=== PATIENT | female | born 1980 | race Caucasian/White ===

== ENCOUNTER 2020-07-05 17:07 | Emergency (ER) | payer MEDICARE, MEDICAID, SELFPAY ==
--- NOTE | ~2020-07-05 | CT_ITS ---
EXAMINATIONS: CT HEAD WITHOUT CONTRAST AND CT CERVICAL SPINE WITHOUT CONTRAST CLINICAL INFORMATION: Trauma. Fall. COMPARISON: None. TECHNIQUE: Contiguous helical images of the brain were obtained without IV contrast. Contiguous helical images of the cervical spine were obtained without IV contrast. Multiplanar reconstructions were performed. DLP: 513 mGy-cm. FINDINGS: There are no pathologic extra-axial fluid collections. The lateral, third, fourth ventricles are nondilated and concordant with the appearance of the sulci. There is no evidence for acute intraparenchymal hemorrhage or infarct. There is neither mass nor mass effect. There is no shift of midline structures. The paranasal sinuses and mastoid air cells are clear. There are no osseous lesions. The cervical vertebra are in normal alignment. Disc heights and vertebral heights are well-preserved. There are no fractures. There is no prevertebral soft tissue swelling. There is no cervical lymphadenopathy. The visualized lung apices are clear. CT/CT cervical spine wo con IMPRESSION: No evidence for acute intracranial injury. No evidence for acute injury to the cervical spine. Automated exposure control (Care Dose) Adjustment of the mA and/or kv according to patient size (this includes techniques or standardized protocols for targeted exams where dose is matched to indication / reason for exam; i.e. extremities or head).
--- NOTE | ~2020-07-05 | CT_ITS ---
EXAMINATIONS: CT HEAD WITHOUT CONTRAST AND CT CERVICAL SPINE WITHOUT CONTRAST CLINICAL INFORMATION: Trauma. Fall. COMPARISON: None. TECHNIQUE: Contiguous helical images of the brain were obtained without IV contrast. Contiguous helical images of the cervical spine were obtained without IV contrast. Multiplanar reconstructions were performed. DLP: 513 mGy-cm. FINDINGS: There are no pathologic extra-axial fluid collections. The lateral, third, fourth ventricles are nondilated and concordant with the appearance of the sulci. There is no evidence for acute intraparenchymal hemorrhage or infarct. There is neither mass nor mass effect. There is no shift of midline structures. The paranasal sinuses and mastoid air cells are clear. There are no osseous lesions. The cervical vertebra are in normal alignment. Disc heights and vertebral heights are well-preserved. There are no fractures. There is no prevertebral soft tissue swelling. There is no cervical lymphadenopathy. The visualized lung apices are clear. CT/CT head/brain wo con IMPRESSION: No evidence for acute intracranial injury. No evidence for acute injury to the cervical spine. Automated exposure control (Care Dose) Adjustment of the mA and/or kv according to patient size (this includes techniques or standardized protocols for targeted exams where dose is matched to indication / reason for exam; i.e. extremities or head).
[2020-07-05 17:17] VITALS: BP 123/76; BP 124/86; PULSE 70; PULSE 87; RESP 16; TEMP 36.5; O2SAT 99; BMI 22.1
--- NOTE | 2020-07-05 18:12 | ED_ITS ---
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 Per EMS patient was being pushed in wheelchair and fell forward, hit head on door frame, notable laceration to left eyebrow. Denies LOC. Patient not on anticoagulation. Patient denies injury/pain to other area. Unknown tetanus status Related Data Allergies Allergy/AdvReac Type Severity Reaction Status Date / Time No Known Allergies Allergy Unverified 07/05/20 17:46 Review of Systems Review of Systems: Constitutional: No Fever, No Chills Eyes: No Eye Pain Cardiovascular: No Chest Pain Gastrointestinal: No Nausea, No Vomiting, No Abdominal pain Musculoskeletal: No joint pain Skin: + laceration Neuro: + head injury, no LOC History limited due to patient's baseline mental status/dysarthria Yes all other systems are reviewed and are negative [facility] Past Medical History Attestation statement: The following information was validated with the patient. Social History Social History Advance Directives: No Advance Directives Information Provided: Yes Physical Exam Vital Signs: Vital Signs: Last Vital Signs Temp 98.1 F 07/05/20 18:29 Pulse 85 07/05/20 18:29 Resp 15 07/05/20 18:29 BP 111/67 07/05/20 18:29 Pulse Ox 98 07/05/20 18:29 Body Mass Index 22.1 Const: General: cooperative, healthy appearing, comfortable, well developed, alert and awake Limitations: no limitations HENMT: Other: + 2 cm linear laceration noted to left eyebrow with mild tenderness to palpation Head: No Morataya's sign Ears: hearing grossly normal bilaterally General nose exam: Normal external nose present Face and sinus: Yes normal facial exam Eyes: General: appearance normal, both eyes and all related structures Pupils: Equal, round and reactive pupils present EOM: EOMs intact bilaterally Neck: Other: C-collar in place. No midline cervical spinous tenderness Neck: Yes normal visual inspection Chest: Chest palpation & inspection: normal inspection of the chest, no crepitus and no tenderness Resp: Effort & Inspection: normal respiratory effort Cardio: Rate: regular rate GI: Inspection: Yes normal to inspection Palpation (GI): Soft to palpation, nontender, no guarding and not rigid Neuro: Other: Patient at baseline mental status General: tone normal Cranial nerves: Yes Equal, round and reactive pupils present Gait exam (Neuro): Normal gait present Extrem: Other: No tenderness to extremities. Passive ROM intact General: Yes normal to inspection Course Course Course Narrative: CT head/brain wo con IMPRESSION: No evidence for acute intracranial injury. No evidence for acute injury to the cervical spine. >> results discussed with patient. 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 On exam VSS, NAD/well-appearing, C-collar in place, notable laceration to left eyebrow. Exam nonfocal. Will obtain head/C-spine CT and repair laceration Patient texted she would rather Dermabond than sutures Plan: Imaging, Dermabond, update tetanus Medical Records Attestation: I reviewed the patient's medical records. Discharge Plan Discharge Clinical Impression: Facial laceration, Fall Patient Disposition: Home, Self-Care Instructions: Facial Laceration (ED), Skin Adhesive Care (ED) Additional Instructions: Your CT scans were unremarkable today in the ED Your laceration was repaired with skin glue, keep this area dry and clean, only pat dry, do not scrub, this skin glue will fall off on its own, after the skin glue falls off you may apply bacitracin or Neosporin, then thereafter you may apply anti scar cream like Mederma If area begins to look infected, is red, there is drainage, streaking, or you have fever return to the ED Follow-up with Referrals: Feliciano Sales DO [Primary Care Provider] - 3 days
[2020-07-05] MEDS: Diphth,Pertus(ACell),Tet Adult 0.5 ML SYRINGE IM (18:25)
[2020-07-05 18:29] VITALS: BP 111/67; PULSE 85; RESP 15; TEMP 36.7; O2SAT 98
[2020-07-05 19:33] VITALS: BP 110/68; PULSE 91; RESP 16; TEMP 36.6; O2SAT 99
== END 2020-07-05 20:14 | disposition home or self-care (01) ==
PROVIDERS: Emergency Provider Emergency Medicine; PCP Hospitalist
DX: S01.112A Laceration without foreign body of left eyelid and periocular area, initial encounter (principal); W22.09XA Striking against other stationary object, initial encounter; R47.1 Dysarthria and anarthria; R00.0 Tachycardia, unspecified; G21.0 Malignant neuroleptic syndrome; Z87.820 Personal history of traumatic brain injury; Z99.3 Dependence on wheelchair; Y93.89 Activity, other specified; Y92.129 Unspecified place in nursing home as the place of occurrence of the external cause; Y99.9 Unspecified external cause status
CPT/HCPCS: 12011; 70450; 72125; 90471; 90715; 99283; 99284

== ENCOUNTER 2020-07-11 13:23 | Emergency (ER) | payer MEDICARE, MEDICAID, SELFPAY ==
--- NOTE | ~2020-07-11 | CT_ITS ---
EXAMINATION: CT HEAD WITHOUT CONTRAST CLINICAL INFORMATION: Fall COMPARISON: July 05, 2020 TECHNIQUE: Contiguous axial imaging was performed from the skull base to vertex without intravenous administration of contrast. This CT examination was performed using dose optimization techniques as appropriate, variously including the following: *Automated exposure control *Adjustment of mA and/or kV according to patient size (this includes techniques or standardized protocols for targeted exams where dose is matched to indication/reason for exam; i.e. extremities or head) *Use of iterative reconstruction technique DLP: 565 mGy-cm FINDINGS: There is no evidence of acute intracranial hemorrhage or territorial infarction. No abnormal mass effect or midline shift is seen. [place] to white matter differentiation is well preserved. No extra-axial fluid collections are identified. The ventricles are normal in size. There is no abnormal attenuation within the brain parenchyma. The osseous structures are normal. There is a right frontal scalp hematoma. There are multiple partly calcified scalp lesions present. The mastoid air cells and visualized portions of the paranasal sinuses are well aerated. CT/CT head/brain wo con IMPRESSION: No acute intracranial pathology.
--- NOTE | ~2020-07-11 | CT_ITS ---
EXAMINATION: CT FACIAL BONES WITHOUT CONTRAST CLINICAL INFORMATION: Fall COMPARISON: None TECHNIQUE: CT of the facial bones with coronal and sagittal reconstructions without IV contrast. This CT examination was performed using dose optimization techniques as appropriate, variously including the following: *Automated exposure control *Adjustment of mA and/or kV according to patient size (this includes techniques or standardized protocols for targeted exams where dose is matched to indication/reason for exam; i.e. extremities or head) *Use of iterative reconstruction technique DLP: 332.62 mGy-cm FINDINGS: There is no acute maxillofacial fracture. The pterygoid plates are intact. The zygomatic arches are intact. The lamina papyracea are intact. The orbital rims are intact. The paranasal sinuses are well-aerated. No air-fluid levels are seen. There is right deviation of the nasal septum. The ostiomeatal complexes are clear. The lamina papyracea are intact. The ethmoid roofs are symmetric. The carotid canals are normally covered by bone. The mastoid air cells and visualized middle ear cavities are well-aerated. The orbits are normal. The TMJs are unremarkable. The imaged portions of the brain demonstrate no acute abnormality. There is left maxillary caries present within the first and second bicuspids and first and second molars with some gas present and underlying bony destruction. CT/CT facial bones wo con IMPRESSION: No acute facial bone fracture. Left maxillary caries with some bony destruction as described involving both left bicuspids and molars.
--- NOTE | ~2020-07-11 | CT_ITS ---
EXAMINATION: CT CERVICAL SPINE WITHOUT CONTRAST CLINICAL INFORMATION: Fall, trauma, pain COMPARISON: CT cervical spine noncontrast 11/04/2020. TECHNIQUE: Multidetector volumetric CT imaging of the cervical spine is performed without contrast in the axial plane. Additional 2D reformatted coronal and sagittal images are generated on the CT workstation and uploaded to PACS. This CT examination was performed using dose optimization techniques as appropriate, variously including the following: *Automated exposure control *Adjustment of mA and/or kV according to patient size (this includes techniques or standardized protocols for targeted exams where dose is matched to indication/reason for exam; i.e. extremities or head) *Use of iterative reconstruction technique DLP: 270 mGy-cm FINDINGS: There is no vertebral compression fracture, fracture line, spondylolisthesis, or prevertebral soft tissue swelling. The craniocervical junction appears normal. The odontoid appears intact. There is mild levocurvature lower cervical spine again noted. There are mild degenerative changes between anterior arch C1 and the dens. No significant degenerative changes. No perched facet. There is no apical pneumothorax. CT/CT cervical spine wo con IMPRESSION: No acute bony abnormality or prevertebral soft tissue swelling.
[2020-07-11 13:38] VITALS: BP 114/75; PULSE 92; RESP 18; TEMP 36.6; O2SAT 100; BMI 25.0
--- NOTE | 2020-07-11 13:49 | ED_ITS ---
HPI - Fall General Chief Complaint: Fall Stated Complaint: FALL,+HEAD STRIKE,+CCOLLAR Time Seen by Provider: 07/11/20 13:40 Source: EMS and old records reviewed Mode of arrival: EMS Limitations: altered mental status (nonverbal ) History of Present Illness HPI Narrative: 39 yo female with a hx of TBI bipolar disorder frequent falls here with c/o fall while getting dressed, witnessed mechanical in nature no LOC no thinners but did strike head on floor complaint: fall Onset (ago): minute(s) Fall from: standing Fall witnessed: yes, by living facility staff Place fall occurred: shelter/SNF Loss of consciousness: none Prolonged down time: no Symptoms prior to fall: none Context: tripped/slipped Location of injury: face Severity: mild Quality: dull Associated symptoms (after fall): denies Related Data Allergies Allergy/AdvReac Type Severity Reaction Status Date / Time No Known Allergies Allergy Unverified 07/05/20 17:46 Review of Systems Review of Systems: ROS unable to be obtained due to altered mental status PMFSH Past Medical History Attestation statement: The following information was validated with the patient. Medical History Anemia Ataxia Bipolar 1 disorder Falls TBI (traumatic brain injury) Social History Social History (Updated 07/11/20 @ 13:53 by Aby Gooden DO) Smoking Status: Unknown if ever smoked Use of substances other than those prescribed or required for medical reasons: No Advance Directives: No Advance Directives Information Provided: No Physical Exam Vital Signs: Vital Signs: Last Vital Signs Temp 97.8 F 07/11/20 13:38 Pulse 92 07/11/20 13:38 Resp 18 07/11/20 13:38 BP 114/75 07/11/20 13:38 Pulse Ox 100 07/11/20 13:38 Body Mass Index 25.0 Appearance: Alert. Flat affect, nonverbal, no acute distress Eyes: Pupils equal, round and reactive to light. ENT: Pharynx normal. Nose no septal hematoma - bride of nose superficial linear laceration 1cm Neck: Normal inspection. Neck supple. CVS: Normal heart rate and rhythm. Pulses normal. Respiratory: No respiratory distress. Breath sounds normal. Abdomen: Soft and non-tender. Skin: Skin warm and dry. Normal skin color. Normal skin turgor. Extremities: No lower extremity edema. No calf ttp Neuro: nonverbal tracks with eyes, seems to follow commands at time. No motor deficit. No sensory deficit. Procedures Laceration Laceration 1: Site: face (bridge of nose) Description: linear Depth: simple, single layer Local Anesthetic: other anesthetic (LMX) Pre-repair: wound explored and irrigated extensively Skin layer closed with: other (prolene) Size (cm): 6-0 Number of sutures: 1 Technique: simple, interrupted MDM - Fall MDM Narrative Medical decision making narrative: 39 yo female with TBI bipolar disorder c/o mechanical fall with injury to nasal bridge no AC therapy no LOC - will need CT head/neck/facial bones - wound care Discharge Plan Discharge Clinical Impression: Facial laceration, Fall Patient Disposition: Xfer SNF Instructions: Facial Laceration (ED) Additional Instructions: return to ED for any worsening symptoms or concerns SUTURES TO BE REMOVED IN [address] scans of head, cervical spine, facial bones negative for trauma
[2020-07-11] MEDS: Lidocaine 4 % Cream KIT 1 APPL TOPICAL (14:12)
== END 2020-07-11 19:13 | disposition skilled nursing facility (03) ==
PROVIDERS: Emergency Provider Emergency Medicine
DX: S01.21XA Laceration without foreign body of nose, initial encounter (principal); W18.30XA Fall on same level, unspecified, initial encounter; Z91.81 History of falling; F31.9 Bipolar disorder, unspecified; Z87.820 Personal history of traumatic brain injury; Y93.E8 Activity, other personal hygiene; Y92.092 Bedroom in other non-institutional residence as the place of occurrence of the external cause; Y99.9 Unspecified external cause status
CPT/HCPCS: 12014; 70450; 70486; 72125; 99283; 99284

== ENCOUNTER 2021-05-26 08:47 | Inpatient (IN) | payer MEDICARE, MEDICAID, SELFPAY ==
[2021-05-26] VITALS (17 sets, daily range): BP systolic 110–136; BP diastolic 46–77; PULSE 72–134; RESP 12–36; TEMP 38.3–39.4; O2SAT 94–100; BMI 25.3; BMI 24.3
--- NOTE | ~2021-05-26 | US_ITS ---
EXAMINATION: US VENOUS WITH DOPPLER UPPER EXTREMITY, LEFT CLINICAL INFORMATION: Rule out phlebitis COMPARISON: None TECHNIQUE: Ultrasound of the upper extremity is performed using compression sonography and color and pulse Doppler flow with assessment of augmentation of flow. There is also imaging and Doppler assessment of the jugular and subclavian veins. Spectral analysis with color-flow imaging is performed. FINDINGS: Respiratory variation, normal compression, and augmented flow are noted throughout the upper extremity including the axillary, brachial, cubital, and radial and ulnar veins. There is normal flow in the internal jugular and subclavian veins. There is no visible deep or superficial thrombophlebitis. If the patient's symptoms progress, a followup ultrasound in 5 -7 days might be of value to exclude proximal propagation from a nonvisualized distal arm vein. US/US venous duplex UE LT IMPRESSION: No DVT demonstrated in the left upper extremity
--- NOTE | ~2021-05-26 | CT_ITS ---
EXAMINATION: CT HEAD WITHOUT CONTRAST CLINICAL INFORMATION: AMS. COMPARISON: None TECHNIQUE: Contiguous axial imaging was performed from the skull base to vertex without intravenous administration of contrast. This CT examination was performed using dose optimization techniques as appropriate, variously including the following: *Automated exposure control *Adjustment of mA and/or kV according to patient size (this includes techniques or standardized protocols for targeted exams where dose is matched to indication/reason for exam; i.e. extremities or head) *Use of iterative reconstruction technique DLP: 944 mGy-cm FINDINGS: There is no evidence of acute intracranial hemorrhage or territorial infarction. No abnormal mass effect or midline shift is seen. [place] to white matter differentiation is well preserved. No extra-axial fluid collections are identified. The ventricles are normal in size. There is no abnormal attenuation within the brain parenchyma. Bone windows reveal no calvarial abnormality. There are several small to moderate-sized calcified scalp round lesions. The largest lesion left frontal scalp measures 1.2 cm likely sebaceous cyst or neurofibroma. The mastoid air cells and visualized portions of the paranasal sinuses are well aerated. CT/CT head/brain wo con IMPRESSION: No acute intracranial process seen. Multiple calcified scalp lesions likely sebaceous cysts or neurofibromas.
--- NOTE | ~2021-05-26 | US_ITS ---
EXAMINATION: CHEST X-RAY. ULTRASOUND BILATERAL LOWER EXTREMITY VENOUS DUPLEX STUDY. CLINICAL INFORMATION: Altered mental status. Cellulitis. COMPARISON: None. TECHNIQUE: Chest one view. Routine grayscale, color and Doppler imaging of left lower venous system was performed. FINDINGS: Chest: The patient is rotated to the right. The lungs are expanded with elevated left hemidiaphragm. Heart size is mildly enlarged extending the right hemithorax. The pulmonary vascularity is prominent but no consolidation seen. No gross bony abnormality. There is gaseous distention of colon in the mid and left upper quadrant. Ultrasound left lower leg. There is normal patency, color flow and Doppler imaging of bilateral common femoral, greater saphenous, superficial femoral, popliteal and calf veins. On Doppler exam there is increased bilateral venous flow seen. There is no Whalen's cyst. There is no Whalen's cyst visualized. Incidentally noted are multiple bilateral groin lymph nodes. Largest right groin lymph node measures 3.1 x 0.9 x 3.1 cm and left groin lymph node measures 3.9 x 1.1 x 2.2 cm. Most of these lymph nodes have benign characteristics by ultrasound. US/US venous duplex LE BI IMPRESSION: Elevated left hemidiaphragm without any acute pneumonic process in either lungs. Mild cardiomegaly with prominent bilateral pulmonary vascularity. Bilateral lower leg venous study is negative for DVT. Increased vascular flow seen both legs could be secondary to inflammation or infection. Multiple bilateral enlarged groin lymph nodes as described above.
--- NOTE | 2021-05-26 09:00 | ECG_ITS ---
Test Reason : AMS Blood Pressure : / mmHG Vent. Rate : 091 BPM Atrial Rate : 091 BPM P-R Int : 144 ms QRS Dur : 080 ms QT Int : 376 ms P-R-T Axes : 040 046 037 degrees QTc Int : 462 ms Normal sinus rhythm Minimal voltage criteria for LVH, may be normal variant ( Sokolow-Dos Santos ) Nonspecific ST abnormality Abnormal ECG No previous ECGs available Referred By: Kaylie Fox Electronically Signed By:ADAM MIR
[2021-05-26] MEDS: 0.9 % Sodium Chloride 2,334 ML 2334 ML IV (09:28)
[2021-05-26 09:50] LABS: MANUAL DIFF FLAG NO
[2021-05-26] MEDS: Acetaminophen Supp 650 MG SUPP.RECT 975 MG PR ×2 (09:51→15:27)
[2021-05-26] MEDS: cefTRIAXone sodium 2 GM in 0.9 % Sodium Chloride 50 ML IV (09:51)
[2021-05-26 09:54] LABS: Basophils Percent Auto 0.3 % (0-2); Hematocrit 31.8 % (37.0-47.0); Hemoglobin 10.3 g/dl (12.0-16.0); Imm Gran Abs Auto 0.02 X10*3/uL (0.00-0.03); Imm Gran Pct Auto 0.3 % (0.0-0.4); Lymphocytes Absolute Auto 0.7 X10*3/uL (1.2-4.9); Lymphocytes Percent Auto 9.7 % (20-40); Mean Corpuscular HGB Conc 32.4 g/dl (31.0-35.0); Mean Corpuscular Hemoglobin 29.3 pg (27.0-33.0); Mean Corpuscular Volume 90.3 fL (80.0-98.0); Mean Platelet Volume 11.4 fL (9.4-12.3); Monocytes Absolute Auto 0.8 X10*3/uL (0.1-1.2); Monocytes Percent Auto 11.2 % (2-11); Neutrophils Absolute Auto 5.3 x10*3/uL (2.0-8.3); Neutrophils Percent Auto 78.5 % (45-73); Platelet Count 178 X10*3/uL (160-400); Red Blood Count 3.52 X10*6/uL (4.20-5.50); Red Cell Distribution Width 13.6 % (11.0-16.0); White Blood Count 6.7 X10*3/uL (4.8-10.8)
--- NOTE | 2021-05-26 10:05 | ED_ITS ---
HPI - Altered Mental Status General Chief Complaint: Altered Mental Status Stated Complaint: AMS Time Seen by Provider: 05/26/21 08:50 Source: EMS and other ([facility] reports ) Mode of arrival: EMS Limitations: other (Patient is nonverbal at baseline typically able to point to paper that says yes or no ) History of Present Illness HPI narrative: 40-year-old female with a past medical history of a TBI who is now nonverbal at baseline although answers by pointing yo a paper that says ?yes? and ?no? questions and [facility] presenting to the ED via EMS after the long term facility that she is currently residing at center here for further evaluation treatment due to increased altered mental status and decreased responsiveness since yesterday night. They report that she has not been able to point to answ er yes or no questions and they have noticed that she has been unable to close her mouth since last night. They report that she is not eating since last night as well. On exam patient is noted to be contracted with her upper extremities and she has a brief on that is clean although her lower extremities appear cellulitic and she has a wound to the left lower extremity that I uncovered and has some serosanguineous drainage. There is no streaking noted on my exam. complaint: altered mental status and decreased responsiveness Onset (ago): day(s) (Since last night around dinner time) Timing confirmed by: caregiver ([facility] staff) Severity: severe Consistency of symptoms: getting Worse Context: other (See above) Related Data Allergies Allergy/AdvReac Type Severity Reaction Status Date / Time No Known Allergies Allergy Unverified 07/05/20 17:46 Review of Systems Review of Systems: Yes Unobtainable due to mental condition PMFSH Past Medical History Source: old records reviewed and nursing notes reviewed Medical History Anemia Ataxia Bipolar 1 disorder Falls TBI (traumatic brain injury) Social History Social History Alcohol intake: unknown Patient Tobacco Use Status: Tobacco use Unknown Use of substances other than those prescribed or required for medical reasons: Unable to respond Advance Directives: Yes Advance Directives on File: Yes Advance Directives Date on File: 07/12/20 Patient : No Physical Exam ED Vital Signs: Vital Signs - 24 hr 05/26/21 08:56 05/26/21 09:13 05/26/21 10:00 Temperature 101 F H Pulse Rate 87 Respiratory Rate 12 Blood Pressure 111/59 L 113/76 Pulse Oximetry 94 05/26/21 10:19 05/26/21 11:41 Temperature 100.9 F H Pulse Rate 88 Respiratory Rate 16 Blood Pressure 123/76 110/63 Pulse Oximetry 98 BMI result Body Mass Index 25.3 vital signs have been reviewed as normal and appeared to be correct. Blood pressure 111/59. Heart rate 101. Respiration rate 12. Temperature 101.0 Oxygen saturation 94. Appearance: Alert. Flat affect, nonverbal with mouth wide open no acute distress. Head: Normal external exam. Normocephalic. Atraumatic. No [place] signs noted. No raccoon eyes noted Eyes: PERRLA. EOMI. Conjunctiva and sclera normal. Eyelids normal. ENT: EAC normal. TM's Normal. Pharynx normal. Uvula midline. Patient noted to have dry mucous membranes. No lesions/ulcerations or masses noted on the tongue. No trismus noted. No drooling noted. No muffled voice noted. Neck: Normal inspection. Neck supple. FROM. No adenopathy. Thyroid Normal. No tracheal deviation noted. No crepitus is noted. No meningeal signs. No neck mass noted. No signs of trauma noted. CVS: Normal heart rate and rhythm. Heart sound normal. Pulses normal throughout. No murmurs/rales/gallops. Respiratory: No respiratory distress. Painless inspiration. Breath sounds normal. No wheezes/rales/rhonchi noted. Chest nontender. No crepitus is noted. No signs of trauma noted. No accessory muscle usage noted or decreased air movement noted. No signs of trauma. Abdomen: Soft and nontender. Bowel sounds normal in all 4 quadrants. No distention noted. No organomegaly noted. No visible injury noted. Back: Nontender. No signs of trauma. No rashes/lesion/induration/fluctuance or signs of infection noted. Skin: Skin warm and dry. Normal skin color. Patient has poor skin turgor. She has a cellulitic infection to bilateral lower extremities and a wound to the left lower extremity. Otherwise no additional rashes/lesions/lacerations noted Extremities: See pictures below. To bilateral lower extremities patient has erythema/warmth to touch and appears tender to palpation consistent with cellulitic infection. To the left lower extremity she is noted to have a wound that has serosanguineous drainage. She is also noted to have bilateral lower extremity edema. Her upper extremities are contracted. Neuro: Nonverbal tracks with eyes, seems to follow commands at times. No motor deficit. No sensory deficit. Vascular: + radial pulses/+ 2 distal pedal pulses/+2 dorsalis pedis b/l. Normal cap refill. No cyanosis noted to upper extremity nails and lower extremity toes nails. Course Course Course Narrative: 9:45am - 40-year-old female with a past medical history of a TBI who is now nonverbal at baseline although answers by pointing yo a paper that says ?yes? and ?no? questions and Bi[facility]olar presenting to the ED via EMS after the long term facility that she is currently residing at center here for further evaluation treatment due to increased altered mental status and decreased responsiveness since yesterday night. They report that she has not been able to point to answer yes or no questions and they have noticed that she has been unable to close her mouth since last night. They report that she is not eating since last night as well. On exam alert and tracks you with her eyes no focal deficits noted at this time. Patient is noted to be contracted with her upper extremities. Lungs are clear to auscultation. Abdomen is soft and nontender. she has a brief on that is clean. Although her lower extremities appear cellulitic and she has a wound to the left lower extremity that I uncovered and has some serosanguineous drainage. I put place pictures in the chart. There is no streaking noted on my exam. Plan; labs, EKG, CT scan of brain, chest x-ray, bilateral duplex ultrasound of lower extremity, blood cultures, lactic acid. Provide fluids, 975 mg of Tylenol due to the patient is febrile and start the patient on Rocephin for cellulitic infection of lower extremities and re-evaluate. Reevaluation(s) Reevaluation #1: - labs reviewed patient with anemia no prior labs to compare to at this time. BUN 8. AST 35. Troponin 11.4. Otherwise all other labs are within normal limits. UA revealed 40 ketones and +1 protein otherwise no evidence of UTI. Patient negative with stool occult. Patient is negative for COVID - chest x-ray revealed elevated left hemo diaphragm and mild cardiomegaly with bilateral pulmonary vasculature otherwise no other acute processes. - venous duplex ultrasound of bilateral lower extremity negative for DVT and noted to have multiple bilateral enlarged groin lymph nodes which would be related to her cellulitis to her lower extremities appear - CT scan of brain revealed chronic changes no acute processes are noted peer - therefore at this time patient will need to be admitted for cellulitis/fever/sepsis. Time: 12:36 MDM - Altered Mental Status Medical Records Attestation: I reviewed the patient's medical records. Lab Data Attestation: I reviewed the patient's lab results. Result diagrams: 05/26/21 09:45 05/26/21 09:45 Labs: Lab Results 05/26/21 05/26/21 05/26/21 Range/Units 09:45 09:45 09:45 WBC 6.7 (4.8-10.8) X10*3/uL RBC 3.52 L (4.20-5.50) X10*6/uL Hgb 10.3 L (12.0-16.0) g/dl Hct 31.8 L (37.0-47.0) % MCV 90.3 (80.0-98.0) fL MCH 29.3 (27.0-33.0) pg MCHC 32.4 (31.0-35.0) g/dl RDW 13.6 (11.0-16.0) % Plt Count 178 (160-400) X10*3/uL MPV 11.4 (9.4-12.3) fL Immature Gran % (Auto) 0.3 (0.0-0.4) % Neut % (Auto) 78.5 H (45-73) % Lymph % (Auto) 9.7 L (20-40) % [place] % (Auto) 11.2 H (2-11) % Eos % (Auto) 0.0 (0-4) % Baso % (Auto) 0.3 (0-2) % Lymph # (Auto) 0.7 L (1.2-4.9) X10*3/uL [place] # (Auto) 0.8 (0.1-1.2) X10*3/uL Eos # (Auto) 0.0 (0.0-0.4) X10*3/uL Baso # (Auto) 0.0 (0.0-0.2) X10*3/uL Abs Immat Gran (auto) 0.02 (0.00-0.03) X10*3/uL Absolute Neuts (auto) 5.3 (2.0-8.3) x10*3/uL Absolute Nucleated RBC 0.000 (0.0-0.012) X10*3/uL Nucleated RBC % (auto) 0.0 (0.0-0.2) /100WBC PT (9.9-13.0) SEC INR (0.9-1.1) Sodium 141 (135-145) mmol/L Potassium 3.8 (3.3-5.1) mmol/L Chloride 106 (96-108) mmol/L Carbon Dioxide 24 (22-29) mmol/L Anion Gap 15 (12-20) BUN 8 L (9-16) mg/dL Creatinine 0.59 (0.5-1.4) mg/dL Estim Creat Clear Calc 135.1 Estimated GFR > 60 Random Glucose 84 (60-115) mg/dL Lactic Acid 1.0 (0.5-2.0) mmol/L Calcium 9.0 (8.4-10.2) mg/dL Magnesium 1.8 (1.6-2.6) mg/dL Total Bilirubin 0.6 (0.0-1.0) mg/dL AST 35 H (5-31) U/L ALT 12 (0-31) U/L Alkaline Phosphatase 88 (39-117) U/L Troponin I High Sens (<3.5-17.0) ng/L Total Protein 6.8 (6.5-8.0) g/dL Albumin 3.7 (3.5-5.0) g/dL Beta HCG, Quant < 2 mIU/mL Urine Color Urine Appearance Urine pH (5.0-8.0) Ur Specific [place] (1.005-1.025) Urine Protein (NEG-TRACE) MG/DL Urine Glucose (UA) (NEG) MG/DL Urine Ketones (NEG) MG/DL Urine Blood (NEG) Urine Nitrite (NEG) Ur Leukocyte Esterase (NEG) Urine RBC (0) /HPF Urine WBC (0-4) /HPF Ur Squamous Epith Cells /LPF Amorphous Sediment /LPF Urine Bacteria /LPF Stool Occult Blood (NEGATIVE) Urine Opiates Screen (Not Detect) Urine Fentanyl Screen (Not Detect) Ur Barbiturates Screen (Not Detect) Ur Phencyclidine Scrn (Not Detect) Ur Amphetamines Screen (Not Detect) U Benzodiazepines Scrn (Not Detect) Urine Cocaine Screen (Not Detect) U Marijuana (THC) Screen (Not Detect) COVID-19 ([place]O) (Negative) COVID-19 Clin Com 05/26/21 05/26/21 05/26/21 Range/Units 09:45 09:45 10:09 WBC (4.8-10.8) X10*3/uL RBC (4.20-5.50) X10*6/uL Hgb (12.0-16.0) g/dl Hct (37.0-47.0) % MCV (80.0-98.0) fL MCH (27.0-33.0) pg MCHC (31.0-35.0) g/dl RDW (11.0-16.0) % Plt Count (160-400) X10*3/uL MPV (9.4-12.3) fL Immature Gran % (Auto) (0.0-0.4) % Neut % (Auto) (45-73) % Lymph % (Auto) (20-40) % [place] % (Auto) (2-11) % Eos % (Auto) (0-4) % Baso % (Auto) (0-2) % Lymph # (Auto) (1.2-4.9) X10*3/uL [place] # (Auto) (0.1-1.2) X10*3/uL Eos # (Auto) (0.0-0.4) X10*3/uL Baso # (Auto) (0.0-0.2) X10*3/uL Abs Immat Gran (auto) (0.00-0.03) X10*3/uL Absolute Neuts (auto) (2.0-8.3) x10*3/uL Absolute Nucleated RBC (0.0-0.012) X10*3/uL Nucleated RBC % (auto) (0.0-0.2) /100WBC PT (9.9-13.0) SEC INR (0.9-1.1) Sodium (135-145) mmol/L Potassium (3.3-5.1) mmol/L Chloride (96-108) mmol/L Carbon Dioxide (22-29) mmol/L Anion Gap (12-20) BUN (9-16) mg/dL Creatinine (0.5-1.4) mg/dL Estim Creat Clear Calc Estimated GFR Random Glucose (60-115) mg/dL Lactic Acid (0.5-2.0) mmol/L Calcium (8.4-10.2) mg/dL Magnesium (1.6-2.6) mg/dL Total Bilirubin (0.0-1.0) mg/dL AST (5-31) U/L ALT (0-31) U/L Alkaline Phosphatase (39-117) U/L Troponin I High Sens 11.4 (<3.5-17.0) ng/L Total Protein (6.5-8.0) g/dL Albumin (3.5-5.0) g/dL Beta HCG, Quant mIU/mL Urine Color YELLOW Urine Appearance HAZY Urine pH 8.5 H (5.0-8.0) Ur Specific [place] 1.015 (1.005-1.025) Urine Protein 1+ H (NEG-TRACE) MG/DL Urine Glucose (UA) NEG (NEG) MG/DL Urine Ketones 40 (NEG) MG/DL Urine Blood NEG (NEG) Urine Nitrite NEG (NEG) Ur Leukocyte Esterase NEG (NEG) Urine RBC 0-2 (0) /HPF Urine WBC 0-2 (0-4) /HPF Ur Squamous Epith Cells TRACE /LPF Amorphous Sediment 2+ /LPF Urine Bacteria NONE /LPF Stool Occult Blood (NEGATIVE) Urine Opiates Screen (Not Detect) Urine Fentanyl Screen (Not Detect) Ur Barbiturates Screen (Not Detect) Ur Phencyclidine Scrn (Not Detect) Ur Amphetamines Screen (Not Detect) U Benzodiazepines Scrn (Not Detect) Urine Cocaine Screen (Not Detect) U Marijuana (THC) Screen (Not Detect) COVID-19 ([place]) Negative (Negative) COVID-19 Clin Com See Note 05/26/21 05/26/21 05/26/21 Range/Units 10:09 10:44 11:11 WBC (4.8-10.8) X10*3/uL RBC (4.20-5.50) X10*6/uL Hgb (12.0-16.0) g/dl Hct (37.0-47.0) % MCV (80.0-98.0) fL MCH (27.0-33.0) pg MCHC (31.0-35.0) g/dl RDW (11.0-16.0) % Plt Count (160-400) X10*3/uL MPV (9.4-12.3) fL Immature Gran % (Auto) (0.0-0.4) % Neut % (Auto) (45-73) % Lymph % (Auto) (20-40) % [place] % (Auto) (2-11) % Eos % (Auto) (0-4) % Baso % (Auto) (0-2) % Lymph # (Auto) (1.2-4.9) X10*3/uL [place] # (Auto) (0.1-1.2) X10*3/uL Eos # (Auto) (0.0-0.4) X10*3/uL Baso # (Auto) (0.0-0.2) X10*3/uL Abs Immat Gran (auto) (0.00-0.03) X10*3/uL Absolute Neuts (auto) (2.0-8.3) x10*3/uL Absolute Nucleated RBC (0.0-0.012) X10*3/uL Nucleated RBC % (auto) (0.0-0.2) /100WBC PT 14.4 H (9.9-13.0) SEC INR 1.3 H (0.9-1.1) Sodium (135-145) mmol/L Potassium (3.3-5.1) mmol/L Chloride (96-108) mmol/L Carbon Dioxide (22-29) mmol/L Anion Gap (12-20) BUN (9-16) mg/dL Creatinine (0.5-1.4) mg/dL Estim Creat Clear Calc Estimated GFR Random Glucose (60-115) mg/dL Lactic Acid (0.5-2.0) mmol/L Calcium (8.4-10.2) mg/dL Magnesium (1.6-2.6) mg/dL Total Bilirubin (0.0-1.0) mg/dL AST (5-31) U/L ALT (0-31) U/L Alkaline Phosphatase (39-117) U/L Troponin I High Sens (<3.5-17.0) ng/L Total Protein (6.5-8.0) g/dL Albumin (3.5-5.0) g/dL Beta HCG, Quant mIU/mL Urine Color Urine Appearance Urine pH (5.0-8.0) Ur Specific [place] (1.005-1.025) Urine Protein (NEG-TRACE) MG/DL Urine Glucose (UA) (NEG) MG/DL Urine Ketones (NEG) MG/DL Urine Blood (NEG) Urine Nitrite (NEG) Ur Leukocyte Esterase (NEG) Urine RBC (0) /HPF Urine WBC (0-4) /HPF Ur Squamous Epith Cells /LPF Amorphous Sediment /LPF Urine Bacteria /LPF Stool Occult Blood NEGATIVE (NEGATIVE) Urine Opiates Screen Not Detected (Not Detect) Urine Fentanyl Screen Not Detected (Not Detect) Ur Barbiturates Screen Not Detected (Not Detect) Ur Phencyclidine Scrn Not Detected (Not Detect) Ur Amphetamines Screen Not Detected (Not Detect) U Benzodiazepines Scrn Not Detected (Not Detect) Urine Cocaine Screen Not Detected (Not Detect) U Marijuana (THC) Screen Not Detected (Not Detect) COVID-19 ([place]) (Negative) COVID-19 Clin Com 05/26/21 Range/Units 12:46 WBC (4.8-10.8) X10*3/uL RBC (4.20-5.50) X10*6/uL Hgb (12.0-16.0) g/dl Hct (37.0-47.0) % MCV (80.0-98.0) fL MCH (27.0-33.0) pg MCHC (31.0-35.0) g/dl RDW (11.0-16.0) % Plt Count (160-400) X10*3/uL MPV (9.4-12.3) fL Immature Gran % (Auto) (0.0-0.4) % Neut % (Auto) (45-73) % Lymph % (Auto) (20-40) % [place] % (Auto) (2-11) % Eos % (Auto) (0-4) % Baso % (Auto) (0-2) % Lymph # (Auto) (1.2-4.9) X10*3/uL [place] # (Auto) (0.1-1.2) X10*3/uL Eos # (Auto) (0.0-0.4) X10*3/uL Baso # (Auto) (0.0-0.2) X10*3/uL Abs Immat Gran (auto) (0.00-0.03) X10*3/uL Absolute Neuts (auto) (2.0-8.3) x10*3/uL Absolute Nucleated RBC (0.0-0.012) X10*3/uL Nucleated RBC % (auto) (0.0-0.2) /100WBC PT (9.9-13.0) SEC INR (0.9-1.1) Sodium (135-145) mmol/L Potassium (3.3-5.1) mmol/L Chloride (96-108) mmol/L Carbon Dioxide (22-29) mmol/L Anion Gap (12-20) BUN (9-16) mg/dL Creatinine (0.5-1.4) mg/dL Estim Creat Clear Calc Estimated GFR Random Glucose (60-115) mg/dL Lactic Acid (0.5-2.0) mmol/L Calcium (8.4-10.2) mg/dL Magnesium (1.6-2.6) mg/dL Total Bilirubin (0.0-1.0) mg/dL AST (5-31) U/L ALT (0-31) U/L Alkaline Phosphatase (39-117) U/L Troponin I High Sens 9.7 (<3.5-17.0) ng/L Total Protein (6.5-8.0) g/dL Albumin (3.5-5.0) g/dL Beta HCG, Quant mIU/mL Urine Color Urine Appearance Urine pH (5.0-8.0) Ur Specific [place] (1.005-1.025) Urine Protein (NEG-TRACE) MG/DL Urine Glucose (UA) (NEG) MG/DL Urine Ketones (NEG) MG/DL Urine Blood (NEG) Urine Nitrite (NEG) Ur Leukocyte Esterase (NEG) Urine RBC (0) /HPF Urine WBC (0-4) /HPF Ur Squamous Epith Cells /LPF Amorphous Sediment /LPF Urine Bacteria /LPF Stool Occult Blood (NEGATIVE) Urine Opiates Screen (Not Detect) Urine Fentanyl Screen (Not Detect) Ur Barbiturates Screen (Not Detect) Ur Phencyclidine Scrn (Not Detect) Ur Amphetamines Screen (Not Detect) U Benzodiazepines Scrn (Not Detect) Urine Cocaine Screen (Not Detect) U Marijuana (THC) Screen (Not Detect) COVID-19 ([place]) (Negative) COVID-19 Clin Com Imaging Data Chest x-ray and venous duplex ultrasound of bilateral lower extremities: Attestation: I personally reviewed and interpreted this imaging study as follows: Radiologist's impression: FINDINGS: Chest: The patient is rotated to the right. The lungs are expanded with elevated left hemidiaphragm. Heart size is mildly enlarged extending the right hemithorax. The pulmonary vascularity is prominent but no consolidation seen. No gross bony abnormality. There is gaseous distention of colon in the mid and left upper quadrant. Ultrasound left lower leg. There is normal patency, color flow and Doppler imaging of bilateral common femoral, greater saphenous, superficial femoral, popliteal and calf veins.? On Doppler exam there is increased bilateral venous flow seen. There is no Whalen's cyst. There is no Whalen's cyst visualized. Incidentally noted are multiple bilateral groin lymph nodes. Largest right groin lymph node measures 3.1 x 0.9 x 3.1 cm and left groin lymph node measures 3.9 x 1.1 x 2.2 cm. Most of these lymph nodes have benign characteristics by ultrasound. XR/XR chest 1V IMPRESSION: Elevated left hemidiaphragm without any acute pneumonic process in either lungs. ? Mild cardiomegaly with prominent bilateral pulmonary vascularity. ? Bilateral lower leg venous study is negative for DVT. Increased vascular flow seen both legs could be secondary to inflammation or infection. ? Multiple bilateral enlarged groin lymph nodes as described above. CT scan of brain without contrast: Attestation: I personally reviewed and interpreted this imaging study as follows: Radiologist's impression: FINDINGS: There is no evidence of acute intracranial hemorrhage or territorial infarction. No abnormal mass effect or midline shift is seen. [place] to white matter differentiation is well preserved. No extra-axial fluid collections are identified. The ventricles are normal in size. There is no abnormal attenuation within the brain parenchyma. Bone windows reveal no calvarial abnormality. There are several small to moderate-sized calcified scalp round lesions. The largest lesion left frontal scalp measures 1.2 cm likely sebaceous cyst or neurofibroma. The mastoid air cells and visualized portions of the paranasal sinuses are well aerated. ? CT/CT head/brain wo con IMPRESSION: No acute intracranial process seen. ? Multiple calcified scalp lesions likely sebaceous cysts or neurofibromas. ECG Data ECG #1: Attestation: I personally reviewed and interpreted this ECG as follows: ECG interpretation date: 05/26/21 ECG interpretation time: 10:29 Interpretation: Normal sinus rhythm and a triplet of 91 with LVH and nonspecific ST abnormalities no acute ischemic changes are noted. No prior EKGs in our system to compare to at this time. Critical Care Time Critical Care Time Critical Care Time: Yes Total Critical Care Time: 60 Attestation: I personally attest to this time spent taking care of the patient Discharge Plan Discharge Clinical Impression: Cellulitis, AMS (altered mental status), Fever, Sepsis Patient Disposition: Admitted As Inpatient
[2021-05-26 10:13] LABS: Alanine Aminotransferase 12 U/L (0-31); Albumin Level 3.7 g/dL (3.5-5.0); Alkaline Phosphatase 88 U/L (39-117); Anion Gap 15 (12-20); Aspartate Amino Transferase 35 U/L (5-31); Bilirubin Total 0.6 mg/dL (0.0-1.0); Blood Urea Nitrogen 8 mg/dL (9-16); Carbon Dioxide 24 mmol/L (22-29); Chloride 106 mmol/L (96-108); Creatinine Clr Calc Pharmacy 135.1; Estimated Glomerular Filt Rate > 60; Glucose Random 84 mg/dL (60-115); Magnesium 1.8 mg/dL (1.6-2.6); Potassium 3.8 mmol/L (3.3-5.1); Sodium 141 mmol/L (135-145); Total Protein 6.8 g/dL (6.5-8.0)
[2021-05-26 10:15] LABS: Troponin-I High Sensitivity 11.4 ng/L (<3.5-17.0)
[2021-05-26 10:22] LABS: COVID-19 Test Negative (Negative)
[2021-05-26 10:24] LABS: Appearance Urine HAZY; Color Urine YELLOW; Glucose Urine UA NEG (NEG); Leukocyte Esterase Urine NEG (NEG); Nitrite Urine NEG (NEG); PH 8.5 (5.0-8.0); Specific Gravity - Urine 1.015 (1.005-1.025); UACC Culture Trigger NO; Urine Blood NEG (NEG); Urine Ketones 40 MG/DL (NEG)
[2021-05-26 10:27] LABS: HCG Quantitative < 2 mIU/mL
[2021-05-26 10:38] LABS: Urine Protein 1+ MG/DL (NEG-TRACE)
[2021-05-26 10:39] LABS: Amorphous Sediment Urine 2+ /LPF; Amphetamine Screen Urine Not Detected (Not Detect); Barbiturates, Urine Not Detected (Not Detect); Benzodiazepines Screen Urine Not Detected (Not Detect); Cannabinoid Screen Urine Not Detected (Not Detect); Cocaine Screen Urine Not Detected (Not Detect); Fentanyl, urine Not Detected (Not Detect); Opiate Screen Urine Not Detected (Not Detect); Phencyclidine Screen Urine Not Detected (Not Detect); RBC Urine 0-2 /HPF (0); Squamous Epithelial Cell Urine TRACE /LPF; WBC Urine 0-2 /HPF (0-4)
[2021-05-26 11:03] LABS: INTERNATIONAL NORM RATIO 1.3 (0.9-1.1); Prothrombin Time 14.4 SEC (9.9-13.0)
[2021-05-26 11:25] LABS: OBS1 NEGATIVE (NEGATIVE)
[2021-05-26 11:26] LABS: OBS Int Ctl Valid YES
[2021-05-26 13:19] LABS: Troponin-I High Sensitivity 9.7 ng/L (<3.5-17.0)
--- NOTE | 2021-05-26 14:12 | PHA.MEDREC ---
Pharmacy Consult ? Medication Reconciliation Pharmacy has completed the medication reconciliation. Med rec based on skilled nursing mar, confirmed with nurse at facility that she takes two different doses of mirtazapine at bedtime Sanjuanita Romeo PharmD
[2021-05-26] MEDS: vancomycin HCL 1,250 MG in 0.9 % Sodium Chloride 250 ML 166.67 MG IV (14:42)
--- NOTE | 2021-05-26 15:42 | PHA.PROG ---
Admission Date/Time: May 26, 2021 15:11 Indication: Skin Infection Weight in k.8 kg Adjusted body weight in K.84 kg Tell body weight in K.2 kg Obesity Dosing Indication % IBW: 117% Serum Creatinine - Last 168 Hours 05/26/21 09:45 Creatinine 0.59 Estimated CrCl and GFR - Last 168 Hours 05/26/21 09:45 Estim Creat Clear Calc 135.1 Estimated GFR > 60 Vancomycin Loading Dose: N/A Current Vancomycin Dosing Regimen: 1250 mg Q12H Date and Time for next Vancomycin Level to be drawn: 05/27 @ 2200 Pharmacist Comments on Vancomycin Plan: First dose vancomycin 1250 mg (16 mg/kg) given in the ED 05/26 @ 1442. Since first dose was not a full loading dose, we will give second dose in 9 hours. Maintenance dose vancomycin 1250 mg Q12H to begin 05/27 @ 0000 Trough to be drawn prior to 4th dose Pharmacy will monitor renal function daily Ninfa Muñoz PharmD Vancomycin dosing will take advantage of [employer] as a clinical decision support tool that uses Bayesian modeling to calculate individual patient's pharmacokinetic parameters and forecast the patient's drug concentration time course with the target goal AUC 24 range of 400 - 600 mg/L/hr.
[2021-05-26] MEDS: Nicotine 7 MG PATCH.TD24 TRANSDERMA (17:32)
[2021-05-26] MEDS: Piperacillin Sodium/Tazobactam 3.375 GM in 0.9 % Sodium Chloride 50 ML IV ×2 (17:32→22:17)
[2021-05-26] MEDS: 0.9 % Sodium Chloride 1,000 ML 125 ML IVCONT (17:32)
--- NOTE | 2021-05-26 17:40 | PM.IMHP ---
History of Present Illness Date of Service: 05/26/21 Chief Complaint: cellulitis 32-year-old female presents from [address] with complaints of fever and altered mental status as observed by the staff. Transfer sheet says over the last 24 hours she has had persistent fever and mental status changes from baseline. She has a known history TBI and severe de pendant edema. She has been treated many times with antibiotics for recurrent cellulitis. In the emergency room, workup including head CT chest x-ray and venous duplex were unremarkable; exam consistent with diffuse bilateral lower extremity cellulitis Review of Systems Review of Systems: Unable to obtain [facility] Medical History Anemia Ataxia Bipolar 1 disorder Falls TBI (traumatic brain injury) Social History Alcohol intake: unknown Patient Tobacco Use Status: Tobacco use Unknown Use of substances other than those prescribed or required for medical reasons: Unable to respond Advance Directives: Yes Advance Directives on File: Yes Advance Directives Date on File: 07/12/20 Patient : No Meds Allergies Allergy/AdvReac Type Severity Reaction Status Date / Time No Known Allergies Allergy Unverified 07/05/20 17:46 Active Medications: Current Medications Acetaminophen (Acetaminophen 325 Mg Tablet) 650 mg PO Q6H PRN PRN Reason: Fever Or Pain Baclofen (Baclofen 10 Mg Tablet) 10 mg PO TID SUSAN Bisacodyl (Bisacodyl 10 Mg Supp.Rect) 10 mg NC DAILY PRN PRN Reason: Constipation Sodium Chloride (Ns) 1,000 mls @ 125 mls/hr IVCONT .Q8H [facility] Last Admin: 05/26/21 17:32 Dose: 125 mls/hr Documented by: Piperacillin Sod/Tazobactam (Sod 3.375 gm/ Sodium Chloride) 50 mls @ 100 mls/hr IV Q6H [facility] Last Admin: 05/26/21 17:32 Dose: 100 mls/hr Documented by: Vancomycin HCl 1,250 mg/ (Sodium Chloride) 250 mls @ 166.667 mls/hr IV Q12H SUSAN Ibuprofen (Ibuprofen 400 Mg Tablet) 400 mg PO Q6H PRN PRN Reason: Pain (Scale Score 1-3) Mirtazapine (Mirtazapine 7.5 Mg Tablet) 7.5 mg PO BEDTIME [facility] Mirtazapine (Mirtazapine 15 Mg Tablet) 15 mg PO BEDTIME [facility] Multivitamins/Vitamin C (Multivitamin Tablet) 1 tab PO DAILY [facility] Nicotine (Nicotine 7 Mg Patch.Td24) 7 mg TRANSDERMA Q24H [facility] Last Admin: 05/26/21 17:32 Dose: 7 mg Documented by: Pharmacy Consult (Consult Rx Perform Med Rec) 1 each MISCELLANE ONCE PRN PRN Reason: Consult order Pharmacy Consult (Consult Rx Vancomycin Dosing) 1 each MISCELLANE DAILY PRN PRN Reason: Consult order Senna (Sennosides 8.6 Mg Tablet) 8.6 mg PO DAILY PRN PRN Reason: Constipation Sodium Chloride (0.9 % Sodium Chloride Flush 3 Ml Syringe) 3 ml IVFLUSH QSHIFT [facility] Last Admin: 05/26/21 17:18 Dose: Not Given Documented by: Trazodone HCl (Trazodone Hcl 100 Mg Tablet) 100 mg PO BEDTIME [facility] Valproic Acid (Valproic Acid (As Sodium Salt) 250 Mg/5 Ml Solution) 500 mg PO DAILY [facility] Vitamin D (Cholecalciferol (Vitamin D3) 25 Mcg Tablet) 50 mcg PO DAILY [facility] Home Medications Medication Instructions Recorded Confirmed Last Taken Type acetaminophen 325 mg tablet 650 mg PO Q6H PRN 05/26/21 05/26/21 Unknown History amantadine HCl 50 mg/5 mL oral 50 mg PO DAILY 05/26/21 05/26/21 Unknown History solution baclofen 10 mg tablet 10 mg PO TID 05/26/21 05/26/21 Unknown History bisacodyl 10 mg rectal suppository 10 mg NC DAILY PRN 05/26/21 05/26/21 Unknown History cholecalciferol (vitamin D3) 50 50 mcg PO DAILY 05/26/21 05/26/21 Unknown History mcg (2,000 unit) tablet (Vitamin D3) ibuprofen 400 mg tablet 400 mg PO Q6H PRN 05/26/21 05/26/21 Unknown History mirtazapine 15 mg tablet 15 mg PO BEDTIME 05/26/21 05/26/21 Unknown History mirtazapine 7.5 mg tablet 7.5 mg PO BEDTIME 05/26/21 05/26/21 Unknown History multivitamin 1 tab PO DAILY 05/26/21 05/26/21 Unknown History nicotine 7 mg/24 hr daily 1 patch TRANSDERMAL Q24H 05/26/21 05/26/21 Unknown History transdermal patch sennosides 8.6 mg tablet (senna) 8.6 mg PO DAILY PRN 05/26/21 05/26/21 Unknown History trazodone 100 mg tablet 100 mg PO BEDTIME 05/26/21 05/26/21 Unknown History valproic acid (as sodium salt) 250 500 mg PO DAILY 05/26/21 05/26/21 Unknown History mg/5 mL oral solution Physical Exam Vital Signs and Narrative: Vital Signs: Last Vital Signs Temp 102.6 F H 05/26/21 17:30 Pulse 105 H 05/26/21 17:30 Resp 20 05/26/21 17:30 BP 120/66 05/26/21 17:30 Pulse Ox 95 05/26/21 17:30 BMI result Body Mass Index 25.3 Const: Other: Confused/nonverbal answering only yes and no questions (baseline well known to me) Resp: Other: Clear to auscultation bilaterally no rales rhonchi wheezes Cardio: Other: No S4; positive S1-S2; no S3 murmurs rubs gallops GI: Other: Soft nontender nondistended with normoactive bowel sounds all 4 quadrants Neuro: Other: Moves all extremities with equal power; cognition at baseline as per care 1 Extrem: Other: Scaly we PE erythematous lower extremities dorsum of foot to tibial plateau bilaterally Results Labs CBC and Chem 7: 05/26/21 09:45 05/26/21 09:45 Labs: Laboratory Results - last 24 hr 05/26/21 05/26/21 05/26/21 09:45 09:45 09:45 MCV 90.3 MCH 29.3 MCHC 32.4 RDW 13.6 Plt Count 178 MPV 11.4 Immature Gran % (Auto) 0.3 Neut % (Auto) 78.5 H Lymph % (Auto) 9.7 L [place] % (Auto) 11.2 H Eos % (Auto) 0.0 Baso % (Auto) 0.3 Lymph # (Auto) 0.7 L [place] # (Auto) 0.8 Eos # (Auto) 0.0 Baso # (Auto) 0.0 Abs Immat Gran (auto) 0.02 Absolute Neuts (auto) 5.3 Absolute Nucleated RBC 0.000 Nucleated RBC % (auto) 0.0 PT INR Anion Gap 15 Estim Creat Clear Calc 135.1 Estimated GFR > 60 Random Glucose 84 Lactic Acid 1.0 Calcium 9.0 Magnesium 1.8 Total Bilirubin 0.6 AST 35 H ALT 12 Alkaline Phosphatase 88 Total Protein 6.8 Albumin 3.7 Beta HCG, Quant < 2 Urine Color Urine Appearance Urine pH Ur Specific [place] Urine Protein Urine Glucose (UA) Urine Ketones Urine Blood Urine Nitrite Ur Leukocyte Esterase Urine RBC Urine WBC Ur Squamous Epith Cells Amorphous Sediment Urine Bacteria Stool Occult Blood Urine Opiates Screen Urine Fentanyl Screen Ur Barbiturates Screen Ur Phencyclidine Scrn Ur Amphetamines Screen U Benzodiazepines Scrn Urine Cocaine Screen U Marijuana (THC) Screen COVID-19 ([place]ETANO) COVID-[place] 05/26/21 05/26/21 05/26/21 09:45 10:09 10:09 MCV MCH MCHC RDW Plt Count MPV Immature Gran % (Auto) Neut % (Auto) Lymph % (Auto) [place] % (Auto) Eos % (Auto) Baso % (Auto) Lymph # (Auto) [place] # (Auto) Eos # (Auto) Baso # (Auto) Abs Immat Gran (auto) Absolute Neuts (auto) Absolute Nucleated RBC Nucleated RBC % (auto) PT INR Anion Gap Estim Creat Clear Calc Estimated GFR Random Glucose Lactic Acid Calcium Magnesium Total Bilirubin AST ALT Alkaline Phosphatase Total Protein Albumin Beta HCG, Quant Urine Color YELLOW Urine Appearance HAZY Urine pH 8.5 H Ur Specific [place] 1.015 Urine Protein 1+ H Urine Glucose (UA) NEG Urine Ketones 40 Urine Blood NEG Urine Nitrite NEG Ur Leukocyte Esterase NEG Urine RBC 0-2 Urine WBC 0-2 Ur Squamous Epith Cells TRACE Amorphous Sediment 2+ Urine Bacteria NONE Stool Occult Blood Urine Opiates Screen Not Detected Urine Fentanyl Screen Not Detected Ur Barbiturates Screen Not Detected Ur Phencyclidine Scrn Not Detected Ur Amphetamines Screen Not Detected U Benzodiazepines Scrn Not Detected Urine Cocaine Screen Not Detected U Marijuana (THC) Screen Not Detected COVID-19 (GAETANO) Negative COVID-19 [facility] / [facility] Com See Note 05/26/21 05/26/21 10:44 11:11 MCV MCH MCHC RDW Plt Count MPV Immature Gran % (Auto) Neut % (Auto) Lymph % (Auto) [place] % (Auto) Eos % (Auto) Baso % (Auto) Lymph # (Auto) [place] # (Auto) Eos # (Auto) Baso # (Auto) Abs Immat Gran (auto) Absolute Neuts (auto) Absolute Nucleated RBC Nucleated RBC % (auto) PT 14.4 H INR 1.3 H Anion Gap Estim Creat Clear Calc Estimated GFR Random Glucose Lactic Acid Calcium Magnesium Total Bilirubin AST ALT Alkaline Phosphatase Total Protein Albumin Beta HCG, Quant Urine Color Urine Appearance Urine pH Ur Specific [place] Urine Protein Urine Glucose (UA) Urine Ketones Urine Blood Urine Nitrite Ur Leukocyte Esterase Urine RBC Urine WBC Ur Squamous Epith Cells Amorphous Sediment Urine Bacteria Stool Occult Blood NEGATIVE Urine Opiates Screen Urine Fentanyl Screen Ur Barbiturates Screen Ur Phencyclidine Scrn Ur Amphetamines Screen U Benzodiazepines Scrn Urine Cocaine Screen U Marijuana (THC) Screen COVID-19 (GAETANO) COVID-19 Clin Com Imaging Radiologist's Impressions: Impressions Chest X-Ray 05/26/21 10:01 IMPRESSION: Elevated left hemidiaphragm without any acute pneumonic process in either lungs. Mild cardiomegaly with prominent bilateral pulmonary vascularity. Bilateral lower leg venous study is negative for DVT. Increased vascular flow seen both legs could be secondary to inflammation or infection. Multiple bilateral enlarged groin lymph nodes as described above. Venous Duplex 05/26/21 10:26 IMPRESSION: Elevated left hemidiaphragm without any acute pneumonic process in either lungs. Mild cardiomegaly with prominent bilateral pulmonary vascularity. Bilateral lower leg venous study is negative for DVT. Increased vascular flow seen both legs could be secondary to inflammation or infection. Multiple bilateral enlarged groin lymph nodes as described above. Head CT 05/26/21 11:22 IMPRESSION: No acute intracranial process seen. Multiple calcified scalp lesions likely sebaceous cysts or neurofibromas. 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 Venous duplex bilaterally negative for clots 1. Cellulitis (in backdrop of chronic dependent edema) -IV vancomycin/Zosyn (history of resistant staph/strep) -follow renals/divalents -follow-up cultures; IV fluid scheduled Tylenol for fever 2. TBI with a history of bipolar disease -continue all meds as per care 1 transfer sheet -adjust meds as clinically indicated Lovenox Full code Quality Stroke Does the patient have a stroke diagnosis?: No VTE Prior VTE?: No VTE Risk Level:: Medical - moderate - high VTE Device Contraindication: Treatment Not Indicated VTE Drug Contraindication: N/A - Med Ordered
[2021-05-26] MEDS: Enoxaparin Sodium 40 MG/0.4 ML SYRINGE SUBCUT (18:20)
--- NOTE | 2021-05-26 19:49 | PC.NURSE ---
Pt moved into room 14 at 1845, Rn assumed care of this patient at that time. Pt has christine catheter with core temp in place, pt temp 103 at this time, MD Garcia made are. Pt NPO due to not being able to swallow or follow commands, All meds are ordered PO at this time, waiting for meds to be adjusted.
[2021-05-26] MEDS: Acetaminophen Supp 650 MG SUPP.RECT PR (20:00)
--- NOTE | 2021-05-26 20:17 | PC.NURSE ---
Mouth care performed at this time with swab. Pt mouth noted to be very dry. Per pt mom pt usually drinks liquids through a straw however is unable to close mouth . Pt trailed again by this RN for drinking liquids through straw, pt unable to close mouth. Pt maintains eye contact when addressed.
--- NOTE | 2021-05-26 21:45 | PC.NURSE ---
Assisting primary RN- pt noted to be restless and loudly vocalizing, unable to communicate / express needs at baseline. Vitals as charted. O2 noted to be low 80s on RA, pt placed on 3L O2 via NC w/ increase to 100%, titrated down to 2L. Pt repositioned and pillows adjusted. Appeared to be reaching for water, is strict NPO but wet washcloth applied to mouth for comfort. Pt appeared to relax s/p these interventions. Remains attached to campus monitor and pulse ox
--- NOTE | 2021-05-26 22:05 | PC.NURSE ---
MD Shetty notified of pt vitals, requested manual cooling. Ice packs applied to back of neck and groin. Primary RN Rhona updated on change
[2021-05-26] MEDS: LORazepam 2 MG/ML VIAL 0.5 MG IVPUSH (22:23)
--- NOTE | 2021-05-27 | PC.NURSE ---
Addendum entered by Bennie Reddy RN 05/27/21 05:28: Moved to Bed 9 r/t med surg patient. Swallow eval attempted - failed. 1 set of blood cultures out of 2 came back positive - reported to Dr Shetty - already on antibiotics, no new orders. Temp back up to 102.4, rectal. ID tylenol given - ok'ed by Dr Shetty to given even though slightly over 3grams. Patient alert, yelling out at times. Repos, incont small amt brown stool. Full care given. Original Note: Received patient to OVERFLOW bed 3 from main ER - patient alert, baseline nonverbal. mouth able to close. HR 70'S TO 80'S SR. bed bath given, new linens, and patient repositioned.
[2021-05-27] MEDS: 0.9 % Sodium Chloride 1,000 ML 125 ML IVCONT ×3 (01:14→17:13)
[2021-05-27] MEDS: vancomycin HCL 1,250 MG in 0.9 % Sodium Chloride 250 ML 166.67 MG IV ×2 (02:06→13:12)
[2021-05-27] MEDS: Piperacillin Sodium/Tazobactam 3.375 GM in 0.9 % Sodium Chloride 50 ML IV ×4 (03:46→22:21)
[2021-05-27 04:00] VITALS: BP 114/61; PULSE 87; RESP 16; TEMP 39.1; O2SAT 98
--- NOTE | 2021-05-27 05:04 | PC.NURSE ---
PATIENT HAS SMALL AMOUNT OF LOOSE STOOL ,CARE WAS GIVEN ALSO MOUTH CARE WAS DONE .
[2021-05-27] MEDS: Acetaminophen Supp 650 MG SUPP.RECT PR (05:19)
[2021-05-27 06:22] LABS: MANUAL DIFF FLAG NO
[2021-05-27 06:25] VITALS: TEMP 38.4
[2021-05-27 06:34] LABS: Basophils Percent Auto 0.3 % (0-2); Hematocrit 33.1 % (37.0-47.0); Hemoglobin 10.9 g/dl (12.0-16.0); Imm Gran Abs Auto 0.02 X10*3/uL (0.00-0.03); Imm Gran Pct Auto 0.3 % (0.0-0.4); Lymphocytes Absolute Auto 0.9 X10*3/uL (1.2-4.9); Lymphocytes Percent Auto 14.8 % (20-40); Mean Corpuscular HGB Conc 32.9 g/dl (31.0-35.0); Mean Corpuscular Hemoglobin 29.7 pg (27.0-33.0); Mean Corpuscular Volume 90.2 fL (80.0-98.0); Mean Platelet Volume 11.4 fL (9.4-12.3); Monocytes Absolute Auto 0.5 X10*3/uL (0.1-1.2); Monocytes Percent Auto 8.1 % (2-11); Neutrophils Absolute Auto 4.5 x10*3/uL (2.0-8.3); Neutrophils Percent Auto 76.5 % (45-73); Platelet Count 136 X10*3/uL (160-400); Red Blood Count 3.67 X10*6/uL (4.20-5.50); Red Cell Distribution Width 13.8 % (11.0-16.0); White Blood Count 5.8 X10*3/uL (4.8-10.8)
[2021-05-27 07:15] LABS: Alanine Aminotransferase 17 U/L (0-31); Albumin Level 3.2 g/dL (3.5-5.0); Alkaline Phosphatase 78 U/L (39-117); Anion Gap 11 (12-20); Aspartate Amino Transferase 39 U/L (5-31); Bilirubin Total 0.5 mg/dL (0.0-1.0); Blood Urea Nitrogen 8 mg/dL (9-16); Calcium 7.9 mg/dL (8.4-10.2); Carbon Dioxide 21 mmol/L (22-29); Chloride 111 mmol/L (96-108); Creatinine Clr Calc Pharmacy 144.9; Estimated Glomerular Filt Rate > 60; Glucose Fasting 73 mg/dL (60-99); Potassium 3.2 mmol/L (3.3-5.1); Sodium 140 mmol/L (135-145); Total Protein 5.7 g/dL (6.5-8.0)
[2021-05-27 08:53] VITALS: BP 112/68; PULSE 69; RESP 14; TEMP 38; O2SAT 98
[2021-05-27] MEDS: Multivitamin TABLET 1 TAB PO (08:58)
[2021-05-27] MEDS: Cholecalciferol (Vitamin D3) 25 MCG TABLET 50 MCG PO (08:58)
[2021-05-27] MEDS: Baclofen 10 MG TABLET PO ×2 (08:58→17:12)
--- NOTE | 2021-05-27 10:05 | P.CDIC_ITS ---
CDI Concurrent Query Documentation Clarification: PHYSICIAN'S DOCUMENTATION REQUEST Date of Query: 05/27/21 1005 Patient Name: Debbi Herrera Admit Date: 05/26/21 Dear Doctor, A review of the medical record indicates additional documentation may be indicated. Please review below and update the documentation accordingly. Clinical Indicators: Risk Factors/Clinical Indicators/Treatments Per ED note, Wound left lower extremity wound has serosanguineous drainage Based on the above, could you please provide, in the Progress Notes, further information regarding the ulcer/wound: * Type (etiology) of ulcer/wound: * Diabetic ulcer * Venous stasis ulcer * Arterial (ischemic) ulcer * Pressure (decubitus) ulcer * Traumatic wound * Non-healing surgical wound * Other * Unable to determine * For a non-pressure ulcer, please indicate the depth/severity: * Limited to the breakdown of skin * With fat layer exposed * With necrosis of muscle * With necrosis of bone * Other * Unable to determine * If a pressure ulcer, please also include the stage* of the ulcer: * Stage 1 - Skin intact, non-blanchable redness * Stage 2 - Partial thickness loss of dermis, includes intact or open blister * Stage 3 - Full thickness tissue not including bone, tendon, or muscle * Stage 4 - Full thickness tissue loss, including exposed bones, tendon, or muscle * Unstageable - Full thickness tissue loss in which the base of the ulcer is covered by slough (yellow, may, martel, green or brown) and/or eschar (may, brown, or black) in the wound bed. * Suspected deep tissue injury - Purple or maroon localized area of discolored intact skin or blood-filled blister due to damage of underlying soft tissues from pressure and/or shear. The area may be preceded by tissue that is painful, firm, mushy, boggy, warmer, or cooler as compare to adjacent tissue. * Unable to determine *Source: National Pressure Ulcer Advisory Panel (NPUAP) Use of terms such as suspected, likely, concern for, or probable (associated with a specific diagnosis that is being evaluated, monitored, or treated as if it exists) are acceptable and can be coded in the inpatient setting, when documented at the time of discharge. Thank you, Li Swift RN Extension: [phone] Please use your independent medical judgment in providing your response. THIS QUERY IS PART OF THE PERMANENT MEDICAL RECORD Provider Response: Other Other Diagnosis: Venous stasis ulcer
--- NOTE | 2021-05-27 10:05 | MHC.CDI.CONC ---
CDI Concurrent Query Documentation Clarification: PHYSICIAN'S DOCUMENTATION REQUEST Date of Query: 05/27/21 1005 Patient Name: Debbi Herrera Admit Date: 05/26/21 Dear Doctor, A review of the medical record indicates additional documentation may be indicated. Please review below and update the documentation accordingly. Clinical Indicators: Risk Factors/Clinical Indicators/Treatments Per ED note, Wound left lower extremity wound has serosanguineous drainage Based on the above, could you please provide, in the Progress Notes, further information regarding the ulcer/wound: Type (etiology) of ulcer/wound: Diabetic ulcer Venous stasis ulcer Arterial (ischemic) ulcer Pressure (decubitus) ulcer Traumatic wound Non-healing surgical wound Other Unable to determine For a non-pressure ulcer, please indicate the depth/severity: Limited to the breakdown of skin With fat layer exposed With necrosis of muscle With necrosis of bone Other Unable to determine If a pressure ulcer, please also include the stage* of the ulcer: Stage 1 - Skin intact, non-blanchable redness Stage 2 - Partial thickness loss of dermis, includes intact or open blister Stage 3 - Full thickness tissue not including bone, tendon, or muscle Stage 4 - Full thickness tissue loss, including exposed bones, tendon, or muscle Unstageable - Full thickness tissue loss in which the base of the ulcer is covered by slough (yellow, may, martel, green or brown) and/or eschar (may, brown, or black) in the wound bed. Suspected deep tissue injury - Purple or maroon localized area of discolored intact skin or blood-filled blister due to damage of underlying soft tissues from pressure and/or shear. The area may be preceded by tissue that is painful, firm, mushy, boggy, warmer, or cooler as compare to adjacent tissue. Unable to determine *Source: National Pressure Ulcer Advisory Panel (NPUAP) Use of terms such as suspected, likely, concern for, or probable (associated with a specific diagnosis that is being evaluated, monitored, or treated as if it exists) are acceptable and can be coded in the inpatient setting, when documented at the time of discharge. Thank you, Li Swift RN Extension: [phone] Please use your independent medical judgment in providing your response. THIS QUERY IS PART OF THE PERMANENT MEDICAL RECORD Provider Response: Other Other Diagnosis: Venous stasis ulcer
--- NOTE | 2021-05-27 10:08 | P.CDIC_ITS ---
CDI Concurrent Query Documentation Clarification: PHYSICIAN'S DOCUMENTATION REQUEST Date of Query: 05/27/21 1009 Patient Name: Debbi Herrera Admit Date: 05/26/21 Dear Doctor, A review of the medical record indicates additional documentation may be needed. Please review below and update the documentation accordingly. Clinical Indicators: Risk Factors/Clinical Indicators/Treatments hx TBI sent to hospital by skilled facility for altered mental status, decreased responsiveness Usually able to answer yes/no questions with paper Per ED: Altered Mental Status Based on the above, could you clarify in the Progress Notes which, if any of the following, is the most likely etiology of the confusion/altered mental status? * Encephalopathy - indicate type such as metabolic, toxic, septic, alcoholic, hypertensive, etc. * Acute delirium - indicate known or suspected etiology, such as postoperative, due to narcotics or other drugs, etc. * Acute or subacute confusional state due to (specify known or suspected etiology) * Other etiology (please specify) * Unable to determine Use of terms such as suspected, likely, concern for, or probable (associated with a specific diagnosis that is being evaluated, monitored, or treated as if it exists) are acceptable and can be coded in the inpatient setting, when documented at the time of discharge. Thank you, Li Swift RN Extension: [phone] Please use your independent medical judgment in providing your response. THIS QUERY IS PART OF THE PERMANENT MEDICAL RECORD Provider Response: Other Other Diagnosis: Acute confusional state secondary to cellulitis
--- NOTE | 2021-05-27 10:11 | P.CDIC_ITS ---
CDI Concurrent Query Documentation Clarification: PHYSICIAN'S DOCUMENTATION REQUEST Date of Query: 05/27/21 1012 Patient Name: Debbi Herrera Admit Date: 05/26/21 Dear Doctor, A review of the medical record indicates additional documentation may be needed. Please review below and update the documentation accordingly. Clinical Indicators: Documentation on progress note dated 05/26/21 included the diagnosis of sepsis. The patient's infectious clinical indicators include: Risk Factors/Clinical Indicators/Treatments Temperature 101.0 HR 101 ED note: sepsis, bilateral lower extemity cellulitic infection Recognized standard criteria for this condition and other infectious definitions includes: Sepsis Systemic manifestations of infection, with 2 or more SIRS criteria which include: * Fever > 100.4?F or hypothermia < 96.8?F * Leukocytosis ? WBC > 12,000 or leukopenia, WBC < 4,000, or > 10% bands * Tachycardia- > 90 beats/minute * Tachypnea- RR > 20 breaths/minute or PaCO2 < 32mmHg Source: Merck Manual 2013 Documentation should include the known or suspected organism, and the underlying infection, such as UTI or pneumonia Based on the above information and the recognized standard for sepsis, could you please clarify in the Progress Notes if this diagnoses is still accurate and reflective of the patient's condition to ensure quality of the medical record. * Sepsis is/was present and is a clinical diagnosis based on (please include this additional support in the medical record) * After study (the condition) has been ruled out * Other (please specify) * Unable to determine Use of terms such as suspected, likely, concern for, or probable (associated with a specific diagnosis that is being evaluated, monitored, or treated as if it exists) are acceptable and can be coded in the inpatient setting, when documented at the time of discharge. Thank you, Li Swift RN Extension: [phone] Please use your independent medical judgment in providing your response. THIS QUERY IS PART OF THE PERMANENT MEDICAL RECORD Provider Response: Other Other Diagnosis: After studies sepsis has been ruled out
--- NOTE | 2021-05-27 11:34 | MHC.SL.SWA ---
Speech Pathologist Impression: Oral Phase Dysphagia Risk of Aspiration Due to: Neurological Condition Dysphasia Diet Status: Upgrade Liquid Consistency and Strategies for Safe Swallow: Liquid Intake Recommendation: Thin Liquid Intake Strategies: Small Sips Solid Food Consistency: Dietary Recommendations: Pureed (NDD1) Additional Modifications to Solid Foods: Pt does best w/straw when given liquids. Pt has significant oral residual after presentations of puree foods, recommend giving small bites followed by liquid wash w/straw. Discontinue if Pt is pocketing or unable to clear solids/puree from mouth or demonstrates clinical s/s aspiration. Oral Medication Intake: NPO Compensatory Strategies and Precautions to be Taken for Safe Swallow: Sitting Upright (90 deg) Liquids from Straw Alternate Liquids/Solids Oral Check Supervision While Eating and Drinking for Safe Swallow: Total Supervision (1:1) Foods to Avoid: After small bites of puree, offer liquid wash. Discontinue if Pt is pocketing/unable to clear puree food or demonstrates clinical s/s of aspiration. Recommend liquid medication where possible. Avoids sticky foods, contrasting textures (e.g. food that has chunks or crumbles). Swallowing Recommended Treatments: Compens. Strategy Educat. 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 Pt has limited lingual movement and has difficulty organizing and propelling bolus orally and containing bolus orally. On liquids, Pt does best with a straw, and is able to manage liquid bolus during pharyngeal phase well (normal swallow trigger, laryngeal transit). On Puree Solids, Pt has significant difficulty propelling bolus, oral residual after swallow. Residual cleared w/oral wash of liquid from straw, w/ care and close supervision. Pt requires full assist and close supervision during all administrations of food or liquid. Recommend UPGRADE to diet consistencies of THIN liquid by STRAW, w/ Puree (NDD1) which will require FULL/CLOSE supervision w/ monitoring: Small bites, oral check that Pt has cleared food, oral wash after presentations of food, given by straw. Stop presentations of food if Pt is pocketing or unable to clear food orally, or clinical signs of aspiration is observed. Pt would benefit from LIQUID medication as much as possible, w/ careful administration of pills crushed in puree if needed. Frequency/Duration: M-F while inpt. Date Range for Service Req: Timeline to reassess: Credit Risk Analytics Manager Clinican/Clinical Fellow: No Supervisory Statement: I have reviewed and agree with the student/clinical fellow's documentation: N/A Speech Language Pathologist: Lori Saucedo M.A., [employer] CL[employer]
--- NOTE | 2021-05-27 12:27 | PC.NURSE ---
Pt is Alert, oriented to person at this time, unable to determine further oriented due to mental status. Pt repositioned, rectal temp checked, afebrile at this time, medicated as per MAR orders with liquid meds as well as one tablet in apple sauce. Spoke to pt's mother, pt aware. Call tavares within reach, will continue to monitor.
--- NOTE | 2021-05-27 15:29 | HO.PM.IMPN ---
Subjective Subjective Date of Service: 05/27/21 Interval History: Looks brighter this a.m.. Fevers trending down Review of Systems Unable to obtain secondary to history of TBI Physical Exam Vital Signs: Vital Signs: Last Vital Signs Temp 100.4 F 05/27/21 08:53 Pulse 69 05/27/21 08:53 Resp 14 05/27/21 08:53 BP 112/68 05/27/21 08:53 Pulse Ox 98 05/27/21 08:53 BMI result Body Mass Index 24.3 Const: Other: Confused/nonverbal answering only yes and no questions (baseline well known to me) Resp: Other: Clear to auscultation bilaterally no rales rhonchi wheezes Cardio: Other: No S4; positive S1-S2; no S3 murmurs rubs gallops GI: Other: Soft nontender nondistended with normoactive bowel sounds all 4 quadrants Neuro: Other: Moves all extremities with equal power; cognition at baseline as per care 1 Extrem: Other: Scaly we PE erythematous lower extremities dorsum of foot to tibial plateau bilaterally Objective Data Active Medications Acetaminophen (Acetaminophen 325 Mg Tablet) 650 mg PO Q6H PRN PRN Reason: Fever Or Pain Acetaminophen (Acetaminophen Supp 650 Mg Supp.Rect) 650 mg [place] Q8H PRN PRN Reason: Fever Last Admin: 05/27/21 05:19 Dose: 650 mg Documented by: CHIRAG Baclofen (Baclofen 10 Mg Tablet) 10 mg PO TID [facility] Last Admin: 05/27/21 08:58 Dose: 10 mg Documented by: KAMARI Bisacodyl (Bisacodyl 10 Mg Supp.Rect) 10 mg [place] DAILY PRN PRN Reason: Constipation Enoxaparin Sodium (Enoxaparin Sodium 40 Mg/0.4 Ml Syringe) 40 mg SUBCUT Q24H [facility] [place] Last Admin: 05/26/21 18:20 Dose: 40 mg Documented by: ASMITA Sodium Chloride (Ns) 1,000 mls @ 125 mls/hr IVCONT .Q8H [facility] [place] Last Admin: 05/27/21 08:51 Dose: 125 mls/hr Documented by: KAMARI Piperacillin Sod/Tazobactam (Sod 3.375 gm/ Sodium Chloride) 50 mls @ 100 mls/hr IV Q6H [facility] Last Infusion: 05/27/21 13:13 Dose: 0 mls/hr Documented by: KAMARI Vancomycin HCl 1,250 mg/ (Sodium Chloride) 250 mls @ 166.667 mls/hr IV Q12H [facility] [place] Last Infusion: 05/27/21 15:21 Dose: 0 mls/hr Documented by: KAMARI Ibuprofen (Ibuprofen 400 Mg Tablet) 400 mg PO Q6H PRN PRN Reason: Pain (Scale Score 1-3) Mirtazapine (Mirtazapine 7.5 Mg Tablet) 7.5 mg PO BEDTIME [facility] [place] Last Admin: 05/26/21 20:23 Dose: Not Given Documented by: TUCKER Non-Admin Reason: NPO Mirtazapine (Mirtazapine 15 Mg Tablet) 15 mg PO BEDTIME [facility] [place] Last Admin: 05/26/21 20:23 Dose: Not Given Documented by: TUCKER Non-Admin Reason: NPO Multivitamins/Vitamin C (Multivitamin Tablet) 1 tab PO DAILY [facility] [place] Last Admin: 05/27/21 08:58 Dose: 1 tab Documented by: KAMARI Nicotine (Nicotine 7 Mg Patch.Td24) 7 mg TRANSDERMA Q24H [facility] [place] Last Admin: 05/26/21 17:32 Dose: 7 mg Documented by: ASMITA Pharmacy Consult (Consult Rx Perform Med Rec) 1 each MISCELLANE ONCE PRN PRN Reason: Consult order Pharmacy Consult (Consult Rx Vancomycin Dosing) 1 each MISCELLANE DAILY PRN PRN Reason: Consult order Senna (Sennosides 8.6 Mg Tablet) 8.6 mg PO DAILY PRN PRN Reason: Constipation Sodium Chloride (0.9 % Sodium Chloride Flush 3 Ml Syringe) 3 ml IVFLUSH QSHIFT [facility] Last Admin: 05/27/21 08:51 Dose: Not Given Documented by: KAMARI Non-Admin Reason: IV Running Trazodone HCl (Trazodone Hcl 100 Mg Tablet) 100 mg PO BEDTIME [facility] Last Admin: 05/26/21 20:23 Dose: Not Given Documented by: TUCKER Non-Admin Reason: NPO Valproic Acid (Valproic Acid (As Sodium Salt) 250 Mg/5 Ml Solution) 500 mg PO DAILY [facility] [place] Last Admin: 05/27/21 08:58 Dose: 500 mg Documented by: KAMARI Vitamin D (Cholecalciferol (Vitamin D3) 25 Mcg Tablet) 50 mcg PO DAILY [facility] Last Admin: 05/27/21 08:58 Dose: 50 mcg Documented by: KAMARI Labs CBC & Chem 7: 05/27/21 05:48 05/27/21 05:48 Labs: Laboratory Results - last 24 hr 05/27/21 05/27/21 05:48 05:48 MCV 90.2 MCH 29.7 MCHC 32.9 RDW 13.8 Plt Count 136 L MPV 11.4 Immature Gran % (Auto) 0.3 Neut % (Auto) 76.5 H Lymph % (Auto) 14.8 L [place] % (Auto) 8.1 Eos % (Auto) 0.0 Baso % (Auto) 0.3 Lymph # (Auto) 0.9 L [place] # (Auto) 0.5 Eos # (Auto) 0.0 Baso # (Auto) 0.0 Abs Immat Gran (auto) 0.02 Absolute Neuts (auto) 4.5 Absolute Nucleated RBC 0.000 Nucleated RBC % (auto) 0.0 Anion Gap 11 L Estim Creat Clear Calc 144.9 Estimated GFR > 60 Fasting Glucose 73 Calcium 7.9 L D Total Bilirubin 0.5 AST 39 H ALT 17 Alkaline Phosphatase 78 Total Protein 5.7 L Albumin 3.2 L Microbiology Microbiology Results: Microbiology 05/26/21 09:45 Blood Culture - Preliminary Blood - Venous No growth after 24 hours. 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 Venous duplex bilaterally negative for clots 1. Cellulitis (in backdrop of chronic dependent edema) -IV vancomycin/Zosyn (history of resistant staph/strep) -follow renals/divalents -follow-up cultures; will order a PICC line for extended treatment and care 1 2. TBI with a history of bipolar disease -continue all meds as per care 1 transfer sheet -adjust meds as clinically indicated Lovenox Full code Quality Stroke Does the patient have a stroke diagnosis?: No VTE Prior VTE?: No VTE Risk Level:: Medical - moderate - high VTE Device Contraindication: Treatment Not Indicated VTE Drug Contraindication: N/A - Med Ordered
[2021-05-27] MEDS: Enoxaparin Sodium 40 MG/0.4 ML SYRINGE SUBCUT (17:12)
[2021-05-27] MEDS: Nicotine 7 MG PATCH.TD24 TRANSDERMA (17:12)
[2021-05-27 18:53] VITALS: TEMP 37.7
[2021-05-28] VITALS (7 sets, daily range): BP systolic 113–155; BP diastolic 66–82; PULSE 65–92; RESP 15–18; TEMP 36.4–38.4; O2SAT 92–96
[2021-05-28] MEDS: 0.9 % Sodium Chloride 1,000 ML 125 ML IVCONT ×3 (00:34→20:41)
[2021-05-28] MEDS: 0.9 % Sodium Chloride Flush 3 ML SYRINGE IVFLUSH (00:34)
--- NOTE | 2021-05-28 00:34 | PC.NURSE ---
This RN assumed care at 1900. Patient refused medication, but is cooperative with IV fluids and ABX. IV in left wrist appeared swollen, red, and warm to the touch. IV removed and hospitalist notified. This RN placed a new 22g IV in the patient's right wrist. Patient tolerated procedure without difficulty.
[2021-05-28 01:59] LABS: Vancomycin Trough 8.5 mcg/mL (10.0-20.0)
[2021-05-28] MEDS: Acetaminophen Supp 650 MG SUPP.RECT PR ×2 (02:15→12:46)
[2021-05-28] MEDS: vancomycin HCL 1,250 MG in 0.9 % Sodium Chloride 250 ML 166.67 MG IV (02:35)
[2021-05-28 02:42] LABS: Hemoglobin 12.2 g/dl (12.0-16.0)
[2021-05-28] MEDS: Piperacillin Sodium/Tazobactam 3.375 GM in 0.9 % Sodium Chloride 50 ML IV ×4 (04:20→23:10)
[2021-05-28 04:43] LABS: MANUAL DIFF FLAG NO
[2021-05-28 04:45] LABS: Basophils Percent Auto 0.2 % (0-2); Eosinophils Percent Auto 0.1 % (0-4); Hematocrit 35.6 % (37.0-47.0); Hemoglobin 11.7 g/dl (12.0-16.0); Imm Gran Abs Auto 0.04 X10*3/uL (0.00-0.03); Imm Gran Pct Auto 0.5 % (0.0-0.4); Lymphocytes Absolute Auto 1.4 X10*3/uL (1.2-4.9); Lymphocytes Percent Auto 17.3 % (20-40); Mean Corpuscular HGB Conc 32.9 g/dl (31.0-35.0); Mean Corpuscular Hemoglobin 29.3 pg (27.0-33.0); Mean Corpuscular Volume 89.2 fL (80.0-98.0); Mean Platelet Volume 11.5 fL (9.4-12.3); Monocytes Absolute Auto 0.8 X10*3/uL (0.1-1.2); Monocytes Percent Auto 9.7 % (2-11); Neutrophils Absolute Auto 5.9 x10*3/uL (2.0-8.3); Neutrophils Percent Auto 72.2 % (45-73); Platelet Count 160 X10*3/uL (160-400); Red Blood Count 3.99 X10*6/uL (4.20-5.50); Red Cell Distribution Width 13.4 % (11.0-16.0); White Blood Count 8.2 X10*3/uL (4.8-10.8)
[2021-05-28 05:18] LABS: Alanine Aminotransferase 21 U/L (0-31); Albumin Level 3.1 g/dL (3.5-5.0); Alkaline Phosphatase 78 U/L (39-117); Anion Gap 13 (12-20); Aspartate Amino Transferase 44 U/L (5-31); Bilirubin Total 0.5 mg/dL (0.0-1.0); Blood Urea Nitrogen 5 mg/dL (9-16); Calcium 7.8 mg/dL (8.4-10.2); Carbon Dioxide 21 mmol/L (22-29); Chloride 107 mmol/L (96-108); Glucose Fasting 81 mg/dL (60-99); Potassium 3.3 mmol/L (3.3-5.1); Sodium 138 mmol/L (135-145); Total Protein 5.7 g/dL (6.5-8.0)
[2021-05-28 05:26] LABS: Creatinine Clr Calc Pharmacy 144.9; Estimated Glomerular Filt Rate > 60
[2021-05-28] MEDS: Morphine Sulfate 4 MG/ML CARTRIDGE IVPUSH (06:30)
--- NOTE | 2021-05-28 06:57 | PHA.PROG ---
Admission Date/Time: May 26, 2021 15:11 Indication: Cellulitis Weight in k.9 kg Adjusted body weight in K.68 kg [place] body weight in K.2 kg Obesity Dosing Indication % IBW: 117% Serum Creatinine - Last 168 Hours 05/26/21 05/27/21 05/28/21 09:45 05:48 04:33 Creatinine 0.59 0.55 0.55 Estimated CrCl and GFR - Last 168 Hours 05/26/21 05/27/21 05/28/21 09:45 05:48 04:33 Estim Creat Clear Calc 135.1 144.9 144.9 Estimated GFR > 60 > 60 > 60 Vancomycin Loading Dose: N/A Current Vancomycin Dosing Regimen: 1250 mg Q12H Vancomycin Trough 8.5 mcg/mL (10.0-20.0) L 05/28/21 00:54 Pharmacist Comments on Vancomycin Plan: Trough subtherapeutic overnight. Current regimen is not expected to be therapeutic until after the 8th dose. Will increase to vancomycin 1500 mg Q12H. Expected AUC 484 with a trough of 12.5 Trough to be drawn 05/29 @ 1200 Renal function is stable, pharmacy will continue to monitor renal function daily Ninfa Muñoz PharmD Vancomycin dosing will take advantage of [employer] as a clinical decision support tool that uses Bayesian modeling to calculate individual patient's pharmacokinetic parameters and forecast the patient's drug concentration time course with the target goal AUC 24 range of 400 - 600 mg/L/hr.
--- NOTE | 2021-05-28 09:03 | PC.NURSE ---
Pt sleeping at this time, dressing intact to BASILIA SALOMON. Call tavares within reach. Bed assigned, report called Will continue to monitor.
--- NOTE | 2021-05-28 10:05 | HO.PM.IMPN ---
Subjective Subjective Date of Service: 05/28/21 Interval History: No acute issues overnight Fevers trending down Review of Systems Unable to obtain secondary to history of TBI Physical Exam Vital Signs: Vital Signs: Last Vital Signs Temp 100.5 F H 05/28/21 09:13 Pulse 83 05/28/21 09:13 Resp 18 05/28/21 09:13 BP 128/77 05/28/21 09:13 Pulse Ox 93 05/28/21 09:13 BMI result Body Mass Index 24.3 Const: Other: Confused/nonverbal answering only yes and no questions (baseline well known to me) Resp: Other: Clear to auscultation bilaterally no rales rhonchi wheezes Cardio: Other: No S4; positive S1-S2; no S3 murmurs rubs gallops GI: Other: Soft nontender nondistended with normoactive bowel sounds all 4 quadrants Neuro: Other: Moves all extremities with equal power; cognition at baseline as per care 1 Extrem: Other: dependent edema improved...less erythematous Objective Data Active Medications Acetaminophen (Acetaminophen 325 Mg Tablet) 650 mg PO Q6H PRN PRN Reason: Fever Or Pain Acetaminophen (Acetaminophen Supp 650 Mg Supp.Rect) 650 mg [place] Q8H PRN PRN Reason: Fever Last Admin: 05/28/21 02:15 Dose: 650 mg Documented by: KAMRON Baclofen (Baclofen 10 Mg Tablet) 10 mg PO TID [facility] Last Admin: 05/27/21 22:16 Dose: Not Given Documented by: KAMRON Non-Admin Reason: Patient Refused Bisacodyl (Bisacodyl 10 Mg Supp.Rect) 10 mg [place] DAILY PRN PRN Reason: Constipation Enoxaparin Sodium (Enoxaparin Sodium 40 Mg/0.4 Ml Syringe) 40 mg SUBCUT Q24H [facility] Last Admin: 05/27/21 17:12 Dose: 40 mg Documented by: KAMARI Sodium Chloride (Ns) 1,000 mls @ 125 mls/hr IVCONT .Q8H [facility] Last Admin: 05/28/21 00:34 Dose: 125 mls/hr Documented by: KAMRON Piperacillin Sod/Tazobactam (Sod 3.375 gm/ Sodium Chloride) 50 mls @ 100 mls/hr IV Q6H [facility] Last Admin: 05/28/21 04:20 Dose: 100 mls/hr Documented by: KAMRON Vancomycin HCl 1,500 mg/ (Sodium Chloride) 500 mls @ 333.333 mls/hr IV Q12H [facility] Ibuprofen (Ibuprofen 400 Mg Tablet) 400 mg PO Q6H PRN PRN Reason: Pain (Scale Score 1-3) Mirtazapine (Mirtazapine 7.5 Mg Tablet) 7.5 mg PO BEDTIME [facility] Last Admin: 05/27/21 22:16 Dose: Not Given Documented by: KAMRON Non-Admin Reason: Patient Refused Mirtazapine (Mirtazapine 15 Mg Tablet) 15 mg PO BEDTIME [facility] Last Admin: 05/27/21 22:17 Dose: Not Given Documented by: KAMRON Non-Admin Reason: Patient Refused Multivitamins/Vitamin C (Multivitamin Tablet) 1 tab PO DAILY [facility] Last Admin: 05/27/21 08:58 Dose: 1 tab Documented by: KAMARI Nicotine (Nicotine 7 Mg Patch.Td24) 7 mg TRANSDERMA Q24H [facility] Last Admin: 05/27/21 17:12 Dose: 7 mg Documented by: KAMARI Pharmacy Consult (Consult Rx Perform Med Rec) 1 each MISCELLANE ONCE PRN PRN Reason: Consult order Pharmacy Consult (Consult Rx Vancomycin Dosing) 1 each MISCELLANE DAILY PRN PRN Reason: Consult order Senna (Sennosides 8.6 Mg Tablet) 8.6 mg PO DAILY PRN PRN Reason: Constipation Sodium Chloride (0.9 % Sodium Chloride Flush 3 Ml Syringe) 3 ml IVFLUSH QSHIFT [facility] Last Admin: 05/28/21 00:34 Dose: 3 ml Documented by: KAMRON Trazodone HCl (Trazodone Hcl 100 Mg Tablet) 100 mg PO BEDTIME [facility] Last Admin: 05/27/21 22:17 Dose: Not Given Documented by: KAMRON Non-Admin Reason: Patient Refused Valproic Acid (Valproic Acid (As Sodium Salt) 250 Mg/5 Ml Solution) 500 mg PO DAILY [facility] Last Admin: 05/27/21 08:58 Dose: 500 mg Documented by: KAMARI Vitamin D (Cholecalciferol (Vitamin D3) 25 Mcg Tablet) 50 mcg PO DAILY [facility] Last Admin: 05/27/21 08:58 Dose: 50 mcg Documented by: KAMARI Labs CBC & Chem 7: 05/28/21 04:33 05/28/21 04:33 Labs: Laboratory Results - last 24 hr 05/28/21 05/28/21 05/28/21 00:54 02:24 04:33 MCV MCH MCHC RDW Plt Count MPV Immature Gran % (Auto) Neut % (Auto) Lymph % (Auto) [place] % (Auto) Eos % (Auto) Baso % (Auto) Lymph # (Auto) [place] # (Auto) Eos # (Auto) Baso # (Auto) Abs Immat Gran (auto) Absolute Neuts (auto) Absolute Nucleated RBC Nucleated RBC % (auto) Anion Gap 13 Estim Creat Clear Calc 144.9 Estimated GFR > 60 Fasting Glucose 81 Lactic Acid 1.0 Calcium 7.8 L Total Bilirubin 0.5 AST 44 H ALT 21 Alkaline Phosphatase 78 Total Protein 5.7 L Albumin 3.1 L Vancomycin Trough 8.5 L 05/28/21 04:33 MCV 89.2 MCH 29.3 MCHC 32.9 RDW 13.4 Plt Count 160 MPV 11.5 Immature Gran % (Auto) 0.5 H Neut % (Auto) 72.2 Lymph % (Auto) 17.3 L [place] % (Auto) 9.7 Eos % (Auto) 0.1 Baso % (Auto) 0.2 Lymph # (Auto) 1.4 [place] # (Auto) 0.8 Eos # (Auto) 0.0 Baso # (Auto) 0.0 Abs Immat Gran (auto) 0.04 H Absolute Neuts (auto) 5.9 Absolute Nucleated RBC 0.000 Nucleated RBC % (auto) 0.0 Anion Gap Estim Creat Clear Calc Estimated GFR Fasting Glucose Lactic Acid Calcium Total Bilirubin AST ALT Alkaline Phosphatase Total Protein Albumin Vancomycin Trough Microbiology Microbiology Results: Microbiology 05/26/21 09:45 Blood Culture - Preliminary Blood - Venous Prelim: GPC Gram Stain only 05/26/21 09:45 Blood Culture - Preliminary Blood - Venous Prelim: GPC Gram Stain only Assessment and Plan (1) Cellulitis: Status: Acute (2) TBI (traumatic brain injury): Status: Acute Plan 40-year-old female with well-documented 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 Venous duplex bilaterally negative for clots 1. Cellulitis (in backdrop of chronic dependent edema) -TMaxtrending improveing -IV vancomycin/Zosyn (history of resistant staph/strep) -follow renals/divalents -follow-up cultures; will order a PICC line for extended treatment and care 1 2. TBI with a history of bipolar disease -continue all meds as per care 1 transfer sheet -adjust meds as clinically indicated -diet as per speech Lovenox Full code Quality Stroke Does the patient have a stroke diagnosis?: No VTE Prior VTE?: No VTE Risk Level:: Medical - moderate - high VTE Device Contraindication: Treatment Not Indicated VTE Drug Contraindication: N/A - Med Ordered
--- NOTE | 2021-05-28 10:18 | MHC.CM.PN ---
spoke with pts mother who is also her hcp pt is a lt resident of [facility] where she will return when dcd
--- NOTE | 2021-05-28 11:18 | MHC.SLORD ---
Speech Language Pathology Order Status: Patient was unavailable when RAKE OPERATOR arrived this morning, working with nursing. Patient is on appropriate diet textures PUREED (NDD1) solids and THIN liquids. RAKE OPERATOR will continue to follow.
--- NOTE | 2021-05-28 12:25 | P.CNID_ITS ---
History of Present Illness Data of Consult Service Date: 05/27/21 Requesting physician: Feliciano Sales Primary Care Provider: Unknown Physician HPI Reason for consult: bacteremia,cellulitis She was noticed at [facility] to have diminished mental status and not eating yesterday. She came to hospital. She has increasing swelling and redness bilateral lower extremities. She is known to have recurrent cellulitis. She has fever as well. Review of Systems Review of Systems: Yes all other systems are reviewed and are negative [facility] Past Medical History Medical History (Updated 06/06/21 @ 00:02 by Clinton Graves) Anemia Ataxia Bacteremia due to group B Streptococcus Bipolar 1 disorder Falls TBI (traumatic brain injury) Family History Family history: reviewed and not pertinent Social History Social History Household Members: Other Housing: Prison Do you presently have visiting nurse or other home services: No (at [facility]) Unable to assess alcohol history related to: Unable to respond Alcohol intake: unknown Patient Tobacco Use Status: Tobacco use Unknown Tobacco use type: Cigarette Advance Directives Date on File: 07/12/20 service: No Meds Allergies Allergy/AdvReac Type Severity Reaction Status Date / Time No Known Allergies Allergy Unverified 07/05/20 17:46 Active Medications: Current Medications Acetaminophen (Acetaminophen 325 Mg Tablet) 650 mg PO Q6H PRN PRN Reason: Fever Or Pain Acetaminophen (Acetaminophen Supp 650 Mg Supp.Rect) 650 mg MO Q8H PRN PRN Reason: Fever Last Admin: 05/28/21 02:15 Dose: 650 mg Documented by: Acetaminophen (Acetaminophen Oral Liquid 650 Mg/20.3 Ml Solution) 650 mg PO Q4H PRN PRN Reason: Fever >100.4 Baclofen (Baclofen 10 Mg Tablet) 10 mg PO TID [facility] Last Admin: 05/28/21 10:52 Dose: Not Given Documented by: Bisacodyl (Bisacodyl 10 Mg Supp.Rect) 10 mg MO DAILY PRN PRN Reason: Constipation Enoxaparin Sodium (Enoxaparin Sodium 40 Mg/0.4 Ml Syringe) 40 mg SUBCUT Q24H [facility] Last Admin: 05/27/21 17:12 Dose: 40 mg Documented by: Sodium Chloride (Ns) 1,000 mls @ 125 mls/hr IVCONT .Q8H SUSAN Last Admin: 05/28/21 10:16 Dose: 125 mls/hr Documented by: Piperacillin Sod/Tazobactam (Sod 3.375 gm/ Sodium Chloride) 50 mls @ 100 mls/hr IV Q6H [facility] Last Infusion: 05/28/21 10:57 Dose: Infused Documented by: Vancomycin HCl 1,500 mg/ (Sodium Chloride) 500 mls @ 333.333 mls/hr IV Q12H [facility] Ibuprofen (Ibuprofen 400 Mg Tablet) 400 mg PO Q6H PRN PRN Reason: Pain (Scale Score 1-3) Mirtazapine (Mirtazapine 7.5 Mg Tablet) 7.5 mg PO BEDTIME [facility] Last Admin: 05/27/21 22:16 Dose: Not Given Documented by: Mirtazapine (Mirtazapine 15 Mg Tablet) 15 mg PO BEDTIME [facility] Last Admin: 05/27/21 22:17 Dose: Not Given Documented by: Multivitamins/Vitamin C (Multivitamin Tablet) 1 tab PO DAILY [facility] Last Admin: 05/28/21 10:56 Dose: Not Given Documented by: Nicotine (Nicotine 7 Mg Patch.Td24) 7 mg TRANSDERMA Q24H [facility] Last Admin: 05/27/21 17:12 Dose: 7 mg Documented by: Pharmacy Consult (Consult Rx Perform Med Rec) 1 each MISCELLANE ONCE PRN PRN Reason: Consult order Pharmacy Consult (Consult Rx Vancomycin Dosing) 1 each MISCELLANE DAILY PRN PRN Reason: Consult order Senna (Sennosides 8.6 Mg Tablet) 8.6 mg PO DAILY PRN PRN Reason: Constipation Sodium Chloride (0.9 % Sodium Chloride Flush 3 Ml Syringe) 3 ml IVFLUSH QSHIFT [facility] Last Admin: 05/28/21 09:37 Dose: Not Given Documented by: Trazodone HCl (Trazodone Hcl 100 Mg Tablet) 100 mg PO BEDTIME [facility] Last Admin: 05/27/21 22:17 Dose: Not Given Documented by: Valproic Acid (Valproic Acid (As Sodium Salt) 250 Mg/5 Ml Solution) 500 mg PO DAILY [facility] Last Admin: 05/28/21 10:55 Dose: Not Given Documented by: Vitamin D (Cholecalciferol (Vitamin D3) 25 Mcg Tablet) 50 mcg PO DAILY [facility] Last Admin: 05/28/21 10:54 Dose: Not Given Documented by: Home Medications Medication Instructions Recorded Confirmed Last Taken Type acetaminophen 325 mg tablet 650 mg PO Q6H PRN 05/26/21 05/26/21 Unknown History amantadine HCl 50 mg/5 mL oral 50 mg PO DAILY 05/26/21 05/26/21 Unknown History solution baclofen 10 mg tablet 10 mg PO TID 05/26/21 05/26/21 Unknown History bisacodyl 10 mg rectal suppository 10 mg MO DAILY PRN 05/26/21 05/26/21 Unknown History cholecalciferol (vitamin D3) 50 50 mcg PO DAILY 05/26/21 05/26/21 Unknown History mcg (2,000 unit) tablet (Vitamin D3) ibuprofen 400 mg tablet 400 mg PO Q6H PRN 05/26/21 05/26/21 Unknown History mirtazapine 15 mg tablet 15 mg PO BEDTIME 05/26/21 05/26/21 Unknown History mirtazapine 7.5 mg tablet 7.5 mg PO BEDTIME 05/26/21 05/26/21 Unknown History multivitamin 1 tab PO DAILY 05/26/21 05/26/21 Unknown History nicotine 7 mg/24 hr daily 1 patch TRANSDERMAL Q24H 05/26/21 05/26/21 Unknown History transdermal patch sennosides 8.6 mg tablet (senna) 8.6 mg PO DAILY PRN 05/26/21 05/26/21 Unknown History trazodone 100 mg tablet 100 mg PO BEDTIME 05/26/21 05/26/21 Unknown History valproic acid (as sodium salt) 250 500 mg PO DAILY 05/26/21 05/26/21 Unknown History mg/5 mL oral solution Physical Exam Vital Signs: Vital Signs: Last Vital Signs Temp 99.9 F 05/28/21 11:31 Pulse 71 05/28/21 11:31 Resp 18 05/28/21 11:31 BP 114/68 05/28/21 11:31 Pulse Ox 93 05/28/21 11:31 BMI result Body Mass Index 24.3 Const: General: cooperative HENMT: Head: Yes normal to inspection Mouth: Normal oral and palatal mucosa present Resp: Effort & Inspection: normal respiratory effort Cardio: Rate: regular rate Rhythm: regular rhythm GI: Palpation (GI): Soft to palpation and nontender Extrem: Other: redness,left more than right lower extremities Results Labs CBC & Chem 7: 05/29/21 05:51 05/29/21 05:51 Labs: Short CBC 05/28/21 05/28/21 Range/Units 02:23 04:33 WBC 8.2 (4.8-10.8) X10*3/uL Hgb 12.2 11.7 L (12.0-16.0) g/dl Hct 37.0 35.6 L (37.0-47.0) % Plt Count 160 (160-400) X10*3/uL BMP 05/28/21 04:33 Sodium 138 Potassium 3.3 Chloride 107 Carbon Dioxide 21 L BUN 5 L Creatinine 0.55 Calcium 7.8 L Liver Function 05/28/21 Range/Units 04:33 Total Bilirubin 0.5 (0.0-1.0) mg/dL AST 44 H (5-31) U/L ALT 21 (0-31) U/L Alkaline Phosphatase 78 (39-117) U/L Albumin 3.1 L (3.5-5.0) g/dL Microbiology Microbiology Results: Microbiology 05/26/21 09:45 Blood - Venous Blood Culture - Final Coag negative Staphylococcus 05/26/21 09:45 Blood - Venous Blood Culture - Preliminary Group G streptococcus Assessment and Plan (1) Cellulitis: Status: Acute (2) Sepsis: Status: Resolved (3) Bacteremia due to group B Streptococcus: Status: Resolved Cellultis is cause of bacteremia. Possibly Group G strep is chronic and recurrent cause of cellulitis She has poor response to oral antibiotics. Staph hominis likely contaminant but patient on Vancomycin covers. Plan Would favor 10-14 days Vancomycin through PICC line Check trough and creatinine weekly Consider po PCN V 250 bid prophylaxis for recurrent cellulitis after acute treatment. Thank you for very interesting consult.
[2021-05-28] MEDS: vancomycin HCL 1,500 MG in 0.9 % Sodium Chloride 500 ML 333.33 MG IV (12:49)
[2021-05-28] MEDS: Nicotine 7 MG PATCH.TD24 TRANSDERMA (15:30)
[2021-05-28] MEDS: Enoxaparin Sodium 40 MG/0.4 ML SYRINGE SUBCUT (17:17)
[2021-05-29] VITALS: BP 135/71; PULSE 75; RESP 16; TEMP 37.3; O2SAT 94
[2021-05-29] MEDS: vancomycin HCL 1,500 MG in 0.9 % Sodium Chloride 500 ML 333.33 MG IV ×2 (01:14→14:41)
[2021-05-29 04:00] VITALS: BP 117/65; PULSE 58; RESP 18; TEMP 37.3; O2SAT 96
[2021-05-29] MEDS: Piperacillin Sodium/Tazobactam 3.375 GM in 0.9 % Sodium Chloride 50 ML IV ×2 (05:13→11:08)
[2021-05-29 06:23] LABS: MANUAL DIFF FLAG NO
[2021-05-29 06:27] LABS: Basophils Percent Auto 0.2 % (0-2); Eosinophils Percent Auto 0.7 % (0-4); Hematocrit 36.6 % (37.0-47.0); Hemoglobin 12.1 g/dl (12.0-16.0); Imm Gran Abs Auto 0.02 X10*3/uL (0.00-0.03); Imm Gran Pct Auto 0.4 % (0.0-0.4); Lymphocytes Absolute Auto 1.6 X10*3/uL (1.2-4.9); Lymphocytes Percent Auto 29.1 % (20-40); Mean Corpuscular HGB Conc 33.1 g/dl (31.0-35.0); Mean Corpuscular Hemoglobin 29.5 pg (27.0-33.0); Mean Corpuscular Volume 89.3 fL (80.0-98.0); Mean Platelet Volume 11.4 fL (9.4-12.3); Monocytes Absolute Auto 0.8 X10*3/uL (0.1-1.2); Monocytes Percent Auto 14.7 % (2-11); Neutrophils Percent Auto 54.9 % (45-73); Platelet Count 183 X10*3/uL (160-400); Red Cell Distribution Width 13.5 % (11.0-16.0); White Blood Count 5.5 X10*3/uL (4.8-10.8)
[2021-05-29 06:49] LABS: Alanine Aminotransferase 20 U/L (0-31); Albumin Level 3.2 g/dL (3.5-5.0); Alkaline Phosphatase 81 U/L (39-117); Anion Gap 16 (12-20); Aspartate Amino Transferase 39 U/L (5-31); Bilirubin Total 0.6 mg/dL (0.0-1.0); Blood Urea Nitrogen 4 mg/dL (9-16); Carbon Dioxide 21 mmol/L (22-29); Chloride 108 mmol/L (96-108); Creatinine Clr Calc Pharmacy 132.9; Estimated Glomerular Filt Rate > 60; Glucose Fasting 78 mg/dL (60-99); Sodium 142 mmol/L (135-145); Total Protein 5.8 g/dL (6.5-8.0)
[2021-05-29 07:36] VITALS: BP 162/88; PULSE 101; RESP 18; TEMP 36.7; O2SAT 93
[2021-05-29] MEDS: Potassium Chloride/H20 10 MEQ/100 ML PIGGYBACK 100 MEQ IV ×4 (10:01→15:45)
[2021-05-29] MEDS: Baclofen 10 MG TABLET PO (10:02)
[2021-05-29] MEDS: Cholecalciferol (Vitamin D3) 25 MCG TABLET 50 MCG PO (10:02)
[2021-05-29] MEDS: Multivitamin TABLET 1 TAB PO (10:02)
[2021-05-29] MEDS: 0.9 % Sodium Chloride 1,000 ML 125 ML IVCONT (10:04)
--- NOTE | 2021-05-29 10:36 | PC.NURSE ---
Skin/wound assessment completed. Patient has cellulitis to bilateral extremities with pink dry peeling skin. Left posterior lower leg has a venous ulcer yellow, shiny wound bed. Lotion applied to bilateral legs and Hydrofera blue applied to wound bed of ulcer covered with non woven gauze and roll gauze. Will continue to follow.
--- NOTE | 2021-05-29 11:31 | PM.DS ---
DS: Providers Provider Date of Service: 05/29/21 Date of admission: 05/26/21 15:11 Date of discharge: 05/29/21 Primary care physician: Unknown Physician Consults: 05/26/21 15:14 Consult to Infectious Diseases Routine Consulting Provider: Niru Douglas Reason for consultation: cellulitis Has provider been notified: No DS: Diagnosis Discharge Diagnosis (1) Cellulitis: Status: Acute (2) Sepsis: Status: Acute (3) Bacteremia due to group B Streptococcus: Status: Acute DS: Summary Hospital Course Hospital Course: 40-year-old female with history of TBI and severe dependent edema presents with cellulitis bilateral lower extremities and fever to 102. She was admitted, given IV Zosyn and vancomycin and blood cultures drawn. Over the next 48 hours, T-max has improved and ID consult has been noted. per ID, blood cultures are contaminant and they recommend 14 days of IV vancomycin. Patient to be discharged back to [facility] after lid line inserted Time Spent with Patient Time attestation: Total time spent providing and/or coordinating discharge services: Discharge coordination time: Greater than 30 minutes Quality: Stroke Does the patient have a stroke diagnosis?: No Physical Exam Vital Signs: Vital Signs: Last Vital Signs Temp 98.1 F 05/29/21 07:36 Pulse 101 H 05/29/21 07:36 Resp 18 05/29/21 07:36 BP 162/88 H 05/29/21 07:36 Pulse Ox 93 05/29/21 07:36 BMI result Body Mass Index 24.3 Const: Other: Confused/nonverbal answering only yes and no questions (baseline well known to me) Resp: Other: Clear to auscultation bilaterally no rales rhonchi wheezes Cardio: Other: No S4; positive S1-S2; no S3 murmurs rubs gallops GI: Other: Soft nontender nondistended with normoactive bowel sounds all 4 quadrants Neuro: Other: Moves all extremities with equal power; cognition at baseline as per care 1 Extrem: Other: dependent edema improved...less erythematous DS: Data Data Completed and Pending Labs on day of discharge: Laboratory Results - last 24 hr 05/29/21 05/29/21 05:51 05:51 WBC 5.5 RBC 4.10 L Hgb 12.1 Hct 36.6 L MCV 89.3 MCH 29.5 MCHC 33.1 RDW 13.5 Plt Count 183 MPV 11.4 Immature Gran % (Auto) 0.4 Neut % (Auto) 54.9 Lymph % (Auto) 29.1 [place] % (Auto) 14.7 H Eos % (Auto) 0.7 Baso % (Auto) 0.2 Lymph # (Auto) 1.6 [place] # (Auto) 0.8 Eos # (Auto) 0.0 Baso # (Auto) 0.0 Abs Immat Gran (auto) 0.02 Absolute Neuts (auto) 3.0 Absolute Nucleated RBC 0.000 Nucleated RBC % (auto) 0.0 Sodium 142 Potassium 3.0 L Chloride 108 Carbon Dioxide 21 L Anion Gap 16 BUN 4 L Creatinine 0.60 Estim Creat Clear Calc 132.9 Estimated GFR > 60 Fasting Glucose 78 Calcium 8.0 L Total Bilirubin 0.6 AST 39 H ALT 20 Alkaline Phosphatase 81 Total Protein 5.8 L Albumin 3.2 L Preliminary micro results at discharge 05/28/21 02:23 Blood Culture - Preliminary Blood - Venous No growth after 24 hours. 05/28/21 02:27 Blood Culture - Preliminary Blood - Venous No growth after 24 hours. Discharge Plan Discharge Patient Disposition: Xfer Inpatient Rehab Fac Discharge Diagnosis: cellulitis Referrals: Physician,Unknown J [Primary Care Provider] - 1 Week Discharge Medications: New vancomycin 1.25 gram recon soln 1 g IV Q12H Qty: 10 2RF Continued amantadine HCl 50 mg/5 mL Solution 50 mg PO DAILY 0RF multivitamin Tablet 1 tab PO DAILY 0RF sennosides [senna] 8.6 mg Tablet 8.6 mg PO DAILY PRN (Reason: Constipation) 0RF acetaminophen 325 mg Tablet 650 mg PO Q6H PRN (Reason: Fever Or Pain) 0RF trazodone 100 mg Tablet 100 mg PO BEDTIME 0RF valproic acid (as sodium salt) 250 mg/5 mL Solution 500 mg PO DAILY 0RF baclofen 10 mg Tablet 10 mg PO TID 0RF bisacodyl 10 mg Suppository 10 mg [place] DAILY PRN (Reason: Constipation) 0RF ibuprofen 400 mg Tablet 400 mg PO Q6H PRN (Reason: Pain (Scale Score 1-3)) 0RF mirtazapine 15 mg Tablet 15 mg PO BEDTIME 0RF nicotine 7 mg/24 hr Patch 24 Hour 1 patch TRANSDERMAL Q24H 0RF mirtazapine 7.5 mg Tablet 7.5 mg PO BEDTIME 0RF cholecalciferol (vitamin D3) [Vitamin D3] 50 mcg (2,000 unit) Tablet 50 mcg PO DAILY 0RF Discharge Orders: Discharge Order (Routine); Ordered 05/29/21 Ordered By: Feliciano Sales Diet: advance to usual diet Activity on Discharge: As tolerated Stand Alone Forms: Patient Portal Discharge page Care Plan Goals: vancomycin 1250 mg IV q.12 hours daily times 14 days. Routine flushes to midline. Vanco trough after 4th dose pack at [facility] Concerns: maintain leg elevation to decrease recurrence of cellulitis Plan of Treatment: IV antibiotics; leg elevation; PT Assessment: see discharge summary
[2021-05-29 11:33] VITALS: BP 104/61; PULSE 67; RESP 18; TEMP 36.9; O2SAT 94
--- NOTE | 2021-05-29 11:55 | MHC.SL.SWA ---
Speech Pathologist Impression: Oral Phase Dysphagia Risk of Aspiration Due to: Neurological Condition Dysphasia Diet Status: Upgrade Liquid Consistency and Strategies for Safe Swallow: Liquid Intake Recommendation: Thin Liquid Intake Strategies: Small Sips Solid Food Consistency: Dietary Recommendations: Pureed (NDD1) Additional Modifications to Solid Foods: Pt needs very strict 1-1 assistance w/meals, w/cuing to take small sips, present liquid after each bite of solid to assist oral transit of food. Oral Medication Intake: NPO Please contact the pharmacy regarding appropriate crushable or liquid drug formulations that are available whenever modified delivery is recommended. Compensatory Strategies and Precautions to be Taken for Safe Swallow: Sitting Upright (90 deg) Liquids from Straw Alternate Liquids/Solids Rate of Ingestion Change Oral Check Supervision While Eating and Drinking for Safe Swallow: Total Supervision (1:1) Foods to Avoid: After small bites of puree, offer liquid wash. Discontinue if Pt is pocketing/unable to clear puree food or demonstrates clinical s/s of aspiration. Recommend liquid medication where possible. Avoids sticky foods, contrasting textures (e.g. food that has chunks or crumbles). Swallowing Recommended Treatments: Compens. Strategy Educat. 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 Pt has limited lingual movement and has difficulty organizing and propelling bolus orally and containing bolus orally. Pt seen this a.m (05/29). Pt has communication grid w/written words, which was used to assist communication this a.m. Pt primarily used board to answer y/n questions, although indicated on board that she was hungry. Pt additionally requested lights remain off in the room, and was found sitting upright but under a blanket when TXist entered. Pt took straw sips of liquid, w/impulsive chain sip followed by episode of coughing/clinical s/s aspiration. Pt was cued to take single sips at a time, w/improved management of bolus. Pt given tsp of puree, w/puree delivered to middle of tongue. Pt closed mouth, did not initiate lingual mvt to propel bolus, and was then noted to put finger in mouth to push bolus back in mouth. After additional delay, Pt given straw sip of liquid, w/swallow initiated and food bolus cleared after swallow. reported to this therapist that SEAMAN or Front Office Associate at [facility] reported that at baseline Pt ate sandwiches. When asked if pt liked sandwiches she responded yes. Pieces of turkey from a turkey sandwich were offered, but when Pt saw this, Pt then responded No to this food offering and it was not attempted. Additionally Pt expressed a clear dislike of applesauce and prefers puddings. Pt used communication board and gesture to reject medication brought by nursing at the end of the session, w/ pt visibly becoming anxious and upset regarding meds (they were to be delivered in puree, w/some in liquid form). Nursing honored Pt's refusal of meds. Recommend continue on diet of PUREE, w/THIN liquids. Pt needs strict and close supervision, w/cues to take small sips by straw. All bites of food should be followed by oral wash to assist transit of food orally. Pt should continue to have meds in liquid form as much as possible. Frequency/Duration: M-F while inpt. Date Range for Service Req: Timeline to reassess: Inside Sales Trainer Clinican/Clinical Fellow: No Supervisory Statement: I have reviewed and agree with the student/clinical fellow's documentation: N/A Speech Language Pathologist: Lori Saucedo M.A., CCC-SEAMAN
--- NOTE | 2021-05-29 12:31 | HO.MIDLINE ---
PICC Line Insertion MIDLINE INSERTION Diagnosis: CELLULITIS Indication: CUSTODIAL IV ANTIBIOTICS Pertinent Labs: REVIEWED Technique: Using sterile technique including cap and mask, glove and drape, the RIGHT arm was prepped and draped in the usual sterile fashion of full barrier technique with CHG. Using ultrasound guidance, CEPHALIC vein access was obtained IN SINGLE ATTEMPT BY THIS RN. A SINGLE LUMEN, NONPASV, (20G X 8CM) MIDLINE was positioned. The procedure was performed in S-272. Ultrasound was used to document vein patency and for needle entry. A formal ultrasound picture was recorded. Vascular Director Of [employer]ands has released the line for use and it is currently dressed with a StatLock, Tegaderm, and CHG disc. Verification has been performed for blood return and line patency. Arm Circumference: 24 CM Equipment: [employer] POWERGLIDE PRO Catheter Type: SINGLE LUMEN, NONPASV, (20G X 8CM) Lot #: [id number]
[2021-05-29 12:42] LABS: Vancomycin Trough 10.4 mcg/mL (10.0-20.0)
--- NOTE | 2021-05-29 13:39 | MHC.CM.PN ---
Addendum entered by Lori Armstrong RN 05/29/21 13:41: CLARIFICATION VANCO 1.25GM Q12HRS [id number] Original Note: PT MEDICALLY CLEARED FOR D/C BACK TO [facility] W/14DAYS IV VANCO 1.2G Q12HRS, [facility] FOR BLS TRANSPORT
[2021-05-29 15:42] VITALS: BP 135/84; PULSE 76; RESP 18; TEMP 37.6; O2SAT 97
[2021-05-29] MEDS: Nicotine 7 MG PATCH.TD24 TRANSDERMA (15:45)
== END 2021-05-29 16:30 | DRG 602 ==
LOC: HO.ED 11:46 → HO.EDOVER 15:23 → HO.S3 05-28 07:33
PROVIDERS: Internal Medicine; Physician Assistant Medical; Admitting Provider Hospitalist; Emergency Provider Emergency Medicine; Visit Provider Hospitalist
DX: L03.116 Cellulitis of left lower limb (principal); A41.9 Sepsis, unspecified organism; I87.312 Chronic venous hypertension (idiopathic) with ulcer of left lower extremity; L03.115 Cellulitis of right lower limb; F31.9 Bipolar disorder, unspecified; Z87.820 Personal history of traumatic brain injury; Z20.822 Contact with and (suspected) exposure to COVID-19; Z79.899 Other long term (current) drug therapy
CPT/HCPCS: 36410; 36415; 70450; 71045; 80053; 80202; 80307; 81001; 82272; 83605; 83735; 84484; 84702; 85014; 85018; 85025; 85610; 87040; 87147; 87186; 87205; 87635; 92526; 92610; 93005; 93970; 93971; 96361; 96365; 96375; 99285; 99291; J0696; J1650; J2060; J2270; J2543; J3370

== ENCOUNTER 2023-05-05 10:43 | Inpatient (IN) | payer MEDICARE, MEDICAID, SELFPAY ==
[2023-05-05] VITALS (7 sets, daily range): BP systolic 102–126; BP diastolic 62–85; PULSE 90–140; RESP 16–22; TEMP 36.2–38.3; O2SAT 95–97; BMI 34.8; BMI 16.5
--- NOTE | ~2023-05-05 | US_ITS ---
EXAMINATION: US ABDOMEN LIMITED CLINICAL INFORMATION: Abdominal pain-abnormal CT scan. COMPARISON: CT scan abdomen and pelvis 05/05/2023 TECHNIQUE: Real-time imaging of the main portal vein. The study is somewhat limited by bowel gas and patient movement. US/US abdomen limited FINDINGS/IMPRESSION: Ultrasound of the main portal vein demonstrates that the vein is patent and has hepatopedal flow.
--- NOTE | ~2023-05-05 | CT_ITS ---
EXAMINATION: CT ABDOMEN AND PELVIS WITH CONTRAST CLINICAL INFORMATION: Abdominal pain. COMPARISON: None available. TECHNIQUE: Multidetector volumetric images were obtained from the superior aspect of the liver through the pubic symphysis following administration 85 mL of Omnipaque 350 intravenous contrast. Sagittal and coronal reformatted images were obtained on the technologist's workstation. Oral contrast: No This CT examination was performed using dose optimization techniques as appropriate, variously including the following: *Automated exposure control *Adjustment of mA and/or kV according to patient size (this includes techniques or standardized protocols for targeted exams where dose is matched to indication/reason for exam; i.e. extremities or head) *Use of iterative reconstruction technique DLP: 508 mGy-cm FINDINGS: Motion artifact technically degrades image quality. LUNG BASES: No pleural or pericardial effusion. LIVER, GALLBLADDER, AND BILIARY TREE: The liver is normal in size and contour. No biliary ductal dilatation is present. The gallbladder is unremarkable with no evidence of radiopaque gallstones, gallbladder wall thickening, or obvious pericholecystic inflammatory changes. PANCREAS: No ductal dilatation. SPLEEN: Not enlarged. ADRENAL GLANDS: No adrenal mass. KIDNEYS AND URETERS: Possible striated nephrograms upper pole left kidney. No hydronephrosis or perinephric fluid collection. BLADDER: Unremarkable. GASTROINTESTINAL TRACT: Percutaneous gastrostomy tube in place. No abnormally dilated loops of small bowel. The colon is surgically absent. There is a rectal pouch. ABDOMINAL WALL: No significant hernia is appreciated. LYMPH NODES: No bulky lymphadenopathy. VASCULAR: The main portal vein is severely attenuated at the level of the portal confluence. Normal caliber abdominal aorta. PELVIC VISCERA: Marked fluid distention of the vagina. The uterus is anteverted. OSSEOUS STRUCTURES: No destructive bone lesions. CT/CT abdomen pelvis w IV con IMPRESSION: Possible striated nephrogram to upper pole left kidney. This may represent underlying infection such as pyelonephritis. Advise clinical correlation. Marked fluid distention of the vagina cervix. One must consider the possibility of stenosis related to scarring or adhesions. Severe attenuation of the main portal vein at the level of the portal confluence.
--- NOTE | 2023-05-05 11:15 | ED.GENADULT ---
HPI - General Adult General Chief complaint: General Medical Stated complaint: BLACK FOUL VAGINAL DISCHARGE FROM SNF PER EMS Time Seen by Provider: 05/05/23 11:15 Source: patient, family (patient's mother) and EMS Mode of arrival: EMS Limitations: physical limitation (patient uses communication boards) History of Present Illness HPI narrative: Patient is a 42 year old assigned female at with a history of TBI and colostomy presenting to the emergency department today with black vaginal discharge. [facility] staff states that the patient has been having dark vaginal discharge for awhile . Patient is able to communicate with communication charts. Patient denies any vaginal trauma. Patient confirms she still has periods. Patient denies any complaints at this time. Related Data Home Medications Medication Instructions Recorded Confirmed acetaminophen 325 mg tablet 650 mg PO Q6H PRN Fever Or Pain 05/26/21 05/26/21 amantadine HCl 50 mg/5 mL oral 50 mg PO DAILY 05/26/21 05/26/21 solution baclofen 10 mg tablet 10 mg PO TID 05/26/21 05/26/21 bisacodyl 10 mg rectal suppository 10 mg TN DAILY PRN Constipation 05/26/21 05/26/21 cholecalciferol (vitamin D3) 50 50 mcg PO DAILY 05/26/21 05/26/21 mcg (2,000 unit) tablet (Vitamin D3) ibuprofen 400 mg tablet 400 mg PO Q6H PRN Pain (Scale 05/26/21 05/26/21 Score 1-3) mirtazapine 15 mg tablet 15 mg PO BEDTIME 05/26/21 05/26/21 mirtazapine 7.5 mg tablet 7.5 mg PO BEDTIME 05/26/21 05/26/21 multivitamin 1 tab PO DAILY 05/26/21 05/26/21 nicotine 7 mg/24 hr daily 1 patch transdermal Q24H 05/26/21 05/26/21 transdermal patch sennosides 8.6 mg tablet (senna) 8.6 mg PO DAILY PRN Constipation 05/26/21 05/26/21 trazodone 100 mg tablet 100 mg PO BEDTIME 05/26/21 05/26/21 valproic acid (as sodium salt) 250 500 mg PO DAILY 05/26/21 05/26/21 mg/5 mL oral solution Previous Rx's Medication Instructions Recorded vancomycin 1.25 gram intravenous 1 g IV Q12H #10 ea 05/29/21 solution Allergies Allergy/AdvReac Type Severity Reaction Status Date / Time No Known Allergies Allergy Unverified 07/05/20 17:46 Review of Systems Constitutional: Constitutional: Reports no additional constitutional complaints, Denies chills, Denies fever(s) and Denies night sweats Eyes: Eyes: Reports no additional eye complaints, Denies blurry vision, Denies change in vision, Denies diplopia, Denies eye discharge, Denies loss of vision and Denies eye pain ENT: Denies dizziness Cardiovascular: Cardiovascular: Reports no additional cardiovascular complaints, Denies chest pain, Denies lightheadedness, Denies Loss of Consciousness and Denies dyspnea Respiratory: Respiratory: Reports no additional respiratory complaints and Denies dyspnea Genitourinary: Genitourinary: Denies hematuria, Denies urinary frequency, Denies dysuria, Denies urinary incontinence, Denies urinary hesitancy and Denies urinary urgency Comments: vaginal discharge Musculoskeletal: Musculoskeletal: Reports no additional musculoskeletal complaints, Denies numbness and Denies tingling Neurologic: Denies dizziness, Denies loss of vision, Denies numbness and Denies tingling Psychiatric: Psychiatric: Reports no additional psychiatric complaints Endocrine: Endocrine: Reports no additional endocrine complaints Hematologic/Lymphatic: Hematologic/Lymphatic: Reports no additional hematologic/lymphatic complaints Allergic/Immunologic: Allergic/Immunologic: Reports no additional allergic/immunologic complaints PMFSH Past Medical History Attestation statement: The following information was validated with the patient. (all information validated with the patient's mother, EMS, and [facility] staff) Source: old records reviewed, obtained from family (obtained additional history from the patient's mother) and nursing notes reviewed Medical History Bacteremia due to group B Streptococcus Falls Ataxia Anemia Bipolar 1 disorder TBI (traumatic brain injury) Social History Social History Household Members: Other Housing: Longterm Do you presently have visiting nurse or other home services: No (at [facility]) Unable to assess alcohol history related to: Unable to respond Alcohol intake: unknown Patient Tobacco Use Status: Tobacco use Unknown Tobacco use type: Cigarette Smoked in Last 30 Days: No Use of substances other than those prescribed or required for medical reasons: No Advance Directives: Yes Advance Directives on File: Yes Advance Directives Date on File: 07/12/20 service: No Physical Exam ED Vital Signs: Vital Signs - 24 hr 05/05/23 10:57 05/05/23 11:13 05/05/23 13:04 Temperature 99.1 F 100.9 F H Pulse Rate 117 H 114 H Respiratory Rate 16 18 Blood Pressure 126/76 122/72 Pulse Oximetry 95 Oxygen Delivery Method Room Air BMI result Body Mass Index 34.8 Const General: cooperative, no acute distress, alert and awake Nutritional Appearance: cachectic Orientation/consciousness: patient oriented x3 Limitations: language barrier (patient communicates with communication charts) HENMT Head: Yes normal to inspection and Yes atraumatic Ears: hearing grossly normal bilaterally and external ears normal General nose exam: Normal external nose present, no nasal discharge noted and no epistaxis Face and sinus: Yes normal facial exam, No abrasion and No laceration Mouth: Normal oral and palatal mucosa present, no drooling and no muffled voice Eyes General: appearance normal, both eyes and all related structures Periorbital: periorbital findings normal Eyelids: Yes eyelids normal Conjunctivae: conjunctivae normal Pupils: Equal, round and reactive pupils present EOM: EOMs intact bilaterally Neck Neck: Yes normal visual inspection, Yes full ROM and Yes no lymphadenopathy Chest Chest palpation & inspection: normal inspection of the chest Resp Effort & Inspection: normal respiratory effort and able to speak in complete sentences GI Other: colostomy present on the right abdomen Inspection: Yes normal to inspection Neuro General: patient oriented x3 and moves all extremities Cranial nerves: Yes Equal, round and reactive pupils present Cognition (Neuro): normal cognition Motor exam (neuro): 5/5 motor strength present throughout Sensory Exam: Normal double simultaneous stimulation for sensation Coordination: [id number] test normal Extrem Other: very thing and contracted bilateral lower extremities General: Yes capillary refill normal Psych Appearance: grossly normal Mental Status: mental status grossly normal Affect: normal affect Attitude: cooperative Thought process: Normal thought process present Thought content: Normal thought content present Insight: Good insight present (Psych) Medications Administered Discontinued Medications Generic Name Dose Route Start Last Admin Trade Name Freq PRN Reason Stop Dose Admin Sodium Chloride 1,000 mls @ 999 mls/hr 05/05/23 12:00 05/05/23 13:08 Ns IV 05/05/23 13:00 Infused .Q1H1M SUSAN Infusion Ceftriaxone Sodium 2 gm/ 50 mls @ 100 mls/hr 05/05/23 14:35 05/05/23 14:44 Sodium Chloride IV 05/05/23 15:04 100 mls/hr ONCE ONE Administration Iohexol 100 ml 05/05/23 13:40 05/05/23 13:41 Iohexol 350 Mg/Ml 100 Ml Infus..Btl IV 05/05/23 13:41 85 ml ONCE ONE Administration Medical Decision Making Medical Decision Making MDM Narrative: Patient is a 42 year old assigned female at with a history of TBI and colostomy presenting to the emergency department today with dark vaginal discharge. Patient's physical exam was as noted in the physical exam portion of this chart. Patient's blood work was unremarkable. Patient's urine showed a possible UTI. Patient's EKG showed sinus tachycardia. Patient's abdomen/pelvis CT showed possible pyelonephritis of the left kidney. Patient was febrile when she arrived in the department. Patient's urine collected from straight cath was extremely dark, almost black. Patient was given IV fluids and IV antibiotics. Patient's clinical presentation is not consistent with sepsis (@1450). I spoke to Dr. Sales who agreed to admission. I explained my physical exam findings as well as all test results to the patient and the patient's mother. I answered all questions asked by the patient and the patient's mother. Patient and the patient's mother communicated agreement and understanding with this treatment plan and admission. Differential Diagnosis Differential Diagnoses: The differential diagnosis associated with the presentation includes Vaginal discharge Vaginal fistula with bowel Bladder fistula with bowel UTI Pyelonephritis Admission/Observation Consideration of admission/observation: Escalation of care including admission/observation considered Patient admitted. Consult Healthcare Provider Management of the patient was discussed with: Hospitalist (agreed to admission as noted in the MDM Rationale portion of this note.) Lab Data [facility] Lab Attestation statement: I reviewed the patient's lab results. My interpretation of these results are in the MDM Rationale portion of this note. 05/05/23 11:44 05/05/23 11:44 Labs: Lab Results 05/05/23 05/05/23 Range/Units 11:44 12:44 WBC 9.3 (4.8-10.8) X10*3/uL RBC 4.40 (4.20-5.50) X10*6/uL Hgb 13.8 (12.0-16.0) g/dl Hct 41.2 (37.0-47.0) % MCV 93.6 (80.0-98.0) fL MCH 31.4 (27.0-33.0) pg MCHC 33.5 (31.0-35.0) g/dl RDW 12.5 (11.0-16.0) % Plt Count 247 D (160-400) X10*3/uL MPV 12.1 (9.4-12.3) fL Immature Gran % (Auto) 0.3 (0.0-0.4) % Neut % (Auto) 81.3 H (45-73) % Lymph % (Auto) 13.8 L (20-40) % [place] % (Auto) 4.2 (2-11) % Eos % (Auto) 0.1 (0-4) % Baso % (Auto) 0.3 (0-2) % Lymph # (Auto) 1.3 (1.2-4.9) X10*3/uL [place] # (Auto) 0.4 (0.1-1.2) X10*3/uL Eos # (Auto) 0.0 (0.0-0.4) X10*3/uL Baso # (Auto) 0.0 (0.0-0.2) X10*3/uL Abs Immat Gran (auto) 0.03 (0.00-0.03) X10*3/uL Absolute Neuts (auto) 7.6 (2.0-8.3) x10*3/uL Absolute Nucleated RBC 0.000 (0.0-0.012) X10*3/uL Nucleated RBC % (auto) 0.0 (0.0-0.2) /100WBC PT 12.9 (11.1-13.3) SEC INR 1.1 (0.9-1.1) APTT 34.2 (26.0-36.8) SEC Sodium 143 (135-145) mmol/L Potassium 4.6 (3.3-5.1) mmol/L Chloride 109 H (96-108) mmol/L Carbon Dioxide 25 (22-29) mmol/L Anion Gap 14 (12-20) BUN 23 H (9-16) mg/dL Creatinine 0.69 (0.5-1.4) mg/dL Estim Creat Clear Calc 145.5 Estimated GFR > 60 Random Glucose 119 H (60-115) mg/dL Lactic Acid 1.6 (0.5-2.0) mmol/L Calcium 9.4 D (8.4-10.2) mg/dL Magnesium 2.3 (1.6-2.6) mg/dL Total Bilirubin 0.3 (0.0-1.0) mg/dL AST 18 (5-31) U/L ALT 16 (0-31) U/L Alkaline Phosphatase 114 (39-117) U/L Total Protein 7.7 (6.5-8.0) g/dL Albumin 4.2 (3.5-5.0) g/dL Urine Color BROWN Urine Appearance Turbid Urine pH 8.0 (5.0-9.0) Ur Specific [place] 1.010 (1.005-1.025) Urine Protein 300 (3+) H (Neg-Trace) mg/dL Urine Glucose (UA) See Note (Negative) mg/dL Urine Ketones See Note (Negative) mg/dL Urine Blood See Note (Negative) Urine Nitrite See Note (Negative) Ur Leukocyte Esterase See Note (Negative) Urine RBC 3-5 H (0-2) /HPF Urine WBC 6-10 (0-5) /HPF Ur Squamous Epith Cells 0-2 (0-2) /HPF Urine Bacteria 3+ (None Seen) Hyaline Casts 0-2 (0-2) /LPF COVID-19 (GAETANO) Negative (Negative) COVID-19 Clin Com See Note Influenza Type A (YADIRA) Negative (Negative) Influenza Type B (YADIRA) Negative (Negative) Influenza A & B Note See Note Independent Interpretation I performed an independent interpretation of an: EKG and CT Scan Interpretation: My interpretation is in agreement with the radiologist's impression of this imaging study. EXAMINATION: CT ABDOMEN AND PELVIS WITH CONTRAST CLINICAL INFORMATION: Abdominal pain. COMPARISON: None available. TECHNIQUE: Multidetector volumetric images were obtained from the superior aspect of the liver through the pubic symphysis following administration 85 mL of Omnipaque 350 intravenous contrast. Sagittal and coronal reformatted images were obtained on the technologist's workstation. Oral contrast: No This CT examination was performed using dose optimization techniques as appropriate, variously including the following: *Automated exposure control *Adjustment of mA and/or kV according to patient size (this includes techniques or standardized protocols for targeted exams where dose is matched to indication/reason for exam; i.e. extremities or head) *Use of iterative reconstruction technique DLP: 508 mGy-cm FINDINGS: Motion artifact technically degrades image quality. LUNG BASES: No pleural or pericardial effusion. LIVER, GALLBLADDER, AND BILIARY TREE: The liver is normal in size and contour. No biliary ductal dilatation is present. The gallbladder is unremarkable with no evidence of radiopaque gallstones, gallbladder wall thickening, or obvious pericholecystic inflammatory changes. PANCREAS: No ductal dilatation. SPLEEN: Not enlarged. ADRENAL GLANDS: No adrenal mass. KIDNEYS AND URETERS: Possible striated nephrograms upper pole left kidney. No hydronephrosis or perinephric fluid collection. BLADDER: Unremarkable. GASTROINTESTINAL TRACT: Percutaneous gastrostomy tube in place. No abnormally dilated loops of small bowel. The colon is surgically absent. There is a rectal pouch. ABDOMINAL WALL: No significant hernia is appreciated. LYMPH NODES: No bulky lymphadenopathy. VASCULAR: The main portal vein is severely attenuated at the level of the portal confluence. Normal caliber abdominal aorta. PELVIC VISCERA: Marked fluid distention of the vagina. The uterus is anteverted. OSSEOUS STRUCTURES: No destructive bone lesions. CT/CT abdomen pelvis w IV con IMPRESSION: Possible striated nephrogram to upper pole left kidney. This may represent underlying infection such as pyelonephritis. Advise clinical correlation. Marked fluid distention of the vagina cervix. One must consider the possibility of stenosis related to scarring or adhesions. Severe attenuation of the main portal vein at the level of the portal confluence. Dictated By: Ben Garcia MD Signed By: Electronically signed by Ben Garcia MD 05/05/23 1415 Vent. Rate: 133 BPM Atrial Rate: 133 BPM P-R Int: 126 ms QRS Dur: 064 ms QT Int: 304 ms P-R-T Axes: 069 063 100 degrees QTc Int: 452 ms Sinus tachycardia Minimal voltage criteria for LVH, may be normal variant ( Sokolow-Dos Santos ) Nonspecific ST and T wave abnormality Abnormal ECG When compared with ECG of 26-MAY-2021 10:29, No significant change was found DD/ 1130 Radiology Impression Discussion of test interpretation with radiology: I have reviewed the radiologist's reading. Independent Historian Clinical information obtained from an independent historian. History obtained from or confirmed by: Parent (patient's mother provided additional history and confirmed the history provided by the patient, EMS, and [facility] staff) and EMS (EMS provided additional history and confirmed the history provided by the patient, the patient's mother, and [facility] staff) Critical Care Time Critical Care Time Critical Care Time: Yes Total Critical Care Time: 65 Attestation: I spent 65 minutes of Critical Care Time with this patient. This does not include time spent on separately reported billable procedures. Discharge Plan Discharge Clinical Impression: Vaginal discharge, Pyelonephritis Patient Disposition: Admitted As Inpatient
--- NOTE | 2023-05-05 11:20 | ECG_ITS ---
Test Reason : TACHYCARDIA Blood Pressure : / mmHG Vent. Rate : 133 BPM Atrial Rate : 133 BPM P-R Int : 126 ms QRS Dur : 064 ms QT Int : 304 ms P-R-T Axes : 069 063 100 degrees QTc Int : 452 ms Sinus tachycardia Minimal voltage criteria for LVH, may be normal variant ( Sokolow-Dos Santos ) Nonspecific ST and T wave abnormality Abnormal ECG When compared with ECG of 26-MAY-2021 10:29, No significant change was found Referred By: Macrina Rashid Electronically Signed By:EDGARDO GAVLIN MD
[2023-05-05 11:52] LABS: MANUAL DIFF FLAG NO
[2023-05-05] MEDS: 0.9 % Sodium Chloride 1,000 ML 999 ML IV (11:59)
[2023-05-05 12:00] LABS: INTERNATIONAL NORM RATIO 1.1 (0.9-1.1); Prothrombin Time 12.9 SEC (11.1-13.3)
[2023-05-05 12:03] LABS: Partial Thromboplastin Time 34.2 SEC (26.0-36.8)
[2023-05-05 12:05] LABS: Basophils Percent Auto 0.3 % (0-2); Eosinophils Percent Auto 0.1 % (0-4); Hematocrit 41.2 % (37.0-47.0); Hemoglobin 13.8 g/dl (12.0-16.0); Imm Gran Abs Auto 0.03 X10*3/uL (0.00-0.03); Imm Gran Pct Auto 0.3 % (0.0-0.4); Lymphocytes Absolute Auto 1.3 X10*3/uL (1.2-4.9); Lymphocytes Percent Auto 13.8 % (20-40); Mean Corpuscular HGB Conc 33.5 g/dl (31.0-35.0); Mean Corpuscular Hemoglobin 31.4 pg (27.0-33.0); Mean Corpuscular Volume 93.6 fL (80.0-98.0); Mean Platelet Volume 12.1 fL (9.4-12.3); Monocytes Absolute Auto 0.4 X10*3/uL (0.1-1.2); Monocytes Percent Auto 4.2 % (2-11); Neutrophils Absolute Auto 7.6 x10*3/uL (2.0-8.3); Neutrophils Percent Auto 81.3 % (45-73); Platelet Count 247 X10*3/uL (160-400); Red Cell Distribution Width 12.5 % (11.0-16.0); White Blood Count 9.3 X10*3/uL (4.8-10.8)
[2023-05-05 12:07] LABS: Lactic Acid 1.6 mmol/L (0.5-2.0)
[2023-05-05 12:09] LABS: Alanine Aminotransferase 16 U/L (0-31); Albumin Level 4.2 g/dL (3.5-5.0); Alkaline Phosphatase 114 U/L (39-117); Anion Gap 14 (12-20); Aspartate Amino Transferase 18 U/L (5-31); Bilirubin Total 0.3 mg/dL (0.0-1.0); Blood Urea Nitrogen 23 mg/dL (9-16); Calcium 9.4 mg/dL (8.4-10.2); Carbon Dioxide 25 mmol/L (22-29); Chloride 109 mmol/L (96-108); Creatinine Clr Calc Pharmacy 145.5; Estimated Glomerular Filt Rate > 60; Glucose Random 119 mg/dL (60-115); Magnesium 2.3 mg/dL (1.6-2.6); Potassium 4.6 mmol/L (3.3-5.1); Sodium 143 mmol/L (135-145); Total Protein 7.7 g/dL (6.5-8.0)
[2023-05-05 12:42] LABS: IDNOW Serial# 08D9AD1C; Influenza A Negative (Negative); Influenza B2 Negative (Negative)
[2023-05-05 12:46] LABS: COVID-19 Test Negative (Negative); IDNOW Serial# 6674DD1D
--- NOTE | 2023-05-05 13:12 | PC.NURSE ---
pt alert and oriented. [facility] reports brown discharge from vaginal area. IN ED, pt tachy and febrile, PA immediately notified. labs, EKG done and IV inserted. fluids infused. straight cath drained dark brown, thick substance that was sent to lab. ostomy bag and applicator device changed. Mother at bedside.
[2023-05-05 13:29] LABS: Appearance Urine Turbid; Color Urine BROWN; UMIC TRIGGER UACC YES; Urine Protein 300 (3+) mg/dL (Neg-Trace)
[2023-05-05] MEDS: iohexoL 350 MG/ML 100 ML INFUS..BTL IV (13:41)
[2023-05-05 13:49] LABS: Bacteria Urine 3+ (None Seen); Hyaline Casts Urine 0-2 /LPF (0-2); Squamous Epithelial Cell Urine 0-2 /HPF (0-2); UACC Culture Trigger YES
[2023-05-05] MEDS: cefTRIAXone sodium 2 GM in 0.9 % Sodium Chloride 50 ML IV (14:44)
--- NOTE | 2023-05-05 15:18 | PM.IMHP ---
History of Present Illness Date of Service: 05/05/23 Chief Complaint: black vaginal discharge 42-year-old female well known to me from [facility] status post TBI with contracture status post colostomy status post PEG tube presents with copious amount of black vaginal discharge. Staff noted this 1st episode this morning which prompted transport to the emergency room. In the emergency room patient was catheterized for blackish purple thick urine; she was mildly febrile on admission. CT done shows uterine changes and findings consistent with mild pyelonephritis. She will be admitted for treatment of the same with specialty consults Review of Systems Review of Systems: Unable to obtain secondary to TBI [facility] Medical History Bacteremia due to group B Streptococcus Falls Ataxia Anemia Bipolar 1 disorder TBI (traumatic brain injury) Social History Household Members: Other Housing: [facility] Do you presently have visiting nurse or other home services: No (at [facility]) Unable to assess alcohol history related to: Unable to respond Alcohol intake: unknown Patient Tobacco Use Status: Tobacco use Unknown Tobacco use type: Cigarette Smoked in Last 30 Days: No Use of substances other than those prescribed or required for medical reasons: No Advance Directives: Yes Advance Directives on File: Yes Advance Directives Date on File: 07/12/20 service: No Meds Allergies Allergy/AdvReac Type Severity Reaction Status Date / Time No Known Allergies Allergy Unverified 07/05/20 17:46 Active Medications: Current Medications Acetaminophen (Acetaminophen Supp 650 Mg Supp.Rect) 650 mg [place] Q6H PRN PRN Reason: Pain, Mild (Pain Scale 1-3) Enoxaparin Sodium (Enoxaparin Sodium 40 Mg/0.4 Ml Syringe) 40 mg SUBCUT Q24H [facility] Ceftriaxone Sodium 2 gm/ (Sodium Chloride) 50 mls @ 100 mls/hr IV DAILY ONE Stop: 05/05/23 15:45 Ondansetron HCl (Ondansetron Hcl 4 Mg/2 Ml Vial) 4 mg IVPUSH Q8H PRN PRN Reason: Nausea and Vomiting Sodium Chloride (0.9 % Sodium Chloride Flush 3 Ml Syringe) 3 ml IVFLUSH QSHIFT [facility] Home Medications Medication Instructions Recorded Confirmed Last Taken Type acetaminophen 325 mg tablet 650 mg PO Q6H PRN Fever Or Pain 05/26/21 05/26/21 Unknown History amantadine HCl 50 mg/5 mL oral 50 mg PO DAILY 05/26/21 05/26/21 Unknown History solution baclofen 10 mg tablet 10 mg PO TID 05/26/21 05/26/21 Unknown History bisacodyl 10 mg rectal suppository 10 mg [place] DAILY PRN Constipation 05/26/21 05/26/21 Unknown History cholecalciferol (vitamin D3) 50 50 mcg PO DAILY 05/26/21 05/26/21 Unknown History mcg (2,000 unit) tablet (Vitamin D3) ibuprofen 400 mg tablet 400 mg PO Q6H PRN Pain (Scale 05/26/21 05/26/21 Unknown History Score 1-3) mirtazapine 15 mg tablet 15 mg PO BEDTIME 05/26/21 05/26/21 Unknown History mirtazapine 7.5 mg tablet 7.5 mg PO BEDTIME 05/26/21 05/26/21 Unknown History multivitamin 1 tab PO DAILY 05/26/21 05/26/21 Unknown History nicotine 7 mg/24 hr daily 1 patch transdermal Q24H 05/26/21 05/26/21 Unknown History transdermal patch sennosides 8.6 mg tablet (senna) 8.6 mg PO DAILY PRN Constipation 05/26/21 05/26/21 Unknown History trazodone 100 mg tablet 100 mg PO BEDTIME 05/26/21 05/26/21 Unknown History valproic acid (as sodium salt) 250 500 mg PO DAILY 05/26/21 05/26/21 Unknown History mg/5 mL oral solution Physical Exam Vital Signs and Narrative: Vital Signs: Last Vital Signs Temp 100.9 F H 05/05/23 11:13 Pulse 114 H 05/05/23 13:04 Resp 18 05/05/23 13:04 BP 122/72 05/05/23 13:04 Pulse Ox 95 05/05/23 10:57 O2 Del Method Room Air 05/05/23 10:57 BMI result Body Mass Index 34.8 Const: Other: Awake nonverbal; uses sign board to communicate Resp: Other: Clear to auscultation bilaterally no rales rhonchi or wheezes Cardio: Other: No S4; positive S1-S2; no S3 murmurs rubs or gallops GI: Other: Soft nontender nondistended normoactive bowel sounds. Colostomy functional. G-tube site clean dry and intact Extrem: Other: Contracted Results Labs 05/05/23 11:44 05/05/23 11:44 Labs: Laboratory Results - last 24 hr 05/05/23 05/05/23 11:44 12:44 MCV 93.6 MCH 31.4 MCHC 33.5 RDW 12.5 Plt Count 247 D MPV 12.1 Immature Gran % (Auto) 0.3 Neut % (Auto) 81.3 H Lymph % (Auto) 13.8 L [place] % (Auto) 4.2 Eos % (Auto) 0.1 Baso % (Auto) 0.3 Lymph # (Auto) 1.3 [place] # (Auto) 0.4 Eos # (Auto) 0.0 Baso # (Auto) 0.0 Abs Immat Gran (auto) 0.03 Absolute Neuts (auto) 7.6 Absolute Nucleated RBC 0.000 Nucleated RBC % (auto) 0.0 PT 12.9 INR 1.1 APTT 34.2 Anion Gap 14 Estim Creat Clear Calc 145.5 Estimated GFR > 60 Random Glucose 119 H Lactic Acid 1.6 Calcium 9.4 D Magnesium 2.3 Total Bilirubin 0.3 AST 18 ALT 16 Alkaline Phosphatase 114 Total Protein 7.7 Albumin 4.2 Urine Color BROWN Urine Appearance Turbid Urine pH 8.0 Ur Specific [place] 1.010 Urine Protein 300 (3+) H Urine Glucose (UA) See Note Urine Ketones See Note Urine Blood See Note Urine Nitrite See Note Ur Leukocyte Esterase See Note Urine RBC 3-5 H Urine WBC 6-10 Ur Squamous Epith Cells 0-2 Urine Bacteria 3+ Hyaline Casts 0-2 COVID-19 (GAETANO) Negative COVID-19 Clin Com See Note Influenza Type A (YADIRA) Negative Influenza Type B (YADIRA) Negative Influenza A & B Note See Note Imaging Radiologist's Impressions: Impressions Abdomen/Pelvis CT 05/05/23 13:39 IMPRESSION: Possible striated nephrogram to upper pole left kidney. This may represent underlying infection such as pyelonephritis. Advise clinical correlation. Marked fluid distention of the vagina cervix. One must consider the possibility of stenosis related to scarring or adhesions. Severe attenuation of the main portal vein at the level of the portal confluence. 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 In the emergency room, straight cath which demonstrated black is purple viscus urine consistent with discharge. CT scan with uterine changes along with mild pyelo changes 1. Vaginal discharge Likely urine however abnormalities in uterus noted on CT scan -ceftriaxone 2 g daily -it software developer consult 2. Active urinary sediment -ceftriaxone 2 g daily -urology consult 3. TBI -stable and well compensated -continue outpatient therapies Full code Lovenox Discussed with mother at bedside Will require 2 midnights of inpatient stay going forward to treat vaginal discharge or active urinary sediment along with specially consultation. This can not be achieved a lesser acute setting Quality Stroke Does the patient have a stroke diagnosis?: No VTE Prior VTE?: No VTE Risk Level:: Medical - moderate - high VTE Device Contraindication: Treatment Not Indicated VTE Drug Contraindication: N/A - Med Ordered
--- NOTE | 2023-05-05 16:26 | PC.NURSE ---
[facility] called to check on patients status.
--- NOTE | 2023-05-05 16:27 | P.CONOB_ITS ---
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 In the emergency room, straight cath which demonstrated black / purple viscus urine. CT scan showed Marked fluid distention of the vagina. The uterus is anteverted. And mild pyelo changes cc:: CC: Feliciano Sales DO OB PMFSH Past Medical History Medical History Bacteremia due to group B Streptococcus Falls Ataxia Anemia Bipolar 1 disorder TBI (traumatic brain injury) Social History Social History Household Members: Other Housing: Care Home Do you presently have visiting nurse or other home services: No (at [facility]) Unable to assess alcohol history related to: Unable to respond Alcohol intake: unknown Patient Tobacco Use Status: Tobacco use Unknown Tobacco use type: Cigarette Smoked in Last 30 Days: No Use of substances other than those prescribed or required for medical reasons: No Advance Directives: Yes Advance Directives on File: Yes Advance Directives Date on File: 07/12/20 service: No Meds Allergies Allergy/AdvReac Type Severity Reaction Status Date / Time No Known Allergies Allergy Unverified 07/05/20 17:46 Active Medications: Current Medications Acetaminophen (Acetaminophen Supp 650 Mg Supp.Rect) 650 mg [place] Q6H PRN PRN Reason: Pain, Mild (Pain Scale 1-3) Enoxaparin Sodium (Enoxaparin Sodium 40 Mg/0.4 Ml Syringe) 40 mg SUBCUT Q24H [facility] Ceftriaxone Sodium 2 gm/ (Sodium Chloride) 50 mls @ 100 mls/hr IV DAILY ONE Stop: 05/06/23 14:29 Ondansetron HCl (Ondansetron Hcl 4 Mg/2 Ml Vial) 4 mg IVPUSH Q8H PRN PRN Reason: Nausea and Vomiting Sodium Chloride (0.9 % Sodium Chloride Flush 3 Ml Syringe) 3 ml IVFLUSH QSHIFT [facility] Home Medications Medication Instructions Recorded Confirmed Last Taken Type acetaminophen 325 mg tablet 650 mg PO Q6H PRN Fever Or Pain 05/26/21 05/26/21 Unknown History amantadine HCl 50 mg/5 mL oral 50 mg PO DAILY 05/26/21 05/26/21 Unknown History solution baclofen 10 mg tablet 10 mg PO TID 05/26/21 05/26/21 Unknown History bisacodyl 10 mg rectal suppository 10 mg [place] DAILY PRN Constipation 05/26/21 05/26/21 Unknown History cholecalciferol (vitamin D3) 50 50 mcg PO DAILY 05/26/21 05/26/21 Unknown History mcg (2,000 unit) tablet (Vitamin D3) ibuprofen 400 mg tablet 400 mg PO Q6H PRN Pain (Scale 05/26/21 05/26/21 Unknown History Score 1-3) mirtazapine 15 mg tablet 15 mg PO BEDTIME 05/26/21 05/26/21 Unknown History mirtazapine 7.5 mg tablet 7.5 mg PO BEDTIME 05/26/21 05/26/21 Unknown History multivitamin 1 tab PO DAILY 05/26/21 05/26/21 Unknown History nicotine 7 mg/24 hr daily 1 patch transdermal Q24H 05/26/21 05/26/21 Unknown History transdermal patch sennosides 8.6 mg tablet (senna) 8.6 mg PO DAILY PRN Constipation 05/26/21 05/26/21 Unknown History trazodone 100 mg tablet 100 mg PO BEDTIME 05/26/21 05/26/21 Unknown History valproic acid (as sodium salt) 250 500 mg PO DAILY 05/26/21 05/26/21 Unknown History mg/5 mL oral solution CHAIRMAN & CHIEF EXECUTIVE OFFICER Physical Exam Vitals Vital signs: Temp Pulse Resp BP Pulse Ox O2 Del Method 100.9 F H 114 H 18 122/72 95 Room Air 05/05/23 11:13 05/05/23 13:04 05/05/23 13:04 05/05/23 13:04 05/05/23 10:57 05/05/23 10:57 BMI result Body Mass Index 34.8 Female Genitalia (Pelvic) Bladder/Urethra: Normal meatus Vulva: No lesions Vagina: Nontender and No lesions Uterus: Normal size Adnexa/Parametria: Adnexal Tenderness: None and Adnexal Mass: None Additional Comments: Suboptimal exam because of inability the patient to extend her hip secondary to her spastic paralysis from brain injury CHAIRMAN & CHIEF EXECUTIVE OFFICER - Results Labs 05/05/23 11:44 05/05/23 11:44 Labs: Short CBC 05/05/23 Range/Units 11:44 WBC 9.3 (4.8-10.8) X10*3/uL Hgb 13.8 (12.0-16.0) g/dl Hct 41.2 (37.0-47.0) % Plt Count 247 D (160-400) X10*3/uL BMP 05/05/23 11:44 Sodium 143 Potassium 4.6 Chloride 109 H Carbon Dioxide 25 BUN 23 H Creatinine 0.69 Calcium 9.4 D Liver Function 05/05/23 Range/Units 11:44 Total Bilirubin 0.3 (0.0-1.0) mg/dL AST 18 (5-31) U/L ALT 16 (0-31) U/L Alkaline Phosphatase 114 (39-117) U/L Albumin 4.2 (3.5-5.0) g/dL Urine 05/05/23 Range/Units 12:44 Urine Color BROWN Urine Appearance Turbid Urine pH 8.0 (5.0-9.0) Ur Specific [place] 1.010 (1.005-1.025) Urine Protein 300 (3+) H (Neg-Trace) mg/dL Urine Glucose (UA) See Note (Negative) mg/dL Imaging CT scan - pelvis: Radiologist's impression: ITS Impressions Abdomen/Pelvis CT 05/05/23 13:39 IMPRESSION: Possible striated nephrogram to upper pole left kidney. This may represent underlying infection such as pyelonephritis. Advise clinical correlation. Marked fluid distention of the vagina cervix. One must consider the possibility of stenosis related to scarring or adhesions. Severe attenuation of the main portal vein at the level of the portal confluence. Assessment and Plan (1) Vaginal discharge: Status: Acute Plan GC and chlamydia with BV panel taken, will check the results and treat accordingly. No evidence of fluid in the vagina or any gross abdominal although exam is suboptimal due the patient's spasticity and inability to extend or abduct her hip. Suspect the fluid filling up the vagina as seen on CT scan is secondary to urine coming into the vaginal canal since straight cath demonstrated black / purple viscus urine similar to the vaginal discharge description.
[2023-05-05] MEDS: Enoxaparin Sodium 40 MG/0.4 ML SYRINGE SUBCUT (16:55)
--- NOTE | 2023-05-05 17:46 | PC.NURSE ---
Patient alert and oriented x 3. non-verbal. Patient is on pureed diet, thin liquids. tele: sinus rythym 84-sinus tachycardia 140's with any type of movement or stimulation is normal for her.. Patient is a total care. Skin CDI no wounds on bottom. Mother at bedside. colostomy and peg tube. Patient communicates by pointing to pictures/words. (almost like a paper communication board) IV came out will put in new one before she comes up. Next iv abxs due tomorrow for pyelonephritis. Urine was dark brown. Dr. Joyner came and did an exam sent ng and BV panel.
--- NOTE | 2023-05-05 18:39 | PHA.MEDREC ---
Pharmacy Consult ? Medication Reconciliation Pharmacy has completed the medication reconciliation. med rec complete using list provided by [facility] dated 05/05/23
[2023-05-05] MEDS: 0.9 % Sodium Chloride Flush 3 ML SYRINGE IVFLUSH (19:37)
[2023-05-06 03:20] VITALS: BP 110/68; PULSE 74; RESP 18; TEMP 36.1; O2SAT 96
--- NOTE | 2023-05-06 05:24 | PC.NURSE ---
Colostomy on the RLQ came leaking, colostomy site pinkish and cleansed, skin prep applied, new appliance applied, output is dark loose stool.
[2023-05-06 06:14] LABS: MANUAL DIFF FLAG NO
[2023-05-06 06:25] LABS: Basophils Percent Auto 0.3 % (0-2); Eosinophils Percent Auto 0.1 % (0-4); Hematocrit 38.9 % (37.0-47.0); Hemoglobin 12.9 g/dl (12.0-16.0); Imm Gran Abs Auto 0.03 X10*3/uL (0.00-0.03); Imm Gran Pct Auto 0.3 % (0.0-0.4); Lymphocytes Absolute Auto 2.1 X10*3/uL (1.2-4.9); Lymphocytes Percent Auto 20.4 % (20-40); Mean Corpuscular HGB Conc 33.2 g/dl (31.0-35.0); Mean Corpuscular Hemoglobin 31.5 pg (27.0-33.0); Mean Corpuscular Volume 94.9 fL (80.0-98.0); Mean Platelet Volume 12.1 fL (9.4-12.3); Monocytes Absolute Auto 0.7 X10*3/uL (0.1-1.2); Monocytes Percent Auto 6.9 % (2-11); Neutrophils Absolute Auto 7.4 x10*3/uL (2.0-8.3); Platelet Count 212 X10*3/uL (160-400); Red Cell Distribution Width 12.7 % (11.0-16.0); White Blood Count 10.3 X10*3/uL (4.8-10.8)
[2023-05-06 06:31] LABS: Alanine Aminotransferase 13 U/L (0-31); Albumin Level 3.9 g/dL (3.5-5.0); Alkaline Phosphatase 103 U/L (39-117); Anion Gap 14 (12-20); Aspartate Amino Transferase 14 U/L (5-31); Bilirubin Total 0.3 mg/dL (0.0-1.0); Blood Urea Nitrogen 16 mg/dL (9-16); Calcium 9.2 mg/dL (8.4-10.2); Carbon Dioxide 22 mmol/L (22-29); Chloride 111 mmol/L (96-108); Creatinine Clr Calc Pharmacy 91.8; Estimated Glomerular Filt Rate > 60; Glucose Random 106 mg/dL (60-115); Potassium 4.4 mmol/L (3.3-5.1); Sodium 143 mmol/L (135-145)
[2023-05-06 07:18] LABS: CT PCR NOT DETECTED (Not Detect.); NG PCR NOT DETECTED (Not Detect.)
[2023-05-06 07:30] VITALS: BP 125/75; PULSE 128; RESP 20; TEMP 36.6; O2SAT 96
[2023-05-06] MEDS: Artificial Tears 15 ML DROPS 1 DROP EYE-BOTH (08:30)
[2023-05-06] MEDS: Chlorhexidine Gluc Oral Rinse 15 ML MOUTHWASH BUCCAL ×2 (08:30→19:26)
[2023-05-06] MEDS: 0.9 % Sodium Chloride Flush 3 ML SYRINGE IVFLUSH ×3 (08:50→19:26)
[2023-05-06] MEDS: Thiamine HCL 100 MG TABLET G-TUBE (09:28)
[2023-05-06] MEDS: Levothyroxine Sodium 100 MCG TABLET G-TUBE (09:29)
[2023-05-06] MEDS: Cholecalciferol (Vitamin D3) 25 MCG TABLET 50 MCG G-TUBE (09:29)
[2023-05-06] MEDS: Psyllium seed 3.7 GM PACKET PO ×2 (09:30→19:27)
--- NOTE | 2023-05-06 09:40 | MHC.CM.PN ---
Addendum entered by Dannielle Warrne RN 05/06/23 09:45: Correction - patient is from [facility] Original Note: Patient is from [facility]. Information comes from mother at bedside and chart review. TBI, non-verbal, but able to point to photos/communication board to make some needs know. Patient is total care, bedbound with PEG and colostomy. PCP: Feliciano Sales DO HCP: Mother Martina Barcenas [phone], on file and verified. IMM delivered to HCP. DP: Return to [facility] via BLS. CM will continue to follow.
[2023-05-06 10:24] VITALS: BMI 17.0
[2023-05-06 10:25] VITALS: PULSE 86
[2023-05-06] MEDS: Baclofen 10 MG TABLET G-TUBE ×3 (10:32→19:27)
--- NOTE | 2023-05-06 10:36 | MHC.CLN ---
RE: CONSULT PT WITH PEG TUBE TO MEET NUTRITION NEEDS PT APPEARS TALL AND THIN PT IS 79% IBW INDICATES MILDLY UNDER WT FOR HT PT IS AT RISK FOR MALNUTRITION HOWEVER ONLY MILD AT THIS TIME PT WITH PUREED DIET MONITOR PO INTAKE RECOMMEND JEVITY 1.0 AT MAX GOAL RATE 60ML/HR WITH 120ML FREE WATER FLUSHES Q 6 HRS TO PROVIDE 1526KCALS (29KCALS/KG), 64G PROTEIN (1.2G/KG), 1682ML TOTAL WATER FROM FORMULA AND FLUSHES (32ML/KG) MONITOR TOLERANCE, RESIDUALS AND LYTES SEE ALSO FULL CLINICAL NUTRITION ASSESSMENT
--- NOTE | 2023-05-06 12:27 | P.PNIM_ITS ---
Subjective Subjective Date of Service: 05/06/23 Interval History: seen and examined this morning follow up for pyelo awake, alert; able to answer questions by pointing to word board no abdominal pain at this time Physical Exam 2 Vital Signs: Vital Signs: Last Vital Signs Temp 97.8 F 05/06/23 07:30 Pulse 86 05/06/23 10:25 Resp 20 05/06/23 07:30 BP 125/75 05/06/23 07:30 Pulse Ox 96 05/06/23 07:30 O2 Del Method Room Air 05/06/23 07:30 BMI result Body Mass Index 17.0 Const: Other: sitting up in bed, awake and alert; appears comfortable Nutritional Appearance: thin Resp: Effort & Inspection: normal respiratory effort, no respiratory distress and no use of accessory muscles Cardio: Rate: regular rate GI: Other: midline abdominal scar; colostomy with dark output; no abdominal distension; appears nontender Extrem: General: Yes no pedal edema Objective Data Active Medications Acetaminophen (Acetaminophen Supp 650 Mg Supp.Rect) 650 mg [place] Q6H PRN PRN Reason: Pain, Mild (Pain Scale 1-3) Artificial Tears (Artificial Tears 15 Ml Drops) 1 drop EYE-BOTH DAILY [facility] Last Admin: 05/06/23 08:30 Dose: 1 drop Documented By: ANGEL Baclofen (Baclofen 10 Mg Tablet) 10 mg G-TUBE TID [facility] Last Admin: 05/06/23 10:32 Dose: 10 mg Documented By: ANGEL Chlorhexidine Gluconate (Chlorhexidine Gluc Oral Rinse 15 Ml Mouthwash) 15 ml BUCCAL BID [facility] Last Admin: 05/06/23 08:30 Dose: 15 ml Documented By: ANGEL Enoxaparin Sodium (Enoxaparin Sodium 40 Mg/0.4 Ml Syringe) 40 mg SUBCUT Q24H [facility] Last Admin: 05/05/23 16:55 Dose: 40 mg Documented By: RASHMI Ceftriaxone Sodium 2 gm/ (Sodium Chloride) 50 mls @ 100 mls/hr IV DAILY ONE Stop: 05/06/23 14:29 Levothyroxine Sodium (Levothyroxine Sodium 100 Mcg Tablet) 100 mcg G-TUBE DAILY@0600 [facility] Last Admin: 05/06/23 09:29 Dose: 100 mcg Documented By: ANGEL Mirtazapine (Mirtazapine 30 Mg Tablet) 30 mg G-TUBE BEDTIME [facility] Non-Formulary Medication (Citalopram) 40 mg feeding tube DAILY [facility] Non-Formulary Medication (Dimethicone) 1 appl TOPICAL BID [facility] Non-Formulary Medication (Amantadine Hcl) 50 mg feeding tube DAILY [facility] Omeprazole (Omeprazole/Na Bicarb Oral Susp 20 Mg/10 Ml Ud Cup) 40 mg G-TUBE BID@0630,1630 [facility] Ondansetron HCl (Ondansetron Hcl 4 Mg/2 Ml Vial) 4 mg IVPUSH Q8H PRN PRN Reason: Nausea and Vomiting Psyllium Hydrophilic Mucilloid (Psyllium Seed 3.7 Gm Packet) 3.7 gm PO BID [facility] Last Admin: 05/06/23 09:30 Dose: 3.7 gm Documented By: ANGEL Sodium Chloride (0.9 % Sodium Chloride Flush 3 Ml Syringe) 3 ml IVFLUSH QSHIFT [facility] Last Admin: 05/06/23 08:50 Dose: 3 ml Documented By: ANGEL Thiamine HCl (Thiamine Hcl 100 Mg Tablet) 100 mg G-TUBE DAILY [facility] Last Admin: 05/06/23 09:28 Dose: 100 mg Documented By: ANGEL Trazodone HCl (Trazodone Hcl 100 Mg Tablet) 100 mg G-TUBE BEDTIME [facility] Valproic Acid (Valproic Acid (As Sodium Salt) 250 Mg/5 Ml Solution) 500 mg G- TUBE DAILY [facility] Last Admin: 05/06/23 09:30 Dose: 500 mg Documented By: ANGEL Vitamin D (Cholecalciferol (Vitamin D3) 25 Mcg Tablet) 50 mcg G-TUBE DAILY [facility] Last Admin: 05/06/23 09:29 Dose: 50 mcg Documented By: ANGEL Labs 05/06/23 05:50 05/06/23 05:50 Labs: Laboratory Results - last 24 hr 05/05/23 05/05/23 05/05/23 11:44 12:44 16:54 MCV MCH MCHC RDW Plt Count MPV Immature Gran % (Auto) Neut % (Auto) Lymph % (Auto) [place] % (Auto) Eos % (Auto) Baso % (Auto) Lymph # (Auto) [place] # (Auto) Eos # (Auto) Baso # (Auto) Abs Immat Gran (auto) Absolute Neuts (auto) Absolute Nucleated RBC Nucleated RBC % (auto) Anion Gap Estim Creat Clear Calc Estimated GFR Random Glucose Calcium Total Bilirubin AST ALT Alkaline Phosphatase Total Protein Albumin Urine Color BROWN Urine Appearance Turbid Urine pH 8.0 Ur Specific [place] 1.010 Urine Protein 300 (3+) H Urine Glucose (UA) See Note Urine Ketones See Note Urine Blood See Note Urine Nitrite See Note Ur Leukocyte Esterase See Note Urine RBC 3-5 H Urine WBC 6-10 Ur Squamous Epith Cells 0-2 Urine Bacteria 3+ Hyaline Casts 0-2 Chlam trachomat DNA PCR NOT DETECTED COVID-19 (GAETANO) Negative COVID-19 Clin Com See Note Influenza Type A (YADIRA) Negative Influenza Type B (YADIRA) Negative Influenza A & B Note See Note N.gonorrhoeae DNA (PCR) NOT DETECTED 05/06/23 05:50 MCV 94.9 MCH 31.5 MCHC 33.2 RDW 12.7 Plt Count 212 MPV 12.1 Immature Gran % (Auto) 0.3 Neut % (Auto) 72.0 Lymph % (Auto) 20.4 [place] % (Auto) 6.9 Eos % (Auto) 0.1 Baso % (Auto) 0.3 Lymph # (Auto) 2.1 [place] # (Auto) 0.7 Eos # (Auto) 0.0 Baso # (Auto) 0.0 Abs Immat Gran (auto) 0.03 Absolute Neuts (auto) 7.4 Absolute Nucleated RBC 0.000 Nucleated RBC % (auto) 0.0 Anion Gap 14 Estim Creat Clear Calc 91.8 Estimated GFR > 60 Random Glucose 106 Calcium 9.2 Total Bilirubin 0.3 AST 14 ALT 13 Alkaline Phosphatase 103 Total Protein 7.0 Albumin 3.9 Urine Color Urine Appearance Urine pH Ur Specific [place] Urine Protein Urine Glucose (UA) Urine Ketones Urine Blood Urine Nitrite Ur Leukocyte Esterase Urine RBC Urine WBC Ur Squamous Epith Cells Urine Bacteria Hyaline Casts Chlam trachomat DNA PCR COVID-19 (GAETANO) COVID-19 Clin Com Influenza Type A (YADIRA) Influenza Type B (YADIRA) Influenza A & B Note N.gonorrhoeae DNA (PCR) Microbiology Microbiology Results: Microbiology 05/05/23 Unknown Urine Culture - Final Urine Catheterized - Straight Catheter Assessment and Plan (1) Pyelonephritis: Status: Acute (2) Vaginal discharge: Status: Acute Plan This is a 42-year-old resident of [facility] with 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 In the emergency room, straight cath which demonstrated black is purple viscus urine consistent with discharge. CT scan with uterine changes along with mild pyelo changes sepsis due to probable acute pyelonephritis met sepsis criteria with fever and tachycardia. lactic wnl no severe features continue IV ceftriaxone, started 05/05 urine culture with mixed bacterial suzette seen by ID rec 10 days of abx urology consult pending blood cultures pending Vaginal discharge Likely urine. Seen by INCUBATOR TENDER and culture obtained but agree, likely urine rather then vaginal d/c abnormal appearance of portal vein no abdominal pain abdominal US with doppler TBI stable and well compensated continue outpatient therapies continue tube feeding diet hypothyroidism continue sythroid Full code Lovenox Discussed with mother at bedside requires ongoing inpatient stay going forward to treat vaginal discharge or active urinary sediment along with specially consultation. This can not be achieved a lesser acute setting Quality Stroke Does the patient have a stroke diagnosis?: No VTE Prior VTE?: No VTE Risk Level:: Medical - moderate - high VTE Device Contraindication: Treatment Not Indicated VTE Drug Contraindication: N/A - Med Ordered
--- NOTE | 2023-05-06 13:31 | W.PM.IDCN ---
History of Present Illness Data of Consult Service Date: 05/06/23 Requesting physician: Chani Ordoñez Primary Care Provider: Unknown Physician HPI Reason for consult: dark perineal discharge She presents with purple black dicharge vaginal area. Patient does get period still. She has left stranding CT probable pyelonephritis. She had fever day of admission and now has temperature 100.8 and heart rate 114. Urine culture mixed . She has seen Gynecology. Review of Systems Review of Systems: Yes all other systems are reviewed and are negative [facility] Past Medical History Medical History (Updated 05/06/23 @ 13:37 by Niru Douglas MD) Sepsis Bacteremia due to group B Streptococcus Falls Ataxia Anemia Bipolar 1 disorder TBI (traumatic brain injury) Family History Family history: reviewed and not pertinent Social History Social History Household Members: Caregiver Housing: Half-Way Do you presently have visiting nurse or other home services: No (at [facility]) Unable to assess alcohol history related to: Unable to respond Alcohol intake: unknown Patient Tobacco Use Status: Tobacco use Unknown Tobacco use type: Cigarette Advance Directives Date on File: 07/12/20 service: No Meds Allergies Allergy/AdvReac Type Severity Reaction Status Date / Time No Known Allergies Allergy Unverified 07/05/20 17:46 Active Medications: Current Medications Acetaminophen (Acetaminophen Supp 650 Mg Supp.Rect) 650 mg OK Q6H PRN PRN Reason: Pain, Mild (Pain Scale 1-3) Artificial Tears (Artificial Tears 15 Ml Drops) 1 drop EYE-BOTH DAILY [facility] Last Admin: 05/06/23 08:30 Dose: 1 drop Baclofen (Baclofen 10 Mg Tablet) 10 mg G-TUBE TID [facility] Last Admin: 05/06/23 10:32 Dose: 10 mg Chlorhexidine Gluconate (Chlorhexidine Gluc Oral Rinse 15 Ml Mouthwash) 15 ml BUCCAL BID [facility] Last Admin: 05/06/23 08:30 Dose: 15 ml Enoxaparin Sodium (Enoxaparin Sodium 40 Mg/0.4 Ml Syringe) 40 mg SUBCUT Q24H [facility] Last Admin: 05/05/23 16:55 Dose: 40 mg Ceftriaxone Sodium 2 gm/ (Sodium Chloride) 50 mls @ 100 mls/hr IV DAILY ONE Stop: 05/06/23 14:29 Ceftriaxone Sodium 1 gm/ (Sodium Chloride) 50 mls @ 100 mls/hr IV Q24H [facility] Levothyroxine Sodium (Levothyroxine Sodium 100 Mcg Tablet) 100 mcg G-TUBE DAILY@0600 [facility] Last Admin: 05/06/23 09:29 Dose: 100 mcg Mirtazapine (Mirtazapine 30 Mg Tablet) 30 mg G-TUBE BEDTIME [facility] Non-Formulary Medication (Citalopram) 40 mg feeding tube DAILY [facility] Non-Formulary Medication (Dimethicone) 1 appl TOPICAL BID [facility] Non-Formulary Medication (Amantadine Hcl) 50 mg feeding tube DAILY [facility] Omeprazole (Omeprazole/Na Bicarb Oral Susp 20 Mg/10 Ml Ud Cup) 40 mg G-TUBE BID@0630,1630 [facility] Ondansetron HCl (Ondansetron Hcl 4 Mg/2 Ml Vial) 4 mg IVPUSH Q8H PRN PRN Reason: Nausea and Vomiting Psyllium Hydrophilic Mucilloid (Psyllium Seed 3.7 Gm Packet) 3.7 gm PO BID [facility] Last Admin: 05/06/23 09:30 Dose: 3.7 gm Sodium Chloride (0.9 % Sodium Chloride Flush 3 Ml Syringe) 3 ml IVFLUSH QSHIFT [facility] Last Admin: 05/06/23 08:50 Dose: 3 ml Thiamine HCl (Thiamine Hcl 100 Mg Tablet) 100 mg G-TUBE DAILY [facility] Last Admin: 05/06/23 09:28 Dose: 100 mg Trazodone HCl (Trazodone Hcl 100 Mg Tablet) 100 mg G-TUBE BEDTIME [facility] Valproic Acid (Valproic Acid (As Sodium Salt) 250 Mg/5 Ml Solution) 500 mg G-TUBE DAILY [facility] Last Admin: 05/06/23 09:30 Dose: 500 mg Vitamin D (Cholecalciferol (Vitamin D3) 25 Mcg Tablet) 50 mcg G-TUBE DAILY [facility] Last Admin: 05/06/23 09:29 Dose: 50 mcg Home Medications Medication Instructions Recorded Confirmed Last Taken Type acetaminophen 325 mg tablet 650 mg feeding tube Q6H PRN Fever 05/26/21 05/05/23 Unknown History Or Pain amantadine HCl 50 mg/5 mL oral 50 mg feeding tube DAILY 05/26/21 05/05/23 Unknown History solution baclofen 10 mg tablet 10 mg feeding tube TID 05/26/21 05/05/23 Unknown History cholecalciferol (vitamin D3) 50 50 mcg feeding tube DAILY 05/26/21 05/05/23 Unknown History mcg (2,000 unit) tablet (Vitamin D3) multivitamin 1 tab feeding tube DAILY 05/26/21 05/05/23 Unknown History trazodone 100 mg tablet 100 mg feeding tube BEDTIME 05/26/21 05/05/23 Unknown History valproic acid (as sodium salt) 250 500 mg feeding tube DAILY 05/26/21 05/05/23 Unknown History mg/5 mL oral solution chlorhexidine gluconate 0.12 % 15 ml buccal BID 05/05/23 05/05/23 Unknown History mouthwash (Peridex) citalopram 10 mg/5 mL oral solution 40 mg feeding tube DAILY 05/05/23 05/05/23 Unknown History dimethicone 5 % topical cream 1 appl topical BID 05/05/23 05/05/23 Unknown History levothyroxine 100 mcg tablet 100 mcg feeding tube DAILY@0600 05/05/23 05/05/23 Unknown History loperamide 2 mg capsule 2 mg feeding tube BID PRN LOOSE 05/05/23 05/05/23 Unknown History STOOLS mirtazapine 30 mg disintegrating 30 mg feeding tube BEDTIME 05/05/23 05/05/23 Unknown History tablet pantoprazole 40 mg granules 40 mg feeding tube BID 05/05/23 05/05/23 Unknown History delayed-release for susp in packet polyvinyl alcohol 1.4 % eye drops 1 drp ophthalmic (eye) DAILY 05/05/23 05/05/23 Unknown History (Artificial Tears (polyvinyl alcohol)) psyllium husk 0.52 gram capsule 1.04 g PO BID 05/05/23 05/05/23 Unknown History thiamine HCl (vitamin B1) 100 mg 100 mg feeding tube DAILY 05/05/23 05/05/23 Unknown History tablet Physical Exam Vital Signs: Vital Signs: Last Vital Signs Temp 97.8 F 05/06/23 07:30 Pulse 86 05/06/23 10:25 Resp 20 05/06/23 07:30 BP 125/75 05/06/23 07:30 Pulse Ox 96 05/06/23 07:30 O2 Del Method Room Air 05/06/23 07:30 BMI result Body Mass Index 17.0 Const: General: cooperative HEENT: Head: Yes normal to inspection Face and sinus: Yes normal facial exam Mouth: Normal oral and palatal mucosa present Teeth and gingiva: dentition normal Eyes: General: appearance normal, both eyes and all related structures Pupils: Equal, round and reactive pupils present Resp: Effort & Inspection: normal respiratory effort Cardio: Rate: regular rate Rhythm: regular rhythm GI: Palpation (GI): Soft to palpation and nontender : General: Yes no CVA tenderness Back/Spine/Pelvis: Back: no CVA tenderness Skin: General skin exam: no rashes or lesions noted Neuro: General: moves all extremities Cranial nerves: Yes Equal, round and reactive pupils present Extrem: General: Yes normal to inspection Psych: Appearance: grossly normal Results Labs 05/06/23 05:50 05/06/23 05:50 Labs: Short CBC 05/06/23 Range/Units 05:50 WBC 10.3 (4.8-10.8) X10*3/uL Hgb 12.9 (12.0-16.0) g/dl Hct 38.9 (37.0-47.0) % Plt Count 212 (160-400) X10*3/uL BMP 05/06/23 05:50 Sodium 143 Potassium 4.4 Chloride 111 H Carbon Dioxide 22 BUN 16 Creatinine 0.67 Calcium 9.2 Liver Function 05/06/23 Range/Units 05:50 Total Bilirubin 0.3 (0.0-1.0) mg/dL AST 14 (5-31) U/L ALT 13 (0-31) U/L Alkaline Phosphatase 103 (39-117) U/L Albumin 3.9 (3.5-5.0) g/dL Urine 05/05/23 Range/Units 12:44 Urine Color BROWN Urine Appearance Turbid Urine pH 8.0 (5.0-9.0) Ur Specific [place] 1.010 (1.005-1.025) Urine Protein 300 (3+) H (Neg-Trace) mg/dL Urine Glucose (UA) See Note (Negative) mg/dL Microbiology Microbiology Results: Microbiology 05/05/23 Unknown Urine Catheterized - Straight Catheter Urine Culture - Final Assessment and Plan (1) Pyelonephritis: Status: Acute (2) Vaginal discharge: Status: Acute (3) Sepsis: Status: Acute She has fever and tachycardia likely due to pyelonephritis. Vaginal cultures pending but probably just purple dark color urine,and maybe blood from earlier in month cycle. Plan Continue Ceftriaxone but make 1 g IV daily Would give po cephalosporin complete 10 day course sepsis pyelonephritis.
[2023-05-06] MEDS: cefTRIAXone sodium 2 GM in 0.9 % Sodium Chloride 50 ML IV (13:49)
[2023-05-06 14:07] LABS: BV Int Neg Control Negative (Negative); BV Int Pos Control Positive (Positive)
[2023-05-06 15:01] VITALS: BP 123/68; PULSE 99; RESP 16; TEMP 36.7; O2SAT 96
--- NOTE | 2023-05-06 15:12 | PM.EVENT ---
Event Note Date of Service: 05/10/23 Event Note: BV panel positive for Gardnerella DNA probe Since the patient has vaginal discharge will treat with Flagyl 500 mg b.i.d. for 7 days Time Spent With Patient Time: Total time managing care of this patient today ____ minutes.
[2023-05-06] MEDS: metroNIDAZOLE 500 MG TABLET G-TUBE (15:39)
[2023-05-06] MEDS: Omeprazole/Na Bicarb Oral Susp 20 MG/10 ML UD Cup 40 MG G-TUBE (15:39)
[2023-05-06] MEDS: Enoxaparin Sodium 40 MG/0.4 ML SYRINGE SUBCUT (15:40)
[2023-05-06 17:29] LABS: OBS Int Ctl Valid YES; OBS1 NEGATIVE (NEGATIVE)
[2023-05-06] MEDS: traZODone HCL 100 MG TABLET G-TUBE (19:27)
[2023-05-06] MEDS: Mirtazapine 30 MG TABLET G-TUBE (19:27)
[2023-05-06 19:45] VITALS: BP 101/58; PULSE 70; RESP 17; TEMP 36.7; O2SAT 95
[2023-05-07] MEDS: metroNIDAZOLE 500 MG TABLET G-TUBE (03:14)
[2023-05-07 03:15] VITALS: BP 103/61; PULSE 86; RESP 16; TEMP 36.4; O2SAT 98
[2023-05-07] MEDS: Omeprazole/Na Bicarb Oral Susp 20 MG/10 ML UD Cup 40 MG G-TUBE (05:35)
[2023-05-07] MEDS: Levothyroxine Sodium 100 MCG TABLET G-TUBE (05:36)
[2023-05-07 07:33] VITALS: BP 108/64; PULSE 97; RESP 16; TEMP 36.7; O2SAT 100
[2023-05-07] MEDS: Cholecalciferol (Vitamin D3) 25 MCG TABLET 50 MCG G-TUBE (08:24)
[2023-05-07] MEDS: Baclofen 10 MG TABLET G-TUBE (08:24)
[2023-05-07] MEDS: Thiamine HCL 100 MG TABLET G-TUBE (08:24)
[2023-05-07] MEDS: Psyllium seed 3.7 GM PACKET PO (08:24)
[2023-05-07] MEDS: Chlorhexidine Gluc Oral Rinse 15 ML MOUTHWASH BUCCAL (08:24)
[2023-05-07] MEDS: 0.9 % Sodium Chloride Flush 3 ML SYRINGE IVFLUSH (08:25)
[2023-05-07] MEDS: Artificial Tears 15 ML DROPS 1 DROP EYE-BOTH (08:25)
[2023-05-07 08:50] LABS: MANUAL DIFF FLAG NO
[2023-05-07 08:54] LABS: Basophils Percent Auto 0.2 % (0-2); Eosinophils Percent Auto 0.6 % (0-4); Hematocrit 38.8 % (37.0-47.0); Hemoglobin 12.8 g/dl (12.0-16.0); Imm Gran Abs Auto 0.01 X10*3/uL (0.00-0.03); Imm Gran Pct Auto 0.2 % (0.0-0.4); Lymphocytes Percent Auto 38.6 % (20-40); Mean Corpuscular Hemoglobin 31.2 pg (27.0-33.0); Mean Corpuscular Volume 94.6 fL (80.0-98.0); Mean Platelet Volume 11.8 fL (9.4-12.3); Monocytes Absolute Auto 0.5 X10*3/uL (0.1-1.2); Monocytes Percent Auto 9.1 % (2-11); Neutrophils Absolute Auto 2.7 x10*3/uL (2.0-8.3); Neutrophils Percent Auto 51.3 % (45-73); Platelet Count 191 X10*3/uL (160-400); Red Cell Distribution Width 12.5 % (11.0-16.0); White Blood Count 5.3 X10*3/uL (4.8-10.8)
[2023-05-07 09:20] LABS: Alanine Aminotransferase 12 U/L (0-31); Albumin Level 3.7 g/dL (3.5-5.0); Alkaline Phosphatase 103 U/L (39-117); Anion Gap 12 (12-20); Aspartate Amino Transferase 21 U/L (5-31); Bilirubin Total 0.3 mg/dL (0.0-1.0); Blood Urea Nitrogen 13 mg/dL (9-16); Calcium 9.1 mg/dL (8.4-10.2); Carbon Dioxide 26 mmol/L (22-29); Chloride 105 mmol/L (96-108); Creatinine Clr Calc Pharmacy 107.9; Estimated Glomerular Filt Rate > 60; Glucose Random 100 mg/dL (60-115); Potassium 4.3 mmol/L (3.3-5.1); Sodium 139 mmol/L (135-145); Total Protein 7.1 g/dL (6.5-8.0)
--- NOTE | 2023-05-07 10:01 | P.CDIM_ITS ---
PROVIDER RESPONSE TEXT: To clarify, the appropriate diagnosis supported by the clinical indicators: Mild Protein Calorie Malnutrition QUERY TEXT: PHYSICIAN'S DOCUMENTATION REQUEST Date of Query: 05/07/2023 08:21 AM EST Patient Name: Debbi Herrera Admit Date: 05/05/2023 Dear Chani Ordoñez, A review of the medical record indicates additional documentation may be needed. Please review below and update the documentation accordingly. Clinical Indicators: Height: ( ) 5'9 Weight: ( ) 52.1 kg BMI: ( ) 17.0 Other Clinical Notes Supporting Significance of the BMI: Per Clinical Nutrition Assessment 05/06/23: Underweight, swallowing difficulty, body fat well nourished, muscle mass clavicle mild depletion, su dequate oral intake, patient with PEG tube to meet nutrition needs, patient appears tall and thin At risk for Malnutrition, however, only mild at this time If possible, please provide an associated diagnosis related to the abnormal BMI, such as: Underweight Weight loss Cachexia Anorexia Mild Protein Calorie Malnutrition Other (explain) Clinically unable to determine (explain) Thank you, Li Swift RN Use of terms such as suspected, likely, concern for, or probable (associated with a specific diagnosi s that is being evaluated, monitored, or treated as if it exists) are acceptable and can be coded in the inpatient se tting, when documented at the time of discharge. Please use your independent medical judgment in providing your response. THIS QUERY IS PART OF THE PERMANENT MEDICAL RECORD
--- NOTE | 2023-05-07 10:37 | MHC.CM.PN ---
Addendum entered by Dannielle Warren RN 05/07/23 12:19: PER HOSPITALIST, PATIENT MEDICALLY CLEARED FOR DC BACK TO [facility]. BLS SCHEDULED FOR 1:30PM. RN AND PA AWARE. HCP/MOTHER NOTIFIED OF DC. FACILITY UPDATED, DC SUMMARY SENT VIA [facility]. Original Note: EMR REVIEWED. PER MD ROUNDS PATIENT NOT MEDICALLY CLEARED FOR DC AT THIS TIME, POSSIBLY LATER TODAY. [facility] UPDATED.
--- NOTE | 2023-05-07 10:52 | MHC.CLN ---
F/U PATIENT WITH PUREE DIET PLUS TUBE FEEDING. TUBE FEEDING RUNNING AT 60 ML/HOUR. PO INTAKE APPEARS GOOD, BUT UNSURE OF CALORIC INTAKE AT MEALS. FAMILY WOULD LIKE NOCTURNAL TUBE FEEDING. RECOMMEND JEVITY 1.0 X 10 HOURS AT MAX GOAL RATE 140 ML/HR WITH 120ML FREE WATER FLUSHES Q 6 HRS. PROVIDES 1484 KCALS (28.5 KCALS/KG), 62 G PROTEIN (1.2 G/KG), 1649 ML TOTAL WATER FROM FORMULA AND FLUSHES (32ML/KG) MONITOR PO INTAKE, TUBE FEED TOLERANCE, RESIDUALS AND LYTES.
--- NOTE | 2023-05-07 11:32 | P.DS_ITS ---
DS: Providers Provider Date of Service: 05/07/23 Date of admission: 05/05/23 15:11 Date of discharge: 05/07/23 Primary care physician: Feliciano Sales DO Consults: 05/05/23 15:16 Consult to Obstetrics / Gynecology Routine Consulting Provider: Sebastian Joyner Reason for consultation: black vaginal discharge Has provider been notified: No Consult to Urology Routine Consulting Provider: Jasvir Cm Reason for consultation: pyelonephritis Has provider been notified: No 05/05/23 15:46 Consult to Infectious Diseases Routine Consulting Provider: [facility] [place] [facility] Reason for consultation: dysuria Has provider been notified: Yes Attending physician on discharge: Ryan Santo Discharging clinician: Chani Ordoñez DS: Diagnosis Discharge Diagnosis (1) Pyelonephritis: Status: Acute (2) Vaginal discharge: Status: Acute DS: Summary Hospital Course Hospital Course: From H&P on the day of admission 42-year-old female well known to me from [facility] status post TBI with contracture status post colostomy status post PEG tube presents with copious amount of black vaginal discharge. Staff noted this 1st episode this morning which prompted transport to the emergency room. In the emergency room patient was catheterized for blackish purple thick urine; she was mildly febrile on admission. CT done shows uterine changes and findings consistent with mild pyelonephritis. She will be admitted for treatment of the same with specialty consults sepsis due to probable acute pyelonephritis met sepsis criteria with fever and tachycardia. lactic wnl no severe features. She was treated with IV ceftriaxone, started 05/05. urine culture grew mixed bacterial suzette. She was seen by ID who recommended treatment with 10 days of antibiotics. Blood cultures have remained negative to date. She has remained afebrile since 05/05 and has no leukocytosis, tachycardia resolved. She is stable for return back to facility. Discussed with urology, did not recommend any further work up during this hospitalization. Vaginal discharge She was seen by FILM RECORDIST and culture obtained and was gardnerella positive. FILM RECORDIST recommended treatment with flagyl for 7 days. abnormal appearance of portal vein on CT of abdomen. no abdominal pain. abdominal US with doppler reveals patent portal vein. Time Attestation Discharge coordination time: Greater than 30 minutes Quality: Safe Use of Opioids Does Pt have an Active Cancer Diagnosis on the Problem List?: No Quality: Stroke Does the patient have a stroke diagnosis?: No Physical Exam Vital Signs: Vital Signs: Last Vital Signs Temp 98.0 F 05/07/23 07:33 Pulse 97 05/07/23 07:33 Resp 16 05/07/23 07:33 BP 108/64 05/07/23 07:33 Pulse Ox 100 05/07/23 07:33 O2 Del Method Room Air 05/07/23 07:33 BMI result Body Mass Index 17.0 Const: Other: sitting up in bed, awake and alert; appears comfortable Nutritional Appearance: thin Resp: Effort & Inspection: normal respiratory effort, no respiratory distress and no use of accessory muscles Cardio: Rate: regular rate GI: Other: midline abdominal scar; colostomy with dark output; no abdominal distension; appears nontender Extrem: General: Yes no pedal edema DS: Data Data Completed and Pending Completed studies during hospitalization [Text1]: Procedures Insertion of Infusion Device into Right Cephalic Vein, Percutaneous Approach (05/26/21) Labs on day of discharge: Laboratory Results - last 24 hr 05/05/23 05/06/23 05/07/23 16:54 Unknown 08:44 WBC 5.3 RBC 4.10 L Hgb 12.8 Hct 38.8 MCV 94.6 MCH 31.2 MCHC 33.0 RDW 12.5 Plt Count 191 MPV 11.8 Immature Gran % (Auto) 0.2 Neut % (Auto) 51.3 Lymph % (Auto) 38.6 Beckham % (Auto) 9.1 Eos % (Auto) 0.6 Baso % (Auto) 0.2 Lymph # (Auto) 2.0 Beckham # (Auto) 0.5 Eos # (Auto) 0.0 Baso # (Auto) 0.0 Abs Immat Gran (auto) 0.01 Absolute Neuts (auto) 2.7 Absolute Nucleated RBC 0.000 Nucleated RBC % (auto) 0.0 Sodium 139 Potassium 4.3 Chloride 105 Carbon Dioxide 26 Anion Gap 12 BUN 13 Creatinine 0.57 Estim Creat Clear Calc 107.9 Estimated GFR > 60 Random Glucose 100 Calcium 9.1 Total Bilirubin 0.3 AST 21 ALT 12 Alkaline Phosphatase 103 Total Protein 7.1 Albumin 3.7 Stool Occult Blood NEGATIVE Ai species DNA Negative Gardnerella DNA Probe Positive A Trichomonas DNA Probe Negative Preliminary micro results at discharge 05/05/23 12:04 Blood Culture - Preliminary Blood - Venous No growth after 24 hours. 05/05/23 11:44 Blood Culture - Preliminary Blood - Venous No growth after 24 hours. Discharge Plan Discharge Anticipated Discharge Date/Time: 05/07/23 11:49 Patient Disposition: Xfer [facility] Discharge Diagnosis: pyelonephritis gardnerella Referrals: Feliciano Sales DO [Primary Care Provider] - 1 Week Discharge Medications: New cefuroxime axetil 500 mg tablet 500 mg PO BID 9 Days Qty: 18 0RF metronidazole 500 mg tablet 500 mg PO BID 6 Days Qty: 12 0RF Continued amantadine HCl 50 mg/5 mL Solution 50 mg feeding tube DAILY multivitamin Tablet 1 tab feeding tube DAILY acetaminophen 325 mg Tablet 650 mg feeding tube Q6H PRN (Reason: Fever Or Pain) trazodone 100 mg Tablet 100 mg feeding tube BEDTIME valproic acid (as sodium salt) 250 mg/5 mL Solution 500 mg feeding tube DAILY baclofen 10 mg Tablet 10 mg feeding tube TID cholecalciferol (vitamin D3) [Vitamin D3] 50 mcg (2,000 unit) Tablet 50 mcg feeding tube DAILY mirtazapine 30 mg tablet,disintegrating 30 mg feeding tube BEDTIME loperamide 2 mg Capsule 2 mg feeding tube BID PRN (Reason: LOOSE STOOLS) citalopram 10 mg/5 mL solution 40 mg feeding tube DAILY polyvinyl alcohol [Artificial Tears (polyvin alc)] 1.4 % Drops 1 drp ophthalmic (eye) DAILY thiamine HCl (vitamin B1) 100 mg Tablet 100 mg feeding tube DAILY levothyroxine 100 mcg tablet 100 mcg feeding tube DAILY@0600 dimethicone 5 % Cream 1 appl TOPICAL BID Protocol: Apply to: Apply to: G TUBE SITE Rx Instructions: APPLY TO GTUBE SITE TOPICALLY FOR IRRITATION psyllium husk 0.52 gram Capsule 1.04 g PO BID Rx Instructions: GIVE VIA FEEDING TUBE chlorhexidine gluconate [Peridex] 0.12 % Mouthwash 15 ml BUCCAL BID Rx Instructions: SWAB GUMS/TEETH AFTER BRUSHING pantoprazole [address] for susp in packet 40 mg feeding tube BID Discharge Orders: Discharge Order (Routine); Ordered 05/07/23 Ordered By: Chani Ordoñez Activity on Discharge: As tolerated Stand Alone Forms: Patient Portal Discharge page Care Plan Goals: see below Health Concerns: acute pyelonephritis gardnerella Plan of Treatment: complete 9 more days of oral antibiotics for pyelonephritis complete 6 more days of oral flagyl for gardnerella Assessment: see discharge summary
== END 2023-05-07 13:13 | disposition intermediate care facility (04) | DRG 872 ==
LOC: HO.ED 11:18 → HO.EDOVER 15:19 → HO.S3 17:31
PROVIDERS: Obstetrics & Gynecology; Physician Assistant Medical; Admitting Provider Hospitalist; Emergency Provider Emergency Medicine Emergency Medical Services; PCP Hospitalist; Visit Provider Physician Assistant Medical
DX: A41.9 Sepsis, unspecified organism (principal); N10 Acute pyelonephritis; E44.1 Mild protein-calorie malnutrition; Z68.1 Body mass index [BMI] 19.9 or less, adult; N76.0 Acute vaginitis; B96.89 Other specified bacterial agents as the cause of diseases classified elsewhere; M62.49 Contracture of muscle, multiple sites; F31.9 Bipolar disorder, unspecified; S06.9XAS Unspecified intracranial injury with loss of consciousness status unknown, sequela; X58.XXXS Exposure to other specified factors, sequela; G83.9 Paralytic syndrome, unspecified; Z93.3 Colostomy status; Z20.822 Contact with and (suspected) exposure to COVID-19; Z87.820 Personal history of traumatic brain injury; Z79.890 Hormone replacement therapy; Z79.899 Other long term (current) drug therapy
CPT/HCPCS: 0353U; 36415; 74177; 76705; 80053; 81001; 82272; 83605; 83735; 85025; 85610; 85730; 87040; 87086; 87480; 87502; 87510; 87635; 87660; 93005; 99285; J0696; J1650; Q9967

== ENCOUNTER → 2023-05-05 11:20 | Outpatient (BNV) | payer MEDICARE, MEDICAID, SELFPAY | PROVIDERS: Admitting Provider Hospitalist; Emergency Provider Emergency Medicine Emergency Medical Services; Visit Provider Internal Medicine Cardiovascular Disease | DX: R00.0 Tachycardia, unspecified (principal); R94.31 Abnormal electrocardiogram [ECG] [EKG] | CPT/HCPCS: 93010 ==

== ENCOUNTER → 2023-05-05 15:11 | Outpatient (BNV) | payer MEDICARE, MEDICAID, SELFPAY | PROVIDERS: Admitting Provider Hospitalist; Emergency Provider Emergency Medicine Emergency Medical Services; Visit Provider Hospitalist | DX: N12 Tubulo-interstitial nephritis, not specified as acute or chronic (principal); N89.8 Other specified noninflammatory disorders of vagina | CPT/HCPCS: 99223; 99233; 99239 ==

== ENCOUNTER → 2023-05-05 15:11 | Outpatient (BNV) | payer MEDICARE, MEDICAID, SELFPAY | PROVIDERS: Admitting Provider Hospitalist; Emergency Provider Emergency Medicine Emergency Medical Services; Visit Provider Internal Medicine | DX: N12 Tubulo-interstitial nephritis, not specified as acute or chronic (principal); N89.8 Other specified noninflammatory disorders of vagina; A41.9 Sepsis, unspecified organism | CPT/HCPCS: 99222 ==

== ENCOUNTER → 2023-05-05 15:11 | Outpatient (BNV) | payer MEDICARE, MEDICAID, SELFPAY | PROVIDERS: Admitting Provider Hospitalist; Emergency Provider Emergency Medicine Emergency Medical Services; Visit Provider Obstetrics & Gynecology | DX: N89.8 Other specified noninflammatory disorders of vagina (principal) | CPT/HCPCS: 99222; 99499 ==

== ENCOUNTER 2023-05-18 20:54 | Emergency (ER) | payer MEDICARE, MEDICAID, SELFPAY ==
[2023-05-18 20:59] VITALS: BP 118/88; PULSE 67; O2SAT 94
[2023-05-18 21:04] VITALS: BP 97/60; PULSE 74; RESP 16; TEMP 36.5; O2SAT 100; BMI 19.6
--- NOTE | 2023-05-18 21:25 | ED.GENADULT ---
HPI - General Adult General Chief complaint: General Medical Stated complaint: colostomy complications coming from snf,non-verbal Time Seen by Provider: 05/18/23 21:05 Source: EMS Mode of arrival: EMS History of Present Illness HPI narrative: 43-year-old female who is brought in by EMS from [facility] for nursing reporting loose stool from patient's ostomy. Otherwise, no reports of fever, chills, nausea, vomiting Related Data Home Medications Medication Instructions Recorded Confirmed acetaminophen 325 mg tablet 650 mg feeding tube Q6H PRN Fever 05/26/21 05/18/23 Or Pain amantadine HCl 50 mg/5 mL oral 50 mg feeding tube DAILY 05/26/21 05/18/23 solution baclofen 10 mg tablet 10 mg feeding tube TID 05/26/21 05/18/23 cholecalciferol (vitamin D3) 50 50 mcg feeding tube DAILY 05/26/21 05/18/23 mcg (2,000 unit) tablet (Vitamin D3) multivitamin 1 tab feeding tube DAILY 05/26/21 05/18/23 trazodone 100 mg tablet 100 mg feeding tube BEDTIME 05/26/21 05/18/23 valproic acid (as sodium salt) 250 500 mg feeding tube DAILY 05/26/21 05/18/23 mg/5 mL oral solution chlorhexidine gluconate 0.12 % 15 ml buccal BID 05/05/23 05/18/23 mouthwash (Peridex) citalopram 10 mg/5 mL oral solution 40 mg feeding tube DAILY 05/05/23 05/18/23 dimethicone 5 % topical cream 1 appl topical BID 05/05/23 05/18/23 levothyroxine 100 mcg tablet 100 mcg feeding tube DAILY@0600 05/05/23 05/18/23 loperamide 2 mg capsule 2 mg feeding tube BID PRN LOOSE 05/05/23 05/18/23 STOOLS mirtazapine 30 mg disintegrating 30 mg feeding tube BEDTIME 05/05/23 05/18/23 tablet pantoprazole 40 mg granules 40 mg feeding tube BID 05/05/23 05/18/23 delayed-release for susp in packet polyvinyl alcohol 1.4 % eye drops 1 drp ophthalmic (eye) DAILY 05/05/23 05/18/23 (Artificial Tears (polyvinyl alcohol)) psyllium husk 0.52 gram capsule 1.04 g PO BID 05/05/23 05/18/23 thiamine HCl (vitamin B1) 100 mg 100 mg feeding tube DAILY 05/05/23 05/18/23 tablet Allergies Allergy/AdvReac Type Severity Reaction Status Date / Time No Known Allergies Allergy Unverified 07/05/20 17:46 Review of Systems Review of Systems: Yes Unobtainable due to mental condition [facility] Past Medical History Source: nursing notes reviewed Medical History Sepsis TBI (traumatic brain injury) Bacteremia due to group B Streptococcus Falls Ataxia Anemia Bipolar 1 disorder TBI (traumatic brain injury) Social History Social History Household Members: Caregiver Housing: Detention Do you presently have visiting nurse or other home services: No (at [facility]) Unable to assess alcohol history related to: Unable to respond Alcohol intake: unknown Patient Tobacco Use Status: Tobacco use Unknown Tobacco use type: Cigarette Advance Directives Date on File: 07/12/20 service: No Physical Exam ED Vital Signs: Vital Signs - 24 hr 05/18/23 21:04 05/18/23 23:55 Temperature 97.7 F 98.4 F Pulse Rate 74 76 Respiratory Rate 16 Blood Pressure 97/60 91/55 L Pulse Oximetry 100 96 Oxygen Delivery Method Room Air Room Air BMI result Body Mass Index 19.6 VITAL SIGNS: Reviewed. GENERAL: Chronically, in no acute distress. HEAD: Normocephalic/atraumatic EYES: PERRLA, EOMI EARS: Ext canals without abnormality NOSE: Nares patent bilateral OROPHARYNX: no oral lesions noted, posterior pharynx clear, dry mucous NECK: Supple, no adenopathy LUNGS: Normal breath sounds. No adventitious sounds or accessory muscle use. SpO2<100> CARDIOVASCULAR: Regular rate and rhythm without noted murmurs ABDOMEN: Soft, non-tender, non-distended with bowel sounds. Ostomy appears to be patent with gas and liquid as well as soft brown/yellow stool MUSCULOSKELETAL: No tenderness, deformities, or effusions noted on gross inspection. EXTREMITIES: No cyanosis, clubbing or edema. SKIN: Inspection of the skin reveals no rashes NEUROLOGIC: Alert and nonverbal. Patient with obvious contracture Medical Decision Making Medical Decision Making MDM Narrative: 42-year-old female with history and clinical presentation, DDX: Could be a viral illness, stool change could be secondary to nutritional support change, amount of water I reviewed all investigations and hematologic indices are negative for leukocytosis or left shift, there is no anemia or thrombocytopenia. Chemistry indices do not demonstrate an ALEX or electrolyte/liver enzyme derangements. GI panel is negative C difficile is negative and viral testing for COVID/influenza is negative. My interpretation is that patient is experiencing loose stool but no evidence to suggest an obstruction, facility and primary care provider need to evaluate if patient requires adjustment in nutritional supplementation, administration and free water and follow-up on GI panel evaluation. Patient is otherwise hemodynamically stable. Differential Diagnosis Differential Diagnoses: The differential diagnosis associated with the presentation includes Please see the discussion above Admission/Observation Consideration of admission/observation: Escalation of care including admission/observation considered Please see the discussion above Lab Data MDM Lab Attestation statement: I reviewed the patient's lab results. Please see the discussion above 05/18/23 21:26 05/18/23 21:26 Labs: Lab Results 05/18/23 05/18/23 Range/Units 21:26 23:01 WBC 5.1 (4.8-10.8) X10*3/uL RBC 3.77 L (4.20-5.50) X10*6/uL Hgb 12.0 (12.0-16.0) g/dl Hct 35.7 L (37.0-47.0) % MCV 94.7 (80.0-98.0) fL MCH 31.8 (27.0-33.0) pg MCHC 33.6 (31.0-35.0) g/dl RDW 13.0 (11.0-16.0) % Plt Count 172 (160-400) X10*3/uL MPV 11.1 (9.4-12.3) fL Immature Gran % (Auto) 0.2 (0.0-0.4) % Neut % (Auto) 44.9 L (45-73) % Lymph % (Auto) 41.4 H (20-40) % King % (Auto) 12.3 H (2-11) % Eos % (Auto) 0.8 (0-4) % Baso % (Auto) 0.4 (0-2) % Lymph # (Auto) 2.1 (1.2-4.9) X10*3/uL King # (Auto) 0.6 (0.1-1.2) X10*3/uL Eos # (Auto) 0.0 (0.0-0.4) X10*3/uL Baso # (Auto) 0.0 (0.0-0.2) X10*3/uL Abs Immat Gran (auto) 0.01 (0.00-0.03) X10*3/uL Absolute Neuts (auto) 2.3 (2.0-8.3) x10*3/uL Absolute Nucleated RBC 0.000 (0.0-0.012) X10*3/uL Nucleated RBC % (auto) 0.0 (0.0-0.2) /100WBC Sodium 142 (135-145) mmol/L Potassium 3.6 (3.3-5.1) mmol/L Chloride 106 (96-108) mmol/L Carbon Dioxide 30 H (22-29) mmol/L Anion Gap 10 L (12-20) BUN 15 (9-16) mg/dL Creatinine 0.59 (0.5-1.4) mg/dL Estim Creat Clear Calc 110.0 Estimated GFR > 60 Random Glucose 67 (60-115) mg/dL Calcium 9.0 (8.4-10.2) mg/dL Total Bilirubin 0.3 (0.0-1.0) mg/dL AST 15 (5-31) U/L ALT 16 (0-31) U/L Alkaline Phosphatase 92 (39-117) U/L Total Protein 6.6 (6.5-8.0) g/dL Albumin 3.7 (3.5-5.0) g/dL C. difficile Tox B Gene NEGATIVE (Negative) COVID-19 (GAETANO) Negative (Negative) COVID-19 Clin Com See Note Influenza Type A (YADIRA) Negative (Negative) Influenza Type B (YADIRA) Negative (Negative) Influenza A & B Note See Note External Record Review External record reviewed: Inpatient record, Outpatient record, Prior outpatient labs and Prior outpatient radiology Chronic Conditions Patient?s care impacted by: Other TBI Critical Care Time Critical Care Time Critical Care Time: Yes Total Critical Care Time: 30 Attestation: I personally attest to this time spent taking care of the patient. Discharge Plan Discharge Clinical Impression: Passage of loose stools Patient Disposition: Xfer Other Instructions: Nutrition Tips for Relief of Diarrhea (ED) Additional Instructions: 1. Please follow-up on results from the GI panel, otherwise C diff testing is negative. 2. Please consider adjustment of nutritional supplement and pursue outpatient consultation as needed. 3. Resume all home medications as prescribed. Return to the ER for any worsening symptoms. Prescriptions: No Action amantadine HCl 50 mg/5 mL Solution 50 mg feeding tube DAILY multivitamin Tablet 1 tab feeding tube DAILY acetaminophen 325 mg Tablet 650 mg feeding tube Q6H PRN (Reason: Fever Or Pain) trazodone 100 mg Tablet 100 mg feeding tube BEDTIME valproic acid (as sodium salt) 250 mg/5 mL Solution 500 mg feeding tube DAILY baclofen 10 mg Tablet 10 mg feeding tube TID cholecalciferol (vitamin D3) [Vitamin D3] 50 mcg (2,000 unit) Tablet 50 mcg feeding tube DAILY mirtazapine 30 mg tablet,disintegrating 30 mg feeding tube BEDTIME loperamide 2 mg Capsule 2 mg feeding tube BID PRN (Reason: LOOSE STOOLS) citalopram 10 mg/5 mL solution 40 mg feeding tube DAILY polyvinyl alcohol [Artificial Tears (polyvin alc)] 1.4 % Drops 1 drp ophthalmic (eye) DAILY thiamine HCl (vitamin B1) 100 mg Tablet 100 mg feeding tube DAILY levothyroxine 100 mcg tablet 100 mcg feeding tube DAILY@0600 dimethicone 5 % Cream 1 appl TOPICAL BID Protocol: Apply to: Apply to: G TUBE SITE Rx Instructions: APPLY TO GTUBE SITE TOPICALLY FOR IRRITATION psyllium husk 0.52 gram Capsule 1.04 g PO BID Rx Instructions: GIVE VIA FEEDING TUBE chlorhexidine gluconate [Peridex] 0.12 % Mouthwash 15 ml BUCCAL BID Rx Instructions: SWAB GUMS/TEETH AFTER BRUSHING pantoprazole [address] for susp in packet 40 mg feeding tube BID
[2023-05-18 21:31] LABS: MANUAL DIFF FLAG NO
[2023-05-18 21:33] LABS: Basophils Percent Auto 0.4 % (0-2); Eosinophils Percent Auto 0.8 % (0-4); Hematocrit 35.7 % (37.0-47.0); Imm Gran Abs Auto 0.01 X10*3/uL (0.00-0.03); Imm Gran Pct Auto 0.2 % (0.0-0.4); Lymphocytes Absolute Auto 2.1 X10*3/uL (1.2-4.9); Lymphocytes Percent Auto 41.4 % (20-40); Mean Corpuscular HGB Conc 33.6 g/dl (31.0-35.0); Mean Corpuscular Hemoglobin 31.8 pg (27.0-33.0); Mean Corpuscular Volume 94.7 fL (80.0-98.0); Mean Platelet Volume 11.1 fL (9.4-12.3); Monocytes Absolute Auto 0.6 X10*3/uL (0.1-1.2); Monocytes Percent Auto 12.3 % (2-11); Neutrophils Absolute Auto 2.3 x10*3/uL (2.0-8.3); Neutrophils Percent Auto 44.9 % (45-73); Platelet Count 172 X10*3/uL (160-400); Red Blood Count 3.77 X10*6/uL (4.20-5.50); White Blood Count 5.1 X10*3/uL (4.8-10.8)
[2023-05-18 21:46] LABS: Alanine Aminotransferase 16 U/L (0-31); Albumin Level 3.7 g/dL (3.5-5.0); Alkaline Phosphatase 92 U/L (39-117); Anion Gap 10 (12-20); Aspartate Amino Transferase 15 U/L (5-31); Bilirubin Total 0.3 mg/dL (0.0-1.0); Blood Urea Nitrogen 15 mg/dL (9-16); Carbon Dioxide 30 mmol/L (22-29); Chloride 106 mmol/L (96-108); Estimated Glomerular Filt Rate > 60; Glucose Random 67 mg/dL (60-115); Potassium 3.6 mmol/L (3.3-5.1); Sodium 142 mmol/L (135-145); Total Protein 6.6 g/dL (6.5-8.0)
[2023-05-18 21:49] LABS: COVID-19 Test Negative (Negative); IDNOW Serial# 08D9AD1C
[2023-05-18 21:50] LABS: IDNOW Serial# 152EDE1D; Influenza A Negative (Negative); Influenza B2 Negative (Negative)
--- NOTE | 2023-05-18 22:44 | PHA.MEDREC ---
Pharmacy Consult ? Medication Reconciliation Pharmacy has completed the medication reconciliation. Patient from [facility] with med list. Ninfa Muñoz, CarlosD
[2023-05-18 23:55] VITALS: BP 91/55; PULSE 76; TEMP 36.9; O2SAT 96
[2023-05-18 23:58] LABS: CDiff Gene PCR NEGATIVE (Negative)
[2023-05-19 02:00] VITALS: BP 99/50; PULSE 86; TEMP 36.4; O2SAT 98
--- NOTE | 2023-05-19 03:06 | PC.NURSE ---
nurse to nurse report given to Mari collins at [facility]. pt has been transfered back at this time.
[2023-05-19 09:40] LABS: Adenovirus F 40/41 Not Detected (Not Detect.); Astrovirus Not Detected (Not Detect.); Campylobacter Not Detected (Not Detect.); Cryptosporidium Not Detected (Not Detect.); Cyclospora cayetanensis Not Detected (Not Detect.); E. coli EAEC Not Detected (Not Detect.); E. coli EPEC Not Detected (Not Detect.); E. coli ETEC Not Detected (Not Detect.); E. coli STEC Not Detected (Not Detect.); Entamoeba histolytica Not Detected (Not Detect.); Giardia lamblia Not Detected (Not Detect.); Norovirus GI/GII Not Detected (Not Detect.); Plesiomonas shigelloides Not Detected (Not Detect.); Rotavirus A Not Detected (Not Detect.); Salmonella Not Detected (Not Detect.); Sapovirus Not Detected (Not Detect.); Shigella sp./EIEC Not Detected (Not Detect.); Vibrio Not Detected (Not Detect.); Vibrio Cholerae Not Detected (Not Detect.); Yersinia enterocolitica Not Detected (Not Detect.)
== END 2023-05-19 03:12 | disposition other institution (70) ==
PROVIDERS: Emergency Provider Student in an Organized Health Care Education/Training Program
DX: R19.7 Diarrhea, unspecified (principal); Z11.52 Encounter for screening for COVID-19; D64.9 Anemia, unspecified; R27.0 Ataxia, unspecified; R29.6 Repeated falls; Z91.81 History of falling; Z87.820 Personal history of traumatic brain injury; Z93.3 Colostomy status
CPT/HCPCS: 80053; 85025; 87493; 87502; 87507; 87635; 99283; 99284

== ENCOUNTER 2023-11-25 10:44 | Emergency (ER) | payer MEDICARE, MEDICAID, SELFPAY ==
--- NOTE | ~2023-11-25 | CT_ITS ---
EXAMINATION: CT ABDOMEN AND PELVIS WITH CONTRAST CLINICAL INFORMATION: Dark vaginal discharge questionable fistula. History of pyelonephritis. COMPARISON: May 05, 2023 TECHNIQUE: Multidetector volumetric images were obtained from the superior aspect of the liver through the pubic symphysis following administration 85 mL of Omnipaque 350 intravenous contrast. Sagittal and coronal reformatted images were obtained on the technologist's workstation. Oral contrast: No This CT examination was performed using dose optimization techniques as appropriate, variously including the following: *Automated exposure control *Adjustment of mA and/or kV according to patient size (this includes techniques or standardized protocols for targeted exams where dose is matched to indication/reason for exam; i.e. extremities or head) *Use of iterative reconstruction technique DLP: 710 mGy-cm FINDINGS: LUNG BASES: The visualized lung bases are unremarkable. LIVER, GALLBLADDER, AND BILIARY TREE: The liver is normal in size, shape, and attenuation. No focal hepatic lesion or biliary ductal dilatation is present. Gallbladder reveals no stones. PANCREAS: Unremarkable. SPLEEN: Unremarkable. ADRENAL GLANDS: Unremarkable. KIDNEYS AND URETERS: The kidneys are normal in size, shape, and attenuation. No hydronephrosis, hydroureter, or calculi seen. No perinephric stranding. BLADDER: Unremarkable. GASTROINTESTINAL TRACT AND PELVIS: There is ileostomy and colostomy present. Placed currently Gordon catheter is in the vagina, not in the urinary bladder and. Seen on the previous examination fluid in the distended vaginal cuff has been drained, most likely result of the that decompression of sequela of cervical stenosis, but uterus is unremarkable. Right and left ovaries are unremarkable.. ABDOMINAL WALL: As mentioned in the report there is ileostomy and colostomy present LYMPH NODES: Normal. VASCULAR: Unremarkable. OSSEOUS STRUCTURES: There is exaggerated lordosis. Diffuse osteopenia. CT/CT abdomen pelvis w IV con IMPRESSION: Seen on the previous examination fluid in vaginal cuff has been drained to to placement of Gordon catheter Ileostomy and colostomy. Findings discussed with PATRICIA Bradshaw at 4:10 PM on 11/25/2023 Fleischner guidelines were followed. Electronically signed by: Amadeo Griffin MD 11/25/2023 04:24 PM EDT
--- NOTE | 2023-11-25 10:51 | ED_ITS ---
HPI - General Adult General Chief complaint: Urogenital-Female Stated complaint: brown jelly/discharge Time Seen by Provider: 11/25/23 10:50 Source: EMS Mode of arrival: EMS Limitations: other (nonverbal at baseline ) History of Present Illness ED Provider: Julius DIGGS HPI narrative: This is a 43 year old female hx of TBI and subsequently nonverbal ( communication charts used for communication), anemia, ataxia, colostomy in place, bipolar d/o presents w/ jelly dark vaginal discharge for unclear amount of time. Coming form [facility]. Denies vaginal trauma. She still gets her normal period. Denies vaginal penetration. Reports something similar has happened to her in the past. Denies any other a/c complaints. Related Data Home Medications ?Medication ?Instructions ?Recorded ?Confirmed acetaminophen 325 mg tablet 650 mg feeding tube Q6H PRN Fever 05/26/21 11/25/23 Or Pain amantadine HCl 50 mg/5 mL oral 50 mg feeding tube DAILY 05/26/21 11/25/23 solution baclofen 10 mg tablet 10 mg feeding tube TID 05/26/21 11/25/23 cholecalciferol (vitamin D3) 50 50 mcg feeding tube DAILY 05/26/21 11/25/23 mcg (2,000 unit) tablet (Vitamin D3) multivitamin 1 tab feeding tube DAILY 05/26/21 11/25/23 trazodone 100 mg tablet 100 mg feeding tube BEDTIME 05/26/21 11/25/23 valproic acid (as sodium salt) 250 500 mg feeding tube DAILY 05/26/21 11/25/23 mg/5 mL oral solution chlorhexidine gluconate 0.12 % 15 ml buccal BID 05/05/23 11/25/23 mouthwash (Peridex) citalopram 10 mg/5 mL oral solution 40 mg feeding tube DAILY 05/05/23 11/25/23 dimethicone 5 % topical cream 1 appl topical BID 05/05/23 11/25/23 levothyroxine 100 mcg tablet 100 mcg feeding tube DAILY@0600 05/05/23 11/25/23 loperamide 2 mg capsule 2 mg feeding tube BID PRN LOOSE 05/05/23 11/25/23 STOOLS mirtazapine 30 mg disintegrating 30 mg feeding tube BEDTIME 05/05/23 11/25/23 tablet pantoprazole 40 mg granules 40 mg feeding tube BID@0630,1630 05/05/23 11/25/23 delayed-release for susp in packet polyvinyl alcohol 1.4 % eye drops 1 drp ophthalmic (eye) DAILY 05/05/23 11/25/23 (Artificial Tears (polyvinyl alcohol)) psyllium husk 0.52 gram capsule 1.04 g PO BID 05/05/23 11/25/23 thiamine HCl (vitamin B1) 100 mg 100 mg feeding tube DAILY 05/05/23 11/25/23 tablet triamcinolone acetonide 0.1 % 1 appl topical BID 11/25/23 11/25/23 topical ointment Allergies Allergy/AdvReac Type Severity Reaction Status Date / Time No Known Allergies Allergy Verified 11/25/23 11:04 Review of Systems 2 Review of Systems: Yes all other systems are reviewed and are negative [facility] Past Medical History Attestation statement: The following information was validated with the patient. Source: old records reviewed and nursing notes reviewed Medical History Sepsis TBI (traumatic brain injury) Bacteremia due to group B Streptococcus Falls Ataxia Anemia Bipolar 1 disorder TBI (traumatic brain injury) Social History Social History Household Members: Caregiver Housing: Group Home Do you presently have visiting nurse or other home services: No (at [facility]) Unable to assess alcohol history related to: Unable to respond Alcohol intake: never Patient Tobacco Use Status: Tobacco use Unknown Tobacco use type: Cigarette Advance Directives: Yes Advance Directives on File: Yes Advance Directives Date on File: 07/12/20 Do you have a plan to hurt others: No Plan service: No Physical Exam ED Vital Signs: Vital Signs - 24 hr 11/25/23 11:02 11/25/23 14:33 Temperature 98.6 F 98.5 F Pulse Rate 123 H 91 Respiratory Rate 16 14 Blood Pressure 132/69 110/70 Pulse Oximetry 100 99 Oxygen Delivery Method Room Air Room Air BMI result Body Mass Index 22.6 vss Appearance: Alert.? Oriented X3.? No acute distress.?+ cachectic appearing Head: Normocephalic, atraumatic, no step-offs or deformities Eyes: Pupils equal, round and reactive to light.? CVS: Normal heart rate and rhythm.? Pulses normal.? Respiratory: No respiratory distress.? Breath sounds normal.? Abdomen: Soft and nontender.?+ostomy bag and peg tube Skin: Skin warm and dry.? Normal skin color.? Normal skin turgor.? Extremities: No lower extremity edema.? No calf ttp. Global weakness. Upper and lower extremities contracted bilaterally ( patients baseline) Back: No midline tenderness, no C-spine tenderness, full range of motion, no CVA tenderness bilaterally Neuro: Oriented X 3.? No motor deficit.? No sensory deficit. CN 2-12 intact Course Reevaluation(s) Reevaluation #1: Spoke to Martina in hematology about UA who reports + bacteria but unclear if its stool or urine. So they documented TNP as it was very difficult to see color changes. Large amount of material expressed from christine cath ( black, turbid) Time: 12:28 Reevaluation #2: CBC unremarkable. Chemistry with no acute findings eating intervention. Again UA was not performed due to collar and concerns that this may be fecal matter. Time: 15:30 Reevaluation #3: Discussed this with Dr. Griffin radiology who reports patient has very abnormal anatomy she notes a distended urinary bladder and possibly Christine in the vagina it is unclear if there was communication with vagina and colon, left flank ostomy noted. On previous studies radiologist was able to know a drainable collection the vagina that is no longer present. She she is concerned that this is possibly an obstructed cervix. Time: 16:31 Additional Reevaluation(s): Dr. Aguirre auto body customizer recommends transferring patient to the [facility] ER due to the magnitude of complexity of this patient, he also believes she should be in a center where they could manage ileostomy colostomy as well as surgical intervention of fistula as this remains on the differential. Patient will be transferred as she is requiring higher level of care. We do not have OBGYN on- call here, it is confirmed that the Christine catheter is in the vagina and draining a large amount of black what appears to be fecal matter. Christine catheter will be removed at this time. As stated previously patient has presented with a very similar presentation in the past even when Christine catheters were not placed. Medications Administered Discontinued Medications Generic Name Dose Route Start Last Admin Trade Name Freq PRN Reason Stop Dose Admin Diatrizoate Meglum/Diatrizoate Sod 30 ml 11/25/23 15:11 11/25/23 15:12 Diatrizoate Meglumine, Sodium 30 Ml Solution PO 11/25/23 15:12 30 ml ONCE ONE Administration Ceftriaxone Sodium 1 gm/ 50 mls @ 100 mls/hr 11/25/23 11:56 11/25/23 12:51 Sodium Chloride IV 11/25/23 12:25 100 mls/hr ONCE ONE Administration Iohexol 100 ml 11/25/23 15:12 11/25/23 15:12 Iohexol 350 Mg/Ml 100 Ml Infus..Btl IV 11/25/23 15:13 85 ml ONCE ONE Administration Medical Decision Making Medical Decision Making [facility] Narrative: 1056 43-year-old female presents with vaginal discharge for unknown amount of time has had similar presentations in the past. Coming from [facility]. Denies vaginal trauma. On exam patient cachectic appearing with upper and lower extremities contracted as well as global weakness. This appears to be her baseline ostomy bag and peg tube History and physical exam concerning for urinary tract infection versus pyelonephritis versus bacterial vaginosis. Less likely STDs. Fistula is also possible. No signs of acute abdomen. Will rule out rhabdomyolysis. Will rule out metabolic derangement Plan labs, imaging, urine Differential Diagnosis Differential Diagnoses: The differential diagnosis associated with the presentation includes History and physical exam concerning for urinary tract infection versus pyelonephritis versus bacterial vaginosis. Less likely STDs. Fistula is also possible. No signs of acute abdomen. Will rule out rhabdomyolysis. Will rule out metabolic derangement Admission/Observation Consideration of admission/observation: Escalation of care including admission/observation considered Possible Consult Healthcare Provider Management of the patient was discussed with: Floor Cashier (Dr. Sales ) Lab Data [facility] Lab Attestation statement: I reviewed the patient's lab results. 11/25/23 11:36 11/25/23 11:36 Labs: Lab Results 11/25/23 11/25/23 Range/Units 11:26 11:36 WBC 5.2 (4.8-10.8) X10*3/uL RBC 4.00 L (4.20-5.50) X10*6/uL Hgb 13.0 (12.0-16.0) g/dl Hct 37.7 (37.0-47.0) % MCV 94.3 (80.0-98.0) fL MCH 32.5 (27.0-33.0) pg MCHC 34.5 (31.0-35.0) g/dl RDW 12.2 (11.0-16.0) % Plt Count 149 L (160-400) X10*3/uL MPV 11.9 (9.4-12.3) fL Immature Gran % (Auto) 0.2 (0.0-0.4) % Neut % (Auto) 56.6 (45-73) % Lymph % (Auto) 34.0 (20-40) % Larue % (Auto) 8.6 (2-11) % Eos % (Auto) 0.2 (0-4) % Baso % (Auto) 0.4 (0-2) % Lymph # (Auto) 1.8 (1.2-4.9) X10*3/uL Larue # (Auto) 0.5 (0.1-1.2) X10*3/uL Eos # (Auto) 0.0 (0.0-0.4) X10*3/uL Baso # (Auto) 0.0 (0.0-0.2) X10*3/uL Abs Immat Gran (auto) 0.01 (0.00-0.03) X10*3/uL Absolute Neuts (auto) 3.0 (2.0-8.3) x10*3/uL Absolute Nucleated RBC 0.000 (0.0-0.012) X10*3/uL Nucleated RBC % (auto) 0.0 (0.0-0.2) /100WBC Sodium 141 (135-145) mmol/L Potassium 4.3 (3.3-5.1) mmol/L Chloride 106 (96-108) mmol/L Carbon Dioxide 28 (22-29) mmol/L Anion Gap 11 L (12-20) BUN 17 H (9-16) mg/dL Creatinine 0.62 (0.5-1.4) mg/dL Estim Creat Clear Calc 111.8 Estimated GFR > 60 Random Glucose 98 (60-115) mg/dL Calcium 9.2 (8.4-10.2) mg/dL Magnesium 2.0 (1.6-2.6) mg/dL Total Bilirubin 0.2 (0.0-1.0) mg/dL AST 17 (5-31) U/L ALT 10 (0-31) U/L Alkaline Phosphatase 101 (39-117) U/L Total Creatine Kinase 92 (26-140) U/L Total Protein 7.1 (6.5-8.0) g/dL Albumin 4.0 (3.5-5.0) g/dL Urine Color TNP Urine Appearance TNP Urine pH TNP Ur Specific [place] TNP Urine Protein TNP Urine Glucose (UA) TNP Urine Ketones TNP Urine Blood TNP Urine Nitrite TNP Ur Leukocyte Esterase TNP Independent Interpretation I performed an independent interpretation of an: CT Scan ( CT/CT abdomen pelvis w IV con IMPRESSION: Seen on the previous examination fluid in vaginal cuff has been drained to to placement of Christine catheter Ileostomy and colostomy. Findings discussed with PATRICIA Bradshaw at 4:10 PM on 11/25/2023 Fleischner guidelines were followed.) Radiology Impression Discussion of test interpretation with radiology: I have reviewed the radiologist's reading. External Record Review External record reviewed: Inpatient record, Office record, Outpatient record, Prior outpatient labs, Prior outpatient radiology, Primary care record and Outside ED record Chronic Conditions Patient?s care impacted by: Other (BI, bipolar, anemia, ) Critical Care Time Critical Care Time Critical Care Time: Yes Total Critical Care Time: 45 Attestation: I attest to this time spent taking care of the patient, obtaining history, physical, reviewing labs, imaging, speaking to my attending, specialist or hospitalist. Discharge Plan Discharge Clinical Impression: Vaginal discharge, Fistula Patient Disposition: er [facility] Transfer Details: Dr. Aguirre [facility] OBGYN Prescriptions: No Action amantadine HCl 50 mg/5 mL Solution 50 mg feeding tube DAILY multivitamin Tablet 1 tab feeding tube DAILY acetaminophen 325 mg Tablet 650 mg feeding tube Q6H PRN (Reason: Fever Or Pain) trazodone 100 mg Tablet 100 mg feeding tube BEDTIME valproic acid (as sodium salt) 250 mg/5 mL Solution 500 mg feeding tube DAILY baclofen 10 mg Tablet 10 mg feeding tube TID cholecalciferol (vitamin D3) [Vitamin D3] 50 mcg (2,000 unit) Tablet 50 mcg feeding tube DAILY mirtazapine 30 mg tablet,disintegrating 30 mg feeding tube BEDTIME loperamide 2 mg Capsule 2 mg feeding tube BID PRN (Reason: LOOSE STOOLS) Rx Instructions: MAX 16mg/day citalopram 10 mg/5 mL solution 40 mg feeding tube DAILY polyvinyl alcohol [Artificial Tears (polyvin alc)] 1.4 % Drops 1 drp ophthalmic (eye) DAILY thiamine HCl (vitamin B1) 100 mg Tablet 100 mg feeding tube DAILY levothyroxine 100 mcg tablet 100 mcg feeding tube DAILY@0600 dimethicone 5 % Cream 1 appl TOPICAL BID Protocol: Apply to: Apply to: G TUBE SITE Rx Instructions: APPLY TO GTUBE SITE TOPICALLY FOR IRRITATION psyllium husk 0.52 gram Capsule 1.04 g PO BID Rx Instructions: GIVE VIA FEEDING TUBE chlorhexidine gluconate [Peridex] 0.12 % Mouthwash 15 ml BUCCAL BID Rx Instructions: SWAB GUMS/TEETH AFTER BRUSHING pantoprazole [address] for susp in packet 40 mg feeding tube BID@0630,1630 triamcinolone acetonide 0.1 % Ointment 1 appl TOPICAL BID Rx Instructions: apply to G-tube stoma Print Language: Yemeni
[2023-11-25 11:02] VITALS: BP 110/74; BP 132/69; PULSE 123; PULSE 92; RESP 16; TEMP 37; O2SAT 100; BMI 22.6
[2023-11-25 11:41] LABS: MANUAL DIFF FLAG NO
[2023-11-25 11:42] LABS: Basophils Percent Auto 0.4 % (0-2); Eosinophils Percent Auto 0.2 % (0-4); Hematocrit 37.7 % (37.0-47.0); Imm Gran Abs Auto 0.01 X10*3/uL (0.00-0.03); Imm Gran Pct Auto 0.2 % (0.0-0.4); Lymphocytes Absolute Auto 1.8 X10*3/uL (1.2-4.9); Mean Corpuscular HGB Conc 34.5 g/dl (31.0-35.0); Mean Corpuscular Hemoglobin 32.5 pg (27.0-33.0); Mean Corpuscular Volume 94.3 fL (80.0-98.0); Mean Platelet Volume 11.9 fL (9.4-12.3); Monocytes Absolute Auto 0.5 X10*3/uL (0.1-1.2); Monocytes Percent Auto 8.6 % (2-11); Neutrophils Percent Auto 56.6 % (45-73); Platelet Count 149 X10*3/uL (160-400); Red Cell Distribution Width 12.2 % (11.0-16.0); White Blood Count 5.2 X10*3/uL (4.8-10.8)
[2023-11-25 11:57] LABS: Alanine Aminotransferase 10 U/L (0-31); Alkaline Phosphatase 101 U/L (39-117); Anion Gap 11 (12-20); Aspartate Amino Transferase 17 U/L (5-31); Bilirubin Total 0.2 mg/dL (0.0-1.0); Blood Urea Nitrogen 17 mg/dL (9-16); Calcium 9.2 mg/dL (8.4-10.2); Carbon Dioxide 28 mmol/L (22-29); Chloride 106 mmol/L (96-108); Creatinine Clr Calc Pharmacy 111.8; Estimated Glomerular Filt Rate > 60; Glucose Random 98 mg/dL (60-115); Potassium 4.3 mmol/L (3.3-5.1); Sodium 141 mmol/L (135-145); Total Protein 7.1 g/dL (6.5-8.0)
--- NOTE | 2023-11-25 12:16 | PC.NURSE ---
coming from [facility] - patient bed bound and non-verbal at baseline. able to communicate via clipboard. christine inserted w/ brown liquid output. IV established, labs obtained and sent. patient tolerated both procedures well. oral contrast administered via g-tube, ct scan aware of this. call tavares remains within reach.
[2023-11-25] MEDS: cefTRIAXone sodium 1 GM in 0.9 % Sodium Chloride 50 ML IV (12:51)
[2023-11-25 14:33] VITALS: BP 110/70; PULSE 91; RESP 14; TEMP 36.9; O2SAT 99
[2023-11-25] MEDS: Diatrizoate Meglumine, Sodium 30 ML SOLUTION PO (15:12)
[2023-11-25] MEDS: iohexoL 350 MG/ML 100 ML INFUS..BTL IV (15:12)
--- NOTE | 2023-11-25 15:25 | PHA.MEDREC ---
Pharmacy Consult ? Medication Reconciliation Pharmacy has completed the medication reconciliation, utilized list from [facility] [place].
--- NOTE | 2023-11-25 17:23 | PC.NURSE ---
christine cath removed d/t wrong placement. upon removal, dark grainy output approx 100mL in catheter. patient changed , colostomy bag emptied, patient linens changed and repositioned in bed.
--- NOTE | 2023-11-25 17:58 | PC.NURSE ---
attempted to call [facility] for report, no answer
[2023-11-25 18:54] VITALS: BP 110/70; PULSE 91; RESP 14; TEMP 36.9; O2SAT 99
== END 2023-11-25 18:55 | disposition short-term general hospital (02) ==
PROVIDERS: Physician Assistant; Emergency Provider Emergency Medicine
DX: N89.8 Other specified noninflammatory disorders of vagina (principal); L98.8 Other specified disorders of the skin and subcutaneous tissue; R64 Cachexia; Z68.22 Body mass index [BMI] 22.0-22.9, adult; Z43.1 Encounter for attention to gastrostomy; Z46.6 Encounter for fitting and adjustment of urinary device; D64.9 Anemia, unspecified; R27.0 Ataxia, unspecified; F31.9 Bipolar disorder, unspecified; Z74.01 Bed confinement status; Z87.820 Personal history of traumatic brain injury; Z79.899 Other long term (current) drug therapy
CPT/HCPCS: 36415; 74177; 80053; 81003; 82550; 83735; 85025; 96365; 96366; 99285; J0696; Q9967

== ENCOUNTER 2024-10-29 05:45 | Emergency (ER) | payer MEDICARE, MEDICAID, SELFPAY ==
--- NOTE | ~2024-10-29 | XR_ITS ---
CLINICAL HISTORY: eval placement of g tube Exam: AP abdominal radiograph. Comparison: None provided. Findings: Contrast was reportedly injected via the patient's gastrostomy tube within the left upper quadrant. Contrast is seen within the proximal to mid gastric body extending into the proximal duodenum within the left upper quadrant. No free spill of contrast material is identified. No free air is seen. No dilated small bowel. Air-filled loops of colon are identified. Impression: Contrast is seen within the stomach and duodenum. This document has been electronically signed by: Go Sams MD on 10/29/2024 09:44:13
[2024-10-29 05:55] VITALS: BMI 18.3
[2024-10-29 06:16] VITALS: BP 96/51; PULSE 104; O2SAT 95
--- NOTE | 2024-10-29 06:17 | PC.NURSE ---
nonblanchable redness to left heel. RUQ ostomy. stoma appears pink with small volume of liquid green stool. all bony prominences elevated and cushioned with pillows. patient is able to squeeze my right hand on command, eyes track, patient can nod vaguely when asked yes/no questions
--- NOTE | 2024-10-29 06:19 | PC.NURSE ---
tissue around g tube site slightly firm around. no observed signs of pain from patient on light palpation x4
[2024-10-29 06:41] VITALS: BP 101/65; PULSE 103; RESP 12; TEMP 37; O2SAT 97
[2024-10-29 06:49] VITALS: PULSE 79
--- NOTE | 2024-10-29 07:36 | ED.GENADULT ---
HPI - General Adult General Chief complaint: General Medical Stated complaint: g tube needs to be replaced Time Seen by Provider: 10/29/24 06:53 Source: EMS and old records reviewed Mode of arrival: EMS Limitations: altered mental status History of Present Illness ED Provider: JOHANNA MUELLER narrative: 44 yo female with PMH of TBI, pyelonephritis, ataxia, anemia, bipolar disorder s/p dislodgement of feeding tube that has been present for 3 years. Hx of same in past. No other complaint. 18F MD complaint: feeding tube dislodgement Onset (ago): unknown (in the night) Location: abdomen Radiation: non-radiation Severity: mild Exacerbating factors: none Associated symptoms: denies other symptoms Treatments prior to arrival: none Related Data Home Medications ?Medication ?Instructions ?Recorded ?Confirmed acetaminophen 325 mg tablet 650 mg feeding tube Q6H PRN Fever 05/26/21 11/25/23 Or Pain amantadine HCl 50 mg/5 mL oral 50 mg feeding tube DAILY 05/26/21 11/25/23 solution baclofen 10 mg tablet 10 mg feeding tube TID 05/26/21 11/25/23 cholecalciferol (vitamin D3) 50 50 mcg feeding tube DAILY 05/26/21 11/25/23 mcg (2,000 unit) tablet (Vitamin D3) multivitamin 1 tab feeding tube DAILY 05/26/21 11/25/23 trazodone 100 mg tablet 100 mg feeding tube BEDTIME 05/26/21 11/25/23 valproic acid (as sodium salt) 250 500 mg feeding tube DAILY 05/26/21 11/25/23 mg/5 mL oral solution chlorhexidine gluconate 0.12 % 15 ml buccal BID 05/05/23 11/25/23 mouthwash (Peridex) citalopram 10 mg/5 mL oral solution 40 mg feeding tube DAILY 05/05/23 11/25/23 dimethicone 5 % topical cream 1 appl topical BID 05/05/23 11/25/23 levothyroxine 100 mcg tablet 100 mcg feeding tube DAILY@0600 05/05/23 11/25/23 loperamide 2 mg capsule 2 mg feeding tube BID PRN LOOSE 05/05/23 11/25/23 STOOLS mirtazapine 30 mg disintegrating 30 mg feeding tube BEDTIME 05/05/23 11/25/23 tablet pantoprazole 40 mg granules 40 mg feeding tube BID@0630,1630 05/05/23 11/25/23 delayed-release for susp in packet polyvinyl alcohol 1.4 % eye drops 1 drp ophthalmic (eye) DAILY 05/05/23 11/25/23 (Artificial Tears (polyvinyl alcohol)) psyllium husk 0.52 gram capsule 1.04 g PO BID 05/05/23 11/25/23 thiamine HCl (vitamin B1) 100 mg 100 mg feeding tube DAILY 05/05/23 11/25/23 tablet triamcinolone acetonide 0.1 % 1 appl topical BID 11/25/23 11/25/23 topical ointment Allergies Allergy/AdvReac Type Severity Reaction Status Date / Time No Known Allergies Allergy Verified 10/29/24 06:12 Review of Systems Review of Systems: ROS unable to be obtained due to altered mental status [facility] Past Medical History Source: old records reviewed and obtained from family Medical History Sepsis TBI (traumatic brain injury) Bacteremia due to group B Streptococcus Falls Ataxia Anemia Bipolar 1 disorder TBI (traumatic brain injury) Social History Social History Household Members: Caregiver Housing: Prison Do you presently have visiting nurse or other home services: [facility] (at [facility]) Unable to assess alcohol history related to: Unable to respond Alcohol intake: never Patient Tobacco Use Status: Tobacco use Unknown Tobacco use type: Cigarette Use of substances other than those prescribed or required for medical reasons: Unable to respond Advance Directives: Yes Advance Directives on File: Yes Advance Directives Date on File: 07/12/20 Patient : No service: No Physical Exam ED Vital Signs: Vital Signs - 24 hr 10/29/24 06:16 10/29/24 06:41 10/29/24 06:49 Temperature 98.6 F Pulse Rate 104 H 103 H 79 Respiratory Rate 12 Blood Pressure 96/51 L 101/65 Pulse Oximetry 95 97 Oxygen Delivery Method Room Air 10/29/24 09:30 Temperature 97.2 F Pulse Rate 96 Respiratory Rate 16 Blood Pressure 107/63 Pulse Oximetry 96 Oxygen Delivery Method Room Air BMI result Body Mass Index 18.3 Appearance: Alert. no acute distress, appears at baseline Eyes: Pupils equal, round and reactive to light. ENT: Pharynx dry MM Neck: Normal inspection. CVS: Normal heart rate and rhythm. Pulses normal. Respiratory: No respiratory distress. Breath sounds normal. Abdomen: Soft and nontender. site has mild yellow to clear drainage - no bleeding, ostomy is p/p/p Skin: Skin warm and dry. Extremities: No lower extremity edema. Neuro: contracted, tracks with eyes, nonverbal Course Course Course Narrative: discussed with mom 18F feeding tube - suggested that patient goes to [facility] overseeing her care 3 years now okay to perform procedure here but concerned about issues with prior gastric tube Reevaluation(s) Reevaluation #1: 14foley easily placed with gastric contents in tube did it just to keep track open Reevaluation #2: mom aware no issues will DC back Medications Administered Discontinued Medications Generic Name Dose Route Start Last Admin Trade Name Freq PRN Reason Stop Dose Admin Diatrizoate Meglum/Diatrizoate Sod 30 ml 10/29/24 08:53 10/29/24 08:54 Diatrizoate Meglumine, Sodium 30 Ml Solution PO 10/29/24 08:54 20 ml ONCE ONE Administration Procedures Feeding Tube Replacement Type of Tube: gastrostomy Insertion Site Prior to Procedure: clean Tube Used for Reinsertion: Bard Dominican Tube Size (F): 16 Balloon size (mL): 5 Verification of Placement: KUB and gastrografin injection Tube Secured by: tape/dressing Patient Tolerated Procedure: well and no complications Medical Decision Making Medical Decision Making [facility] Narrative: 44 yo female with PMH of TBI, pyelonephritis, ataxia, anemia, bipolar disorder who resides at [facility] she comes in with c/o dislodged feeding tube - I want to replace it when we called [facility] for more information about size and time of dislodgement they state that family would not want us to replace it here. I called HCP Chela (mom) and left message. No signs of bleeding on exam. I am still waiting to hear from her mother about if we are allowed to change the feeding tube. Family states they are also trying to reach out. called father Drew who is also listed on the chart - left message Differential Diagnosis Differential Diagnoses: The differential diagnosis associated with the presentation includes dislodged g tbue Independent Interpretation I performed an independent interpretation of an: Plain X-Ray (confirmed tube) Radiology Impression Discussion of test interpretation with radiology: I have reviewed the radiologist's reading. Independent Historian Clinical information obtained from an independent historian. History obtained from or confirmed by: EMS Discharge Plan Discharge Clinical Impression: Encounter for feeding tube placement Patient Disposition: Xfer [facility] Transfer Details: BACK TO [facility] Instructions: PEG (Percutaneous Endoscopic Gastrostomy) Tube Insertion (DC) Additional Instructions: return for fevers, skin rash, bleeding, vomiting, fevers or any other concerns replaced 16Fr catheter no issues. Findings: Contrast was reportedly injected via the patient's gastrostomy tube within the left upper quadrant. Contrast is seen within the proximal to mid gastric body extending into the proximal duodenum within the left upper quadrant. No free spill of contrast material is identified. No free air is seen. No dilated small bowel. Air-filled loops of colon are identified. Impression: Contrast is seen within the stomach and duodenum. Prescriptions: No Action amantadine HCl 50 mg/5 mL Solution 50 mg feeding tube DAILY multivitamin Tablet 1 tab feeding tube DAILY acetaminophen 325 mg Tablet 650 mg feeding tube Q6H PRN (Reason: Fever Or Pain) trazodone 100 mg Tablet 100 mg feeding tube BEDTIME valproic acid (as sodium salt) 250 mg/5 mL Solution 500 mg feeding tube DAILY baclofen 10 mg Tablet 10 mg feeding tube TID cholecalciferol (vitamin D3) [Vitamin D3] 50 mcg (2,000 unit) Tablet 50 mcg feeding tube DAILY mirtazapine 30 mg tablet,disintegrating 30 mg feeding tube BEDTIME loperamide 2 mg Capsule 2 mg feeding tube BID PRN (Reason: LOOSE STOOLS) Rx Instructions: MAX 16mg/day citalopram 10 mg/5 mL solution 40 mg feeding tube DAILY polyvinyl alcohol [Artificial Tears (polyvin alc)] 1.4 % Drops 1 drp ophthalmic (eye) DAILY thiamine HCl (vitamin B1) 100 mg Tablet 100 mg feeding tube DAILY levothyroxine 100 mcg tablet 100 mcg feeding tube DAILY@0600 dimethicone 5 % Cream 1 appl TOPICAL BID Protocol: Apply to: Apply to: G TUBE SITE Rx Instructions: APPLY TO GTUBE SITE TOPICALLY FOR IRRITATION psyllium husk 0.52 gram Capsule 1.04 g PO BID Rx Instructions: GIVE VIA FEEDING TUBE chlorhexidine gluconate [Peridex] 0.12 % Mouthwash 15 ml BUCCAL BID Rx Instructions: SWAB GUMS/TEETH AFTER BRUSHING pantoprazole [address] for susp in packet 40 mg feeding tube BID@0630,1630 triamcinolone acetonide 0.1 % Ointment 1 appl TOPICAL BID Rx Instructions: apply to G-tube stoma Referrals: Feliciano Sales DO [Primary Care Provider, Internal Medicine] Print Language: Salvadorean
[2024-10-29 09:30] VITALS: BP 107/63; PULSE 96; RESP 16; TEMP 36.2; O2SAT 96
[2024-10-29 12:53] VITALS: BP 107/63; PULSE 96; RESP 16; TEMP 36.2; O2SAT 96
--- NOTE | 2024-10-29 12:53 | PC.NURSE ---
RN-RN report given to Bud anderson.
== END 2024-10-29 12:54 ==
PROVIDERS: Emergency Provider Emergency Medicine; PCP Hospitalist
DX: K94.20 Gastrostomy complication, unspecified (principal); R63.39 Other feeding difficulties; Z79.899 Other long term (current) drug therapy
CPT/HCPCS: 49440; 74018; 99283; 99284

== ENCOUNTER → 2024-10-29 08:11 | Outpatient (BNV) | payer MEDICARE, MEDICAID, SELFPAY | PROVIDERS: Emergency Provider Emergency Medicine; PCP Hospitalist; Visit Provider Radiology Diagnostic Radiology | DX: Z46.59 Encounter for fitting and adjustment of other gastrointestinal appliance and device (principal) | CPT/HCPCS: 74018 ==

== ENCOUNTER 2024-12-18 15:01 | Outpatient (AMB) | payer MEDICARE, MEDICAID, SELFPAY ==
--- NOTE | 2024-12-18 15:06 | MHC.OFFVIS ---
Vital Signs 12/18/24 15:20 Height 5 ft 8 in Weight 121 lb 4.068 oz BMI 18.4 BP not taken reason Medical Reason Intake Visit Reasons: cyst R side of scalp Intake Note: Patient is seen in office for evaluation of a cyst in the scalp. Pt c/o: per mother- cyst has been present for few yrs, admits to increase, discharge, swelling or infections, no pain per pt, mother states she had a similar one removed in the past (benign) Funeral Home Makeup Artist Required: No Accompanied by: Self / Same As Patient Allergies No Known Allergies Allergy (Verified 12/18/24 15:13) Medication List - Last Reconciled 12/18/24 by Miguel Lockwood MD acetaminophen 650 mg feeding tube Q6H PRN amantadine HCl 50 mg feeding tube DAILY baclofen 10 mg feeding tube TID chlorhexidine gluconate 0.12% (Peridex) 15 mL buccal BID cholecalciferol (vitamin D3) (Vitamin D3) 50 mcg feeding tube DAILY citalopram 40 mg feeding tube DAILY dimethicone 5% 1 appl See Protocol topical BID levothyroxine 100 mcg feeding tube DAILY@0600 loperamide 2 mg feeding tube BID PRN mirtazapine 30 mg feeding tube BEDTIME multivitamin 1 tab feeding tube DAILY pantoprazole DR 40 mg feeding tube BID@0630,1630 polyvinyl alcohol 1.4% (Artificial Tears (polyvinyl alcohol)) 1 drp ophthalmic (eye) DAILY psyllium husk 1.04 grams PO BID thiamine HCl (vitamin B1) 100 mg feeding tube DAILY trazodone 100 mg feeding tube BEDTIME triamcinolone acetonide 0.1% 1 appl topical BID valproic acid (as sodium salt) 500 mg feeding tube DAILY HPI Comments Details: 44-year-old female patient with a prior history of traumatic brain injury, resident of [facility] presenting for evaluation of a right posterior scalp cyst. History taken from her mother reveals the cyst has been present for several years and has gradually increased in size. She denies a previous history of other cysts on the scalp. The cyst does not cause any pain and there has been no bleeding or discharge associated with this lesion. Her mom reports a personal history of similar cysts which have been excised. She is not sure if her daughter cyst is anything to worry about. [facility] Medical History Sepsis TBI (traumatic brain injury) Bacteremia due to group B Streptococcus Falls Ataxia Anemia Bipolar 1 disorder TBI (traumatic brain injury) Social History Household Members: Caregiver Housing: Half-Way Do you presently have visiting nurse or other home services: [facility] (at [facility]) Unable to assess alcohol history related to: Unable to respond Alcohol intake: never Patient Tobacco Use Status: Tobacco use Unknown Tobacco use type: Cigarette Advance Directives Date on File: 07/12/20 service: No Review of Systems Const Unobtainable due to mental condition Physical Exam Vital Signs: BMI result Body Mass Index 18.4 Const General: no acute distress Nutritional Appearance: thin Limitations: wheelchair HEENT Other: 1.5 cm Pilar cyst of the posterior scalp with no overlying skin changes appreciated. The lesion is nontender to palpation Head images:  1. 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 The cyst currently is asymptomatic with no evidence of infection, bleeding or discharge. The patient was offered either excision or continued observation. She has decided to continue observation and is welcome to return should symptoms develop. Coding Level of Care Code New Pt Level 4 (02638) Diagnoses Pilar cyst L72.11
[2024-12-18 15:20] VITALS: BMI 18.4
--- OUTSIDE RECORDS SUMMARY | 2024-12-18 20:27 | XMS_ITS | Encounter Summary ---
Author Organization [facility] Address [address] [place] [address] Care Team Providers Care Guest Relations Agent Name Role Phone Feliciano Sales MD Primary Care Provider [phone] Encounter Details Date Type Department Care Team (Late st Contact Info) Description 06/15/2024 Lab Requisition [facility] - Main Lab [address] [facility] [place] [address] Feliciano Sales MD [address] [place] [address] [address] [place], [place] Anoxic brain damage, not elsewhere classified (CMS/HCC V24, CMS/HCC V28); Vitamin D deficiency, unspecified; Encounter for screening for cardiovascular disorders Social History Tobacco Use Types Packs/Day Years Used Date Smoking Tobacco: Every Day Smokeless Tobacco: Never Alcohol Use Standard Drinks/Week Comments No 0 (1 standard drink = 0.6 oz pur e alcohol) Comments Unknown Sex and Gender Information Value Date Recorded Sex Assigned at Not on file Legal Sex Female 10:36 AM EST Gender Identity Not on file Sexual Orientation Not on file documented as of this encounter Plan of Treatment Not on file documented as of this encounter Procedures Procedure Name Priority Date/Time Associated Diagnosis Comments LIPID PANEL WITH REFLEX TO DIRECT LDL Routine 06/15/2024 7:29 AM EDT Anoxic brain damage, not elsewhere classified Vitamin D deficiency, unspecified Encounter for screening for cardiovascular disorders VITAMIN D 25 HYDROXY Routine 06/15/2024 7:29 AM EDT Anoxic brain damage, not elsewhere classified Vitamin D deficiency, unspecified Encounter for screening for cardiovascular disorders AMMONIA Routine 06/15/2024 7:29 AM EDT Anoxic brain damage, not elsewhere classified Vitamin D deficiency, unspecified Encounter for screening for cardiovascular disorders documented in this encounter Results * Ammonia (06/15/2024 7:29 AM EDT) Ammonia 27 11 - 35 mcmol/L LAB CHEMISTRY METHOD 06/15/2024 8:59 AM EDT [facility] Blood Venous blood specimen / Unknown 06/15/2024 7:29 AM EDT 06/15/2024 8:17 AM EDT us Feliciano Sales MD LAB BLOOD ORDERABLES Final Resul t Performing Organization Address [facility]/ZIP Co de Phone Number [facility] [address] [place] [address], [place] [phone] * Vitamin D 25 hydroxy (06/15/2024 7:29 AM EDT) Pathologist [facility] Vit D, 25-Hydroxy 34.6 30.0 - 80.0 ng/mL LAB CHEMISTRY METHOD 06/15/2024 9:20 AM EDT [facility] Blood Venous blood specimen / Unknown 06/15/2024 7:29 AM EDT 06/15/2024 8:17 AM EDT us Feliciano Sales MD LAB BLOOD ORDERABLES Final Resul t Performing Organization Address [facility]/ZIP Co de Phone Number [facility] [address] [place] [address], [place] [phone] * Lipid panel with reflex to direct LDL (06/15/2024 7:29 AM EDT) Cholesterol 163 0 - 200 mg/dL LAB CHEMISTRY METHOD 06/15/2024 9:20 AM EDT [facility] Triglycerides 47 0 - 150 mg/dL LAB CHEMISTRY METHOD 06/15/2024 9:20 AM EDT [facility] HDL 82 >=40 mg/dL LAB CHEMISTRY METHOD 06/15/2024 9:20 AM EDT [facility] LDL Calculated 72 0 - 100 mg/dL LAB CHEMISTRY METHOD 06/15/2024 9:20 AM EDT [facility] VLDL Cholesterol Placido 9.4 mg/dL LAB CHEMISTRY METHOD 06/15/2024 9:20 AM EDT [facility] Non HDL Chol. (LDL+VLDL) 81 <145 mg/dL LAB CHEMISTRY METHOD 06/15/2024 9:20 AM EDT [facility] Chol/HDL Ratio 2.0 0.0 - 4.4 LAB CHEMISTRY METHOD 06/15/2024 9:20 AM EDT [facility] Blood Venous blood specimen / Unknown 06/15/2024 7:29 AM EDT 06/15/2024 8:17 AM EDT us Feliciano Sales MD LAB BLOOD ORDERABLES Final Resul t [facility] [address] [place] [address], documented in this encounter Visit Diagnoses Diagnosis Anoxic brain damage, not elsewhere classified (CMS/HCC V24, CMS/HCC V28) Vitamin D deficiency, unspecified Encounter for screening for cardiovascular disorders documented in this encounter Care Teams Guest Relations Agent Relationship Specialty Start Date End Date Feliciano Sales MD [address] [place] [address] PCP - General Internal Medicine 06/15/24 documented as of this encounter
--- OUTSIDE RECORDS SUMMARY | 2024-12-18 20:27 | XMS_ITS | Encounter Summary ---
Author Organization [facility] [address] Address [address] [place] [address] Care Team Providers Care Factory Laborer Name Role Phone Feliciano Sales MD Primary Care Provider [phone] Encounter Details Date Type Department Care Team (Late st Contact Info) Description 09/15/2024 Lab Requisition [facility] - Main Lab [address] [place] [address] Feliciano Sales MD [address] [place] [address] [address] [place], [place] Disorder of urea cycle metabolism, unspecified (CMS/HCC V24) Social History Tobacco Use Types Packs/Day Years [...] Procedure Name Priority Date/Time Associated Diagnosis Comments AMMONIA Routine 09/15/2024 6:58 AM EDT Disorder of urea cycle metabolism, unspecified (CMS/HCC V24) documented in this encounter Results * Ammonia (09/15/2024 6:58 AM EDT) Ammonia 31 11 - 35 mcmol/L LAB CHEMISTRY METHOD 09/15/2024 8:17 AM EDT [facility] Blood Venous blood specimen / Unknown 09/15/2024 6:58 AM EDT 09/15/2024 7:40 AM EDT Feliciano Sales MD LAB BLOOD ORDERABLES Final Resul t [facility] [address] [place] [address], documented in this encounter Visit Diagnoses Diagnosis Disorder of urea cycle metabolism, unspecified (CMS/HCC V24) documented in this encounter Care Teams Factory Laborer Relationship Specialty Start Date End Date Feliciano Sales MD [address] [place] [address] PCP - General Internal Medicine 06/15/24 documented as of this encounter
--- OUTSIDE RECORDS SUMMARY | 2024-12-18 20:27 | XMS_ITS | Clinical Summary ---
Author Organization [facility] Address [address] [place] [address] Care Team Providers Care Alarm Adjuster Name Role Phone Unavailable Primary Care Provider Unavailabl e Source Comments PLEASE NOTE, if this patient is a minor, it may be UNLAWFUL to discuss sensitive information that is contained in these records (such as FAMILY PLANNING, MENTAL HEALTH or SUBSTANCE ABUSE) with the minor patient's parent or other person without the patient's specific authorization.[facility] Allergies No known active allergies Medications * This document contains information received from the source organization and may not represent a complete record from that organization. amantadine HCl (SYMMETREL) 50 mg/5 mL solution Take 10 mL by mouth once daily 0 12/29/2016 Active traZODone (DESYREL) 50 mg tablet Take 1 Tab by mouth nightly at bedtime 0 12/29/2016 Active citalopram (CELEXA) 10 mg/5 mL solution Take 20 mL by mouth once daily 480 mL 1 01/18/2017 Active valproate (DEPAKENE) 250 mg/5 mL syrup Take 10 mL by mouth 3 (three) times daily 473 mL 1 01/18/2017 Active Active Problems Problem Noted Date Diagnosed Date Other chest pain 04/20/2017 Acute nonintractable headache 01/18/2017 Assessment & Plan (01/18/2017 7:32 PM EDT): C/o BARBER that started about 2 hours ago. Requesting ibuprofen. Has taken in the past with good effect. / Pt given unit dose ibuprofen with instruction on use Counseling and coordination of care 01/05/2017 Assessment & Plan (01/18/2017 7:33 PM EDT): Pt to RTC tomorrow for flu vaccine Pt informed that Dr. Bar called in [facility] meds in liquid form to [facility] pharmacy, pt to hand picker tomorrow Assessment & Plan (01/14/2017 2:43 PM EDT): Pt reports she currently has no income. ANDREINA Hubbardmiguelito Terry took pt to social security in [place] but was not seen. Was told a rep would call her on at 10:30a will call to do application over the phone. This blurb writer will have [facility] request receipt from application be faxed or email to her so pt can immediately apply for [facility]. Reviewed missed appointments with pt Gave patient list of provider names and numbers, pt to meet with Aviva Tovarwin capjuan (head louse) 10/16/2016 Assessment & Plan (01/05/2017 2:11 PM EDT): Resolved Denies any itch Admits it is difficult to take showers at [facility] d/t medical condition and [facility] regulatory administrator and SW are working on resonable accomadation to allow [facility] to come to [facility] to assist - still pending. Last shower was in [employer] shower about a week ago. Assessment & Plan (12/29/2016 9:29 AM EDT): Sent prescription for lice shampoo to [facility], pharmacy did not have in stock,used clinic's supply. Head lice treatment as per instructions on box. Pt needed 2 person assistance due spastic gait and shower in clinic is not adapted for handicap. Applied hydrocortisone cream on excoriated areas, given extra packs with instructions for use. Given new shirt, pants, socks and shoes, instructed to check with this blurb writer between 7-10 days or earlier if symptoms persist. Pt agreed with plan. Will wait [facility] PCP reply to Dr Vences regarding coordination of care and the way to better help patient as she is not taking medications for the past 9 months. Assessment & Plan (10/16/2016 10:15 PM EDT): New. Pt states she was treated yesterday for lice; would like another evaluation. No notes found through program about tx. Nits appear to be falling off during inspection. Discussed waiting 7d before a second tx can be applied. Pt agrees to RTC next week; confirm with pt tx dates/location. Cocaine abuse in remission ([facility]) 05/27 Influenza-like illness 05/22/2016 Assessment & Plan (05/22/2016 7:55 PM EST): Patient with temp 101.3 and fatigue starting < 24 hours ago. Patient is largely uncooperative with examination and denies relevant signs/symptoms. However, she was visibly ill-appearing, sweaty, and observed to have a dry cough. Patient ultimately agreed to go to [facility] for management of influenza-like illness. - Droplet precautions. Tamiflu 75mg BID x 5 days. Tylenol, ibuprofen, robitussin PRN. - Consider getting flu swab for public health tracking purposes. 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 Patient largely uncooperative during today's encounter, so unable to elicit appropriate history. Will work on developing rapport while she is at [facility], and connect to appropriate specialty services as needed. Inhalant abuse, uncomplicated 12/25/2014 Insomnia 11/14/2014 Opioid dependence in remission ([facility]) Assessment & Plan (01/05/2017 2:14 PM EDT): Pt has been getting Vivitrol injections for past 2 years in [facility] clinic at [facility] monthly. Denies use of any illicit substances. Nicotine dependence, cigarettes, uncomplicated Resolved Problems Problem Noted Date Diagnosed Date Resolved Date Abrasion of knee, bilateral 01/14/2017 01/21/2017 Assessment & Plan (01/14/2017 2:31 PM EDT): Pt reports falling a few days ago . Pt with unstable gait, frequent falls. Declines use of assistive devices to ambulate for various reasons. Both knees with dark red scabs Tender to touch Areas cleaned with NS, bacitracin applied, large band aids applied Pt encouraged to RTC daily for dressing change Education re: s/sx infection Cough 09/05/2015 05/27/2016 Assessment & Plan (04/22/2016 5:18 PM EST): C/o cough x 2 days. Has been using cough drops and drinking water; Cough worse at night. Lungs clear. Given unit dose guaifenesin syrup, ibuprofen and cough drops with instruction on use. Encouraged frequent hand washing, cough in tissue/sleeve, increase in water intake. Education provided regarding importance of immunizations. Dyspnea 09/05/2015 05/27/2016 Nausea with vomiting 09/05/2015 017 Dizziness and giddiness 09/05/201505/07 Acute pharyngitis 05/02/2015 05/27/2016 Pain in right knee 03/20/2015 7 Pain in left knee 03/20/2015 05/27/2016 Diarrhea 02/22/2015 05/27/2016 Cigarette nicotine dependence, uncomplicated 5 05/27/2016 Cutaneous eruption 11/17/2014 7 TBI (traumatic brain injury) ([facility]) 05/27/2016 Overview (05/27/2016): due to heroin OD Immunizations Immunization Administration Dates Next Due INFLUENZA, SEASONAL, INJECTABLE 01/27/2017 INFLUENZA, UNSPECIFIED 01/04/2015 MENINGOCOCCAL VACCINE,CONJUGATE (NON-INTERFACE) 05/29/2015 Td (adult) unspecified 08/29/2014 Social History Tobacco Use Types Packs/Day Years Used Date Smoking Tobacco: Every Day Cigarettes Smokeless Tobacco: Never Tobacco Cessation:Ready to Q uit: No; Counseling Given: Yes Comments:current every day smoker Alcohol Use Standard Drinks/Week Comments No 0 (1 standard drink = 0.6 oz pur e alcohol) Social Connections Answer Date Recorded Social Connections and Isolation 0 11/26/2018 Financial Resource Strain Answer Date R ecorded Financial Resource Strain 0 2018 Stress Answer Date Recorded Stress 0 11/26/2018 Physical Activity Answer Date Recorded Physical Activity 0 11/26/2018 Food Insecurity Answer Date Recorded Food 0 11/26/2018 Transportation Needs Answer Date Record ed Transportation 0 11/26/2018 Housing Stability Answer Date Recorded Housing 0 11/26/2018 Safety and Environment Answer Date Julius rded Safety 0 11/26/2018 Utilities Answer Date Recorded Utilities 0 11/26/2018 Employment Answer Date Recorded Employment 0 11/26/2018 Comments No Sex and Gender Information Value Date Recorded Sex Assigned at Female 01/21/2017 1:58 PM PDT Legal Sex Female 2:13 PM PDT Gender Identity Female 01/21/2017 1:58 PM PDT Sexual Orientation Straight 01/21/2017 1: 58 PM PDT Last Filed Vital Signs Vital Sign Reading Time Taken Comments Blood Pressure 108/85 02/01/2017 8:46 AM EDT Pulse 104 02/01/2017 8:46 AM EDT Temperature 36.7 C (98 F) 01/27/2017 8:01 PM EDT Respiratory Rate 18 01/27/2017 8:01 PM EDT Oxygen Saturation 100% 01/27/2017 8:01 PM EDT Inhaled Oxygen Concentration - - Weight 57 kg (125 lb 9.6 oz) 01/18/2017 7:11 PM EDT Height 175.3 cm (5' 9 ) 04/22/2016 4:59 PM EST Body Mass Index 18.55 04/22/2016 4:59 PM EST Plan of Treatment Not on file Insurance [facility] [employer] Member Subscriber Plan / Payer ( fective 2015-Present) Name:Debbi Herrera Relation to Subscriber:Self Name:Debbi Herrera Payer ID:[id number] Group ID:Not on file Type:Medicaid Address: [facility] [address] [place] [address] [facility] [employer] [facility]ENT[facility]ICAID
--- OUTSIDE RECORDS SUMMARY | 2024-12-18 20:27 | XMS_ITS | Encounter Summary ---
Author Organization [facility] Address [address] [place] [address] Care Team Providers Care Deli Cook Name Role Phone Feliciano Sales MD Primary Care Provider [phone] Encounter Details Date Type Department Care Team (Late st Contact Info) Description 10/09/2024 Lab Requisition [facility] - Main Lab [address] [facility] [place] [address] Feliciano Sales MD [address] [place] [address] [address] [place], [place] Anoxic brain damage, not elsewhere classified (CMS/HCC V24, CMS/[facility] V28) Social History Tobacco Use Types Packs/Day Years [...] Procedure Name Priority Date/Time Associated Diagnosis Comments CBC WITH AUTO DIFFERENTIAL Routine 10/09/2024 6:42 AM EDT Anoxic brain damage, not elsewhere classified (CMS/HCC V24, CMS/[facility] V28) CBC AND DIFFERENTIAL Routine 10/09/2024 6:42 AM EDT Anoxic brain damage, not elsewhere classified (CMS/HCC V24, CMS/HCC V28) THYROID STIMULATING HORMONE Routine 10/09/2024 6:42 AM EDT Anoxic brain damage, not elsewhere classified ([facility] V24, [facility] V28) THYROXINE FREE Routine 10/09/2024 6:42 AM EDT Anoxic brain damage, not elsewhere classified ([facility] V24, [facility] V28) VALPROIC ACID LEVEL, TOTAL Routine 10/09/2024 6:42 AM EDT Anoxic brain damage, not elsewhere classified ([facility] V24, [facility] V28) COMPREHENSIVE METABOLIC PANEL Routine 10/09/2024 6:42 AM EDT Anoxic brain damage, not elsewhere classified ([facility] V24, [facility] V28) documented in this encounter Results * (ABNORMAL) CBC auto differential (10/09/2024 6:42 AM EDT) [facility] WBC 6.3 4.8 - 10.8 K/mcL LAB HEMETOLOGY METHOD 10/09/2024 8:00 AM [facility] RBC 3.80 3.80 - 4.80 M/mcL LAB HEMETOLOGY METHOD 10/09/2024 8:00 AM [facility] Hemoglobin 11.7 11.5 - 16.0 g/dL LAB HEMETOLOGY METHOD 10/09/2024 8:00 AM [facility] Hematocrit 36.3 35.0 - 47.0 % LAB HEMETOLOGY METHOD 10/09/2024 8:00 AM [facility] MCV 96.0 79.0 - 98.0 FL LAB HEMETOLOGY METHOD 10/09/2024 8:00 AM [facility] MCH 31.0 27.0 - 32.0 pcg LAB HEMETOLOGY METHOD 10/09/2024 8:00 AM [facility] MCHC 32.2 32.0 - 37.0 g/dL LAB HEMETOLOGY METHOD 10/09/2024 8:00 AM [facility] RDW 12.6 11.0 - 15.0 % LAB HEMETOLOGY METHOD 10/09/2024 8:00 AM [facility] Platelets 207 130 - 400 K/mcL LAB HEMETOLOGY METHOD 10/09/2024 8:00 AM [facility] MPV 12.2(H) 7.0 - 11.0 FL LAB HEMETOLOGY METHOD 10/09/2024 8:00 AM [facility] NRBC 0.0 <1.0 % LAB HEMETOLOGY METHOD 10/09/2024 8:00 AM [facility] NRBC Absolute 0.00 <0.10 K/mcL LAB HEMETOLOGY METHOD 10/09/2024 8:00 AM [facility] Neutrophils Relative 43.5 % LAB HEMETOLOGY METHOD 10/09/2024 8:00 AM [facility] Lymphocytes Relative 40.9 % LAB HEMETOLOGY METHOD 10/09/2024 8:00 AM [facility] Monocytes Relative 14.1 % LAB HEMETOLOGY METHOD 10/09/2024 8:00 AM [facility] Eosinophils Relative 0.8 % LAB HEMETOLOGY METHOD 10/09/2024 8:00 AM [facility] Basophils Relative 0.5 % LAB HEMETOLOGY METHOD 10/09/2024 8:00 AM [facility] Immature Granulocytes Relative 0.2 % LAB HEMETOLOGY METHOD 10/09/2024 8:00 AM [facility] Neutrophils Absolute 2.75 1.50 - 7.00 K/mcL LAB HEMETOLOGY METHOD 10/09/2024 8:00 AM [facility] Lymphocytes Absolute 2.58 1.00 - 5.00 K/mcL LAB HEMETOLOGY METHOD 10/09/2024 8:00 AM EDT [facility] Monocytes Absolute 0.89 0.20 - 1.00 K/[facility] LAB HEMETOLOGY METHOD 10/09/2024 8:00 AM EDT [facility] Eosinophils Absolute 0.05 0.00 - 0.50 K/[facility] LAB HEMETOLOGY METHOD 10/09/2024 8:00 AM EDT [facility] Basophils Absolute 0.03 0.00 - 0.20 K/[facility] LAB HEMETOLOGY METHOD 10/09/2024 8:00 AM EDT [facility] Immature Granulocytes Absolute 0.01 0.00 - 0.03 K/[facility] LAB HEMETOLOGY METHOD 10/09/2024 8:00 AM EDT [facility] Blood Venous blood specimen / Unknown 10/09/2024 6:42 AM EDT 10/09/2024 7:45 AM EDT us Feliciano Sales MD LAB BLOOD ORDERABLES Final Resul t Performing Organization Address City/[facility]/ZIP Co de Phone Number [facility] [address] [place] [address], [place] [phone] * Thyroid stimulating hormone (10/09/2024 6:42 AM EDT) TSH 1.57 0.40 - 4.00 mcIU/mL LAB CHEMISTRY METHOD 10/09/2024 12:32 PM EDT [facility] Blood Venous blood specimen / Unknown 10/09/2024 6:42 AM EDT 10/09/2024 7:45 AM EDT us Feliciano Sales MD LAB BLOOD ORDERABLES Final Resul t Performing Organization Address City/[facility]/ZIP Co de Phone Number [facility] [address] [place] [address], [place] [phone] * Thyroxine free (10/09/2024 6:42 AM EDT) [facility] Free T4 1.65 0.70 - 1.80 ng/dL LAB CHEMISTRY METHOD 10/09/2024 11:35 AM EDT [facility] Blood Venous blood specimen / Unknown 10/09/2024 6:42 AM EDT 10/09/2024 7:45 AM EDT us Feliciano Sales MD LAB BLOOD ORDERABLES Final Resul t Performing Organization Address [facility] de Phone Number [facility] [address] [place] [address], [place] [phone] * Valproic acid level, total (10/09/2024 6:42 AM EDT) [facility] Valproic Acid, Total 68 50 - 100 mcg/mL LAB CHEMISTRY METHOD 10/09/2024 8:36 AM EDT [facility] Blood Venous blood specimen / Unknown 10/09/2024 6:42 AM EDT 10/09/2024 7:45 AM EDT us Feliciano Sales MD LAB BLOOD ORDERABLES Final Resul t Performing Organization Address [facility] de Phone Number [facility] [address] [place] [address], [place] [phone] * (ABNORMAL) Comprehensive metabolic panel (10/09/2024 6:42 AM EDT) [facility] Sodium 139 133 - 145 mmol/L LAB CHEMISTRY METHOD 10/09/2024 8:36 AM EDT [facility] Potassium 4.6 3.5 - 5.5 mmol/L LAB CHEMISTRY METHOD 10/09/2024 8:36 AM EDT [facility] Chloride 107 96 - 110 mmol/L LAB CHEMISTRY METHOD 10/09/2024 8:36 AM EDT [facility] CO2 29 21 - 32 mmol/L LAB CHEMISTRY METHOD 10/09/2024 8:36 AM [facility] Anion Gap 3 3 - 11 LAB CHEMISTRY METHOD 10/09/2024 8:36 AM [facility] Glucose 81 70 - 100 mg/dL LAB CHEMISTRY METHOD 10/09/2024 8:36 AM [facility] BUN 18 5 - 25 mg/dL LAB CHEMISTRY METHOD 10/09/2024 8:36 AM [facility] Creatinine 0.47(L) 0.50 - 1.10 mg/dL LAB CHEMISTRY METHOD 10/09/2024 8:36 AM [facility] eGFR 122 >=60 mL/min/1. 73m2 LAB CHEMISTRY METHOD 10/09/2024 8:36 AM [facility] Comment:Calculation based on the Chronic Kidney Disease Epidemiology Collaboration (CKD-EPI) equation refit without adjustment for race. BUN/Creatinine Ratio 38.3 LAB CHEMISTRY METHOD 10/09/2024 8:36 AM [facility] Calcium 8.7 8.5 - 10.5 mg/dL LAB CHEMISTRY METHOD 10/09/2024 8:36 AM [facility] AST (SGOT) 14 10 - 42 unit/L LAB CHEMISTRY METHOD 10/09/2024 8:36 AM [facility] ALT (SGPT) 14 10 - 60 unit/L LAB CHEMISTRY METHOD 10/09/2024 8:36 AM [facility] Alkaline Phosphatase 99 42 - 121 unit/L LAB CHEMISTRY METHOD 10/09/2024 8:36 AM [facility] Total Protein 6.1 6.0 - 8.0 g/dL LAB CHEMISTRY METHOD 10/09/2024 8:36 AM [facility] Albumin 3.2 3.2 - 5.0 g/dL LAB CHEMISTRY METHOD 10/09/2024 8:36 AM [facility] Total Bilirubin 0.2 0.0 - 1.4 mg/dL LAB CHEMISTRY METHOD 10/09/2024 8:36 AM EDT [facility] Blood Venous blood specimen / Unknown 10/09/2024 6:42 AM EDT 10/09/2024 7:45 AM EDT us Feliciano Sales MD LAB BLOOD ORDERABLES Final Resul t [facility] [address] [place] [address], documented in this encounter Visit Diagnoses Diagnosis Anoxic brain damage, not elsewhere classified (CMS/HCC V24, CMS/HCC V28) documented in this encounter Care Teams Deli Cook Relationship Specialty Start Date End Date Feliciano Sales MD [address] [place] [id number] PCP - General Internal Medicine 06/15/24 documented as of this encounter
--- OUTSIDE RECORDS SUMMARY | 2024-12-18 20:27 | XMS_ITS | Encounter Summary ---
Author Organization [facility] Address [address] [place] [address] Care Team Providers Care Fructose Loader Name Role Phone Feliciano Sales MD Primary Care Provider [phone] Encounter Details Date Type Department Care Team (Late st Contact Info) Description 04/11/2024 Lab Requisition [facility] - Main Lab [address] [facility] [place] [address] Feliciano Sales MD [address] [place] [address] Dr [address] [place], [place] Anoxic brain damage, not elsewhere classified (CMS/HCC V24, CMS/HCC V28); Hypothyroidism, unspecified; Unspecified protein-calorie malnutrition (CMS/HCC V24); Other intestinal malabsorption Social History Tobacco Use Types Packs/Day Years [...] PANEL WITH REFLEX TO DIRECT LDL Routine 04/11/2024 6:52 AM EST Anoxic brain damage, not elsewhere classified (CMS/HCC) Hypothyroidism, unspecified Unspecified protein-calorie malnutrition (CMS/HCC) Other intestinal malabsorption CBC WITH AUTO DIFFERENTIAL Routine 04/11/2024 6:52 AM EST Anoxic brain damage, not elsewhere classified (CMS/HCC) Hypothyroidism, unspecified Unspecified protein-calorie malnutrition (CMS/HCC) Other intestinal malabsorption RED - PLAIN Routine 04/11/2024 6:52 AM EST Anoxic brain damage, not elsewhere classified (CMS/HCC) Hypothyroidism, unspecified Unspecified protein-calorie malnutrition (CMS/HCC) Other intestinal malabsorption VITAMIN D 25 HYDROXY Routine 04/11/2024 6:52 AM EST Anoxic brain damage, not elsewhere classified (CMS/HCC) Hypothyroidism, unspecified Unspecified protein-calorie malnutrition (CMS/HCC) Other intestinal malabsorption CBC AND DIFFERENTIAL Routine 04/11/2024 6:52 AM EST Anoxic brain damage, not elsewhere classified (CMS/HCC) Hypothyroidism, unspecified Unspecified protein-calorie malnutrition (CMS/HCC) Other intestinal malabsorption THYROID STIMULATING HORMONE Routine 04/11/2024 6:52 AM EST Anoxic brain damage, not elsewhere classified (CMS/HCC) Hypothyroidism, unspecified Unspecified protein-calorie malnutrition (CMS/HCC) Other intestinal malabsorption THYROXINE FREE Routine 04/11/2024 6:52 AM EST Anoxic brain damage, not elsewhere classified (CMS/HCC) Hypothyroidism, unspecified Unspecified protein-calorie malnutrition (CMS/HCC) Other intestinal malabsorption AMMONIA Routine 04/11/2024 6:52 AM EST Anoxic brain damage, not elsewhere classified (CMS/HCC) Hypothyroidism, unspecified Unspecified protein-calorie malnutrition (CMS/HCC) Other intestinal malabsorption VALPROIC ACID LEVEL, TOTAL Routine 04/11/2024 6:52 AM EST Anoxic brain damage, not elsewhere classified (CMS/HCC) Hypothyroidism, unspecified Unspecified protein-calorie malnutrition (CMS/HCC) Other intestinal malabsorption COMPREHENSIVE METABOLIC PANEL Routine 04/11/2024 6:52 AM EST Anoxic brain damage, not elsewhere classified (CMS/HCC) Hypothyroidism, unspecified Unspecified protein-calorie malnutrition (CMS/HCC) Other intestinal malabsorption documented in this encounter Results * Red tube (04/11/2024 6:52 AM EST) Extra Tube Hold for add-ons. 04/11/2024 9:02 AM [facility] Comment:Auto resulted. Blood Venous blood specimen / Unknown 04/11/2024 6:52 AM EST 04/11/2024 7:31 AM EST us Feliciano Sales MD LAB BLOOD ORDERABLES Final Resul t [facility] [address] [place] [address], [place] [phone] * (ABNORMAL) CBC auto differential (04/11/2024 6:52 AM EST) WBC 5.2 4.8 - 10.8 K/mcL LAB HEMETOLOGY METHOD 04/11/2024 7:52 AM [facility] RBC 3.80 3.80 - 4.80 M/mcL LAB HEMETOLOGY METHOD 04/11/2024 7:52 AM [facility] Hemoglobin 12.1 11.5 - 16.0 g/dL LAB HEMETOLOGY METHOD 04/11/2024 7:52 AM [facility] Hematocrit 36.4 35.0 - 47.0 % LAB HEMETOLOGY METHOD 04/11/2024 7:52 AM [facility] MCV 95.8 79.0 - 98.0 FL LAB HEMETOLOGY METHOD 04/11/2024 7:52 AM [facility] MCH 31.8 27.0 - 32.0 pcg LAB HEMETOLOGY METHOD 04/11/2024 7:52 AM [facility] MCHC 33.2 32.0 - 37.0 g/dL LAB HEMETOLOGY METHOD 04/11/2024 7:52 AM [facility] RDW 12.1 11.0 - 15.0 % LAB HEMETOLOGY METHOD 04/11/2024 7:52 AM [facility] Platelets 149 130 - 400 K/mcL LAB HEMETOLOGY METHOD 04/11/2024 7:52 AM [facility] MPV 12.7(H) 7.0 - 11.0 FL LAB HEMETOLOGY METHOD 04/11/2024 7:52 AM [facility] NRBC 0.0 <1.0 % LAB HEMETOLOGY METHOD 04/11/2024 7:52 AM [facility] NRBC Absolute 0.00 <0.10 K/mcL LAB HEMETOLOGY METHOD 04/11/2024 7:52 AM [facility] Neutrophils Relative 44.3 % LAB HEMETOLOGY METHOD 04/11/2024 7:52 AM [facility] Lymphocytes Relative 43.6 % LAB HEMETOLOGY METHOD 04/11/2024 7:52 AM [facility] Monocytes Relative 10.1 % LAB HEMETOLOGY METHOD 04/11/2024 7:52 AM [facility] Eosinophils Relative 1.2 % LAB HEMETOLOGY METHOD 04/11/2024 7:52 AM [facility] Basophils Relative 0.6 % LAB HEMETOLOGY METHOD 04/11/2024 7:52 AM [facility] Immature Granulocytes Relative 0.2 % LAB HEMETOLOGY METHOD 04/11/2024 7:52 AM [facility] Neutrophils Absolute 2.29 1.50 - 7.00 K/mcL LAB HEMETOLOGY METHOD 04/11/2024 7:52 AM [facility] Lymphocytes Absolute 2.25 1.00 - 5.00 K/mcL LAB HEMETOLOGY METHOD 04/11/2024 7:52 AM EST [facility] Monocytes Absolute 0.52 0.20 - 1.00 K/mcL LAB HEMETOLOGY METHOD 04/11/2024 7:[address] [facility] Eosinophils Absolute 0.06 0.00 - 0.50 K/[facility] HEMETOLOGY METHOD 04/11/2024 7:[address] [facility] Basophils Absolute 0.03 0.00 - 0.20 K/[facility] LAB HEMETOLOGY METHOD 04/11/2024 7:52 AM EST [facility] Immature Granulocytes Absolute 0.01 0.00 - 0.03 K/[facility] LAB HEMETOLOGY METHOD 04/11/2024 7:[address] [facility] Blood Venous blood specimen / Unknown 04/11/2024 6:52 AM EST 04/11/2024 7:30 AM EST us Feliciano Sales MD LAB BLOOD ORDERABLES Final Resul t Performing Organization Address City/[facility]/ZIP Co de Phone Number [facility] [address] [place] [address], [place] [phone] * Thyroxine free (04/11/2024 6:52 AM EST) Free T4 1.34 0.70 - 1.80 ng/dL LAB CHEMISTRY METHOD 04/11/2024 8:[address] [facility] Blood Venous blood specimen / Unknown 04/11/2024 6:52 AM EST 04/11/2024 7:30 AM EST us Feliciano Sales MD LAB BLOOD ORDERABLES Final Resul t [facility] [address] [place] [address], [place] [phone] * Thyroid stimulating hormone (04/11/2024 6:52 AM EST) TSH 2.53 0.40 - 4.00 mcIU/mL LAB CHEMISTRY METHOD 04/11/2024 8:[address] [facility] Blood Venous blood specimen / Unknown 04/11/2024 6:52 AM EST 04/11/2024 7:30 AM EST us Feliciano Sales MD LAB BLOOD ORDERABLES Final Resul t Performing Organization Address City/[facility]/ZIP Co de Phone Number [facility] [address] [place] [address], [place] [phone] * Valproic acid level, total (04/11/2024 6:52 AM EST) Valproic Acid, Total 76 50 - 100 mcg/mL LAB CHEMISTRY METHOD 04/11/2024 8:[address] [facility] Blood Venous blood specimen / Unknown 04/11/2024 6:52 AM EST 04/11/2024 7:30 AM EST us Feliciano Sales MD LAB BLOOD ORDERABLES Final Resul t Performing Organization Address [facility] Co de Phone Number [facility] [address] [place] [address], [place] [phone] * (ABNORMAL) Ammonia (04/11/2024 6:52 AM EST) Ammonia 40(H) 11 - 35 mcmol/L LAB CHEMISTRY METHOD 04/11/2024 7:[address] [facility] Blood Venous blood specimen / Unknown 04/11/2024 6:52 AM EST 04/11/2024 7:30 AM EST us Feliciano Sales MD LAB BLOOD ORDERABLES Final Resul t Performing Organization Address City/[facility]/ZIP Co de Phone Number [facility] [address] [place] [address], [place] [phone] * Vitamin D 25 hydroxy (04/11/2024 6:52 AM EST) Vit D, 25-Hydroxy 34.1 30.0 - 80.0 ng/mL LAB CHEMISTRY METHOD 04/11/2024 8:32 AM [facility] Blood Venous blood specimen / Unknown 04/11/2024 6:52 AM EST 04/11/2024 7:30 AM EST Feliciano Sales MD LAB BLOOD ORDERABLES Final Resul t [facility] [address] [place] [address], [place] [phone] * Lipid panel with reflex to direct LDL (04/11/2024 6:52 AM EST) Pathologist [facility] Cholesterol 156 0 - 200 mg/dL LAB CHEMISTRY METHOD 04/11/2024 8:04 AM [facility] Triglycerides 75 0 - 150 mg/dL LAB CHEMISTRY METHOD 04/11/2024 8:04 AM [facility] HDL 75 >=40 mg/dL LAB CHEMISTRY METHOD 04/11/2024 8:04 AM [facility] LDL Calculated 66 0 - 100 mg/dL LAB CHEMISTRY METHOD 04/11/2024 8:04 AM [facility] VLDL Cholesterol Placido 15 mg/dL LAB CHEMISTRY METHOD 04/11/2024 8:04 AM [facility] Non HDL Chol. (LDL+VLDL) 81 <145 mg/dL LAB CHEMISTRY METHOD 04/11/2024 8:04 AM [facility] Chol/HDL Ratio 2.1 0.0 - 4.4 LAB CHEMISTRY METHOD 04/11/2024 8:04 AM [facility] Blood Venous blood specimen / Unknown 04/11/2024 6:52 AM EST 04/11/2024 7:30 AM EST Feliciano Sales MD LAB BLOOD ORDERABLES Final Resul t [facility] [address] [place] [address], * Comprehensive metabolic panel (04/11/2024 6:52 AM EST) Sodium 138 133 - 145 mmol/L LAB CHEMISTRY METHOD 04/11/2024 8:04 AM [facility] Potassium 4.3 3.5 - 5.5 mmol/L LAB CHEMISTRY METHOD 04/11/2024 8:04 AM [facility] Chloride 102 96 - 110 mmol/L LAB CHEMISTRY METHOD 04/11/2024 8:04 AM [facility] CO2 29 21 - 32 mmol/L LAB CHEMISTRY METHOD 04/11/2024 8:04 AM [facility] Anion Gap 7 3 - 11 LAB CHEMISTRY METHOD 04/11/2024 8:04 AM [facility] Glucose 97 70 - 100 mg/dL LAB CHEMISTRY METHOD 04/11/2024 8:04 AM [facility] BUN 19 5 - 25 mg/dL LAB CHEMISTRY METHOD 04/11/2024 8:04 AM [facility] Creatinine 0.56 0.50 - 1.10 mg/dL LAB CHEMISTRY METHOD 04/11/2024 8:04 AM [facility] eGFR 118 >=60 mL/min/1. 73m2 LAB CHEMISTRY METHOD 04/11/2024 8:04 AM [facility] Comment:Calculation based on the Chronic Kidney Disease Epidemiology Collaboration (CKD-EPI) equation refit without adjustment for race. BUN/Creatinine Ratio 33.9 LAB CHEMISTRY METHOD 04/11/2024 8:04 AM [facility] Calcium 8.6 8.5 - 10.5 mg/dL LAB CHEMISTRY METHOD 04/11/2024 8:04 AM [facility] AST (SGOT) 10 10 - 42 unit/L LAB CHEMISTRY METHOD 04/11/2024 8:04 AM [facility] ALT (SGPT) 16 10 - 60 unit/L LAB CHEMISTRY METHOD 04/11/2024 8:04 AM [facility] Alkaline Phosphatase 100 42 - 121 unit/L LAB CHEMISTRY METHOD 04/11/2024 8:04 AM [facility] Total Protein 6.4 6.0 - 8.0 g/dL LAB CHEMISTRY METHOD 04/11/2024 8:04 AM [facility] Albumin 3.4 3.2 - 5.0 g/dL LAB CHEMISTRY METHOD 04/11/2024 8:04 AM [facility] Total Bilirubin 0.2 0.0 - 1.4 mg/dL LAB CHEMISTRY METHOD 04/11/2024 8:04 AM [facility] Blood Venous blood specimen / Unknown 04/11/2024 6:52 AM EST 04/11/2024 7:30 AM EST us Feliciano Sales MD LAB BLOOD ORDERABLES Final Resul t [facility] [address] [place] [address], documented in this encounter Visit Diagnoses Diagnosis Anoxic brain damage, not elsewhere classified (CMS/HCC V24, CMS/HCC V28) Hypothyroidism, unspecified Unspecified protein-calorie malnutrition (CMS/HCC V24) Unspecified protein-calorie malnutrition Other intestinal malabsorption documented in this encounter Care Teams Fructose Loader Relationship Specialty Start Date End Date Feliciano Sales MD [address] [place] [address] PCP - General Internal Medicine 06/15/24 documented as of this encounter
--- OUTSIDE RECORDS SUMMARY | 2024-12-18 20:27 | XMS_ITS | Encounter Summary ---
Author Organization [facility] Address [address] [place] [address] Care Team Providers Care Axminster Weaver Name Role Phone Feliciano Sales MD Primary Care Provider [phone] Encounter Details Date Type Department Care Team (Late st Contact Info) Description 05/15/2024 Lab Requisition [facility] - Main Lab [address] [facility] [place] [address] Feliciano Sales MD [address] [place] [address] Dr [address] [place], [place] Anoxic brain damage, not elsewhere classified (CMS/HCC V24, CMS/HCC V28); Unspecified protein-calorie malnutrition (CMS/HCC V24); Other intestinal [...] PANEL WITH REFLEX TO DIRECT LDL Routine 05/15/2024 7:08 AM EST Anoxic brain damage, not elsewhere classified (CMS/HCC) Unspecified protein-calorie malnutrition (CMS/HCC) Other intestinal malabsorption VITAMIN D 25 HYDROXY Routine 05/15/2024 7:08 AM EST Anoxic brain damage, not elsewhere classified (CMS/HCC) Unspecified protein-calorie malnutrition (CMS/HCC) Other intestinal malabsorption documented in this encounter Results * Vitamin D 25 hydroxy (05/15/2024 7:08 AM EST) Vit D, 25-Hydroxy 37.6 30.0 - 80.0 ng/mL LAB CHEMISTRY METHOD 05/15/2024 9:[address] [facility] Blood Venous blood specimen / Unknown 05/15/2024 7:08 AM EST 05/15/2024 8:02 AM EST Feliciano Sales MD LAB BLOOD ORDERABLES Final Resul t [facility] [address] [place] [address], [place] [phone] * Lipid panel with reflex to direct LDL (05/15/2024 7:08 AM EST) Pathologist [facility] Cholesterol 158 0 - 200 mg/dL LAB CHEMISTRY METHOD 05/15/2024 8:[address] [facility] Triglycerides 87 0 - 150 mg/dL LAB CHEMISTRY METHOD 05/15/2024 8:[address] [facility] HDL 73 >=40 mg/dL LAB CHEMISTRY METHOD 05/15/2024 8:[address] [facility] LDL Calculated 68 0 - 100 mg/dL LAB CHEMISTRY METHOD 05/15/2024 8:[address] [facility] VLDL Cholesterol Placido 17.4 mg/dL LAB CHEMISTRY METHOD 05/15/2024 8:[address] [facility] Non HDL Chol. (LDL+VLDL) 85 <145 mg/dL LAB CHEMISTRY METHOD 05/15/2024 8:[address] [facility] Chol/HDL Ratio 2.2 0.0 - 4.4 LAB CHEMISTRY METHOD 05/15/2024 8:47 AM EST [facility] Blood Venous blood specimen / Unknown 05/15/2024 7:08 AM EST 05/15/2024 8:02 AM EST us Feliciano Sales MD LAB BLOOD ORDERABLES Final Resul t [facility] [address] [place] [address], documented in this encounter Visit Diagnoses Diagnosis Anoxic brain damage, not elsewhere classified (CMS/HCC V24, CMS/HCC V28) Unspecified protein-calorie malnutrition (CMS/HCC V24) Unspecified protein-calorie malnutrition Other intestinal malabsorption documented in this encounter Care Teams Axminster Weaver Relationship Specialty Start Date End Date Feliciano Sales MD [address] [place] [address] PCP - General Internal Medicine 06/15/24 documented as of this encounter
--- OUTSIDE RECORDS SUMMARY | 2024-12-18 20:27 | XMS_ITS | Encounter Summary ---
Author Organization [facility] Address [address] [place] [address] Care Team Providers Care Bass Mechanism Maker Name Role Phone Feliciano Sales MD Primary Care Provider [phone] Encounter Details Date Type Department Care Team (Late st Contact Info) Description 12/11/2024 Lab Requisition [facility] Lab [address] [facility] [place] [address] Feliciano Sales MD [address] [place] [address] [address] [place], [place] Abnormal weight loss; Altered mental status, unspecified Social History Tobacco Use Types Packs/Day Years [...] Diagnosis Comments CBC WITH AUTO DIFFERENTIAL Routine 12/11/2024 7:26 AM EDT Abnormal weight loss Altered mental status, unspecified RED - PLAIN Routine 12/11/2024 7:26 AM EDT Abnormal weight loss Altered mental status, unspecified CBC AND DIFFERENTIAL Routine 12/11/2024 7:26 AM EDT Abnormal weight loss Altered mental status, unspecified THYROID STIMULATING HORMONE Routine 12/11/2024 7:26 AM EDT Abnormal weight loss Altered mental status, unspecified THYROXINE FREE Routine 12/11/2024 7:26 AM EDT Abnormal weight loss Altered mental status, unspecified PREALBUMIN Routine 12/11/2024 7:26 AM EDT Abnormal weight loss Altered mental status, unspecified AMMONIA Routine 12/11/2024 7:26 AM EDT Abnormal weight loss Altered mental status, unspecified VALPROIC ACID LEVEL, TOTAL Routine 12/11/2024 7:26 AM EDT Abnormal weight loss Altered mental status, unspecified COMPREHENSIVE METABOLIC PANEL Routine 12/11/2024 7:26 AM EDT Abnormal weight loss Altered mental status, unspecified documented in this encounter Results * Red tube (12/11/2024 7:26 AM EDT) Pathologist [facility] Extra Tube Hold for add-ons. 12/11/2024 10:01 AM EDT [facility] Comment:Auto resulted. Blood Venous blood specimen / Unknown 12/11/2024 7:26 AM EDT 12/11/2024 8:08 AM EDT us Feliciano Sales MD LAB BLOOD ORDERABLES Final Resul t [facility] [address] [place] [address], [place] [phone] * (ABNORMAL) CBC auto differential (12/11/2024 7:26 AM EDT) WBC 5.2 4.8 - 10.8 K/[facility] LAB HEMETOLOGY METHOD 12/11/2024 8:31 AM EDT [facility] RBC 3.90 3.80 - 4.80 M/[facility] LAB HEMETOLOGY METHOD 12/11/2024 8:31 AM [facility] Hemoglobin 11.9 11.5 - 16.0 g/dL LAB HEMETOLOGY METHOD 12/11/2024 8:31 AM [facility] Hematocrit 37.1 35.0 - 47.0 % LAB HEMETOLOGY METHOD 12/11/2024 8:31 AM [facility] MCV 94.4 79.0 - 98.0 FL LAB HEMETOLOGY METHOD 12/11/2024 8:31 AM [facility] MCH 30.3 27.0 - 32.0 pcg LAB HEMETOLOGY METHOD 12/11/2024 8:31 AM [facility] MCHC 32.1 32.0 - 37.0 g/dL LAB HEMETOLOGY METHOD 12/11/2024 8:31 AM [facility] RDW 12.7 11.0 - 15.0 % LAB HEMETOLOGY METHOD 12/11/2024 8:31 AM [facility] Platelets 169 130 - 400 K/mcL LAB HEMETOLOGY METHOD 12/11/2024 8:31 AM [facility] MPV 12.4(H) 7.0 - 11.0 FL LAB HEMETOLOGY METHOD 12/11/2024 8:31 AM [facility] NRBC 0.0 <1.0 % LAB HEMETOLOGY METHOD 12/11/2024 8:31 AM [facility] NRBC Absolute 0.00 <0.10 K/mcL LAB HEMETOLOGY METHOD 12/11/2024 8:31 AM [facility] Neutrophils Relative 53.2 % LAB HEMETOLOGY METHOD 12/11/2024 8:31 AM [facility] Lymphocytes Relative 36.2 % LAB HEMETOLOGY METHOD 12/11/2024 8:31 AM [facility] Monocytes Relative 9.2 % LAB HEMETOLOGY METHOD 12/11/2024 8:31 AM EDT [facility] Eosinophils Relative 0.6 % LAB HEMETOLOGY METHOD 12/11/2024 8:31 AM EDT [facility] Basophils Relative 0.4 % LAB HEMETOLOGY METHOD 12/11/2024 8:31 AM EDT [facility] Immature Granulocytes Relative 0.4 % LAB HEMETOLOGY METHOD 12/11/2024 8:31 AM EDT [facility] Neutrophils Absolute 2.76 1.50 - 7.00 K/mcL LAB HEMETOLOGY METHOD 12/11/2024 8:31 AM EDT [facility] Lymphocytes Absolute 1.88 1.00 - 5.00 K/mcL LAB HEMETOLOGY METHOD 12/11/2024 8:31 AM EDT [facility] Monocytes Absolute 0.48 0.20 - 1.00 K/mcL LAB HEMETOLOGY METHOD 12/11/2024 8:31 AM EDT [facility] Eosinophils Absolute 0.03 0.00 - 0.50 K/mcL LAB HEMETOLOGY METHOD 12/11/2024 8:31 AM EDT [facility] Basophils Absolute 0.02 0.00 - 0.20 K/mcL LAB HEMETOLOGY METHOD 12/11/2024 8:31 AM EDT [facility] Immature Granulocytes Absolute 0.02 0.00 - 0.03 K/mcL LAB HEMETOLOGY METHOD 12/11/2024 8:31 AM EDT [facility] Blood Venous blood specimen / Unknown 12/11/2024 7:26 AM EDT 12/11/2024 8:08 AM EDT us Feliciano Sales MD LAB BLOOD ORDERABLES Final Resul t [facility] [address] [place] [address], [place] [phone] * Thyroid stimulating hormone (12/11/2024 7:26 AM EDT) TSH 1.75 0.40 - 4.00 mcIU/mL LAB CHEMISTRY METHOD 12/11/2024 9:29 AM EDT [facility] Blood Venous blood specimen / Unknown 12/11/2024 7:26 AM EDT 12/11/2024 8:08 AM EDT us Feliciano Sales MD LAB BLOOD ORDERABLES Final Resul t [facility] [address] [place] [address], [place] [phone] * Thyroxine free (12/11/2024 7:26 AM EDT) Free T4 1.37 0.70 - 1.80 ng/dL LAB CHEMISTRY METHOD 12/11/2024 9:29 AM EDT [facility] Blood Venous blood specimen / Unknown 12/11/2024 7:26 AM EDT 12/11/2024 8:08 AM EDT us Feliciano Sales MD LAB BLOOD ORDERABLES Final Resul t [facility] [address] [place] [address], [place] [phone] * Valproic acid level, total (12/11/2024 7:26 AM EDT) Valproic Acid, Total 57 50 - 100 mcg/mL LAB CHEMISTRY METHOD 12/11/2024 8:41 AM EDT [facility] Blood Venous blood specimen / Unknown 12/11/2024 7:26 AM EDT 12/11/2024 8:08 AM EDT us Feliciano Sales MD LAB BLOOD ORDERABLES Final Resul t Performing Organization Address [facility] de Phone Number [facility] [address] [place] [address], [place] [phone] * Prealbumin (12/11/2024 7:26 AM EDT) Prealbumin 24 18 - 45 mg/dL LAB CHEMISTRY METHOD 12/11/2024 8:42 AM EDT [facility] Blood Venous blood specimen / Unknown 12/11/2024 7:26 AM EDT 12/11/2024 8:08 AM EDT us Feliciano Sales MD LAB BLOOD ORDERABLES Final Resul t Performing Organization Address [facility] de Phone Number [facility] [address] [place] [address], [place] [phone] * Ammonia (12/11/2024 7:26 AM EDT) Ammonia 18 11 - 35 mcmol/L LAB CHEMISTRY METHOD 12/11/2024 8:34 AM EDT [facility] Blood Venous blood specimen / Unknown 12/11/2024 7:26 AM EDT 12/11/2024 8:08 AM EDT us Feliciano Sales MD LAB BLOOD ORDERABLES Final Resul t Performing Organization Address [facility] de Phone Number [facility] [address] [place] [address], [place] [phone] * Comprehensive metabolic panel (12/11/2024 7:26 AM EDT) Sodium 137 133 - 145 mmol/L LAB CHEMISTRY METHOD 12/11/2024 8:41 AM EDT [facility] Potassium 4.3 3.5 - 5.5 mmol/L LAB CHEMISTRY METHOD 12/11/2024 8:41 AM [facility] Chloride 103 96 - 110 mmol/L LAB CHEMISTRY METHOD 12/11/2024 8:41 AM [facility] CO2 29 21 - 32 mmol/L LAB CHEMISTRY METHOD 12/11/2024 8:41 AM [facility] Anion Gap 5 3 - 11 LAB CHEMISTRY METHOD 12/11/2024 8:41 AM [facility] Glucose 87 70 - 100 mg/dL LAB CHEMISTRY METHOD 12/11/2024 8:41 AM [facility] BUN 16 5 - 25 mg/dL LAB CHEMISTRY METHOD 12/11/2024 8:41 AM [facility] Creatinine 0.58 0.50 - 1.10 mg/dL LAB CHEMISTRY METHOD 12/11/2024 8:41 AM [facility] eGFR 116 >=60 mL/min/1. 73m2 LAB CHEMISTRY METHOD 12/11/2024 8:41 AM [facility] Comment:Calculation based on the Chronic Kidney Disease Epidemiology Collaboration (CKD-EPI) equation refit without adjustment for race. BUN/Creatinine Ratio 27.6 LAB CHEMISTRY METHOD 12/11/2024 8:41 AM [facility] Calcium 9.1 8.5 - 10.5 mg/dL LAB CHEMISTRY METHOD 12/11/2024 8:41 AM [facility] AST (SGOT) 14 10 - 42 unit/L LAB CHEMISTRY METHOD 12/11/2024 8:41 AM [facility] ALT (SGPT) 17 10 - 60 unit/L LAB CHEMISTRY METHOD 12/11/2024 8:41 AM [facility] Alkaline Phosphatase 97 42 - 121 unit/L LAB CHEMISTRY METHOD 12/11/2024 8:41 AM [facility] Total Protein 6.5 6.0 - 8.0 g/dL LAB CHEMISTRY METHOD 12/11/2024 8:41 AM [facility] Albumin 3.5 3.2 - 5.0 g/dL LAB CHEMISTRY METHOD 12/11/2024 8:41 AM EDT [facility] Total Bilirubin 0.3 0.0 - 1.4 mg/dL LAB CHEMISTRY METHOD 12/11/2024 8:41 AM EDT [facility] Blood Venous blood specimen / Unknown 12/11/2024 7:26 AM EDT 12/11/2024 8:08 AM EDT us Feliciano Sales MD LAB BLOOD ORDERABLES Final Resul t [facility] [address] [place] [address], documented in this encounter Visit Diagnoses Diagnosis Abnormal weight loss Loss of weight Altered mental status, unspecified documented in this encounter Care Teams Bass Mechanism Maker Relationship Specialty Start Date End Date Feliciano Sales MD [address] [place] [address] PCP - General Internal Medicine 06/15/24 documented as of this encounter
--- OUTSIDE RECORDS SUMMARY | 2024-12-18 20:27 | XMS_ITS | Clinical Summary ---
Author Organization [address] [facility] Address [address] [place] [address] Phone Care Team Providers Care Hand Etcher Name Role Phone Feliciano Sales MD Primary Care Provider [phone] Encounters Date Type Department Care Team Description 12/11/2024 Lab Requisition [facility] Lab [address] [place] [address] Feliciano Sales MD Abnormal weight loss; Altered mental status, unspecified 10/09/2024 Lab Requisition [facility] Lab [address] [place] [address] Feliciano Sales MD Anoxic brain damage, not elsewhere classified (CMS/HCC V24, CMS/HCC V28) from Last 3 Months Surgical History Surgery Date Site/Laterality Comments OTHER SURGICAL HISTORY PROCEDURE: DENIES PREVIOUS SURGERY Medical History Medical History Date Comments Anxiety and depression 07/13/2018 DX:Anxiet y and depression Family History Medical History Relation Name Comments Other: Other Mother Relation Name Status Comments Mother Alive Social History Tobacco Use Types Packs/Day Years Used Date Smoking Tobacco: Every Day Smokeless Tobacco: Never Alcohol Use Standard Drinks/Week Comments No 0 (1 standard drink = 0.6 oz pur e alcohol) Comments Unknown Sex and Gender Information Value Date Recorded Sex Assigned at Not on file Legal Sex Female 10:36 AM EST Gender Identity Not on file Sexual Orientation Not on file Obstetrics History Plan of Treatment Health Maintenance Due Date Last Done Comments Breast Cancer Screening 1982 Hepatitis B Vaccines (1 of 3 - 19+ 3-dose series) 2001 Pneumococcal Vaccine: Pediatrics (0 to 5 Years) and At-Risk Patients (6 to 49 Years) (1 of 2 - PCV) 2001 Cervical Cancer Screening: Pap Smear 01/10/2022 01/10/2019, 01/10/2019 HIV Screening 03/09/2022 Hepatitis C Screening 03/09/2022 Medicare Annual Wellness Visit 03/09/2022 Social Influencers of Health Screening 03/09/2022 Depression Screening 04/05/2024 COVID-19 Vaccine ( season) 2024 08/27/2021, 01/22/2021, 05/22/2020, Additional history exists Influenza Vaccine (#1) 2024 , 05/10/2019, 01/27/2017, Additional history exists Cholesterol Screening (Lipid Panel) 06/15/2029 06/15/2024, 05/15/2024, 04/11/2024 DTaP,Tdap,and Td Vaccines (4 - Td or Tdap) 07/05/2030 07/05/2020, 09/08/2018, 08/20/2009 Meningococcal ACWY Vaccine Aged Out 05/29/2015 N o longer eligible based on patient's age to complete this topic HIB Vaccines Aged Out No longer eligi ble based on patient's age to complete this topic HPV Vaccines Aged Out No longer eligi ble based on patient's age to complete this topic Hepatitis A Vaccines Aged Out No long er eligible based on patient's age to complete this topic IPV Vaccines Aged Out No longer eligi ble based on patient's age to complete this topic MMR Vaccines Aged Out No longer eligi ble based on patient's age to complete this topic Meningococcal B Vaccine Aged Out No l onger eligible based on patient's age to complete this topic RSV Immunization Patients Under 20 months Aged Out No longer eligible based on patient's age to complete this topic Varicella Vaccines Aged Out No longer eligible based on patient's age to complete this topic Procedures Procedure Name Priority Date/Time Associated Diagnosis Comments RED - PLAIN Routine 12/11/2024 7:26 AM EDT Abnormal weight loss Altered mental status, unspecified CBC WITH AUTO DIFFERENTIAL Routine 12/11/2024 7:26 [...] weight loss Altered mental status, unspecified CBC WITH AUTO DIFFERENTIAL Routine 10/09/2024 6:42 AM EDT Anoxic brain damage, not elsewhere classified (CMS/HCC V24, CMS/HCC V28) THYROID STIMULATING HORMONE Routine 10/09/2024 6:42 AM EDT Anoxic brain damage, not elsewhere classified (CMS/HCC V24, CMS/HCC V28) THYROXINE FREE Routine 10/09/2024 6:42 AM EDT Anoxic brain damage, not elsewhere classified (CMS/HCC V24, CMS/HCC V28) VALPROIC ACID LEVEL, TOTAL Routine 10/09/2024 6:42 AM EDT Anoxic brain damage, not elsewhere classified (CMS/HCC V24, CMS/HCC V28) CBC AND DIFFERENTIAL Routine 10/09/2024 6:42 AM EDT Anoxic brain damage, not elsewhere classified (CMS/HCC V24, CMS/HCC V28) COMPREHENSIVE METABOLIC PANEL Routine 10/09/2024 6:42 AM EDT Anoxic brain damage, not elsewhere classified (CMS/HCC V24, CMS/HCC V28) LIPID PANEL WITH REFLEX TO DIRECT LDL Routine 06/15/2024 7:29 AM EDT Anoxic brain damage, not elsewhere classified Vitamin D deficiency, unspecified Encounter for screening for cardiovascular disorders PAP SMEAR Routine 01/10/2019 from Last 3 Months or Most Recently Relevant to Health Maintenance Results * (ABNORMAL) CBC auto differential (12/11/2024 7:26 AM EDT) Only the most recent of2 resultswithin the time period is included. WBC 5.2 4.8 - 10.8 K/mcL LAB HEMETOLOGY METHOD 12/11/2024 8:31 AM [facility] RBC 3.90 3.80 - 4.80 M/mcL LAB HEMETOLOGY METHOD 12/11/2024 8:31 AM [facility] Hemoglobin 11.9 11.5 - 16.0 g/dL LAB HEMETOLOGY METHOD 12/11/2024 8:31 AM [facility] LAB Hematocrit 37.1 35.0 - 47.0 % LAB HEMETOLOGY METHOD 12/11/2024 8:31 AM [facility] MCV 94.4 79.0 - 98.0 FL LAB HEMETOLOGY METHOD 12/11/2024 8:31 AM [facility] MCH 30.3 27.0 - 32.0 pcg LAB HEMETOLOGY METHOD 12/11/2024 8:31 AM [facility] LAB MCHC 32.1 32.0 - 37.0 g/dL LAB HEMETOLOGY METHOD 12/11/2024 8:31 AM [facility] RDW 12.7 11.0 - 15.0 % LAB HEMETOLOGY METHOD 12/11/2024 8:31 AM [facility] Platelets 169 130 - 400 K/mcL LAB HEMETOLOGY METHOD 12/11/2024 8:31 AM [facility] MPV 12.4(H) 7.0 - 11.0 FL LAB HEMETOLOGY METHOD 12/11/2024 8:31 AM [facility] NRBC 0.0 <1.0 % LAB HEMETOLOGY METHOD 12/11/2024 8:31 AM [facility] NRBC Absolute 0.00 <0.10 K/mcL LAB HEMETOLOGY METHOD 12/11/2024 8:31 AM [facility] Neutrophils Relative 53.2 % LAB HEMETOLOGY METHOD 12/11/2024 8:31 AM [facility] Lymphocytes Relative 36.2 % LAB HEMETOLOGY METHOD 12/11/2024 8:31 AM [facility] Monocytes Relative 9.2 % LAB HEMETOLOGY METHOD 12/11/2024 8:31 AM [facility] Eosinophils Relative 0.6 % LAB HEMETOLOGY METHOD 12/11/2024 8:31 AM [facility] Basophils Relative 0.4 % LAB HEMETOLOGY METHOD 12/11/2024 8:31 AM [facility] Immature Granulocytes Relative 0.4 % LAB HEMETOLOGY METHOD 12/11/2024 8:31 AM [facility] Neutrophils Absolute 2.76 1.50 - 7.00 K/mcL LAB HEMETOLOGY METHOD 12/11/2024 8:31 AM [facility] Lymphocytes Absolute 1.88 1.00 - 5.00 K/mcL LAB HEMETOLOGY METHOD 12/11/2024 8:31 AM EDT [facility] Monocytes Absolute 0.48 0.20 - 1.00 K/mcL LAB HEMETOLOGY METHOD 12/11/2024 8:31 AM EDT [facility] Eosinophils Absolute 0.03 0.00 - 0.50 K/mcL LAB HEMETOLOGY METHOD 12/11/2024 8:31 AM EDT [facility] Basophils Absolute 0.02 0.00 - 0.20 K/mcL LAB HEMETOLOGY METHOD 12/11/2024 8:31 AM EDT [facility] Immature Granulocytes Absolute 0.02 0.00 - 0.03 K/mcL LAB HEMETOLOGY METHOD 12/11/2024 8:31 AM EDT [facility] Blood Venous blood specimen / Unknown 12/11/2024 7:26 AM EDT 12/11/2024 8:08 AM EDT us Feliciano Sales MD LAB BLOOD ORDERABLES Final Resul t Performing Organization Address City/[facility]/ZIP Co de Phone Number [facility] [address] [place] [address], [place] [phone] * Red tube (12/11/2024 7:26 AM EDT) Extra Tube Hold for add-ons. 12/11/2024 10:01 AM EDT [facility] Comment:Auto resulted. Blood Venous blood specimen / Unknown 12/11/2024 7:26 AM EDT 12/11/2024 8:08 AM EDT us Feliciano Sales MD LAB BLOOD ORDERABLES Final Resul t Performing Organization Address City/[facility]/ZIP Co de Phone Number [facility] [address] [place] [address], [place] [phone] * Thyroid stimulating hormone (12/11/2024 7:26 AM EDT) Only the most recent of2 resultswithin the time period is included. TSH 1.75 0.40 - 4.00 mcIU/mL LAB CHEMISTRY METHOD 12/11/2024 9:29 AM EDT [facility] Blood Venous blood specimen / Unknown 12/11/2024 7:26 AM EDT 12/11/2024 8:08 AM EDT us Feliciano Sales MD LAB BLOOD ORDERABLES Final Resul t Performing Organization Address City/[facility] de Phone Number [facility] [address] [place] [address], [place] [phone] * Thyroxine free (12/11/2024 7:26 AM EDT) Only the most recent of2 resultswithin the time period is included. Free T4 1.37 0.70 - 1.80 ng/dL LAB CHEMISTRY METHOD 12/11/2024 9:29 AM EDT [facility] Blood Venous blood specimen / Unknown 12/11/2024 7:26 AM EDT 12/11/2024 8:08 AM EDT us Feliciano Sales MD LAB BLOOD ORDERABLES Final Resul t Performing Organization Address [facility] de Phone Number [facility] [address] [place] [address], [place] [phone] * Prealbumin (12/11/2024 7:26 AM EDT) Prealbumin 24 18 - 45 mg/dL LAB CHEMISTRY METHOD 12/11/2024 8:42 AM EDT [facility] Blood Venous blood specimen / Unknown 12/11/2024 7:26 AM EDT 12/11/2024 8:08 AM EDT us Feliciano Sales MD LAB BLOOD ORDERABLES Final Resul t Performing Organization Address City/[facility]/ZIP Co de Phone Number [facility] [address] [place] [address], [place] [phone] * Ammonia (12/11/2024 7:26 AM EDT) Ammonia 18 11 - 35 mcmol/L LAB CHEMISTRY METHOD 12/11/2024 8:34 AM EDT [facility] Blood Venous blood specimen / Unknown 12/11/2024 7:26 AM EDT 12/11/2024 8:08 AM EDT us Feliciano Sales MD LAB BLOOD ORDERABLES Final Resul t Performing Organization Address City/[facility]/ZIP Co de Phone Number [facility] [address] [place] [address], [place] [phone] * Valproic acid level, total (12/11/2024 7:26 AM EDT) Only the most recent of2 resultswithin the time period is included. Pathologist [facility] Valproic Acid, Total 57 50 - 100 mcg/mL LAB CHEMISTRY METHOD 12/11/2024 8:41 AM EDT [facility] Blood Venous blood specimen / Unknown 12/11/2024 7:26 AM EDT 12/11/2024 8:08 AM EDT us Feliciano Sales MD LAB BLOOD ORDERABLES Final Resul t Performing Organization Address City/[facility]/ZIP Co de Phone Number [facility] [address] [place] [address], [place] [phone] * Comprehensive metabolic panel (12/11/2024 7:26 AM EDT) Only the most recent of2 resultswithin the time period is included. Sodium 137 133 - 145 mmol/L LAB CHEMISTRY METHOD 12/11/2024 8:41 AM EDT [facility] Potassium 4.3 3.5 - 5.5 mmol/L LAB CHEMISTRY METHOD 12/11/2024 8:41 AM [facility] Chloride 103 96 - 110 mmol/L LAB CHEMISTRY METHOD 12/11/2024 8:41 AM [facility] CO2 29 21 - 32 mmol/L LAB CHEMISTRY METHOD 12/11/2024 8:41 AM [facility] Anion Gap 5 3 - 11 LAB CHEMISTRY METHOD 12/11/2024 8:41 AM [facility] Glucose 87 70 - 100 mg/dL LAB CHEMISTRY METHOD 12/11/2024 8:41 AM [facility] BUN 16 5 - 25 mg/dL LAB CHEMISTRY METHOD 12/11/2024 8:41 AM [facility] Creatinine 0.58 0.50 - 1.10 mg/dL LAB CHEMISTRY METHOD 12/11/2024 8:41 AM [facility] eGFR 116 >=60 mL/min/1. 73m2 LAB CHEMISTRY METHOD 12/11/2024 8:41 AM [facility] Comment:Calculation based on the Chronic Kidney Disease Epidemiology Collaboration (CKD-EPI) equation refit without adjustment for race. BUN/Creatinine Ratio 27.6 LAB CHEMISTRY METHOD 12/11/2024 8:41 AM [facility] Calcium 9.1 8.5 - 10.5 mg/dL LAB CHEMISTRY METHOD 12/11/2024 8:41 AM [facility] AST (SGOT) 14 10 - 42 unit/L LAB CHEMISTRY METHOD 12/11/2024 8:41 AM [facility] ALT (SGPT) 17 10 - 60 unit/L LAB CHEMISTRY METHOD 12/11/2024 8:41 AM [facility] Alkaline Phosphatase 97 42 - 121 unit/L LAB CHEMISTRY METHOD 12/11/2024 8:41 AM [facility] Total Protein 6.5 6.0 - 8.0 g/dL LAB CHEMISTRY METHOD 12/11/2024 8:41 AM EDT [facility] Albumin 3.5 3.2 - 5.0 g/dL LAB CHEMISTRY METHOD 12/11/2024 8:41 AM T [facility] Total Bilirubin 0.3 0.0 - 1.4 mg/dL LAB CHEMISTRY METHOD 12/11/2024 8:41 AM [facility] Blood Venous blood specimen / Unknown 12/11/2024 7:26 AM EDT 12/11/2024 8:08 AM EDT us Feliciano Sales MD LAB BLOOD ORDERABLES Final Resul t [facility] [address] [place] [address], [place] [phone] * Lipid panel with reflex to direct LDL (06/15/2024 7:29 AM EDT) Cholesterol 163 0 - 200 mg/dL LAB CHEMISTRY METHOD 06/15/2024 9:20 AM [facility] Triglycerides 47 0 - 150 mg/dL LAB CHEMISTRY METHOD 06/15/2024 9:20 AM [facility] HDL 82 >=40 mg/dL LAB CHEMISTRY METHOD 06/15/2024 9:20 AM [facility] LDL Calculated 72 0 - 100 mg/dL LAB CHEMISTRY METHOD 06/15/2024 9:20 AM [facility] VLDL Cholesterol Placido 9.4 mg/dL LAB CHEMISTRY METHOD 06/15/2024 9:20 AM [facility] Non HDL Chol. (LDL+VLDL) 81 <145 mg/dL LAB CHEMISTRY METHOD 06/15/2024 9:20 AM [facility] Chol/HDL Ratio 2.0 0.0 - 4.4 LAB CHEMISTRY METHOD 06/15/2024 9:20 AM [facility] Blood Venous blood specimen / Unknown 06/15/2024 7:29 AM EDT 06/15/2024 8:17 AM EDT us Feliciano Sales MD LAB BLOOD ORDERABLES Final Resul t [facility] [address] [place] [address], * Pap smear (01/10/2019) 01/10/2019 Narrative HISTORICAL TESTING LAB RESULTING AGENCY - 01/12/2019 7:35 AM EDT [id number] RESULTS OF APTIMA COMBO 2 ASSAY: CHLAMYDIA: NEGATIVE N. GONORRHOEAE: NEGATIVE COMPLETED ON 2019-01-11 JULI CURRAN M.D. , PATHOLOGIST (CASE ELECTRONICALLY SIGNED 01 11 2019) CLINICAL INFORMATION: ROUTINE EXAM. [Z01.419] Z01.419 ENCOUNTER FOR GYNECOLOGICAL EXAMINATION (GENERAL) (ROUTINE) WITHOUT ABNORMAL FINDINGS SOURCE: THINPREP PAP FOR CT/GC GROSS DESCRIPTION: THINPREP VIAL RECEIVED. BETHANY GARCIA/ / Elisa RIVAS LAB CYTOLOGY ORDERABLES Final R esult HISTORICAL TESTING LAB RESULTING AGENCY from Last 3 Months or Most Recently Relevant to Health Maintenance Insurance MEDICAID - [place] MEDICARE Care Teams Hand Etcher Relationship Specialty Start Date End Date Feliciano Sales MD [address] [place] [address] PCP - General Internal Medicine 06/15/24
== END 2024-12-18 15:34 | disposition home or self-care (01) ==
LOC: HO.HGS 15:02
PROVIDERS: PCP Hospitalist; Visit Provider Surgery
DX: L72.11 Pilar cyst (principal)
CPT/HCPCS: 99204

== ENCOUNTER → 2024-12-18 15:01 | Outpatient (BNVA) | payer MEDICARE, MEDICAID, SELFPAY | PROVIDERS: PCP Hospitalist; Visit Provider Surgery | DX: L72.11 Pilar cyst (principal) | CPT/HCPCS: 99202 ==

== ENCOUNTER 2025-01-30 11:24 | Outpatient (REF) | payer MEDICARE, MEDICAID, SELFPAY ==
--- NOTE | ~2025-01-30 | US_ITS ---
EXAMINATION: US SCREENING ULTRASOUND BREAST, BILATERAL CLINICAL INFORMATION: Dense breasts on mammography. Screening ultrasound. Patient is in a wheelchair and unable to completely mammogram. COMPARISON: None available. TECHNIQUE: Ultrasound is performed using grayscale imaging and color Doppler. Imaging is performed to include the four quadrants and retroareolar region. Both breasts are imaged. FINDINGS: Right breast: There is no suspicious finding by ultrasound. There is no solid mass or focal architectural abnormality. Left breast: There is no suspicious finding by ultrasound. There is no solid mass or focal architectural abnormality. US/US breast BI complete IMPRESSION: No suspicious findings on screening breast ultrasound. ASSESSMENT: Category 1: Negative RECOMMENDATION: 1 year F/U This patient's information was entered into a reminder system with a target due date for their next mammogram. Electronically signed by: Mckenzie Gray DO 01/31/2025 08:28 AM EDT
--- OUTSIDE RECORDS SUMMARY | 2025-01-30 14:36 | XMS_ITS | Encounter Summary ---
Author Organization [facility] Address [address] [place] [address] Care Team Providers Care Level Vial Inside Grinder Name Role Phone Feliciano Sales MD Primary Care Provider [phone] Encounter Details Date Type Department Care Team (Late st Contact Info) Description 09/15/2024 Lab Requisition [facility] Lab [address] [place] [address] Feliciano Sales MD [address] [place] [address] [address] [place], [place] Disorder of urea cycle metabolism, unspecified [...] CHEMISTRY METHOD 09/15/2024 8:17 AM EDT [facility] Blood Venous blood specimen / Unknown 09/15/2024 6:58 AM EDT 09/15/2024 7:40 AM EDT Feliciano Sales MD LAB BLOOD ORDERABLES Final Resul t [facility] [address] [place] [address], documented in this encounter Visit Diagnoses Diagnosis Disorder of urea cycle metabolism, unspecified (CMS/HCC V24) documented in this encounter Care Teams Level Vial Inside Grinder Relationship Specialty Start Date End Date Feliciano Sales MD [address] [place] [address] PCP - General Internal Medicine 06/15/24 documented as of this encounter
--- OUTSIDE RECORDS SUMMARY | 2025-01-30 14:36 | XMS_ITS | Clinical Summary ---
Author Organization [address] Address [address] [place] [phone] Phone Care Team Providers Care Box Covering Machine Operator Name Role Phone Feliciano Sales MD Primary Care Provider [phone] Encounters Date Type Department Care Team Description 12/11/2024 Lab Requisition [facility] - Main Lab [address] [facility] [place] [address] Feliciano Sales MD Abnormal weight loss; Altered mental status, unspecified from Last 3 Months Surgical History Surgery [...] Years) (1 of 2 - PCV) 2001 HPV Vaccines (1 - 3-dose SCDM series) 2009 Cervical Cancer Screening: Pap Smear 01/10/2022 01/10/2019, [...] Td or Tdap) 07/05/2030 07/05/2020, 09/08/2018, 08/20/2009 RSV Immunization Adult Patients (1 - 1-dose 75+ series) 2057 Meningococcal ACWY Vaccine Aged Out 05/29/2015 N [...] Abnormal weight loss Altered mental status, unspecified LIPID PANEL WITH REFLEX TO DIRECT LDL Routine 06/15/2024 7:29 AM EDT Anoxic brain damage, not elsewhere classified Vitamin D deficiency, unspecified Encounter for screening for cardiovascular disorders PAP SMEAR Routine 01/10/2019 from Last 3 Months or Most Recently Relevant to Health Maintenance Results * (ABNORMAL) CBC auto differential (12/11/2024 7:26 AM EDT) WBC 5.2 4.8 - 10.8 K/mcL LAB HEMETOLOGY METHOD 12/11/2024 8:31 AM EDT [facility] RBC 3.90 3.80 - 4.80 M/mcL LAB HEMETOLOGY METHOD 12/11/2024 8:31 AM EDT [facility] Hemoglobin 11.9 11.5 - 16.0 g/dL LAB HEMETOLOGY METHOD 12/11/2024 8:31 AM EDT [facility] Hematocrit 37.1 35.0 - 47.0 % LAB HEMETOLOGY METHOD 12/11/2024 8:31 AM [facility] MCV 94.4 79.0 - 98.0 FL LAB HEMETOLOGY METHOD 12/11/2024 8:31 AM [facility] MCH 30.3 27.0 - 32.0 pcg LAB HEMETOLOGY METHOD 12/11/2024 8:31 AM [facility] MCHC 32.1 32.0 - 37.0 g/dL LAB HEMETOLOGY METHOD 12/11/2024 8:31 AM [facility] RDW 12.7 11.0 - 15.0 % LAB HEMETOLOGY METHOD 12/11/2024 8:31 AM [facility] Platelets 169 130 - 400 K/mcL LAB HEMETOLOGY METHOD 12/11/2024 8:31 AM [facility] MPV 12.4(H) 7.0 - 11.0 FL LAB HEMETOLOGY METHOD 12/11/2024 8:31 AM [facility] NRBC 0.0 <1.0 % LAB HEMETOLOGY METHOD 12/11/2024 8:31 AM [facility] NRBC Absolute 0.00 <0.10 K/mcL LAB HEMETOLOGY METHOD 12/11/2024 8:31 AM [facility] Neutrophils Relative 53.2 % LAB HEMETOLOGY METHOD 12/11/2024 8:31 AM [facility] Lymphocytes Relative 36.2 % LAB HEMETOLOGY METHOD 12/11/2024 8:31 AM [facility] Monocytes Relative 9.2 % LAB HEMETOLOGY METHOD 12/11/2024 8:31 AM [facility] Eosinophils Relative 0.6 % LAB HEMETOLOGY METHOD 12/11/2024 8:31 AM [facility] Basophils Relative 0.4 % LAB HEMETOLOGY METHOD 12/11/2024 8:31 AM EDT [facility] Immature Granulocytes Relative 0.4 % LAB HEMETOLOGY METHOD 12/11/2024 8:31 AM EDT [facility] Neutrophils Absolute 2.76 1.50 - 7.00 K/mcL LAB HEMETOLOGY METHOD 12/11/2024 8:31 AM EDT [facility] Lymphocytes Absolute 1.88 1.00 - 5.00 K/mcL LAB HEMETOLOGY METHOD 12/11/2024 8:31 AM EDT [facility] Monocytes Absolute 0.48 0.20 - 1.00 K/mcL LAB HEMETOLOGY METHOD 12/11/2024 8:31 AM EDT [facility] Eosinophils Absolute 0.03 0.00 - 0.50 K/mcL LAB HEMETOLOGY METHOD 12/11/2024 8:31 AM EDT [facility] Basophils Absolute 0.02 0.00 - 0.20 K/mcL LAB HEMETOLOGY METHOD 12/11/2024 8:31 AM EDT [facility] Immature Granulocytes Absolute 0.02 0.00 - 0.03 K/mcL LAB HEMETOLOGY METHOD 12/11/2024 8:31 AM T [facility] Blood Venous blood specimen / Unknown 12/11/2024 7:26 AM EDT 12/11/2024 8:08 AM EDT us Feliciano Sales MD LAB BLOOD ORDERABLES Final Resul t [facility] [address] [place] [address], * Red tube (12/11/2024 7:26 AM EDT) Extra Tube Hold for add-ons. 12/11/2024 10:01 AM EDT [facility] Comment:Auto resulted. Blood Venous blood specimen / Unknown 12/11/2024 7:26 AM EDT 12/11/2024 8:08 AM EDT us Feliciano Sales MD LAB BLOOD ORDERABLES Final Resul t Performing Organization Address [facility]/ZIP Co de Phone Number [facility] [address] [place] [address], [place] [phone] * Thyroid stimulating hormone (12/11/2024 7:26 AM EDT) TSH 1.75 0.40 - 4.00 mcIU/mL LAB CHEMISTRY METHOD 12/11/2024 9:29 AM EDT [facility] Blood Venous blood specimen / Unknown 12/11/2024 7:26 AM EDT 12/11/2024 8:08 AM EDT us Feliciano Sales MD LAB BLOOD ORDERABLES Final Resul t Performing Organization Address [facility] Co de Phone Number [facility] [address] [place] [address], [place] [phone] * Thyroxine free (12/11/2024 7:26 AM EDT) Free T4 1.37 0.70 - 1.80 ng/dL LAB CHEMISTRY METHOD 12/11/2024 9:29 AM EDT [facility] Blood Venous blood specimen / Unknown 12/11/2024 7:26 AM EDT 12/11/2024 8:08 AM EDT us Feliciano Sales MD LAB BLOOD ORDERABLES Final Resul t Performing Organization Address City/[facility]/ZIP Co de Phone Number [facility] [address] [place] [address], [place] [phone] * Prealbumin (12/11/2024 7:26 AM EDT) Pathologist [facility] Prealbumin 24 18 - 45 mg/dL LAB CHEMISTRY METHOD 12/11/2024 8:42 AM EDT [facility] Blood Venous blood specimen / Unknown 12/11/2024 7:26 AM EDT 12/11/2024 8:08 AM EDT us Feliciano Sales MD LAB BLOOD ORDERABLES Final Resul t Performing Organization Address City/[facility]/ZIP Co de Phone Number [facility] [address] [place] [address], [place] [phone] * Ammonia (12/11/2024 7:26 AM EDT) [facility] Ammonia 18 11 - 35 mcmol/L LAB CHEMISTRY METHOD 12/11/2024 8:34 AM EDT [facility] Blood Venous blood specimen / Unknown 12/11/2024 7:26 AM EDT 12/11/2024 8:08 AM EDT us Feliciano Sales MD LAB BLOOD ORDERABLES Final Resul t Performing Organization Address [facility] de Phone Number [facility] [address] [place] [address], [place] [phone] * Valproic acid level, total (12/11/2024 7:26 AM EDT) [facility] Valproic Acid, Total 57 50 - 100 mcg/mL LAB CHEMISTRY METHOD 12/11/2024 8:41 AM EDT [facility] Blood Venous blood specimen / Unknown 12/11/2024 7:26 AM EDT 12/11/2024 8:08 AM EDT us Feliciano Sales MD LAB BLOOD ORDERABLES Final Resul t Performing Organization Address City/[facility]/ZIP Co de Phone Number [facility] [address] [place] [address], [place] [phone] * Comprehensive metabolic panel (12/11/2024 7:26 AM EDT) Sodium 137 133 - 145 mmol/L LAB CHEMISTRY METHOD 12/11/2024 8:41 AM [facility] Potassium 4.3 3.5 - 5.5 mmol/L LAB CHEMISTRY METHOD 12/11/2024 8:41 AM [facility] Chloride 103 96 - 110 mmol/L LAB CHEMISTRY METHOD 12/11/2024 8:41 AM [facility] CO2 29 21 - 32 mmol/L LAB CHEMISTRY METHOD 12/11/2024 8:41 AM [facility] Anion Gap 5 3 - 11 LAB CHEMISTRY METHOD 12/11/2024 8:41 AM [facility] Glucose 87 70 - 100 mg/dL LAB CHEMISTRY METHOD 12/11/2024 8:41 AM [facility] BUN 16 5 - 25 mg/dL LAB CHEMISTRY METHOD 12/11/2024 8:41 AM [facility] Creatinine 0.58 0.50 - 1.10 mg/dL LAB CHEMISTRY METHOD 12/11/2024 8:41 AM [facility] eGFR 116 >=60 mL/min/1. 73m2 LAB CHEMISTRY METHOD 12/11/2024 8:41 AM [facility] Comment:Calculation based on the Chronic Kidney Disease Epidemiology Collaboration (CKD-EPI) equation refit without adjustment for race. BUN/Creatinine Ratio 27.6 LAB CHEMISTRY METHOD 12/11/2024 8:41 AM [facility] Calcium 9.1 8.5 - 10.5 mg/dL LAB CHEMISTRY METHOD 12/11/2024 8:41 AM [facility] AST (SGOT) 14 10 - 42 unit/L LAB CHEMISTRY METHOD 12/11/2024 8:41 AM [facility] ALT (SGPT) 17 10 - 60 unit/L LAB CHEMISTRY METHOD 12/11/2024 8:41 AM EDT [facility] Alkaline Phosphatase 97 42 - 121 unit/L LAB CHEMISTRY METHOD 12/11/2024 8:41 AM [facility] Total Protein 6.5 6.0 - 8.0 g/dL LAB CHEMISTRY METHOD 12/11/2024 8:41 AM EDT [facility] Albumin 3.5 3.2 - 5.0 g/dL LAB CHEMISTRY METHOD 12/11/2024 8:41 AM EDT [facility] Total Bilirubin 0.3 0.0 - 1.4 mg/dL LAB CHEMISTRY METHOD 12/11/2024 8:41 AM [facility] Blood Venous blood specimen / Unknown 12/11/2024 7:26 AM EDT 12/11/2024 8:08 AM EDT us Feliciano Sales MD LAB BLOOD ORDERABLES Final Resul t [facility] [address] [place] [address], [place] [phone] * Lipid panel with reflex to direct LDL (06/15/2024 7:29 AM EDT) Cholesterol 163 0 - 200 mg/dL LAB CHEMISTRY METHOD 06/15/2024 9:20 AM [facility] Triglycerides 47 0 - 150 mg/dL LAB CHEMISTRY METHOD 06/15/2024 9:20 AM [facility] HDL 82 >=40 mg/dL LAB CHEMISTRY METHOD 06/15/2024 9:20 AM [facility] LDL Calculated 72 0 - 100 mg/dL LAB CHEMISTRY METHOD 06/15/2024 9:20 AM [facility] VLDL Cholesterol Placido 9.4 mg/dL LAB CHEMISTRY METHOD 06/15/2024 9:20 AM [facility] Non HDL Chol. (LDL+VLDL) 81 <145 mg/dL LAB CHEMISTRY METHOD 06/15/2024 9:20 AM EDT [facility] Chol/HDL Ratio 2.0 0.0 - 4.4 LAB CHEMISTRY METHOD 06/15/2024 9:20 AM EDT [facility] Blood Venous blood specimen / Unknown 06/15/2024 7:29 AM EDT 06/15/2024 8:17 AM EDT Feliciano Sales MD LAB BLOOD ORDERABLES Final Resul t Performing Organization Address [facility]/State/ZIP Co de Phone Number [facility] [address] [place] [address], * Pap smear (01/10/2019) 01/10/2019 Narrative HISTORICAL TESTING LAB RESULTING AGENCY - 01/12/2019 7:35 AM EDT [id number] RESULTS OF APTIMA COMBO 2 ASSAY: CHLAMYDIA: NEGATIVE N. GONORRHOEAE: NEGATIVE COMPLETED ON 2019-01-11 JULI CURRAN M.D. , PATHOLOGIST (CASE ELECTRONICALLY SIGNED 01 11 2019) CLINICAL INFORMATION: ROUTINE EXAM. [[id number]] [id number] ENCOUNTER FOR GYNECOLOGICAL EXAMINATION (GENERAL) (ROUTINE) WITHOUT ABNORMAL FINDINGS SOURCE: THINPREP PAP FOR CT/GC GROSS DESCRIPTION: THINPREP VIAL RECEIVED. PHYSICIANS ELISA GARCIA/ / Elisa Garcia [facility] LAB CYTOLOGY ORDERABLES Final R esult HISTORICAL TESTING LAB RESULTING AGENCY from Last 3 Months or Most Recently Relevant to Health Maintenance Insurance MEDICAID - [place] MEDICARE Care Teams Box Covering Machine Operator Relationship Specialty Start Date End Date Feliciano Sales MD [address] [place] [address] PCP - General Internal Medicine 06/15/24
--- OUTSIDE RECORDS SUMMARY | 2025-01-30 14:36 | XMS_ITS | Encounter Summary ---
Author Organization [facility] Address [address] [place] [address] Care Team Providers Care Swing Tender Name Role Phone Feliciano Sales MD Primary Care Provider [phone] Encounter Details Date Type Department Care Team (Late st Contact Info) Description 10/09/2024 Lab Requisition [facility] - Main Lab [address] [facility] [place] [address] Feliciano Sales MD [address] [place] [address] [address] [place], [place] Anoxic brain damage, not elsewhere classified (CMS/HCC V24, CMS/[facility] V28) Social History Tobacco Use Types Packs/Day [...] brain damage, not elsewhere classified (CMS/HCC V24, CMS/[facility] V28) CBC AND DIFFERENTIAL Routine 10/09/2024 6:42 AM EDT Anoxic brain damage, not elsewhere classified (CMS/HCC V24, CMS/HCC V28) THYROID STIMULATING HORMONE Routine 10/09/2024 6:42 AM EDT Anoxic brain damage, not elsewhere classified ([facility] V24, [facility] V28) THYROXINE FREE Routine 10/09/2024 6:42 AM EDT Anoxic brain damage, not elsewhere classified ([facility] V24, [facility] V28) VALPROIC ACID LEVEL, TOTAL Routine 10/09/2024 6:42 AM EDT Anoxic brain damage, not elsewhere classified ([facility] V24, [facility] V28) COMPREHENSIVE METABOLIC PANEL Routine 10/09/2024 6:42 AM EDT Anoxic brain damage, not elsewhere classified ([facility] V24, [facility] V28) documented in this encounter Results * (ABNORMAL) CBC auto differential (10/09/2024 6:42 AM EDT) [facility] WBC 6.3 4.8 - 10.8 K/mcL LAB HEMETOLOGY METHOD 10/09/2024 8:00 AM [facility] RBC 3.80 3.80 - 4.80 M/mcL LAB HEMETOLOGY METHOD 10/09/2024 8:00 AM [facility] Hemoglobin 11.7 11.5 - 16.0 g/dL LAB HEMETOLOGY METHOD 10/09/2024 8:00 AM [facility] Hematocrit 36.3 35.0 - 47.0 % LAB HEMETOLOGY METHOD 10/09/2024 8:00 AM [facility] MCV 96.0 79.0 - 98.0 FL LAB HEMETOLOGY METHOD 10/09/2024 8:00 AM [facility] MCH 31.0 27.0 - 32.0 pcg LAB HEMETOLOGY METHOD 10/09/2024 8:00 AM [facility] MCHC 32.2 32.0 - 37.0 g/dL LAB HEMETOLOGY METHOD 10/09/2024 8:00 AM [facility] RDW 12.6 11.0 - 15.0 % LAB HEMETOLOGY METHOD 10/09/2024 8:00 AM [facility] Platelets 207 130 - 400 K/mcL LAB HEMETOLOGY METHOD 10/09/2024 8:00 AM [facility] MPV 12.2(H) 7.0 - 11.0 FL LAB HEMETOLOGY METHOD 10/09/2024 8:00 AM [facility] NRBC 0.0 <1.0 % LAB HEMETOLOGY METHOD 10/09/2024 8:00 AM [facility] NRBC Absolute 0.00 <0.10 K/mcL LAB HEMETOLOGY METHOD 10/09/2024 8:00 AM [facility] Neutrophils Relative 43.5 % LAB HEMETOLOGY METHOD 10/09/2024 8:00 AM [facility] Lymphocytes Relative 40.9 % LAB HEMETOLOGY METHOD 10/09/2024 8:00 AM [facility] Monocytes Relative 14.1 % LAB HEMETOLOGY METHOD 10/09/2024 8:00 AM [facility] Eosinophils Relative 0.8 % LAB HEMETOLOGY METHOD 10/09/2024 8:00 AM [facility] Basophils Relative 0.5 % LAB HEMETOLOGY METHOD 10/09/2024 8:00 AM [facility] Immature Granulocytes Relative 0.2 % LAB HEMETOLOGY METHOD 10/09/2024 8:00 AM [facility] Neutrophils Absolute 2.75 1.50 - 7.00 K/mcL LAB HEMETOLOGY METHOD 10/09/2024 8:00 AM [facility] Lymphocytes Absolute 2.58 1.00 - 5.00 K/mcL LAB HEMETOLOGY METHOD 10/09/2024 8:00 AM EDT [facility] Monocytes Absolute 0.89 0.20 - 1.00 K/[facility] LAB HEMETOLOGY METHOD 10/09/2024 8:00 AM EDT [facility] Eosinophils Absolute 0.05 0.00 - 0.50 K/[facility] LAB HEMETOLOGY METHOD 10/09/2024 8:00 AM EDT [facility] Basophils Absolute 0.03 0.00 - 0.20 K/[facility] LAB HEMETOLOGY METHOD 10/09/2024 8:00 AM EDT [facility] Immature Granulocytes Absolute 0.01 0.00 - 0.03 K/[facility] LAB HEMETOLOGY METHOD 10/09/2024 8:00 AM EDT [facility] Blood Venous blood specimen / Unknown 10/09/2024 6:42 AM EDT 10/09/2024 7:45 AM EDT us Feliciano Sales MD LAB BLOOD ORDERABLES Final Resul t Performing Organization Address City/[facility]/ZIP Co de Phone Number [facility] [address] [place] [address], [place] [phone] * Thyroid stimulating hormone (10/09/2024 6:42 AM EDT) TSH 1.57 0.40 - 4.00 mcIU/mL LAB CHEMISTRY METHOD 10/09/2024 12:32 PM EDT [facility] Blood Venous blood specimen / Unknown 10/09/2024 6:42 AM EDT 10/09/2024 7:45 AM EDT us Feliciano Sales MD LAB BLOOD ORDERABLES Final Resul t Performing Organization Address City/[facility]/ZIP Co de Phone Number [facility] [address] [place] [address], [place] [phone] * Thyroxine free (10/09/2024 6:42 AM EDT) [facility] Free T4 1.65 0.70 - 1.80 ng/dL LAB CHEMISTRY METHOD 10/09/2024 11:35 AM EDT [facility] Blood Venous blood specimen / Unknown 10/09/2024 6:42 AM EDT 10/09/2024 7:45 AM EDT us Feliciano Sales MD LAB BLOOD ORDERABLES Final Resul t Performing Organization Address [facility] de Phone Number [facility] [address] [place] [address], [place] [phone] * Valproic acid level, total (10/09/2024 6:42 AM EDT) [facility] Valproic Acid, Total 68 50 - 100 mcg/mL LAB CHEMISTRY METHOD 10/09/2024 8:36 AM EDT [facility] Blood Venous blood specimen / Unknown 10/09/2024 6:42 AM EDT 10/09/2024 7:45 AM EDT us Feliciano Sales MD LAB BLOOD ORDERABLES Final Resul t Performing Organization Address [facility] de Phone Number [facility] [address] [place] [address], [place] [phone] * (ABNORMAL) Comprehensive metabolic panel (10/09/2024 6:42 AM EDT) [facility] Sodium 139 133 - 145 mmol/L LAB CHEMISTRY METHOD 10/09/2024 8:36 AM EDT [facility] Potassium 4.6 3.5 - 5.5 mmol/L LAB CHEMISTRY METHOD 10/09/2024 8:36 AM EDT [facility] Chloride 107 96 - 110 mmol/L LAB CHEMISTRY METHOD 10/09/2024 8:36 AM EDT [facility] CO2 29 21 - 32 mmol/L LAB CHEMISTRY METHOD 10/09/2024 8:36 AM [facility] Anion Gap 3 3 - 11 LAB CHEMISTRY METHOD 10/09/2024 8:36 AM [facility] Glucose 81 70 - 100 mg/dL LAB CHEMISTRY METHOD 10/09/2024 8:36 AM [facility] BUN 18 5 - 25 mg/dL LAB CHEMISTRY METHOD 10/09/2024 8:36 AM [facility] Creatinine 0.47(L) 0.50 - 1.10 mg/dL LAB CHEMISTRY METHOD 10/09/2024 8:36 AM [facility] eGFR 122 >=60 mL/min/1. 73m2 LAB CHEMISTRY METHOD 10/09/2024 8:36 AM [facility] Comment:Calculation based on the Chronic Kidney Disease Epidemiology Collaboration (CKD-EPI) equation refit without adjustment for race. BUN/Creatinine Ratio 38.3 LAB CHEMISTRY METHOD 10/09/2024 8:36 AM [facility] Calcium 8.7 8.5 - 10.5 mg/dL LAB CHEMISTRY METHOD 10/09/2024 8:36 AM [facility] AST (SGOT) 14 10 - 42 unit/L LAB CHEMISTRY METHOD 10/09/2024 8:36 AM [facility] ALT (SGPT) 14 10 - 60 unit/L LAB CHEMISTRY METHOD 10/09/2024 8:36 AM [facility] Alkaline Phosphatase 99 42 - 121 unit/L LAB CHEMISTRY METHOD 10/09/2024 8:36 AM [facility] Total Protein 6.1 6.0 - 8.0 g/dL LAB CHEMISTRY METHOD 10/09/2024 8:36 AM [facility] Albumin 3.2 3.2 - 5.0 g/dL LAB CHEMISTRY METHOD 10/09/2024 8:36 AM [facility] Total Bilirubin 0.2 0.0 - 1.4 mg/dL LAB CHEMISTRY METHOD 10/09/2024 8:36 AM EDT [facility] Blood Venous blood specimen / Unknown 10/09/2024 6:42 AM EDT 10/09/2024 7:45 AM EDT us Feliciano Sales MD LAB BLOOD ORDERABLES Final Resul t [facility] [address] [place] [address], documented in this encounter Visit Diagnoses Diagnosis Anoxic brain damage, not elsewhere classified (CMS/HCC V24, CMS/HCC V28) documented in this encounter Care Teams Swing Tender Relationship Specialty Start Date End Date Feliciano Sales MD [address] [place] [id number] PCP - General Internal Medicine 06/15/24 documented as of this encounter
--- OUTSIDE RECORDS SUMMARY | 2025-01-30 14:37 | XMS_ITS | Encounter Summary ---
Author Organization [facility] Address [address] [place] [address] Care Team Providers Care Bias Cutting Machine Operator Vertical Name Role Phone Feliciano Sales MD Primary Care Provider [phone] Encounter Details Date Type Department Care Team (Late st Contact Info) Description 05/15/2024 Lab Requisition [facility] - Main Lab [address] [facility] [place] [address] Feliciano Sales MD [address] [place] [address] [address] [place], [place] Anoxic brain damage, not elsewhere classified [...] ng/mL LAB CHEMISTRY METHOD 05/15/2024 9:24 AM [facility] Blood Venous blood specimen / Unknown 05/15/2024 7:08 AM EST 05/15/2024 8:02 AM EST Feliciano Sales MD LAB BLOOD ORDERABLES Final Resul t [facility] [address] [place] [address], [place] [phone] * Lipid panel with reflex to direct LDL (05/15/2024 7:08 AM EST) Pathologist [facility] [place] Cholesterol 158 0 - 200 mg/dL LAB CHEMISTRY METHOD 05/15/2024 8:47 AM [facility] Triglycerides 87 0 - 150 mg/dL LAB CHEMISTRY METHOD 05/15/2024 8:47 AM [facility] HDL 73 >=40 mg/dL LAB CHEMISTRY METHOD 05/15/2024 8:47 AM [facility] LDL Calculated 68 0 - 100 mg/dL LAB CHEMISTRY METHOD 05/15/2024 8:47 AM [facility] VLDL Cholesterol Placido 17.4 mg/dL LAB CHEMISTRY METHOD 05/15/2024 8:47 AM [facility] Non HDL Chol. (LDL+VLDL) 85 <145 mg/dL LAB CHEMISTRY METHOD 05/15/2024 8:47 AM [facility] Chol/HDL Ratio 2.2 0.0 - 4.4 LAB CHEMISTRY METHOD 05/15/2024 8:47 AM EST [facility] Blood Venous blood specimen / Unknown 05/15/2024 7:08 AM EST 05/15/2024 8:02 AM EST us Feliciano Sales MD LAB BLOOD ORDERABLES Final Resul t [facility] ([facility]) [facility] [address] [place] [address], documented in this encounter Visit Diagnoses Diagnosis Anoxic brain damage, not elsewhere classified (CMS/HCC V24, CMS/HCC V28) Unspecified protein-calorie malnutrition (CMS/HCC V24) Unspecified protein-calorie malnutrition Other intestinal malabsorption documented in this encounter Care Teams Bias Cutting Machine Operator Vertical Relationship Specialty Start Date End Date Feliciano Sales MD [address] [place] [address] PCP - General Internal Medicine 06/15/24 documented as of this encounter
--- OUTSIDE RECORDS SUMMARY | 2025-01-30 14:37 | XMS_ITS | Encounter Summary ---
Author Organization [facility] Address [address] [place] [address] Care Team Providers Care Corporate Sales Representative Name Role Phone Feliciano Sales MD Primary Care Provider [phone] Encounter Details Date Type Department Care Team (Late st Contact Info) Description 06/15/2024 Lab Requisition [facility] - Main Lab [address] [facility] [place] [address] Feliciano Sales MD [address] [place] [address] Dr [address] [place], [place] Anoxic brain damage, not elsewhere classified [...] LAB CHEMISTRY METHOD 06/15/2024 8:59 AM EDT [facility] Blood Venous blood specimen / Unknown 06/15/2024 7:29 AM EDT 06/15/2024 8:17 AM EDT us Feliciano Sales MD LAB BLOOD ORDERABLES Final Resul t Performing Organization Address [facility]/ZIP Co de Phone Number [facility] [address] [place] [address], [place] [phone] * Vitamin D 25 hydroxy (06/15/2024 7:29 AM EDT) Pathologist [facility] Vit D, 25-Hydroxy 34.6 30.0 - 80.0 ng/mL LAB CHEMISTRY METHOD 06/15/2024 9:20 AM EDT [facility] Blood Venous blood specimen / Unknown 06/15/2024 7:29 AM EDT 06/15/2024 8:17 AM EDT us Feliciano Sales MD LAB BLOOD ORDERABLES Final Resul t Performing Organization Address [facility]/ZIP Co de Phone Number [facility] [address] [place] [address], [place] [phone] * Lipid panel with reflex to direct LDL (06/15/2024 7:29 AM EDT) Cholesterol 163 0 - 200 mg/dL LAB CHEMISTRY METHOD 06/15/2024 9:20 AM EDT [facility] Triglycerides 47 0 - 150 mg/dL LAB CHEMISTRY METHOD 06/15/2024 9:20 AM EDT [facility] HDL 82 >=40 mg/dL LAB CHEMISTRY METHOD 06/15/2024 9:20 AM EDT [facility] LDL Calculated 72 0 - 100 mg/dL LAB CHEMISTRY METHOD 06/15/2024 9:20 AM EDT [facility] VLDL Cholesterol Placido 9.4 mg/dL LAB CHEMISTRY METHOD 06/15/2024 9:20 AM EDT [facility] Non HDL Chol. (LDL+VLDL) 81 <145 mg/dL LAB CHEMISTRY METHOD 06/15/2024 9:20 AM EDT [facility] Chol/HDL Ratio 2.0 0.0 - 4.4 LAB CHEMISTRY METHOD 06/15/2024 9:20 AM EDT [facility] Blood Venous blood specimen / Unknown 06/15/2024 7:29 AM EDT 06/15/2024 8:17 AM EDT us Feliciano Sales MD LAB BLOOD ORDERABLES Final Resul t [facility] [address] [place] [address], documented in this encounter Visit Diagnoses Diagnosis Anoxic brain damage, not elsewhere classified (CMS/HCC V24, CMS/HCC V28) Vitamin D deficiency, unspecified Encounter for screening for cardiovascular disorders documented in this encounter Care Teams Corporate Sales Representative Relationship Specialty Start Date End Date Feliciano Sales MD [address] [place] [address] PCP - General Internal Medicine 06/15/24 documented as of this encounter
--- OUTSIDE RECORDS SUMMARY | 2025-01-30 14:37 | XMS_ITS | Encounter Summary ---
Author Organization [facility] Address [address] [place] [address] Care Team Providers Care Last Model Maker Name Role Phone Feliciano Sales MD Primary Care Provider [phone] Encounter Details Date Type Department Care Team (Late st Contact Info) Description 12/11/2024 Lab Requisition [facility] - Main Lab [address] [facility] [place] [address] Feliciano Sales MD [address] [place] [address] Dr [address] [place], [place] Abnormal weight loss; Altered mental status, [...] Red tube (12/11/2024 7:26 AM EDT) Pathologist [facility] Extra Tube Hold for add-ons. 12/11/2024 10:01 AM EDT [facility] Comment:Auto resulted. Blood Venous blood specimen / Unknown 12/11/2024 7:26 AM EDT 12/11/2024 8:08 AM EDT us Feliciano Sales MD LAB BLOOD ORDERABLES Final Resul t [facility] [address] [place] [address], [place] [phone] * (ABNORMAL) CBC auto differential (12/11/2024 7:26 AM EDT) WBC 5.2 4.8 - 10.8 K/[facility] LAB HEMETOLOGY METHOD 12/11/2024 8:31 AM EDT [facility] RBC 3.90 3.80 - 4.80 M/[facility] LAB HEMETOLOGY METHOD 12/11/2024 8:31 AM UNIVERSITY [...] LAB HEMETOLOGY METHOD 12/11/2024 8:31 AM EDT [facility] Eosinophils Relative 0.6 % LAB HEMETOLOGY METHOD 12/11/2024 8:31 AM EDT [facility] Basophils Relative 0.4 % LAB HEMETOLOGY METHOD 12/11/2024 8:31 AM EDT [facility] Immature Granulocytes Relative 0.4 % LAB HEMETOLOGY METHOD 12/11/2024 8:31 AM EDT [facility] Neutrophils Absolute 2.76 1.50 - 7.00 K/mcL LAB HEMETOLOGY METHOD 12/11/2024 8:31 AM EDT [facility] Lymphocytes Absolute 1.88 1.00 - 5.00 K/mcL LAB HEMETOLOGY METHOD 12/11/2024 8:31 AM EDT [facility] Monocytes Absolute 0.48 0.20 - 1.00 K/mcL LAB HEMETOLOGY METHOD 12/11/2024 8:31 AM EDT [facility] Eosinophils Absolute 0.03 0.00 - 0.50 K/mcL LAB HEMETOLOGY METHOD 12/11/2024 8:31 AM EDT [facility] Basophils Absolute 0.02 0.00 - 0.20 K/mcL LAB HEMETOLOGY METHOD 12/11/2024 8:31 AM EDT [facility] Immature Granulocytes Absolute 0.02 0.00 - 0.03 K/mcL LAB HEMETOLOGY METHOD 12/11/2024 8:31 AM EDT [facility] Blood Venous blood specimen / Unknown 12/11/2024 7:26 AM EDT 12/11/2024 8:08 AM EDT us Feliciano Sales MD LAB BLOOD ORDERABLES Final Resul t [facility] [address] [place] [address], [place] [phone] * Thyroid stimulating hormone (12/11/2024 7:26 AM EDT) TSH 1.75 0.40 - 4.00 mcIU/mL LAB CHEMISTRY METHOD 12/11/2024 9:29 AM EDT [facility] Blood Venous blood specimen / Unknown 12/11/2024 7:26 AM EDT 12/11/2024 8:08 AM EDT us Feliciano Sales MD LAB BLOOD ORDERABLES Final Resul t [facility] [address] [place] [address], [place] [phone] * Thyroxine free (12/11/2024 7:26 AM EDT) Free T4 1.37 0.70 - 1.80 ng/dL LAB CHEMISTRY METHOD 12/11/2024 9:29 AM EDT [facility] Blood Venous blood specimen / Unknown 12/11/2024 7:26 AM EDT 12/11/2024 8:08 AM EDT us Feliciano Sales MD LAB BLOOD ORDERABLES Final Resul t [facility] [address] [place] [address], [place] [phone] * Valproic acid level, total (12/11/2024 7:26 AM EDT) Valproic Acid, Total 57 50 - 100 mcg/mL LAB CHEMISTRY METHOD 12/11/2024 8:41 AM EDT [facility] Blood Venous blood specimen / Unknown 12/11/2024 7:26 AM EDT 12/11/2024 8:08 AM EDT us Feliciano Sales MD LAB BLOOD ORDERABLES Final Resul t Performing Organization Address [facility] de Phone Number [facility] [address] [place] [address], [place] [phone] * Prealbumin (12/11/2024 7:26 AM EDT) Prealbumin 24 18 - 45 mg/dL LAB CHEMISTRY METHOD 12/11/2024 8:42 AM EDT [facility] Blood Venous blood specimen / Unknown 12/11/2024 7:26 AM EDT 12/11/2024 8:08 AM EDT us Feliciano Sales MD LAB BLOOD ORDERABLES Final Resul t Performing Organization Address [facility] de Phone Number [facility] [address] [place] [address], [place] [phone] * Ammonia (12/11/2024 7:26 AM EDT) Ammonia 18 11 - 35 mcmol/L LAB CHEMISTRY METHOD 12/11/2024 8:34 AM EDT [facility] Blood Venous blood specimen / Unknown 12/11/2024 7:26 AM EDT 12/11/2024 8:08 AM EDT us Feliciano Sales MD LAB BLOOD ORDERABLES Final Resul t Performing Organization Address [facility] de Phone Number [facility] [address] [place] [address], [place] [phone] * Comprehensive metabolic panel (12/11/2024 7:26 AM EDT) Sodium 137 133 - 145 mmol/L LAB CHEMISTRY METHOD 12/11/2024 8:41 AM EDT [facility] Potassium 4.3 3.5 - 5.5 [...] LAB CHEMISTRY METHOD 12/11/2024 8:41 AM EDT [facility] Total Bilirubin 0.3 0.0 - 1.4 mg/dL LAB CHEMISTRY METHOD 12/11/2024 8:41 AM EDT [facility] Blood Venous blood specimen / Unknown 12/11/2024 7:26 AM EDT 12/11/2024 8:08 AM EDT us Feliciano Sales MD LAB BLOOD ORDERABLES Final Resul t [facility] [address] [place] [address], documented in this encounter Visit Diagnoses Diagnosis Abnormal weight loss Loss of weight Altered mental status, unspecified documented in this encounter Care Teams Last Model Maker Relationship Specialty Start Date End Date Feliciano Sales MD [address] [place] [address] PCP - General Internal Medicine 06/15/24 documented as of this encounter
--- OUTSIDE RECORDS SUMMARY | 2025-01-30 14:37 | XMS_ITS | Encounter Summary ---
Author Organization [facility] Address [address] [place] [address] Care Team Providers Care Coverage Analyst Name Role Phone Feliciano Sales MD Primary Care Provider [phone] Encounter Details Date Type Department Care Team (Late st Contact Info) Description 04/11/[address] [facility] - Main Lab 299 [facility] [place] [address] Feliciano Sales MD [address] [place] [address] Dr [address] [place], [place] Anoxic brain damage, not elsewhere classified [...] Tube Hold for add-ons. 04/11/2024 9:02 AM [facility] Comment:Auto resulted. Blood Venous blood specimen / Unknown 04/11/2024 6:52 AM EST 04/11/2024 7:31 AM EST us Feliciano Sales MD LAB BLOOD ORDERABLES Final Resul t [facility] [address] [place] [address], [place] [phone] * (ABNORMAL) CBC auto differential (04/11/2024 6:52 AM EST) WBC 5.2 4.8 - 10.8 K/mcL LAB HEMETOLOGY METHOD 04/11/2024 7:52 AM [facility] RBC 3.80 3.80 - 4.80 M/mcL LAB HEMETOLOGY METHOD 04/11/2024 7:52 AM [facility] Hemoglobin 12.1 11.5 - 16.0 g/dL LAB HEMETOLOGY METHOD 04/11/2024 7:52 AM [facility] Hematocrit 36.4 35.0 - 47.0 % LAB HEMETOLOGY METHOD 04/11/2024 7:52 AM [facility] MCV 95.8 79.0 - 98.0 FL LAB HEMETOLOGY METHOD 04/11/2024 7:52 AM [facility] MCH 31.8 27.0 - 32.0 pcg LAB HEMETOLOGY METHOD 04/11/2024 7:52 AM [facility] MCHC 33.2 32.0 - 37.0 g/dL LAB HEMETOLOGY METHOD 04/11/2024 7:52 AM [facility] RDW 12.1 11.0 - 15.0 % LAB HEMETOLOGY METHOD 04/11/2024 7:52 AM [facility] Platelets 149 130 - 400 K/mcL LAB HEMETOLOGY METHOD 04/11/2024 7:52 AM [facility] MPV 12.7(H) 7.0 - 11.0 FL LAB HEMETOLOGY METHOD 04/11/2024 7:52 AM [facility] NRBC 0.0 <1.0 % LAB HEMETOLOGY METHOD 04/11/2024 7:52 AM [facility] NRBC Absolute 0.00 <0.10 K/mcL LAB HEMETOLOGY METHOD 04/11/2024 7:52 AM [facility] Neutrophils Relative 44.3 % LAB HEMETOLOGY METHOD 04/11/2024 7:52 AM [facility] Lymphocytes Relative 43.6 % LAB HEMETOLOGY METHOD 04/11/2024 7:52 AM [facility] Monocytes Relative 10.1 % LAB HEMETOLOGY METHOD 04/11/2024 7:52 AM [facility] Eosinophils Relative 1.2 % LAB HEMETOLOGY METHOD 04/11/2024 7:52 AM [facility] Basophils Relative 0.6 % LAB HEMETOLOGY METHOD 04/11/2024 7:52 AM [facility] Immature Granulocytes Relative 0.2 % LAB HEMETOLOGY METHOD 04/11/2024 7:52 AM [facility] Neutrophils Absolute 2.29 1.50 - 7.00 K/mcL LAB HEMETOLOGY METHOD 04/11/2024 7:52 AM [facility] Lymphocytes Absolute 2.25 1.00 - 5.00 K/mcL LAB HEMETOLOGY METHOD 04/11/2024 7:52 AM EST [facility] Monocytes Absolute 0.52 0.20 - 1.00 K/mcL LAB HEMETOLOGY METHOD 04/11/2024 7:52 AM EST [facility] Eosinophils Absolute 0.06 0.00 - 0.50 K/[facility] LAB HEMETOLOGY METHOD 04/11/2024 7:52 AM EST [facility] Basophils Absolute 0.03 0.00 - 0.20 K/[facility] LAB HEMETOLOGY METHOD 04/11/2024 7:52 AM EST [facility] Immature Granulocytes Absolute 0.01 0.00 - 0.03 K/[facility] LAB HEMETOLOGY METHOD 04/11/2024 7:52 AM EST [facility] Blood Venous blood specimen / Unknown 04/11/2024 6:52 AM EST 04/11/2024 7:30 AM EST us Feliciano Sales MD LAB BLOOD ORDERABLES Final Resul t Performing Organization Address [facility]/ZIP Co de Phone Number [facility] [address] [place] [address], [place] [phone] * Thyroxine free (04/11/2024 6:52 AM EST) Free T4 1.34 0.70 - 1.80 ng/dL LAB CHEMISTRY METHOD 04/11/2024 8:32 AM EST [facility] Blood Venous blood specimen / Unknown 04/11/2024 6:52 AM EST 04/11/2024 7:30 AM EST us Feliciano Sales MD LAB BLOOD ORDERABLES Final Resul t [facility] [address] [place] [address], [place] [phone] * Thyroid stimulating hormone (04/11/2024 6:52 AM EST) TSH 2.53 0.40 - 4.00 mcIU/mL LAB CHEMISTRY METHOD 04/11/2024 8:32 AM EST [facility] Blood Venous blood specimen / Unknown 04/11/2024 6:52 AM EST 04/11/2024 7:30 AM EST us Feliciano Saels MD LAB BLOOD ORDERABLES Final Resul t Performing Organization Address [facility]/ZIP Co de Phone Number [facility] [address] [place] [address], [place] [phone] * Valproic acid level, total (04/11/2024 6:52 AM EST) Valproic Acid, Total 76 50 - 100 mcg/mL LAB CHEMISTRY METHOD 04/11/2024 8:04 AM EST [facility] Blood Venous blood specimen / Unknown 04/11/2024 6:52 AM EST 04/11/2024 7:30 AM EST us Feliciano Sales MD LAB BLOOD ORDERABLES Final Resul t Performing Organization Address [facility] Co de Phone Number [facility] [address] [place] [address], [place] [phone] * (ABNORMAL) Ammonia (04/11/2024 6:52 AM EST) Ammonia 40(H) 11 - 35 mcmol/L LAB CHEMISTRY METHOD 04/11/2024 7:58 AM EST [facility] Blood Venous blood specimen / Unknown 04/11/2024 6:52 AM EST 04/11/2024 7:30 AM EST us Feliciano Sales MD LAB BLOOD ORDERABLES Final Resul t Performing Organization Address [facility]/ZIP Co de Phone Number [facility] [address] [place] [address], [place] [phone] * Vitamin D 25 hydroxy (04/11/2024 6:52 AM EST) Vit D, 25-Hydroxy 34.1 30.0 - 80.0 ng/mL LAB CHEMISTRY METHOD 04/11/2024 8:32 AM [facility] Blood Venous blood specimen / Unknown 04/11/2024 6:52 AM EST 04/11/2024 7:30 AM EST Feliciano Sales MD LAB BLOOD ORDERABLES Final Resul t [facility] [address] [place] [address], [place] [phone] * Lipid panel with reflex to direct LDL (04/11/2024 6:52 AM EST) Pathologist [facility] Cholesterol 156 0 - 200 mg/dL LAB CHEMISTRY METHOD 04/11/2024 8:04 AM [facility] Triglycerides 75 0 - 150 mg/dL LAB CHEMISTRY METHOD 04/11/2024 8:04 AM [facility] HDL 75 >=40 mg/dL LAB CHEMISTRY METHOD 04/11/2024 8:04 AM [facility] LDL Calculated 66 0 - 100 mg/dL LAB CHEMISTRY METHOD 04/11/2024 8:04 AM [facility] VLDL Cholesterol Placido 15 mg/dL LAB CHEMISTRY METHOD 04/11/2024 8:04 AM [facility] Non HDL Chol. (LDL+VLDL) 81 <145 mg/dL LAB CHEMISTRY METHOD 04/11/2024 8:04 AM [facility] Chol/HDL Ratio 2.1 0.0 - 4.4 LAB CHEMISTRY METHOD 04/11/2024 8:04 AM [facility] Blood Venous blood specimen / Unknown 04/11/2024 6:52 AM EST 04/11/2024 7:30 AM EST Feliciano Sales MD LAB BLOOD ORDERABLES Final Resul t [facility] [address] [place] [address], * Comprehensive metabolic panel (04/11/2024 6:52 AM EST) Sodium 138 133 - 145 mmol/L LAB CHEMISTRY METHOD 04/11/2024 8:04 AM [facility] Potassium 4.3 3.5 - 5.5 mmol/L LAB CHEMISTRY METHOD 04/11/2024 8:04 AM [facility] Chloride 102 96 - 110 mmol/L LAB CHEMISTRY METHOD 04/11/2024 8:04 AM [facility] CO2 29 21 - 32 mmol/L LAB CHEMISTRY METHOD 04/11/2024 8:04 AM [facility] Anion Gap 7 3 - 11 LAB CHEMISTRY METHOD 04/11/2024 8:04 AM [facility] Glucose 97 70 - 100 mg/dL LAB CHEMISTRY METHOD 04/11/2024 8:04 AM [facility] BUN 19 5 - 25 mg/dL LAB CHEMISTRY METHOD 04/11/2024 8:04 AM [facility] Creatinine 0.56 0.50 - 1.10 mg/dL LAB CHEMISTRY METHOD 04/11/2024 8:04 AM [facility] eGFR 118 >=60 mL/min/1. 73m2 LAB CHEMISTRY METHOD 04/11/2024 8:04 AM [facility] Comment:Calculation based on the Chronic Kidney Disease Epidemiology Collaboration (CKD-EPI) equation refit without adjustment for race. BUN/Creatinine Ratio 33.9 LAB CHEMISTRY METHOD 04/11/2024 8:04 AM [facility] Calcium 8.6 8.5 - 10.5 mg/dL LAB CHEMISTRY METHOD 04/11/2024 8:04 AM [facility] AST (SGOT) 10 10 - 42 unit/L LAB CHEMISTRY METHOD 04/11/2024 8:04 AM [facility] ALT (SGPT) 16 10 - 60 unit/L LAB CHEMISTRY METHOD 04/11/2024 8:04 AM [facility] Alkaline Phosphatase 100 42 - 121 unit/L LAB CHEMISTRY METHOD 04/11/2024 8:04 AM [facility] Total Protein 6.4 6.0 - 8.0 g/dL LAB CHEMISTRY METHOD 04/11/2024 8:04 AM [facility] Albumin 3.4 3.2 - 5.0 g/dL LAB CHEMISTRY METHOD 04/11/2024 8:04 AM [facility] Total Bilirubin 0.2 0.0 - 1.4 mg/dL LAB CHEMISTRY METHOD 04/11/2024 8:04 AM [facility] Blood Venous blood specimen / Unknown 04/11/2024 6:52 AM EST 04/11/2024 7:30 AM EST us Feliciano Sales MD LAB BLOOD ORDERABLES Final Resul t [facility] [address] [place] [address], documented in this encounter Visit Diagnoses Diagnosis Anoxic brain damage, not elsewhere classified (CMS/HCC V24, CMS/HCC V28) Hypothyroidism, unspecified Unspecified protein-calorie malnutrition (CMS/HCC V24) Unspecified protein-calorie malnutrition Other intestinal malabsorption documented in this encounter Care Teams Coverage Analyst Relationship Specialty Start Date End Date Feliciano Sales MD [address] [place] [address] PCP - General Internal Medicine 06/15/24 documented as of this encounter
== END 2025-01-30 11:25 | disposition home or self-care (01) ==
LOC: HO.MAMMO 11:24
PROVIDERS: PCP Hospitalist; Visit Provider Hospitalist
DX: Z12.31 Encounter for screening mammogram for malignant neoplasm of breast (principal); Z99.3 Dependence on wheelchair
CPT/HCPCS: 76641

== ENCOUNTER → 2025-01-30 11:30 | Outpatient (BNV) | payer MEDICARE, MEDICAID, SELFPAY | PROVIDERS: PCP Hospitalist; Visit Provider Internal Medicine | DX: Z12.31 Encounter for screening mammogram for malignant neoplasm of breast (principal) | CPT/HCPCS: 76641 ==

== ENCOUNTER 2025-02-01 17:11 | Inpatient (IN) | payer MEDICARE, MEDICAID, SELFPAY ==
--- NOTE | ~2025-02-01 | CT_ITS ---
CLINICAL HISTORY: rigid abd, SNF staff replaced G tube CT abdomen and pelvis with contrast Comparison: CT/ME/SR - CT ABDOMEN PELVIS W IV CON - 11/25/23 14:56 EDT Findings: The lung bases are clear. The gallbladder and solid organs are within normal limits. No renal stones. There is a gastrostomy tube within the stomach. There is no gastrostomy tube leak. There is no bowel edema or evidence of bowel obstruction. There is gaseous distention of bowel suggesting possible ileus. There has been a prior near total colectomy. There is a rectal stump. There is a right lower quadrant ileostomy. Pelvic contents unremarkable. Prior appendectomy. The bones are intact. IMPRESSION: 1. Gaseous distention of bowel suggesting possible ileus. 2. There is a gastrostomy tube within the stomach. There is no gastrostomy tube leak. This document has been electronically signed by: Leigha May MD on 02/01/2025 20:48:27
--- NOTE | ~2025-02-01 | XR_ITS ---
CLINICAL HISTORY: gastrograffin confirm PEG 1 view abdomen Comparison: CR - XR KUB - 10/29/24 08:37 EDT Findings: No pneumoperitoneum or pneumatosis. Left upper quadrant catheter is present. Enteric contrast within the stomach is seen. Mildly prominent small bowel loops are present. No abnormal calcifications. No acute fractures. IMPRESSION: 1. Mildly prominent small bowel loops. Early obstruction/ ileus can not be excluded. This document has been electronically signed by: Jyoti Payne MD on 02/01/2025 18:44:41
[2025-02-01 17:24] VITALS: PULSE 93; O2SAT 95
--- NOTE | 2025-02-01 17:35 | ED_ITS ---
HPI - Abdominal Pain General Chief Complaint: Urogenital-Female Stated Complaint: SNF: G tube pH levels off non verbal Time Seen by Provider: 02/01/25 17:34 History of Present Illness ED Provider: angie HPI narrative: 44 F from snf. Staff replaced PEG. Want XR confirmation. Patient noncontributory due to chronic cognitive impairment. There was no reported other acute medical symptoms nor any tachycardia fever dark urine abdominal pain distress or other symptoms reported by staff upon transfer to our Related Data Home Medications ?Medication ?Instructions ?Recorded ?Confirmed acetaminophen 325 mg tablet 650 mg feeding tube Q6H NH N Fever 05/26/21 02/01/25 Or Pain amantadine HCl 50 mg/5 mL oral 50 mg feeding tube KESHA Y 05/26/21 02/01/25 solution baclofen 10 mg tablet 10 mg feeding tube TID 05/2602/01/25 cholecalciferol (vitamin D3) 50 50 mcg feeding tube DA SANDY 05/26/21 02/01/25 mcg (2,000 unit) tablet (Vitamin D3) multivitamin 1 tab feeding tube DAILY 02/01/25 trazodone 100 mg tablet 100 mg feeding tube BEDTIME 05/26/21 02/01/25 valproic acid (as sodium salt) 250 500 mg feeding tube DAILY 05/26/21 02/01/25 mg/5 mL oral solution chlorhexidine gluconate 0.12 % 15 ml buccal BID 02/01/25 mouthwash (Peridex) citalopram 10 mg/5 mL oral solution 30 mg feeding tube DAILY 05/05/23 02/01/25 dimethicone 5 % topical cream 1 appl topical BID 05/0502/01/25 levothyroxine 100 mcg tablet 100 mcg feeding tube KESHA Y@0600 05/05/23 02/01/25 loperamide 2 mg capsule 2 mg feeding tube BID PRN LO OSE 05/05/23 02/01/25 STOOLS mirtazapine 30 mg disintegrating 30 mg feeding tube BE DTIME 05/05/23 02/01/25 tablet pantoprazole 40 mg granules 40 mg feeding tube BID@063 0,1630 05/05/23 02/01/25 delayed-release for susp in packet polyvinyl alcohol 1.4 % eye drops 1 drp ophthalmic (ey e) DAILY 05/05/23 02/01/25 (Artificial Tears (polyvinyl alcohol)) psyllium husk 0.52 gram capsule 1.04 g PO BID 05/05/23 02/01/25 thiamine HCl (vitamin B1) 100 mg 100 mg feeding tube D AILY 05/05/23 02/01/25 tablet glucagon 1 mg solution for 1 mg subcut Q15M PRN Hypogl ycemia 02/01/25 02/01/25 injection (Glucagon Emergency Kit) mineral oil-iso myristat-water 1 appl topical DAILY 02/01/25 lotion Allergies Allergy/AdvReac Type Severity Reaction Status Date / Time No Known Allergies Allergy Verified 02/01/25 17:53 [facility] Past Medical History Medical History Sepsis TBI (traumatic brain injury) Bacteremia due to group B Streptococcus Falls Ataxia Anemia Bipolar 1 disorder TBI (traumatic brain injury) Surgical History History of colectomy Social History Social History Household Members: Caregiver Housing: Skilled Nursing Do you presently have visiting nurse or other home services: No (at [facility]) Alcohol intake: never Patient Tobacco Use Status: Tobacco use Unknown Tobacco use type: Cigarette Advance Directives Date on File: 07/12/20 service: No Physical Exam ED Exam Exam: GENERAL: Awake and alert making eye contact she appears somewhat anxious and distress but I do not know her cognitive and general baseline appearance or behavior. She has chronic contracture and is nonverbal HEAD/NECK: No visual trauma. EYES: Normal to inspection. No conjunctival erythema. No discharge. ENMT: Hearing grossly normal. External nose normal. RESPIRATORY: Respiratory effort normal. CARDIOVASCULAR: Tachycardic seems regular in the 120s to 130s. Well-perfused peripherally no edema Abdominal: Right-sided ostomy bag with gaseous distention brown stool midline ventral laparotomy scar. Left side G-tube clean dry intact. Firm somewhat rigid abdominal exam possibly guarding versus baseline abdominal wall muscular contracture difficult to tell if pain is elicited on palpation no objective distention SKIN: No jaundice. NEUROLOGICAL: Alert. Contracted, cognitive impairment Vital Signs: Vital Signs - 24 hr 02/01/25 17:49 02/01/25 18:47 Temperature 100.5 F H Pulse Rate 122 H 96 Respiratory Rate 20 17 Blood Pressure 98/56 L 107/61 Pulse Oximetry 94 96 Oxygen Delivery Method Room Air Room Air BMI result Body Mass Index 19.2 Procedures Procedure Narrative Procedure Narrative: EMERGENCY ULTRASOUND INTERPRETATION-Point of Care Trauma (FAST) Limited Abdominal+Echocardiographic+Chest Ultrasound [This study was ordered, performed, and interpreted by myself. The study reveals: Impression: -Peritoneum: NO FREE FLUID. Incidental finding of dilated bowel loops and full bladder Rigid abdomen -Type: BLUNT Fluid (FAST Views): -Hepatorenal: NEGATIVE -Perisplenic: NEGATIVE -Retrovesical/Pelvic: NEGATIVE Performed by: Aric Hicks MD Images were stored CPT: 85443,[id number]] Course Reevaluation(s) Reevaluation #1: 8:09 PM 02/01/2025 (Dr. Aric Hicks): Lactate not elevated, no leukocytosis. Improving tachycardia with IV fluid/Tylenol. We will continue to reassess Medical Decision Making Medical Decision Making MDM Narrative: Medical Decision Making: [age] female bed-bound developmentally delayed initially came for evaluation of gastric tube after replacement by SNF staff. Incidentally found to be febrile she developed tachycardia here in the ED as well. Later mother arrived who was able to communicate better with her the patient did not appear to be in any pain Urine grossly bloody/cloudy on straight cath she seemed to be retaining urine with at least 400 cc on bedside ultrasound so Gordon was placed. When evaluating gastric tube which appeared clean dry intact, her abdomen felt quite rigid so I got an abdominal x-ray. Gastrografin was seen in the stomach indicating adequate placement of the tube however I was concerned given the abdominal exam and escalated to CT. Patient will be covered with antibiotics pending CT. Blood cultures lactate lab work sent off. CT results with ileus no mechanical SBO. Patient has improved throughout the ED course tachycardia improved to 78 at the time of discussion with Internal Medicine at about 21:00. No hypotension. Looks better mother at the bedside says she appears more calm comfortable that much 1st arrived 1 or 2 hours before Presumed infection unclear cause at this time there was nitrite in the urine ileus or GI viral infection could cause this, relief limited upper respiratory viral panel is negative. Preliminary Favored Differential Diagnosis: Gastric tube complication, bowel obstruction UTI kidney stone hemorrhagic cystitis urinary retention urethral trauma among additional considered etiologies Testing Interpreted Independently: KUB shows adequate Gastrografin in the stomach in the left upper quadrant. Incidentally seen on this film was dilated bowel loops in the lower abdomen concerning for small bowel obstruction Radiology or Lab testing Results Reviewed: ?See below for details Consults: ?See below for details Independent Historians/External Chart Reviews: ?See below for details Social Determinants of Health Impacting MDM/Planning: ?See below for details Consult Healthcare Provider Management of the patient was discussed with: Hospitalist Lab Data MDM Lab Attestation statement: I reviewed the patient's lab results. 02/02/25 02:40 02/02/25 02:40 Labs: Lab Results 02/01/25 02/01/25 02/01/25 Range/Units 18:00 18:00 18:00 WBC 10.1 (4.8-10.8) X10*3/uL RBC 3.93 L (4.20-5.50) X10*6/uL Hgb 12.3 (12.0-16.0) g/dl Hct 36.6 L (37.0-47.0) % MCV 93.1 (80.0-98.0) fL MCH 31.3 (27.0-33.0) pg MCHC 33.6 (31.0-35.0) g/dl RDW 12.9 (11.0-16.0) % Plt Count 194 D (160-400) X10*3/uL MPV 12.5 H (9.4-12.3) fL Immature Gran % (Auto) 0.3 (0.0-0.4) % Neut % (Auto) 57.4 (45-73) % Lymph % (Auto) 33.1 (20-40) % [place] % (Auto) 8.9 (2-11) % Eos % (Auto) 0.1 (0-4) % Baso % (Auto) 0.2 (0-2) % Lymph # (Auto) 3.3 (1.2-4.9) X10*3/uL [place] # (Auto) 0.9 (0.1-1.2) X10*3/uL Eos # (Auto) 0.0 (0.0-0.4) X10*3/uL Baso # (Auto) 0.0 (0.0-0.2) X10*3/uL Abs Immat Gran (auto) 0.03 (0.00-0.03) X10*3/uL Absolute Neuts (auto) 5.8 (2.0-8.3) x10*3/uL Absolute Nucleated RBC 0.000 (0.0-0.012) X10*3/uL Nucleated RBC % (auto) 0.0 (0.0-0.2) /100WBC PT 11.6 (10.9-12.4) SEC INR 1.0 (0.9-1.1) APTT 25.7 L (26.7-34.1) SEC Sodium Cancelled 140 Potassium Cancelled 4.7 Chloride Cancelled Carbon Dioxide Anion Gap BUN Creatinine Estim Creat Clear Calc Estimated GFR Random Glucose Lactic Acid (0.5-2.0) mmol/L Calcium Magnesium (1.6-2.6) mg/dL Total Bilirubin (0.0-1.0) mg/dL TSH (0.32-4.0) uIU/mL Free T4 (0.71-1.85) ng/dL Beta HCG, Quant mIU/mL Urine Color Urine Appearance Urine pH (5.0-9.0) Ur Specific [place] (1.005-1.025) Urine Protein (Neg-Trace) mg/dL Urine Glucose (UA) (Negative) mg/dL Urine Ketones (Negative) mg/dL Urine Blood (Negative) Urine Nitrite (Negative) Ur Leukocyte Esterase Urine RBC (0-2) /HPF Urine WBC (0-5) /HPF Ur Squamous Epith Cells (0-2) /HPF Other Crystals Urine Bacteria (None Seen) Hyaline Casts (0-2) /LPF 02/01/25 02/01/25 02/01/25 Range/Units 18:00 18:00 18:00 WBC (4.8-10.8) X10*3/uL RBC (4.20-5.50) X10*6/uL Hgb (12.0-16.0) g/dl Hct (37.0-47.0) % MCV (80.0-98.0) fL MCH (27.0-33.0) pg MCHC (31.0-35.0) g/dl RDW (11.0-16.0) % Plt Count (160-400) X10*3/uL MPV (9.4-12.3) fL Immature Gran % (Auto) (0.0-0.4) % Neut % (Auto) (45-73) % Lymph % (Auto) (20-40) % [place] % (Auto) (2-11) % Eos % (Auto) (0-4) % Baso % (Auto) (0-2) % Lymph # (Auto) (1.2-4.9) X10*3/uL [place] # (Auto) (0.1-1.2) X10*3/uL Eos # (Auto) (0.0-0.4) X10*3/uL Baso # (Auto) (0.0-0.2) X10*3/uL Abs Immat Gran (auto) (0.00-0.03) X10*3/uL Absolute Neuts (auto) (2.0-8.3) x10*3/uL Absolute Nucleated RBC (0.0-0.012) X10*3/uL Nucleated RBC % (auto) (0.0-0.2) /100WBC PT (10.9-12.4) SEC INR (0.9-1.1) APTT (26.7-34.1) SEC Sodium Potassium Chloride 105 Carbon Dioxide Cancelled 25 Anion Gap Cancelled 15 BUN Cancelled Creatinine Estim Creat Clear Calc Estimated GFR Random Glucose Lactic Acid (0.5-2.0) mmol/L Calcium Magnesium (1.6-2.6) mg/dL Total Bilirubin (0.0-1.0) mg/dL TSH (0.32-4.0) uIU/mL Free T4 (0.71-1.85) ng/dL Beta HCG, Quant mIU/mL Urine Color Urine Appearance Urine pH (5.0-9.0) Ur Specific [place] (1.005-1.025) Urine Protein (Neg-Trace) mg/dL Urine Glucose (UA) (Negative) mg/dL Urine Ketones (Negative) mg/dL Urine Blood (Negative) Urine Nitrite (Negative) Ur Leukocyte Esterase Urine RBC (0-2) /HPF Urine WBC (0-5) /HPF Ur Squamous Epith Cells (0-2) /HPF Other Crystals Urine Bacteria (None Seen) Hyaline Casts (0-2) /LPF 02/01/25 02/01/25 02/01/25 Range/Units 18:00 18:00 18:00 WBC (4.8-10.8) X10*3/uL RBC (4.20-5.50) X10*6/uL Hgb (12.0-16.0) g/dl Hct (37.0-47.0) % MCV (80.0-98.0) fL MCH (27.0-33.0) pg MCHC (31.0-35.0) g/dl RDW (11.0-16.0) % Plt Count (160-400) X10*3/uL MPV (9.4-12.3) fL Immature Gran % (Auto) (0.0-0.4) % Neut % (Auto) (45-73) % Lymph % (Auto) (20-40) % [place] % (Auto) (2-11) % Eos % (Auto) (0-4) % Baso % (Auto) (0-2) % Lymph # (Auto) (1.2-4.9) X10*3/uL [place] # (Auto) (0.1-1.2) X10*3/uL Eos # (Auto) (0.0-0.4) X10*3/uL Baso # (Auto) (0.0-0.2) X10*3/uL Abs Immat Gran (auto) (0.00-0.03) X10*3/uL Absolute Neuts (auto) (2.0-8.3) x10*3/uL Absolute Nucleated RBC (0.0-0.012) X10*3/uL Nucleated RBC % (auto) (0.0-0.2) /100WBC PT (10.9-12.4) SEC INR (0.9-1.1) APTT (26.7-34.1) SEC Sodium Potassium Chloride Carbon Dioxide Anion Gap BUN 18 H Creatinine Cancelled 0.56 Estim Creat Clear Calc Cancelled 111.5 Estimated GFR Cancelled Random Glucose Lactic Acid (0.5-2.0) mmol/L Calcium Magnesium (1.6-2.6) mg/dL Total Bilirubin (0.0-1.0) mg/dL TSH (0.32-4.0) uIU/mL Free T4 (0.71-1.85) ng/dL Beta HCG, Quant mIU/mL Urine Color Urine Appearance Urine pH (5.0-9.0) Ur Specific [place] (1.005-1.025) Urine Protein (Neg-Trace) mg/dL Urine Glucose (UA) (Negative) mg/dL Urine Ketones (Negative) mg/dL Urine Blood (Negative) Urine Nitrite (Negative) Ur Leukocyte Esterase Urine RBC (0-2) /HPF Urine WBC (0-5) /HPF Ur Squamous Epith Cells (0-2) /HPF Other Crystals Urine Bacteria (None Seen) Hyaline Casts (0-2) /LPF 02/01/25 02/01/25 02/01/25 Range/Units 18:00 18:00 18:00 WBC (4.8-10.8) X10*3/uL RBC (4.20-5.50) X10*6/uL Hgb (12.0-16.0) g/dl Hct (37.0-47.0) % MCV (80.0-98.0) fL MCH (27.0-33.0) pg MCHC (31.0-35.0) g/dl RDW (11.0-16.0) % Plt Count (160-400) X10*3/uL MPV (9.4-12.3) fL Immature Gran % (Auto) (0.0-0.4) % Neut % (Auto) (45-73) % Lymph % (Auto) (20-40) % [place] % (Auto) (2-11) % Eos % (Auto) (0-4) % Baso % (Auto) (0-2) % Lymph # (Auto) (1.2-4.9) X10*3/uL [place] # (Auto) (0.1-1.2) X10*3/uL Eos # (Auto) (0.0-0.4) X10*3/uL Baso # (Auto) (0.0-0.2) X10*3/uL Abs Immat Gran (auto) (0.00-0.03) X10*3/uL Absolute Neuts (auto) (2.0-8.3) x10*3/uL Absolute Nucleated RBC (0.0-0.012) X10*3/uL Nucleated RBC % (auto) (0.0-0.2) /100WBC PT (10.9-12.4) SEC INR (0.9-1.1) APTT (26.7-34.1) SEC Sodium Potassium Chloride Carbon Dioxide Anion Gap BUN Creatinine Estim Creat Clear Calc Estimated GFR > 60 Random Glucose Cancelled 85 Lactic Acid 1.2 (0.5-2.0) mmol/L Calcium Cancelled 9.2 Magnesium 1.9 (1.6-2.6) mg/dL Total Bilirubin 0.4 (0.0-1.0) mg/dL TSH 5.68 H (0.32-4.0) uIU/mL Free T4 1.05 (0.71-1.85) ng/dL Beta HCG, Quant < 2 mIU/mL Urine Color Urine Appearance Urine pH (5.0-9.0) Ur Specific [place] (1.005-1.025) Urine Protein (Neg-Trace) mg/dL Urine Glucose (UA) (Negative) mg/dL Urine Ketones (Negative) mg/dL Urine Blood (Negative) Urine Nitrite (Negative) Ur Leukocyte Esterase Urine RBC (0-2) /HPF Urine WBC (0-5) /HPF Ur Squamous Epith Cells (0-2) /HPF Other Crystals Urine Bacteria (None Seen) Hyaline Casts (0-2) /LPF 10/30/25 Range/Units 18:05 WBC (4.8-10.8) X10*3/uL RBC (4.20-5.50) X10*6/uL Hgb (12.0-16.0) g/dl Hct (37.0-47.0) % MCV (80.0-98.0) fL MCH (27.0-33.0) pg MCHC (31.0-35.0) g/dl RDW (11.0-16.0) % Plt Count (160-400) X10*3/uL MPV (9.4-12.3) fL Immature Gran % (Auto) (0.0-0.4) % Neut % (Auto) (45-73) % Lymph % (Auto) (20-40) % [place] % (Auto) (2-11) % Eos % (Auto) (0-4) % Baso % (Auto) (0-2) % Lymph # (Auto) (1.2-4.9) X10*3/uL [place] # (Auto) (0.1-1.2) X10*3/uL Eos # (Auto) (0.0-0.4) X10*3/uL Baso # (Auto) (0.0-0.2) X10*3/uL Abs Immat Gran (auto) (0.00-0.03) X10*3/uL Absolute Neuts (auto) (2.0-8.3) x10*3/uL Absolute Nucleated RBC (0.0-0.012) X10*3/uL Nucleated RBC % (auto) (0.0-0.2) /100WBC PT (10.9-12.4) SEC INR (0.9-1.1) APTT (26.7-34.1) SEC Sodium Potassium Chloride Carbon Dioxide Anion Gap BUN Creatinine Estim Creat Clear Calc Estimated GFR Random Glucose Lactic Acid (0.5-2.0) mmol/L Calcium Magnesium (1.6-2.6) mg/dL Total Bilirubin (0.0-1.0) mg/dL TSH (0.32-4.0) uIU/mL Free T4 (0.71-1.85) ng/dL Beta HCG, Quant mIU/mL Urine Color BROWN Urine Appearance Turbid Urine pH 8.5 (5.0-9.0) Ur Specific [place] 1.010 (1.005-1.025) Urine Protein 300 (3+) H (Neg-Trace) mg/dL Urine Glucose (UA) 100 H (Negative) mg/dL Urine Ketones Trace (Negative) mg/dL Urine Blood Large (3+) H (Negative) Urine Nitrite Positive H (Negative) Ur Leukocyte Esterase TNP Urine RBC 3-5 H (0-2) /HPF Urine WBC 0-5 (0-5) /HPF Ur Squamous Epith Cells 6-10 (0-2) /HPF Other Crystals Present Urine Bacteria 4+ (None Seen) Hyaline Casts 3-5 (0-2) /LPF Independent Historian Clinical information obtained from an independent historian. History obtained from or confirmed by: Parent (Mother able to communicate help this communicate with the patient with a placard) Medications Administered Generic Name Dose Route Start Last Admin Trade Name Freq PRN Reason Stop Dose Admin Enoxaparin Sodium 40 mg 02/01/25 21:15 02/01/25 22:48 Enoxaparin Sodium 40 Mg/0.4 Ml Syringe SUBCUT 40 mg Q24H SUSAN Administration Dextrose/Sodium Chloride 1,000 mls @ 100 mls/hr 02/01/25 21:15 02/02/25 09:01 D5ns IVCONT 100 mls/hr .Q10H SUSAN Administration Valproic Acid 125 mg/ Dextrose 51.25 mls @ 52.5 mls/hr 02/01/25 21:00 02/02/25 06:37 IV Infused Q6H SUSAN Infusion Pantoprazole Sodium 40 mg 02/02/25 06:30 02/02/25 06:56 Pantoprazole Sodium 40 Mg/10 Ml Vial IVPUSH 40 mg DAILY@0630 SUSAN Administration Sodium Chloride 3 ml 02/02/25 00:00 02/02/25 09:01 0.9 % Sodium Chloride Flush 3 Ml Syringe IVFLUSH Not Given QSHIFT SUSAN Discontinued Medications Generic Name Dose Route Start Last Admin Trade Name Freq PRN Reason Stop Dose Admin Bisacodyl 10 mg 02/01/25 21:23 02/01/25 22:48 Bisacodyl 10 Mg Supp.Rect NH 02/01/25 21:24 10 mg ONCE ONE Administration Diatrizoate Meglum/Diatrizoate Sod 30 ml 02/01/25 18:07 02/01/25 18:07 Diatrizoate Meglumine, Sodium 30 Ml Solution PO 02/01/25 18:08 30 ml ONCE ONE Administration Fentanyl 50 mcg 02/01/25 18:06 02/01/25 20:37 Fentanyl Citrate/Pf 100 Mcg/2 Ml Vial IVPUSH 02/01/25 18:07 Not Given ONCE ONE Protocol Lactated Ringer's 1,000 mls @ 999 mls/hr 02/01/25 18:00 02/02/25 09:59 Lr IVCONT 02/01/25 19:00 Infused .Q1H1M SUSAN Infusion Ceftriaxone Sodium 2 gm/ 100 mls @ 200 mls/hr 02/01/25 17:55 02/01/25 19:00 Sodium Chloride IV 02/01/25 18:24 Infused ONCE ONE Infusion Acetaminophen 1,000 mg in 100 mls @ 400 mls/hr 02/01/25 18:03 02/01/25 18:55 Ofirmev IV 02/01/25 18:17 Infused ONCE ONE Infusion Metronidazole 500 mg in 100 mls @ 100 mls/hr 02/01/25 18:06 02/01/25 20:00 Flagyl IV 02/01/25 19:05 Infused ONCE ONE Infusion Iohexol 100 ml 02/01/25 19:50 02/01/25 19:50 Iohexol 350 Mg/Ml 100 Ml Infus..Btl IV 02/01/25 19:51 85 ml ONCE ONE Administration Critical Care Time Critical Care Time Critical Care Time: Yes Total Critical Care Time: 35 Attestation: ED Critical Care: Authorized and Performed by: Aric Hicks MD Total critical care time: Approximately 35 min Due to a high probability of clinically significant, life threatening deterioration, the patient required my highest level of preparedness to intervene emergently and I personally spent this critical care time directly and personally managing the patient. This critical care time included obtaining a history; examining the patient; pulse oximetry; ordering and review of studies; arranging urgent treatment with development of a management plan; evaluation of patient's response to treatment; frequent reassessment; and, discussions with other providers. This critical care time was performed to assess and manage the high probability of imminent, life-threatening deterioration that could result in multi-organ failure. It was exclusive of separately billable procedures and treating other patients and teaching time. Discharge Plan Discharge Clinical Impression: UTI (urinary tract infection) Patient Disposition: Admitted As Inpatient Interventions: Admission Worksheet (ED) Last Done: 02/02/25 08:20 Discharge Date/Time: 02/02/25 09:11
[2025-02-01 17:49] VITALS: BP 98/56; PULSE 122; RESP 20; TEMP 38.1; O2SAT 94; BMI 19.2
[2025-02-01] MEDS: Lactated Ringers 1,000 ML 999 ML IVCONT (18:06)
[2025-02-01 18:15] LABS: MANUAL DIFF FLAG NO
[2025-02-01 18:19] LABS: Appearance Urine Turbid; UMIC TRIGGER UACC YES
[2025-02-01 18:21] LABS: Hematocrit 36.6 % (37.0-47.0); Hemoglobin 12.3 g/dl (12.0-16.0); Imm Gran Abs Auto 0.03 X10*3/uL (0.00-0.03); Imm Gran Pct Auto 0.3 % (0.0-0.4); Lymphocytes Absolute Auto 3.3 X10*3/uL (1.2-4.9); Mean Corpuscular HGB Conc 33.6 g/dl (31.0-35.0); Mean Corpuscular Hemoglobin 31.3 pg (27.0-33.0); Mean Corpuscular Volume 93.1 fL (80.0-98.0); NRBC Abs Auto 0.000 X10*3/uL (0.0-0.012); NRBC Pct Auto 0.0 /100WBC (0.0-0.2); Platelet Count 194 X10*3/uL (160-400); Red Blood Count 3.93 X10*6/uL (4.20-5.50); White Blood Count 10.1 X10*3/uL (4.8-10.8)
[2025-02-01 18:31] LABS: Glucose Urine UA 100 mg/dL (Negative); PH 8.5 (5.0-9.0); Specific Gravity - Urine 1.010 (1.005-1.025)
[2025-02-01 18:32] LABS: Anion Gap 15 (12-20); Blood Urea Nitrogen 18 mg/dL (9-16); Calcium 9.2 mg/dL (8.4-10.2); Carbon Dioxide 25 mmol/L (22-29); Chloride 105 mmol/L (96-108); Creatinine Clr Calc Pharmacy 111.5; Estimated Glomerular Filt Rate > 60; Potassium 4.7 mmol/L (3.3-5.1); Sodium 140 mmol/L (135-145)
[2025-02-01 18:33] LABS: Other Crystals Urine Present
[2025-02-01] MEDS: metroNIDAZOLE/NS 500 MG/100 ML PIGGYBACK 100 MG IV (18:45)
[2025-02-01 18:47] VITALS: BP 107/61; PULSE 96; RESP 17; O2SAT 96
--- OUTSIDE RECORDS SUMMARY | 2025-02-01 18:53 | XMS_ITS | Encounter Summary ---
Author Organization [facility] Address [address] [place] [address] Care Team Providers Care Regional Hr Manager Name Role Phone Feliciano Sales MD Primary Care Provider [phone] Encounter Details Date Type Department Care Team (Late st Contact Info) Description 12/11/2024 Lab Requisition [facility] - Main Lab [address] [facility] [place] [address] Feliciano Sales MD [address] [place] [address] Dr [address] [place], [place] Abnormal weight loss; Altered mental status, [...] Red tube (12/11/2024 7:26 AM EDT) Pathologist [facility] Extra Tube Hold for add-ons. 12/11/2024 10:01 AM EDT [facility] Comment:Auto resulted. Blood Venous blood specimen / Unknown 12/11/2024 7:26 AM EDT 12/11/2024 8:08 AM EDT us Feliciano Sales MD LAB BLOOD ORDERABLES Final Resul t [facility] [address] [place] [address], [place] [phone] * (ABNORMAL) CBC auto differential (12/11/2024 7:26 AM EDT) WBC 5.2 4.8 - 10.8 K/[facility] LAB HEMETOLOGY METHOD 12/11/2024 8:31 AM EDT [facility] RBC 3.90 3.80 - 4.80 M/[facility] LAB HEMETOLOGY METHOD 12/11/2024 8:31 AM [facility] Hemoglobin 11.9 11.5 - 16.0 g/dL LAB HEMETOLOGY METHOD 12/11/2024 8:31 AM [facility] Hematocrit 37.1 35.0 - [...] LAB HEMETOLOGY METHOD 12/11/2024 8:31 AM EDT [facility] Eosinophils Relative 0.6 % LAB HEMETOLOGY METHOD 12/11/2024 8:31 AM EDT [facility] Basophils Relative 0.4 % LAB HEMETOLOGY METHOD 12/11/2024 8:31 AM EDT [facility] Immature Granulocytes Relative 0.4 % LAB HEMETOLOGY METHOD 12/11/2024 8:31 AM EDT [facility] Neutrophils Absolute 2.76 1.50 - 7.00 K/mcL LAB HEMETOLOGY METHOD 12/11/2024 8:31 AM EDT [facility] Lymphocytes Absolute 1.88 1.00 - 5.00 K/mcL LAB HEMETOLOGY METHOD 12/11/2024 8:31 AM EDT [facility] Monocytes Absolute 0.48 0.20 - 1.00 K/mcL LAB HEMETOLOGY METHOD 12/11/2024 8:31 AM EDT [facility] Eosinophils Absolute 0.03 0.00 - 0.50 K/mcL LAB HEMETOLOGY METHOD 12/11/2024 8:31 AM EDT [facility] Basophils Absolute 0.02 0.00 - 0.20 K/mcL LAB HEMETOLOGY METHOD 12/11/2024 8:31 AM EDT [facility] Immature Granulocytes Absolute 0.02 0.00 - 0.03 K/mcL LAB HEMETOLOGY METHOD 12/11/2024 8:31 AM EDT [facility] Blood Venous blood specimen / Unknown 12/11/2024 7:26 AM EDT 12/11/2024 8:08 AM EDT us Feliciano Sales MD LAB BLOOD ORDERABLES Final Resul t [facility] [address] [place] [address], [place] [phone] * Thyroid stimulating hormone (12/11/2024 7:26 AM EDT) TSH 1.75 0.40 - 4.00 mcIU/mL LAB CHEMISTRY METHOD 12/11/2024 9:29 AM EDT [facility] Blood Venous blood specimen / Unknown 12/11/2024 7:26 AM EDT 12/11/2024 8:08 AM EDT us Feliciano Sales MD LAB BLOOD ORDERABLES Final Resul t [facility] [address] [place] [address], [place] [phone] * Thyroxine free (12/11/2024 7:26 AM EDT) Free T4 1.37 0.70 - 1.80 ng/dL LAB CHEMISTRY METHOD 12/11/2024 9:29 AM EDT [facility] Blood Venous blood specimen / Unknown 12/11/2024 7:26 AM EDT 12/11/2024 8:08 AM EDT us Feliciano Sales MD LAB BLOOD ORDERABLES Final Resul t [facility] [address] [place] [address], [place] [phone] * Valproic acid level, total (12/11/2024 7:26 AM EDT) Valproic Acid, Total 57 50 - 100 mcg/mL LAB CHEMISTRY METHOD 12/11/2024 8:41 AM EDT [facility] Blood Venous blood specimen / Unknown 12/11/2024 7:26 AM EDT 12/11/2024 8:08 AM EDT us Feliciano Sales MD LAB BLOOD ORDERABLES Final Resul t Performing Organization Address [facility] de Phone Number [facility] [address] [place] [address], [place] [phone] * Prealbumin (12/11/2024 7:26 AM EDT) Prealbumin 24 18 - 45 mg/dL LAB CHEMISTRY METHOD 12/11/2024 8:42 AM EDT [facility] Blood Venous blood specimen / Unknown 12/11/2024 7:26 AM EDT 12/11/2024 8:08 AM EDT us Feliciano Sales MD LAB BLOOD ORDERABLES Final Resul t Performing Organization Address [facility] de Phone Number [facility] [address] [place] [address], [place] [phone] * Ammonia (12/11/2024 7:26 AM EDT) Ammonia 18 11 - 35 mcmol/L LAB CHEMISTRY METHOD 12/11/2024 8:34 AM EDT [facility] Blood Venous blood specimen / Unknown 12/11/2024 7:26 AM EDT 12/11/2024 8:08 AM EDT us Feliciano Sales MD LAB BLOOD ORDERABLES Final Resul t Performing Organization Address [facility] de Phone Number [facility] [address] [place] [address], [place] [phone] * Comprehensive metabolic panel (12/11/2024 7:26 AM EDT) Sodium 137 133 - 145 mmol/L LAB CHEMISTRY METHOD 12/11/2024 8:41 AM EDT [facility] Potassium 4.3 3.5 [...] 12/11/2024 8:41 AM [facility] Alkaline Phosphatase 97 42 - 121 unit/L LAB CHEMISTRY METHOD 12/11/2024 8:41 AM [facility] Total Protein 6.5 6.0 - 8.0 g/dL LAB CHEMISTRY METHOD 12/11/2024 8:41 AM [facility] Albumin 3.5 3.2 - 5.0 g/dL LAB CHEMISTRY METHOD 12/11/2024 8:41 AM EDT [facility] Total Bilirubin 0.3 0.0 - 1.4 mg/dL LAB CHEMISTRY METHOD 12/11/2024 8:41 AM EDT [facility] Blood Venous blood specimen / Unknown 12/11/2024 7:26 AM EDT 12/11/2024 8:08 AM EDT us Feliciano Sales MD LAB BLOOD ORDERABLES Final Resul t [facility] [address] [place] [address], documented in this encounter Visit Diagnoses Diagnosis Abnormal weight loss Loss of weight Altered mental status, unspecified documented in this encounter Care Teams Regional Hr Manager Relationship Specialty Start Date End Date Feliciano Sales MD [address] [place] [address] PCP - General Internal Medicine 06/15/24 documented as of this encounter
--- OUTSIDE RECORDS SUMMARY | 2025-02-01 18:53 | XMS_ITS | Encounter Summary ---
Author Organization [facility] Address [address] [place] [address] Care Team Providers Care Occupational Health Manager Name Role Phone Feliciano Sales MD Primary Care Provider [phone] Encounter Details Date Type Department Care Team (Late st Contact Info) Description 04/11/[address] [facility] - Main Lab [address] [facility] [place] [address] Feliciano Sales MD [address] [place] [address] Dr [address] [place], [place] Anoxic brain damage, not elsewhere classified [...] Tube Hold for add-ons. 04/11/2024 9:02 AM [facility] Comment:Auto resulted. Blood Venous blood specimen / Unknown 04/11/2024 6:52 AM EST 04/11/2024 7:31 AM EST us Feliciano Sales MD LAB BLOOD ORDERABLES Final Resul t [facility] [address] [place] [address], [place] [phone] * (ABNORMAL) CBC auto differential (04/11/2024 6:52 AM EST) WBC 5.2 4.8 - 10.8 K/mcL LAB HEMETOLOGY METHOD 04/11/2024 7:52 AM [facility] RBC 3.80 3.80 - 4.80 M/mcL LAB HEMETOLOGY METHOD 04/11/2024 7:52 AM [facility] Hemoglobin 12.1 11.5 - 16.0 g/dL LAB HEMETOLOGY METHOD 04/11/2024 7:52 AM [facility] Hematocrit 36.4 35.0 - 47.0 % LAB HEMETOLOGY METHOD 04/11/2024 7:52 AM [facility] MCV 95.8 79.0 - 98.0 FL LAB HEMETOLOGY METHOD 04/11/2024 7:52 AM [facility] MCH 31.8 27.0 - 32.0 pcg LAB HEMETOLOGY METHOD 04/11/2024 7:52 AM [facility] MCHC 33.2 32.0 - 37.0 g/dL LAB HEMETOLOGY METHOD 04/11/2024 7:52 AM [facility] RDW 12.1 11.0 - 15.0 % LAB HEMETOLOGY METHOD 04/11/2024 7:52 AM [facility] Platelets 149 130 - 400 K/mcL LAB HEMETOLOGY METHOD 04/11/2024 7:52 AM [facility] MPV 12.7(H) 7.0 - 11.0 FL LAB HEMETOLOGY METHOD 04/11/2024 7:52 AM [facility] NRBC 0.0 <1.0 % LAB HEMETOLOGY METHOD 04/11/2024 7:52 AM [facility] NRBC Absolute 0.00 <0.10 K/mcL LAB HEMETOLOGY METHOD 04/11/2024 7:52 AM [facility] Neutrophils Relative 44.3 % LAB HEMETOLOGY METHOD 04/11/2024 7:52 AM [facility] Lymphocytes Relative 43.6 % LAB HEMETOLOGY METHOD 04/11/2024 7:52 AM [facility] Monocytes Relative 10.1 % LAB HEMETOLOGY METHOD 04/11/2024 7:52 AM [facility] Eosinophils Relative 1.2 % LAB HEMETOLOGY METHOD 04/11/2024 7:52 AM [facility] Basophils Relative 0.6 % LAB HEMETOLOGY METHOD 04/11/2024 7:52 AM [facility] Immature Granulocytes Relative 0.2 % LAB HEMETOLOGY METHOD 04/11/2024 7:52 AM [facility] Neutrophils Absolute 2.29 1.50 - 7.00 K/mcL LAB HEMETOLOGY METHOD 04/11/2024 7:52 AM [facility] Lymphocytes Absolute 2.25 1.00 - 5.00 K/mcL LAB HEMETOLOGY METHOD 04/11/2024 7:52 AM EST [facility] Monocytes Absolute 0.52 0.20 - 1.00 K/mcL LAB HEMETOLOGY METHOD 04/11/2024 7:52 AM EST [facility] Eosinophils Absolute 0.06 0.00 - 0.50 K/[facility] LAB HEMETOLOGY METHOD 04/11/2024 7:52 AM EST [facility] Basophils Absolute 0.03 0.00 - 0.20 K/[facility] LAB HEMETOLOGY METHOD 04/11/2024 7:52 AM EST [facility] Immature Granulocytes Absolute 0.01 0.00 - 0.03 K/[facility] LAB HEMETOLOGY METHOD 04/11/2024 7:52 AM EST [facility] Blood Venous blood specimen / Unknown 04/11/2024 6:52 AM EST 04/11/2024 7:30 AM EST us Feliciano Sales MD LAB BLOOD ORDERABLES Final Resul t Performing Organization Address City/[facility]/ZIP Co de Phone Number [facility] [address] [place] [address], [place] [phone] * Thyroxine free (04/11/2024 6:52 AM EST) Free T4 1.34 0.70 - 1.80 ng/dL LAB CHEMISTRY METHOD 04/11/2024 8:32 AM EST [facility] Blood Venous blood specimen / Unknown 04/11/2024 6:52 AM EST 04/11/2024 7:30 AM EST us Feliciano Sales MD LAB BLOOD ORDERABLES Final Resul t [facility] [address] [place] [address], [place] [phone] * Thyroid stimulating hormone (04/11/2024 6:52 AM EST) TSH 2.53 0.40 - 4.00 mcIU/mL LAB CHEMISTRY METHOD 04/11/2024 8:32 AM EST [facility] Blood Venous blood specimen / Unknown 04/11/2024 6:52 AM EST 04/11/2024 7:30 AM EST us Feliciano Sales MD LAB BLOOD ORDERABLES Final Resul t Performing Organization Address City/[facility]/ZIP Co de Phone Number [facility] [address] [place] [address], [place] [phone] * Valproic acid level, total (04/11/2024 6:52 AM EST) Valproic Acid, Total 76 50 - 100 mcg/mL LAB CHEMISTRY METHOD 04/11/2024 8:04 AM EST [facility] Blood Venous blood specimen / Unknown 04/11/2024 6:52 AM EST 04/11/2024 7:30 AM EST us Feliciano Sales MD LAB BLOOD ORDERABLES Final Resul t Performing Organization Address [facility] Co de Phone Number [facility] [address] [place] [address], [place] [phone] * (ABNORMAL) Ammonia (04/11/2024 6:52 AM EST) Ammonia 40(H) 11 - 35 mcmol/L LAB CHEMISTRY METHOD 04/11/2024 7:58 AM EST [facility] Blood Venous blood specimen / Unknown 04/11/2024 6:52 AM EST 04/11/2024 7:30 AM EST us Feliciano Sales MD LAB BLOOD ORDERABLES Final Resul t Performing Organization Address City/[facility]/ZIP Co de Phone Number [facility] [address] [place] [address], [place] [phone] * Vitamin D 25 hydroxy (04/11/2024 6:52 AM EST) Vit D, 25-Hydroxy 34.1 30.0 - 80.0 ng/mL LAB CHEMISTRY METHOD 04/11/2024 8:32 AM [facility] Blood Venous blood specimen / Unknown 04/11/2024 6:52 AM EST 04/11/2024 7:30 AM EST Feliciano Sales MD LAB BLOOD ORDERABLES Final Resul t [facility] [address] [place] [address], [place] [phone] * Lipid panel with reflex to direct LDL (04/11/2024 6:52 AM EST) Pathologist [facility] Cholesterol 156 0 - 200 mg/dL LAB CHEMISTRY METHOD 04/11/2024 8:04 AM [facility] Triglycerides 75 0 - 150 mg/dL LAB CHEMISTRY METHOD 04/11/2024 8:04 AM [facility] HDL 75 >=40 mg/dL LAB CHEMISTRY METHOD 04/11/2024 8:04 AM [facility] LDL Calculated 66 0 - 100 mg/dL LAB CHEMISTRY METHOD 04/11/2024 8:04 AM [facility] VLDL Cholesterol Placido 15 mg/dL LAB CHEMISTRY METHOD 04/11/2024 8:04 AM [facility] Non HDL Chol. (LDL+VLDL) 81 <145 mg/dL LAB CHEMISTRY METHOD 04/11/2024 8:04 AM [facility] Chol/HDL Ratio 2.1 0.0 - 4.4 LAB CHEMISTRY METHOD 04/11/2024 8:04 AM [facility] Blood Venous blood specimen / Unknown 04/11/2024 6:52 AM EST 04/11/2024 7:30 AM EST Feliciano Sales MD LAB BLOOD ORDERABLES Final Resul t [facility] [address] [place] [address], * Comprehensive metabolic panel (04/11/2024 6:52 AM EST) Sodium 138 133 - 145 mmol/L LAB CHEMISTRY METHOD 04/11/2024 8:04 AM [facility] Potassium 4.3 3.5 - 5.5 mmol/L LAB CHEMISTRY METHOD 04/11/2024 8:04 AM [facility] Chloride 102 96 - 110 mmol/L LAB CHEMISTRY METHOD 04/11/2024 8:04 AM [facility] CO2 29 21 - 32 mmol/L LAB CHEMISTRY METHOD 04/11/2024 8:04 AM [facility] Anion Gap 7 3 - 11 LAB CHEMISTRY METHOD 04/11/2024 8:04 AM [facility] Glucose 97 70 - 100 mg/dL LAB CHEMISTRY METHOD 04/11/2024 8:04 AM [facility] BUN 19 5 - 25 mg/dL LAB CHEMISTRY METHOD 04/11/2024 8:04 AM [facility] Creatinine 0.56 0.50 - 1.10 mg/dL LAB CHEMISTRY METHOD 04/11/2024 8:04 AM [facility] eGFR 118 >=60 mL/min/1. 73m2 LAB CHEMISTRY METHOD 04/11/2024 8:04 AM [facility] Comment:Calculation based on the Chronic Kidney Disease Epidemiology Collaboration (CKD-EPI) equation refit without adjustment for race. BUN/Creatinine Ratio 33.9 LAB CHEMISTRY METHOD 04/11/2024 8:04 AM [facility] Calcium 8.6 8.5 - 10.5 mg/dL LAB CHEMISTRY METHOD 04/11/2024 8:04 AM [facility] AST (SGOT) 10 10 - 42 unit/L LAB CHEMISTRY METHOD 04/11/2024 8:04 AM [facility] ALT (SGPT) 16 10 - 60 unit/L LAB CHEMISTRY METHOD 04/11/2024 8:04 AM [facility] Alkaline Phosphatase 100 42 - 121 unit/L LAB CHEMISTRY METHOD 04/11/2024 8:04 AM [facility] Total Protein 6.4 6.0 - 8.0 g/dL LAB CHEMISTRY METHOD 04/11/2024 8:04 AM [facility] Albumin 3.4 3.2 - 5.0 g/dL LAB CHEMISTRY METHOD 04/11/2024 8:04 AM [facility] Total Bilirubin 0.2 0.0 - 1.4 mg/dL LAB CHEMISTRY METHOD 04/11/2024 8:04 AM [facility] Blood Venous blood specimen / Unknown 04/11/2024 6:52 AM EST 04/11/2024 7:30 AM EST us Feliciano Sales MD LAB BLOOD ORDERABLES Final Resul t [facility] [address] [place] [address], documented in this encounter Visit Diagnoses Diagnosis Anoxic brain damage, not elsewhere classified (CMS/HCC V24, CMS/HCC V28) Hypothyroidism, unspecified Unspecified protein-calorie malnutrition (CMS/HCC V24) Unspecified protein-calorie malnutrition Other intestinal malabsorption documented in this encounter Care Teams Occupational Health Manager Relationship Specialty Start Date End Date Feliciano Sales MD [address] [place] [address] PCP - General Internal Medicine 06/15/24 documented as of this encounter
--- OUTSIDE RECORDS SUMMARY | 2025-02-01 18:53 | XMS_ITS | Encounter Summary ---
Author Organization [facility] Address [address] [place] [address] Care Team Providers Care Customer Retention Specialist Name Role Phone Feliciano Sales MD Primary Care Provider [phone] Encounter Details Date Type Department Care Team (Late st Contact Info) Description 10/09/[address] [facility] - Main Lab [address] [facility] [place] [address] Feliciano Sales MD [address] [place] [address] Dr [address] [place], [place] Anoxic brain damage, not elsewhere classified (CMS/HCC V24, [facility] V28) Social History Tobacco Use Types Packs/Day [...] brain damage, not elsewhere classified (CMS/HCC V24, [facility] V28) CBC AND DIFFERENTIAL Routine 10/09/2024 6:42 AM EDT Anoxic brain damage, not elsewhere classified (CMS/HCC V24, CMS/HCC V28) THYROID STIMULATING HORMONE Routine 10/09/2024 6:42 AM EDT Anoxic brain damage, not elsewhere classified ([facility] V24, [facility] V28) THYROXINE FREE Routine 10/09/2024 6:42 AM EDT Anoxic brain damage, not elsewhere classified ([facility] V24, [facility] V28) VALPROIC ACID LEVEL, TOTAL Routine 10/09/2024 6:42 AM EDT Anoxic brain damage, not elsewhere classified ([facility] V24, [facility] V28) COMPREHENSIVE METABOLIC PANEL Routine 10/09/2024 6:42 AM EDT Anoxic brain damage, not elsewhere classified ([facility] V24, [facility] V28) documented in this encounter Results * (ABNORMAL) CBC auto differential (10/09/2024 6:42 AM EDT) [facility] WBC 6.3 4.8 - 10.8 K/mcL LAB HEMETOLOGY METHOD 10/09/2024 8:00 AM [facility] RBC 3.80 3.80 - 4.80 M/mcL LAB HEMETOLOGY METHOD 10/09/2024 8:00 AM [facility] Hemoglobin 11.7 11.5 - 16.0 g/dL LAB HEMETOLOGY METHOD 10/09/2024 8:00 AM [facility] Hematocrit 36.3 35.0 - 47.0 % LAB HEMETOLOGY METHOD 10/09/2024 8:00 AM [facility] MCV 96.0 79.0 - 98.0 FL LAB HEMETOLOGY METHOD 10/09/2024 8:00 AM [facility] MCH 31.0 27.0 - 32.0 pcg LAB HEMETOLOGY METHOD 10/09/2024 8:00 AM [facility] MCHC 32.2 32.0 - 37.0 g/dL LAB HEMETOLOGY METHOD 10/09/2024 8:00 AM [facility] RDW 12.6 11.0 - 15.0 % LAB HEMETOLOGY METHOD 10/09/2024 8:00 AM [facility] Platelets 207 130 - 400 K/mcL LAB HEMETOLOGY METHOD 10/09/2024 8:00 AM [facility] MPV 12.2(H) 7.0 - 11.0 FL LAB HEMETOLOGY METHOD 10/09/2024 8:00 AM [facility] NRBC 0.0 <1.0 % LAB HEMETOLOGY METHOD 10/09/2024 8:00 AM [facility] NRBC Absolute 0.00 <0.10 K/mcL LAB HEMETOLOGY METHOD 10/09/2024 8:00 AM [facility] Neutrophils Relative 43.5 % LAB HEMETOLOGY METHOD 10/09/2024 8:00 AM [facility] Lymphocytes Relative 40.9 % LAB HEMETOLOGY METHOD 10/09/2024 8:00 AM [facility] Monocytes Relative 14.1 % LAB HEMETOLOGY METHOD 10/09/2024 8:00 AM [facility] Eosinophils Relative 0.8 % LAB HEMETOLOGY METHOD 10/09/2024 8:00 AM [facility] Basophils Relative 0.5 % LAB HEMETOLOGY METHOD 10/09/2024 8:00 AM [facility] Immature Granulocytes Relative 0.2 % LAB HEMETOLOGY METHOD 10/09/2024 8:00 AM [facility] Neutrophils Absolute 2.75 1.50 - 7.00 K/mcL LAB HEMETOLOGY METHOD 10/09/2024 8:00 AM [facility] Lymphocytes Absolute 2.58 1.00 - 5.00 K/mcL LAB HEMETOLOGY METHOD 10/09/2024 8:00 AM EDT [facility] Monocytes Absolute 0.89 0.20 - 1.00 K/[facility] LAB HEMETOLOGY METHOD 10/09/2024 8:00 AM EDT [facility] Eosinophils Absolute 0.05 0.00 - 0.50 K/[facility] LAB HEMETOLOGY METHOD 10/09/2024 8:00 AM EDT [facility] Basophils Absolute 0.03 0.00 - 0.20 K/[facility] LAB HEMETOLOGY METHOD 10/09/2024 8:00 AM EDT [facility] Immature Granulocytes Absolute 0.01 0.00 - 0.03 K/[facility] LAB HEMETOLOGY METHOD 10/09/2024 8:00 AM EDT [facility] Blood Venous blood specimen / Unknown 10/09/2024 6:42 AM EDT 10/09/2024 7:45 AM EDT us Feliciano Sales MD LAB BLOOD ORDERABLES Final Resul t Performing Organization Address City/[facility]/ZIP Co de Phone Number [facility] [address] [place] [address], [place] [phone] * Thyroid stimulating hormone (10/09/2024 6:42 AM EDT) TSH 1.57 0.40 - 4.00 mcIU/mL LAB CHEMISTRY METHOD 10/09/2024 12:32 PM EDT [facility] Blood Venous blood specimen / Unknown 10/09/2024 6:42 AM EDT 10/09/2024 7:45 AM EDT us Feliciano Sales MD LAB BLOOD ORDERABLES Final Resul t Performing Organization Address City/[facility]/ZIP Co de Phone Number [facility] [address] [place] [address], [place] [phone] * Thyroxine free (10/09/2024 6:42 AM EDT) [facility] Free T4 1.65 0.70 - 1.80 ng/dL LAB CHEMISTRY METHOD 10/09/2024 11:35 AM EDT [facility] Blood Venous blood specimen / Unknown 10/09/2024 6:42 AM EDT 10/09/2024 7:45 AM EDT us Feliciano Sales MD LAB BLOOD ORDERABLES Final Resul t Performing Organization Address [facility] de Phone Number [facility] [address] [place] [address], [place] [phone] * Valproic acid level, total (10/09/2024 6:42 AM EDT) [facility] Valproic Acid, Total 68 50 - 100 mcg/mL LAB CHEMISTRY METHOD 10/09/2024 8:36 AM EDT [facility] Blood Venous blood specimen / Unknown 10/09/2024 6:42 AM EDT 10/09/2024 7:45 AM EDT us Feliciano Sales MD LAB BLOOD ORDERABLES Final Resul t Performing Organization Address [facility] de Phone Number [facility] [address] [place] [address], [place] [phone] * (ABNORMAL) Comprehensive metabolic panel (10/09/2024 6:42 AM EDT) [facility] Sodium 139 133 - 145 mmol/L LAB CHEMISTRY METHOD 10/09/2024 8:36 AM EDT [facility] Potassium 4.6 3.5 - 5.5 mmol/L LAB CHEMISTRY METHOD 10/09/2024 8:36 AM EDT [facility] Chloride 107 96 - 110 mmol/L LAB CHEMISTRY METHOD 10/09/2024 8:36 AM EDT [facility] CO2 29 21 - 32 mmol/L LAB CHEMISTRY METHOD 10/09/2024 8:36 AM [facility] Anion Gap 3 3 - 11 LAB CHEMISTRY METHOD 10/09/2024 8:36 AM [facility] Glucose 81 70 - 100 mg/dL LAB CHEMISTRY METHOD 10/09/2024 8:36 AM [facility] BUN 18 5 - 25 mg/dL LAB CHEMISTRY METHOD 10/09/2024 8:36 AM [facility] Creatinine 0.47(L) 0.50 - 1.10 mg/dL LAB CHEMISTRY METHOD 10/09/2024 8:36 AM [facility] eGFR 122 >=60 mL/min/1. 73m2 LAB CHEMISTRY METHOD 10/09/2024 8:36 AM [facility] Comment:Calculation based on the Chronic Kidney Disease Epidemiology Collaboration (CKD-EPI) equation refit without adjustment for race. BUN/Creatinine Ratio 38.3 LAB CHEMISTRY METHOD 10/09/2024 8:36 AM [facility] Calcium 8.7 8.5 - 10.5 mg/dL LAB CHEMISTRY METHOD 10/09/2024 8:36 AM [facility] AST (SGOT) 14 10 - 42 unit/L LAB CHEMISTRY METHOD 10/09/2024 8:36 AM [facility] ALT (SGPT) 14 10 - 60 unit/L LAB CHEMISTRY METHOD 10/09/2024 8:36 AM [facility] Alkaline Phosphatase 99 42 - 121 unit/L LAB CHEMISTRY METHOD 10/09/2024 8:36 AM [facility] Total Protein 6.1 6.0 - 8.0 g/dL LAB CHEMISTRY METHOD 10/09/2024 8:36 AM [facility] Albumin 3.2 3.2 - 5.0 g/dL LAB CHEMISTRY METHOD 10/09/2024 8:36 AM [facility] Total Bilirubin 0.2 0.0 - 1.4 mg/dL LAB CHEMISTRY METHOD 10/09/2024 8:36 AM EDT [facility] Blood Venous blood specimen / Unknown 10/09/2024 6:42 AM EDT 10/09/2024 7:45 AM EDT us Feliciano Sales MD LAB BLOOD ORDERABLES Final Resul t [facility] [address] [place] [address], documented in this encounter Visit Diagnoses Diagnosis Anoxic brain damage, not elsewhere classified (CMS/HCC V24, CMS/HCC V28) documented in this encounter Care Teams Customer Retention Specialist Relationship Specialty Start Date End Date Feliciano Sales MD [address] [place] [phone] PCP - General Internal Medicine 06/15/24 documented as of this encounter
--- OUTSIDE RECORDS SUMMARY | 2025-02-01 18:53 | XMS_ITS | Encounter Summary ---
Author Organization [facility] Address [address] [place] [address] Care Team Providers Care Customer Solutions Coordinator Name Role Phone Feliciano Sales MD Primary Care Provider [phone] Encounter Details Date Type Department Care Team (Late st Contact Info) Description 09/15/[address] [facility] - Main Lab [address] [place] [address] Feliciano Sales MD [address] [place] [address] Dr [address] [place], [place] Disorder of urea cycle metabolism, unspecified [...] CHEMISTRY METHOD 09/15/2024 8:17 AM EDT [facility] Blood Venous blood specimen / Unknown 09/15/2024 6:58 AM EDT 09/15/2024 7:40 AM EDT Feliciano Sales MD LAB BLOOD ORDERABLES Final Resul t [facility] [address] [place] [address], documented in this encounter Visit Diagnoses Diagnosis Disorder of urea cycle metabolism, unspecified (CMS/HCC V24) documented in this encounter Care Teams Customer Solutions Coordinator Relationship Specialty Start Date End Date Feliciano Sales MD [address] [place] [phone] PCP - General Internal Medicine 06/15/24 documented as of this encounter
--- OUTSIDE RECORDS SUMMARY | 2025-02-01 18:53 | XMS_ITS | Clinical Summary ---
Author Organization [address] Address [address] [place] [address] Phone Care Team Providers Care Drilling Inspector Name Role Phone Feliciano Sales MD Primary Care Provider [phone] Encounters Date Type Department Care Team Description 12/11/2024 Lab Requisition [facility] - Main Lab 299 [facility] [place] [address] Feliciano Sales MD Abnormal weight [...] LAB HEMETOLOGY METHOD 12/11/2024 8:31 AM EDT [facility] RBC 3.90 3.80 - 4.80 M/mcL LAB HEMETOLOGY METHOD 12/11/2024 8:31 AM EDT [facility] Hemoglobin 11.9 11.5 - 16.0 g/dL LAB HEMETOLOGY METHOD 12/11/2024 8:31 AM EDT [facility] Hematocrit 37.1 35.0 - 47.0 % LAB HEMETOLOGY METHOD 12/11/2024 8:[address] [facility] MCV 94.4 79.0 - 98.0 FL LAB HEMETOLOGY METHOD 12/11/2024 8:[address] [facility] MCH 30.3 27.0 - 32.0 pcg LAB HEMETOLOGY METHOD 12/11/2024 8:[address] [facility] MCHC 32.1 32.0 - 37.0 g/dL LAB HEMETOLOGY METHOD 12/11/2024 8:[address] [facility] RDW 12.7 11.0 - 15.0 % LAB HEMETOLOGY METHOD 12/11/2024 8:[address] [facility] Platelets 169 130 - 400 K/mcL LAB HEMETOLOGY METHOD 12/11/2024 8:[address] [facility] MPV 12.4(H) 7.0 - 11.0 FL LAB HEMETOLOGY METHOD 12/11/2024 8:[address] [facility] NRBC 0.0 <1.0 % LAB HEMETOLOGY METHOD 12/11/2024 8:[address] [facility] NRBC Absolute 0.00 <0.10 K/mcL LAB HEMETOLOGY METHOD 12/11/2024 8:[address] [facility] Neutrophils Relative 53.2 % LAB HEMETOLOGY METHOD 12/11/2024 8:[address] [facility] Lymphocytes Relative 36.2 % LAB HEMETOLOGY METHOD 12/11/2024 8:[address] [facility] Monocytes Relative 9.2 % LAB HEMETOLOGY METHOD 12/11/2024 8:[address] [facility] Eosinophils Relative 0.6 % LAB HEMETOLOGY METHOD 12/11/2024 8:[address] [facility] Basophils Relative 0.4 % LAB HEMETOLOGY METHOD 12/11/2024 8:31 AM EDT [facility] Immature Granulocytes Relative 0.4 % LAB HEMETOLOGY METHOD 12/11/2024 8:31 AM EDT [facility] Neutrophils Absolute 2.76 1.50 - 7.00 K/mcL LAB HEMETOLOGY METHOD 12/11/2024 8:31 AM EDT [facility] Lymphocytes Absolute 1.88 1.00 - 5.00 K/mcL LAB HEMETOLOGY METHOD 12/11/2024 8:31 AM EDT [facility] Monocytes Absolute 0.48 0.20 - 1.00 K/mcL LAB HEMETOLOGY METHOD 12/11/2024 8:31 AM EDT [facility] Eosinophils Absolute 0.03 0.00 - 0.50 K/mcL LAB HEMETOLOGY METHOD 12/11/2024 8:31 AM EDT [facility] Basophils Absolute 0.02 0.00 - 0.20 K/mcL LAB HEMETOLOGY METHOD 12/11/2024 8:31 AM EDT [facility] Immature Granulocytes Absolute 0.02 0.00 - 0.03 K/mcL LAB HEMETOLOGY METHOD 12/11/2024 8:31 AM T [facility] Blood Venous blood specimen / Unknown 12/11/2024 7:26 AM EDT 12/11/2024 8:08 AM EDT us Feliciano Sales MD LAB BLOOD ORDERABLES Final Resul t [facility] [address] [place] [address], * Red tube (12/11/2024 7:26 AM EDT) Extra Tube Hold for add-ons. 12/11/2024 10:01 AM EDT [facility] Comment:Auto resulted. Blood Venous blood specimen / Unknown 12/11/2024 7:26 AM EDT 12/11/2024 8:08 AM EDT us Feliciano Sales MD LAB BLOOD ORDERABLES Final Resul t Performing Organization Address [facility]/ZIP Co de Phone Number [facility] [address] [place] [address], [place] [phone] * Thyroid stimulating hormone (12/11/2024 7:26 AM EDT) TSH 1.75 0.40 - 4.00 mcIU/mL LAB CHEMISTRY METHOD 12/11/2024 9:29 AM EDT [facility] Blood Venous blood specimen / Unknown 12/11/2024 7:26 AM EDT 12/11/2024 8:08 AM EDT us Feliciano Sales MD LAB BLOOD ORDERABLES Final Resul t Performing Organization Address [facility] Co de Phone Number [facility] [address] [place] [address], [place] [phone] * Thyroxine free (12/11/2024 7:26 AM EDT) Free T4 1.37 0.70 - 1.80 ng/dL LAB CHEMISTRY METHOD 12/11/2024 9:29 AM EDT [facility] Blood Venous blood specimen / Unknown 12/11/2024 7:26 AM EDT 12/11/2024 8:08 AM EDT us Feliciano Sales MD LAB BLOOD ORDERABLES Final Resul t Performing Organization Address City/[facility]/ZIP Co de Phone Number [facility] [address] [place] [address], [place] [phone] * Prealbumin (12/11/2024 7:26 AM EDT) Pathologist [facility] Prealbumin 24 18 - 45 mg/dL LAB CHEMISTRY METHOD 12/11/2024 8:42 AM EDT [facility] Blood Venous blood specimen / Unknown 12/11/2024 7:26 AM EDT 12/11/2024 8:08 AM EDT us Feliciano Sales MD LAB BLOOD ORDERABLES Final Resul t Performing Organization Address City/[facility]/ZIP Co de Phone Number [facility] [address] [place] [address], [place] [phone] * Ammonia (12/11/2024 7:26 AM EDT) [facility] Ammonia 18 11 - 35 mcmol/L LAB CHEMISTRY METHOD 12/11/2024 8:34 AM EDT [facility] Blood Venous blood specimen / Unknown 12/11/2024 7:26 AM EDT 12/11/2024 8:08 AM EDT us Feliciano Sales MD LAB BLOOD ORDERABLES Final Resul t Performing Organization Address [facility] de Phone Number [facility] [address] [place] [address], [place] [phone] * Valproic acid level, total (12/11/2024 7:26 AM EDT) [facility] Valproic Acid, Total 57 50 - 100 mcg/mL LAB CHEMISTRY METHOD 12/11/2024 8:41 AM EDT [facility] Blood Venous blood specimen / Unknown 12/11/2024 7:26 AM EDT 12/11/2024 8:08 AM EDT us Feliciano Sales MD LAB BLOOD ORDERABLES Final Resul t Performing Organization Address City/[facility]/ZIP Co de Phone Number [facility] [address] [place] [address], [place] [phone] * Comprehensive metabolic panel (12/11/2024 7:26 AM EDT) Sodium 137 133 - 145 mmol/L LAB CHEMISTRY METHOD 12/11/2024 8:[address] [facility] Potassium 4.3 3.5 - 5.5 mmol/L LAB CHEMISTRY METHOD 12/11/2024 8:[address] [facility] Chloride 103 96 - 110 mmol/L LAB CHEMISTRY METHOD 12/11/2024 8:[address] [facility] CO2 29 21 - 32 mmol/L LAB CHEMISTRY METHOD 12/11/2024 8:[address] [facility] Anion Gap 5 3 - 11 LAB CHEMISTRY METHOD 12/11/2024 8:[address] [facility] Glucose 87 70 - 100 mg/dL LAB CHEMISTRY METHOD 12/11/2024 8:[address] [facility] BUN 16 5 - 25 mg/dL LAB CHEMISTRY METHOD 12/11/2024 8:[address] [facility] Creatinine 0.58 0.50 - 1.10 mg/dL LAB CHEMISTRY METHOD 12/11/2024 8:[address] [facility] eGFR 116 >=60 mL/min/1. 73m2 LAB CHEMISTRY METHOD 12/11/2024 8:[address] [facility] Comment:Calculation based on the Chronic Kidney Disease Epidemiology Collaboration (CKD-EPI) equation refit without adjustment for race. BUN/Creatinine Ratio 27.6 LAB CHEMISTRY METHOD 12/11/2024 8:[address] [facility] Calcium 9.1 8.5 - 10.5 mg/dL LAB CHEMISTRY METHOD 12/11/2024 8:[address] [facility] AST (SGOT) 14 10 - 42 unit/L LAB CHEMISTRY METHOD 12/11/2024 8:[address] [facility] ALT (SGPT) 17 10 - 60 unit/L LAB CHEMISTRY METHOD 12/11/2024 8:41 AM EDT [facility] Alkaline Phosphatase 97 42 - 121 unit/L LAB CHEMISTRY METHOD 12/11/2024 8:[address] [facility] Total Protein 6.5 6.0 - 8.0 g/dL LAB CHEMISTRY METHOD 12/11/2024 8:41 AM EDT [facility] Albumin 3.5 3.2 - 5.0 g/dL LAB CHEMISTRY METHOD 12/11/2024 8:41 AM EDT [facility] Total Bilirubin 0.3 0.0 - 1.4 mg/dL LAB CHEMISTRY METHOD 12/11/2024 8:[address] [facility] Blood Venous blood specimen / Unknown 12/11/2024 7:26 AM EDT 12/11/2024 8:08 AM EDT us Feliciano Sales MD LAB BLOOD ORDERABLES Final Resul t [facility] [address] [place] [address], [place] [phone] * Lipid panel with reflex to direct LDL (06/15/2024 7:29 AM EDT) Cholesterol 163 0 - 200 mg/dL LAB CHEMISTRY METHOD 06/15/2024 9:[address] [facility] Triglycerides 47 0 - 150 mg/dL LAB CHEMISTRY METHOD 06/15/2024 9:[address] [facility] HDL 82 >=40 mg/dL LAB CHEMISTRY METHOD 06/15/2024 9:[address] [facility] LDL Calculated 72 0 - 100 mg/dL LAB CHEMISTRY METHOD 06/15/2024 9:[address] [facility] VLDL Cholesterol Placido 9.4 mg/dL LAB CHEMISTRY METHOD 06/15/2024 9:[address] [facility] Non HDL Chol. (LDL+VLDL) 81 <145 mg/dL LAB CHEMISTRY METHOD 06/15/2024 9:20 AM EDT [facility] Chol/HDL Ratio 2.0 0.0 - 4.4 LAB CHEMISTRY METHOD 06/15/2024 9:20 AM EDT [facility] Blood Venous blood specimen / Unknown 06/15/2024 7:29 AM EDT 06/15/2024 8:17 AM EDT Feliciano Sales MD LAB BLOOD ORDERABLES Final Resul t Performing Organization Address [facility]/State/ZIP Co de Phone Number [facility] [address] [place] [address], * Pap smear (01/10/2019) 01/10/2019 Narrative HISTORICAL TESTING LAB RESULTING AGENCY - 01/12/2019 7:35 AM EDT [id number] RESULTS OF APTIMA COMBO 2 ASSAY: CHLAMYDIA: NEGATIVE N. GONORRHOEAE: NEGATIVE COMPLETED ON 2019-01-11 JULI CURRAN M.D. , PATHOLOGIST (CASE ELECTRONICALLY SIGNED 01 11 2019) CLINICAL INFORMATION: ROUTINE EXAM. [[id number]] [id number] ENCOUNTER FOR GYNECOLOGICAL EXAMINATION (GENERAL) (ROUTINE) WITHOUT ABNORMAL FINDINGS SOURCE: THINPREP PAP FOR CT/GC GROSS DESCRIPTION: THINPREP VIAL RECEIVED. PHYSICIANS ELISA GARCIA/ / Elisa Garcia [facility] LAB CYTOLOGY ORDERABLES Final R esult HISTORICAL TESTING LAB RESULTING AGENCY from Last 3 Months or Most Recently Relevant to Health Maintenance Insurance MEDICAID - [place] MEDICARE Care Teams Drilling Inspector Relationship Specialty Start Date End Date Feliciano Sales MD [address] [place] [phone] PCP - General Internal Medicine 06/15/24
--- OUTSIDE RECORDS SUMMARY | 2025-02-01 18:53 | XMS_ITS | Encounter Summary ---
Author Organization [facility] Address [address] [place] [address] Care Team Providers Care Fingerprint Clerk Name Role Phone Feliciano Sales MD Primary Care Provider Encounter Details Date Type Department Care Team (Late st Contact Info) Description 06/15/2024 Lab Requisition [facility] - Main Lab 299 [facility] [place] [address] Feliciano Sales MD [address] [place] [address] Dr [address] [place], [place] Anoxic brain damage, not elsewhere classified [...] LAB CHEMISTRY METHOD 06/15/2024 8:59 AM EDT [facility] Blood Venous blood specimen / Unknown 06/15/2024 7:29 AM EDT 06/15/2024 8:17 AM EDT us Feliciano Sales MD LAB BLOOD ORDERABLES Final Resul t Performing Organization Address [facility]/ZIP Co de Phone Number [facility] [address] [place] [address], [place] [phone] * Vitamin D 25 hydroxy (06/15/2024 7:29 AM EDT) Pathologist [facility] Vit D, 25-Hydroxy 34.6 30.0 - 80.0 ng/mL LAB CHEMISTRY METHOD 06/15/2024 9:20 AM EDT [facility] Blood Venous blood specimen / Unknown 06/15/2024 7:29 AM EDT 06/15/2024 8:17 AM EDT us Feliciano Sales MD LAB BLOOD ORDERABLES Final Resul t Performing Organization Address [facility]/ZIP Co de Phone Number [facility] [address] [place] [address], [place] [phone] * Lipid panel with reflex to direct LDL (06/15/2024 7:29 AM EDT) Cholesterol 163 0 - 200 mg/dL LAB CHEMISTRY METHOD 06/15/2024 9:20 AM EDT [facility] Triglycerides 47 0 - 150 mg/dL LAB CHEMISTRY METHOD 06/15/2024 9:20 AM EDT [facility] HDL 82 >=40 mg/dL LAB CHEMISTRY METHOD 06/15/2024 9:20 AM EDT [facility] LDL Calculated 72 0 - 100 mg/dL LAB CHEMISTRY METHOD 06/15/2024 9:20 AM EDT [facility] VLDL Cholesterol Placido 9.4 mg/dL LAB CHEMISTRY METHOD 06/15/2024 9:20 AM EDT [facility] Non HDL Chol. (LDL+VLDL) 81 <145 mg/dL LAB CHEMISTRY METHOD 06/15/2024 9:20 AM EDT [facility] Chol/HDL Ratio 2.0 0.0 - 4.4 LAB CHEMISTRY METHOD 06/15/2024 9:20 AM EDT [facility] Blood Venous blood specimen / Unknown 06/15/2024 7:29 AM EDT 06/15/2024 8:17 AM EDT us Feliciano Sales MD LAB BLOOD ORDERABLES Final Resul t [facility] [address] [place] [address], documented in this encounter Visit Diagnoses Diagnosis Anoxic brain damage, not elsewhere classified (CMS/HCC V24, CMS/HCC V28) Vitamin D deficiency, unspecified Encounter for screening for cardiovascular disorders documented in this encounter Care Teams Fingerprint Clerk Relationship Specialty Start Date End Date Feliciano Sales MD [address] [place] [phone] PCP - General Internal Medicine 06/15/24 documented as of this encounter
--- OUTSIDE RECORDS SUMMARY | 2025-02-01 18:53 | XMS_ITS | Encounter Summary ---
Author Organization [facility] Address [address] [place] [address] Care Team Providers Care Relaster Name Role Phone Feliciano Sales MD Primary Care Provider [phone] Encounter Details Date Type Department Care Team (Late st Contact Info) Description 05/15/2024 Lab Requisition [facility] - Main Lab [address] [facility] [place] [address] Feliciano Sales MD [address] [place] [address] Dr [address] [place], [place] Anoxic brain damage, not elsewhere classified [...] ng/mL LAB CHEMISTRY METHOD 05/15/2024 9:24 AM [facility] Blood Venous blood specimen / Unknown 05/15/2024 7:08 AM EST 05/15/2024 8:02 AM EST Feliciano Sales MD LAB BLOOD ORDERABLES Final Resul t [facility] [address] [place] [address], [place] [phone] * Lipid panel with reflex to direct LDL (05/15/2024 7:08 AM EST) Pathologist [facility] Cholesterol 158 0 - 200 mg/dL LAB CHEMISTRY METHOD 05/15/2024 8:47 AM [facility] Triglycerides 87 0 - 150 mg/dL LAB CHEMISTRY METHOD 05/15/2024 8:47 AM [facility] HDL 73 >=40 mg/dL LAB CHEMISTRY METHOD 05/15/2024 8:47 AM [facility] LDL Calculated 68 0 - 100 mg/dL LAB CHEMISTRY METHOD 05/15/2024 8:47 AM [facility] VLDL Cholesterol Placido 17.4 mg/dL LAB CHEMISTRY METHOD 05/15/2024 8:47 AM [facility] Non HDL Chol. (LDL+VLDL) 85 <145 mg/dL LAB CHEMISTRY METHOD 05/15/2024 8:47 AM [facility] Chol/HDL Ratio 2.2 0.0 - 4.4 LAB CHEMISTRY METHOD 05/15/2024 8:47 AM EST [facility] Blood Venous blood specimen / Unknown 05/15/2024 7:08 AM EST 05/15/2024 8:02 AM EST us Feliciano Sales MD LAB BLOOD ORDERABLES Final Resul t [facility] [address] [place] [address], documented in this encounter Visit Diagnoses Diagnosis Anoxic brain damage, not elsewhere classified (CMS/HCC V24, CMS/HCC V28) Unspecified protein-calorie malnutrition (CMS/HCC V24) Unspecified protein-calorie malnutrition Other intestinal malabsorption documented in this encounter Care Teams Relaster Relationship Specialty Start Date End Date Feliciano Sales MD [address] [place] [address] PCP - General Internal Medicine 06/15/24 documented as of this encounter
[2025-02-01] MEDS: iohexoL 350 MG/ML 100 ML INFUS..BTL IV (19:50)
--- NOTE | 2025-02-01 20:08 | ECG_ITS ---
Test Reason : TACHYCARDIA Blood Pressure : */* mmHG Vent. Rate : 80 BPM Atrial Rate : 80 BPM P-R Int : 154 ms QRS Dur : 80 ms QT Int : 376 ms P-R-T Axes : 76 67 63 degrees QTcB Int : 433 ms Normal sinus rhythm Minimal voltage criteria for LVH, may be normal variant ( Sokolow-Dos Santos ) Borderline ECG When compared with ECG of 05-May-2023 11:30, Vent. rate has decreased by 53 bpm Referred By: Aric Hicks Electronically Signed By: ADAM MIR
[2025-02-01 20:58] LABS: INTERNATIONAL NORM RATIO 1.0 (0.9-1.1); Prothrombin Time 11.6 SEC (10.9-12.4)
[2025-02-01 21:00] LABS: Partial Thromboplastin Time 25.7 SEC (26.7-34.1)
--- NOTE | 2025-02-01 21:09 | HO.NURTONUR ---
Pt comes from [facility] facility per face sheet g-tube ph not wnl . 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 Upon arrival in ED pt was noted to have rectal temp 100.5 and tachy. Pt was str cath for urine which nearly brown in color and +for uti. Pt also noted to have ileus on CT. Pt was given iv abx for uti and ?ileus on CT. Assessment reveal RLQ colostomy and g-tub LUQ that shows its in place.
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
--- NOTE | 2025-02-01 21:31 | PHA.MEDREC ---
Addendum entered by Janey Broderick RPh 02/01/25 21:43: Reviewed by [facility] Original Note: Pharmacy Consult ? Medication Reconciliation Pharmacy has completed the medication reconciliation. Utilized list from [facility] to confirm med list.
[2025-02-01 21:49] LABS: Magnesium 1.9 mg/dL (1.6-2.6)
[2025-02-01] MEDS: Valproic Acid (as Sodium Salt) 125 MG in Dextrose 5 % 50 ML 52.5 MG IV (22:40)
[2025-02-01 22:44] LABS: Free T4 (Free Thyroxine) 1.05 ng/dL (0.71-1.85)
--- NOTE | 2025-02-01 23:30 | PC.NURSE ---
Assumed care of pt, from [facility] for possible G-tube function and placement, pt is non-verbal at baseline, however can communicate with board, pt had a fever and was tachycardia, Her CT scan showed the G-tube in the correct place, pt is being admitted for possible Ileus, pt has colostomy RLQ 0445 PT soiled herself for the second time, pt had a christine but was in the vagina, pt is very contracted, US was used by STEAM CLEANING MACHINE OPERATOR, Nory, to confirm christine was not in the bladder. pt placed on purewick
[2025-02-02] VITALS (8 sets, daily range): BP systolic 100–145; BP diastolic 54–83; PULSE 77–139; RESP 14–20; TEMP 36.7–37.6; O2SAT 94–98; BMI 18.4; BMI 16.8
--- NOTE | 2025-02-02 00:43 | PC.NURSE ---
Pt moved to hospital bed and repositioned.
[2025-02-02 02:55] LABS: MANUAL DIFF FLAG NO
[2025-02-02 02:57] LABS: Hematocrit 34.4 % (37.0-47.0); Hemoglobin 11.4 g/dl (12.0-16.0); Imm Gran Abs Auto 0.02 X10*3/uL (0.00-0.03); Imm Gran Pct Auto 0.3 % (0.0-0.4); Lymphocytes Absolute Auto 3.6 X10*3/uL (1.2-4.9); Mean Corpuscular HGB Conc 33.1 g/dl (31.0-35.0); Mean Corpuscular Hemoglobin 31.2 pg (27.0-33.0); Mean Corpuscular Volume 94.2 fL (80.0-98.0); NRBC Abs Auto 0.000 X10*3/uL (0.0-0.012); NRBC Pct Auto 0.0 /100WBC (0.0-0.2); Platelet Count 152 X10*3/uL (160-400); Red Blood Count 3.65 X10*6/uL (4.20-5.50); White Blood Count 7.2 X10*3/uL (4.8-10.8)
[2025-02-02 03:10] LABS: Alanine Aminotransferase 20 U/L (0-31); Albumin Level 3.7 g/dL (3.5-5.0); Alkaline Phosphatase 95 U/L (39-117); Anion Gap 11 (12-20); Aspartate Amino Transferase 24 U/L (5-31); Blood Urea Nitrogen 15 mg/dL (9-16); Calcium 8.6 mg/dL (8.4-10.2); Carbon Dioxide 26 mmol/L (22-29); Chloride 107 mmol/L (96-108); Creatinine Clr Calc Pharmacy 122.5; Estimated Glomerular Filt Rate > 60; Potassium 4.3 mmol/L (3.3-5.1); Sodium 140 mmol/L (135-145); Total Protein 6.2 g/dL (6.5-8.0)
[2025-02-02] MEDS: Valproic Acid (as Sodium Salt) 125 MG in Dextrose 5 % 50 ML 52.5 MG IV ×4 (04:06→23:40)
--- NOTE | 2025-02-02 05:42 | MHC.EDTECH ---
Patient repositioned and purewick put in place.
--- NOTE | 2025-02-02 08:02 | PM.CNGS ---
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 History obtained from EMR. Patient was found to have a fever, tachycardia in the ED. KUB was obtained as her abdomen felt rigid which showed prominent small bowel loops, no free air. CT abd/ pelvis therefore obtained which showed mildly dilated small bowel loops, G tube in the stomach, near total colectomy with rectal stump and right lower quadrant ileostomy. Urine sample was obtained with straight catheterization and there was concern for feces. UA positive for nitrates, WBCs and bacteria. WBC count normal. There was concern for possible colovesical fistula and therefore general surgery was obtained. On my review of the CT her small bowel is mildly dilated, she has one small foci of gas in the bladder. Her past visits were also reviewed and there was a question of colovaginal fistula as she had apparent fecal matter draining from a christine placed into the vagina during her 11/26 visit to the ED. General surgery was consulted at that time who recommended transfer to tertiary center given her significant abdominal surgical history. No obgyn was correspondence dictator here at the time as well. She was transferred to [facility]. <Radha Valerio PA-C - Last Filed: 02/02/25 08:24> Review of Systems Review of Systems: Yes Unobtainable due to mental condition <CATERINA Lane Last Filed: 02/02/25 08:24> [facility] Past Medical History Medical History: Medical History Sepsis TBI (traumatic brain injury) Bacteremia due to group B Streptococcus [place] Ataxia Anemia Bipolar 1 disorder TBI (traumatic brain injury) <Radha Valerio PA-C - Last Filed: 02/02/25 08:24> Surgical History Surgical History: Surgical History History of colectomy <Radha Valerio PA-C - Last Filed: 02/02/25 08:24> Social History Social History: Social History Household Members: Other Housing: Group Home Do you presently have visiting nurse or other home services: No (at [facility]) Alcohol intake: never Patient Tobacco Use Status: Former Tobacco user Tobacco use type: Cigarette Advance Directives Date on File: 07/12/20 service: No <CATERINA Lane Last Filed: 02/02/25 08:24> Travel History Ebola Risk: Travel/Contact With Anyone From Affected Area/s: No <Radha Valerio PA-C - Last Filed: 02/02/25 08:24> Has Patient Experienced Ebola Symptoms: No <Radha Valerio PA-C - Last Filed: 02/02/25 08:24> Meds Allergies/Adverse reactions: Allergies Allergy/AdvReac Type Severity Reaction Status Date / Time No Known Allergies Allergy Verified 02/01/25 17:53 <Radha Valerio PA-C - Last Filed: 02/02/25 08:24> Active Medications: Current Medications Acetaminophen (Acetaminophen 325 Mg Tablet) 650 mg PO Q6H PRN PRN Reason: Pain, Mild 1-3,fever,headache Albuterol/Ipratropium (Albuterol/Iprat 2.5/0.5mg 3 Ml Ampul.Neb) 3 ml INHALE Q4H PRN PRN Reason: Shortness of Breath/Wheezing Bisacodyl (Bisacodyl 10 Mg Supp.Rect) 10 mg AR BEDTIME PRN PRN Reason: Constipation Enoxaparin Sodium (Enoxaparin Sodium 40 Mg/0.4 Ml Syringe) 40 mg SUBCUT Q24H [facility] Last Admin: 02/01/25 22:48 Dose: 40 mg Dextrose/Sodium Chloride (D5ns) 1,000 mls @ 100 mls/hr IVCONT .Q10H [facility] Last Admin: 02/01/25 22:08 Dose: 100 mls/hr Valproic Acid 125 mg/ Dextrose 51.25 mls @ 52.5 mls/hr IV Q6H [facility] Last Infusion: 02/02/25 06:37 Dose: Infused Ceftriaxone Sodium 1 gm/ (Sodium Chloride) 50 mls @ 100 mls/hr IV Q24H [facility] Magnesium Hydroxide (Milk Of Magnesia 30 Ml Oral.Susp) 30 ml G-TUBE DAILY PRN PRN Reason: Constipation Melatonin (Melatonin 3 Mg Tablet) 6 mg PO BEDTIME PRN PRN Reason: Insomnia Pantoprazole Sodium (Pantoprazole Sodium 40 Mg/10 Ml Vial) 40 mg IVPUSH DAILY@0630 [facility] Last Admin: 02/02/25 06:56 Dose: 40 mg Sodium Chloride (0.9 % Sodium Chloride Flush 3 Ml Syringe) 3 ml IVFLUSH QSHIFT [facility] Last Admin: 02/02/25 00:31 Dose: Not Given <Radha Valerio PA-C - Last Filed: 02/02/25 08:24> Home medications: Home Medications ?Medication ?Instructions ?Recorded ?Confirmed ?Last Taken ?Type acetaminophen 325 mg tablet 650 mg feeding tube Q6H PRN Fever 05/26/21 02/01/25 Unknown History Or Pain amantadine HCl 50 mg/5 mL oral 50 mg feeding tube DAILY 05/26/21 02/01/25 Unknown History solution baclofen 10 mg tablet 10 mg feeding tube TID 05/26/21 02/01/25 Unknown History cholecalciferol (vitamin D3) 50 50 mcg feeding tube DAILY 05/26/21 02/01/25 Unknown History mcg (2,000 unit) tablet (Vitamin D3) multivitamin 1 tab feeding tube DAILY 05/26/21 02/01/25 Unknown History trazodone 100 mg tablet 100 mg feeding tube BEDTIME 05/26/21 02/01/25 Unknown History valproic acid (as sodium salt) 250 500 mg feeding tube DAILY 05/26/21 02/01/25 Unknown History mg/5 mL oral solution chlorhexidine gluconate 0.12 % 15 ml buccal BID 05/05/23 02/01/25 Unknown History mouthwash (Peridex) citalopram 10 mg/5 mL oral solution 30 mg feeding tube DAILY 05/05/23 02/01/25 Unknown History dimethicone 5 % topical cream 1 appl topical BID 05/05/23 02/01/25 Unknown History levothyroxine 100 mcg tablet 100 mcg feeding tube DAILY@0600 05/05/23 02/01/25 Unknown History loperamide 2 mg capsule 2 mg feeding tube BID PRN LOOSE 05/05/23 02/01/25 Unknown History STOOLS mirtazapine 30 mg disintegrating 30 mg feeding tube BEDTIME 05/05/23 02/01/25 Unknown History tablet pantoprazole 40 mg granules 40 mg feeding tube BID@0630,1630 05/05/23 02/01/25 Unknown History delayed-release for susp in packet polyvinyl alcohol 1.4 % eye drops 1 drp ophthalmic (eye) DAILY 05/05/23 02/01/25 Unknown History (Artificial Tears (polyvinyl alcohol)) psyllium husk 0.52 gram capsule 1.04 g PO BID 05/05/23 02/01/25 Unknown History thiamine HCl (vitamin B1) 100 mg 100 mg feeding tube DAILY 05/05/23 02/01/25 Unknown History tablet glucagon 1 mg solution for 1 mg subcut Q15M PRN Hypoglycemia 02/01/25 02/01/25 Unknown History injection (Glucagon Emergency Kit) mineral oil-iso myristat-water 1 appl topical DAILY 02/01/25 02/01/25 Unknown History lotion <Radha Valerio PA-C - Last Filed: 02/02/25 08:24> Physical Exam Vital Signs: Vital Signs: Last Vital Signs Temp 98.2 F 02/02/25 07:42 Pulse 82 02/02/25 07:42 Resp 14 02/02/25 07:42 BP 123/83 02/02/25 07:42 Pulse Ox 98 02/02/25 07:42 O2 Del Method Room Air 02/02/25 07:42 BMI result Body Mass Index 19.2 <[address]INA [address] Last Filed: 02/02/25 08:24> Const: Other: appears agitated when staff enter the room, becomes increasingly tachycardic <Radha Valerio PA-C - Last Filed: 02/02/25 08:24> General: alert <Radha Valerio PA-C - Last Filed: 02/02/25 08:24> Resp: Effort & Inspection: normal respiratory effort and not tachypneic <CATERINA Lane Last Filed: 02/02/25 08:24> GI: Other: mildly tympanitic quite rigid throughout ileostomy in place RLQ with large amount of gas in appliance <CATERINA Lane Last Filed: 02/02/25 08:24> Skin: Other: warm and dry <CATERINA Lane Last Filed: 02/02/25 08:24> Extrem: Other: b/l UE and LE contracted <CATERINA Lane Last Filed: 02/02/25 08:24> Results Labs Result diagrams: 02/02/25 02:40 02/02/25 02:40 <CATERINA Lane Last Filed: 02/02/25 08:24> Labs: Abnormal lab results 02/01/25 02/01/25 02/02/25 Range/Units 18:00 18:05 02:40 RBC 3.93 L 3.65 L (4.20-5.50) X10*6/uL Hgb 11.4 L (12.0-16.0) g/dl Hct 36.6 L 34.4 L (37.0-47.0) % Plt Count 152 L (160-400) X10*3/uL MPV 12.5 H (9.4-12.3) fL Neut % (Auto) 40.8 L (45-73) % Lymph % (Auto) 49.3 H (20-40) % APTT 25.7 L (26.7-34.1) SEC Anion Gap 11 L (12-20) BUN 18 H (9-16) mg/dL Total Protein 6.2 L (6.5-8.0) g/dL TSH 5.68 H (0.32-4.0) uIU/mL Urine Protein 300 (3+) H (Neg-Trace) mg/dL Urine Glucose (UA) 100 H (Negative) mg/dL Urine Blood Large (3+) H (Negative) Urine Nitrite Positive H (Negative) Urine RBC 3-5 H (0-2) /HPF Short CBC 02/01/25 02/02/25 Range/Units 18:00 02:40 WBC 10.1 7.2 (4.8-10.8) X10*3/uL Hgb 12.3 11.4 L (12.0-16.0) g/dl Hct 36.6 L 34.4 L (37.0-47.0) % Plt Count 194 D 152 L (160-400) X10*3/uL BMP 02/01/25 02/01/25 02/01/25 18:00 18:00 18:00 Sodium Cancelled 140 Potassium Cancelled 4.7 Chloride Cancelled Carbon Dioxide BUN Creatinine Calcium 02/01/25 02/01/25 02/01/25 18:00 18:00 18:00 Sodium Potassium Chloride 105 Carbon Dioxide Cancelled 25 BUN Cancelled 18 H Creatinine Cancelled Calcium 02/01/25 02/01/25 02/02/25 18:00 18:00 02:40 Sodium 140 Potassium 4.3 Chloride 107 Carbon Dioxide 26 BUN 15 Creatinine 0.56 0.51 Calcium Cancelled 9.2 8.6 D Liver Function 02/01/25 02/02/25 Range/Units 18:00 02:40 Total Bilirubin 0.4 0.3 (0.0-1.0) mg/dL AST 24 (5-31) U/L ALT 20 (0-31) U/L Alkaline Phosphatase 95 (39-117) U/L Albumin 3.7 (3.5-5.0) g/dL Urine 02/01/25 Range/Units 18:05 Urine Color BROWN Urine Appearance Turbid Urine pH 8.5 (5.0-9.0) Ur Specific [place] 1.010 (1.005-1.025) Urine Protein 300 (3+) H (Neg-Trace) mg/dL Urine Glucose (UA) 100 H (Negative) mg/dL All other labs normal. <Radha Valerio PA-C - Last Filed: 02/02/25 08:24> Imaging Abdomen CT scan report/results: report reviewed and image reviewed <Radha Valerio PA-C - Last Filed: 02/02/25 08:24> Additional studies: labs reviewed <Radha Valerio PA-C - Last Filed: 02/02/25 08:24> Assessment and Plan (1) UTI (urinary tract infection): Qualifiers: Hematuria presence: with hematuria Urinary tract infection type: acute cystitis Qualified Code(s): N30.01 - Acute cystitis with hematuria <Radha Valerio PA-C - Last Filed: 02/02/25 08:24> Status: Acute <CATERINA Lane Last Filed: 02/02/25 08:24> [age] year female with traumatic brain injury admitted for a UTI CAT scan apparently had shown 1 very small foci of air in the bladder - the patient was catheterized earlier Patient is already diverted with an ileostomy, had a subtotal colectomy in the past for colonic inertia No urgent surgical intervention necessary Care as per primary service We will follow up Urology consult pending Mother at bedside Abdomen is soft and benign Ileostomy functioning well Seen and examined independently <Anderson Aguirre MD - Last Filed: 02/02/25 14:18> 44-year-old nonverbal female from with PMH significant for anemia, pyelonephritis, bipolar 1 disorder, hx of TBI with G-tube in place, hx of subtotal colectomy was presenting to the ED from [facility] found to be tachycardic and febrile in the ED. Urine very dirty on UA and there was concern for fecaluria. On my review of her CT scan, there is a small foci of gas in the bladder. Unclear if this is from a colovesical fistula or gas forming bacteria. Would recommend christine placement with urology consult for possible cystoscopy to further evaluate. If there is a colovesical fistula present, patient would benefit from transfer to tertiary center given her significant surgical history. There was also question of SBO vs ileus- abd nondistended and ostomy functioning with gas in appliance, has evidence of GI function. Can begin tube feeds as tolerated if no plans for cystoscopy today. 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 Urine very dirty on UA and there was concern for fecaluria. On my review of her CT scan, there is a small foci of gas in the bladder. Unclear if this is from a colovesical fistula or gas forming bacteria. Would recommend christine placement with urology consult for possible cystoscopy to further evaluate. If there is a colovesical fistula present, patient would benefit from transfer to tertiary center given her significant surgical history. There was also question of SBO vs ileus- abd nondistended and ostomy functioning with gas in appliance, has evidence of GI function. Can begin tube feeds as tolerated if no plans for cystoscopy today. Patient seen and examined, radiology studies reviewed. Note is made of a small bubble of air in the bladder. Previous surgical history is unclear however dilated loops of small bowel are identified. Agree with the above assessment and plan. <Miguel Lockwood MD - Last Filed: 02/02/25 14:53> Procedures Date of Service Date of Service: 02/02/25 <Radha Valerio PA-C - Last Filed: 02/02/25 08:24> 02/02/25 <Anderson Aguirre MD - Last Filed: 02/02/25 14:18> 02/02/25 <Miguel Lockwood MD - Last Filed: 02/02/25 14:53>
--- NOTE | 2025-02-02 09:00 | PM.UROCN ---
History of Present Illness Consult details Consult date: 02/02/25 Narrative: ?colovesical fistula 44-year-old nonverbal female significant for traumatic brain injury. PMH anemia, pyelonephritis, bipolar 1 disorder, status post G-tube in place, hx of subtotal colectomy was presenting to the ED from [facility] for evaluation of G-tube. History obtained from EMR. Patient was found to have a fever, tachycardia in the ED. Urine sample was obtained with straight catheterization and there was concern for feces. UA positive for nitrates, WBCs and bacteria. Review of Systems Review of Systems: Yes Unobtainable due to mental status PMFSH Past Medical History Medical History (Updated 02/07/25 @ 00:00 by Background Dajazon) Neuromuscular dysfunction of bladder Sepsis TBI (traumatic brain injury) Bacteremia due to group B Streptococcus [place] Ataxia Anemia Bipolar 1 disorder TBI (traumatic brain injury) Surgical History Surgical History History of colectomy Social History Social History Household Members: Other Housing: Skilled Nursing Do you presently have visiting nurse or other home services: No (at [facility]) Alcohol intake: never Comment: patient is bedbound Patient Tobacco Use Status: Former Tobacco user Tobacco use type: Cigarette Advance Directives Date on File: 07/12/20 service: No Travel History Ebola Risk: Travel/Contact With Anyone From Affected Area/s: No Has Patient Experienced Ebola Symptoms: No Meds Allergies Allergy/AdvReac Type Severity Reaction Status Date / Time No Known Allergies Allergy Verified 02/01/25 17:53 Active Medications: Current Medications Acetaminophen (Acetaminophen 325 Mg Tablet) 650 mg PO Q6H PRN PRN Reason: Pain, Mild 1-3,fever,headache Albuterol/Ipratropium (Albuterol/Iprat 2.5/0.5mg 3 Ml Ampul.Neb) 3 ml INHALE Q4H PRN PRN Reason: Shortness of Breath/Wheezing Bisacodyl (Bisacodyl 10 Mg Supp.Rect) 10 mg [place] BEDTIME PRN PRN Reason: Constipation Enoxaparin Sodium (Enoxaparin Sodium 40 Mg/0.4 Ml Syringe) 40 mg SUBCUT Q24H [facility] Last Admin: 02/01/25 22:48 Dose: 40 mg Dextrose/Sodium Chloride (D5ns) 1,000 mls @ 100 mls/hr IVCONT .Q10H [facility] Last Admin: 02/01/25 22:08 Dose: 100 mls/hr Valproic Acid 125 mg/ Dextrose 51.25 mls @ 52.5 mls/hr IV Q6H [facility] Last Infusion: 02/02/25 06:37 Dose: Infused Ceftriaxone Sodium 1 gm/ (Sodium Chloride) 50 mls @ 100 mls/hr IV Q24H [facility] Magnesium Hydroxide (Milk Of Magnesia 30 Ml Oral.Susp) 30 ml G-TUBE DAILY PRN PRN Reason: Constipation Melatonin (Melatonin 3 Mg Tablet) 6 mg PO BEDTIME PRN PRN Reason: Insomnia Pantoprazole Sodium (Pantoprazole Sodium 40 Mg/10 Ml Vial) 40 mg IVPUSH DAILY@0630 [facility] Last Admin: 02/02/25 06:56 Dose: 40 mg Sodium Chloride (0.9 % Sodium Chloride Flush 3 Ml Syringe) 3 ml IVFLUSH QSHIFT [facility] Last Admin: 02/02/25 00:31 Dose: Not Given Home Medications ?Medication ?Instructions ?Recorded ?Confirmed ?Last Taken ?Type acetaminophen 325 mg tablet 650 mg feeding tube Q6H PRN Fever 05/26/21 02/01/25 Unknown History Or Pain amantadine HCl 50 mg/5 mL oral 50 mg feeding tube DAILY 05/26/21 02/01/25 Unknown History solution baclofen 10 mg tablet 10 mg feeding tube TID 05/26/21 02/01/25 Unknown History cholecalciferol (vitamin D3) 50 50 mcg feeding tube DAILY 05/26/21 02/01/25 Unknown History mcg (2,000 unit) tablet (Vitamin D3) multivitamin 1 tab feeding tube DAILY 05/26/21 02/01/25 Unknown History trazodone 100 mg tablet 100 mg feeding tube BEDTIME 05/26/21 02/01/25 Unknown History valproic acid (as sodium salt) 250 500 mg feeding tube DAILY 05/26/21 02/01/25 Unknown History mg/5 mL oral solution chlorhexidine gluconate 0.12 % 15 ml buccal BID 05/05/23 02/01/25 Unknown History mouthwash (Peridex) citalopram 10 mg/5 mL oral solution 30 mg feeding tube DAILY 05/05/23 02/01/25 Unknown History dimethicone 5 % topical cream 1 appl topical BID 05/05/23 02/01/25 Unknown History levothyroxine 100 mcg tablet 100 mcg feeding tube DAILY@0600 05/05/23 02/01/25 Unknown History loperamide 2 mg capsule 2 mg feeding tube BID PRN LOOSE 05/05/23 02/01/25 Unknown History STOOLS mirtazapine 30 mg disintegrating 30 mg feeding tube BEDTIME 05/05/23 02/01/25 Unknown History tablet pantoprazole 40 mg granules 40 mg feeding tube BID@0630,1630 05/05/23 02/01/25 Unknown History delayed-release for susp in packet polyvinyl alcohol 1.4 % eye drops 1 drp ophthalmic (eye) DAILY 05/05/23 02/01/25 Unknown History (Artificial Tears (polyvinyl alcohol)) psyllium husk 0.52 gram capsule 1.04 g PO BID 05/05/23 02/01/25 Unknown History thiamine HCl (vitamin B1) 100 mg 100 mg feeding tube DAILY 05/05/23 02/01/25 Unknown History tablet glucagon 1 mg solution for 1 mg subcut Q15M PRN Hypoglycemia 02/01/25 02/01/25 Unknown History injection (Glucagon Emergency Kit) mineral oil-iso myristat-water 1 appl topical DAILY 02/01/25 02/01/25 Unknown History lotion Physical Exam Vital Signs: Vital Signs: Last Vital Signs Temp 98.2 F 02/02/25 07:42 Pulse 82 02/02/25 07:42 Resp 14 02/02/25 07:42 BP 123/83 02/02/25 07:42 Pulse Ox 98 02/02/25 07:42 O2 Del Method Room Air 02/02/25 07:42 BMI result Body Mass Index 19.2 Resp: Effort & Inspection: normal respiratory effort GI: Other: ileostomy in place RLQ with large amount of gas in appliance Skin: Other: warm and dry Extrem: Other: lower extremities contracted Results Labs 02/02/25 02:40 02/02/25 02:40 Labs: Abnormal lab results 02/01/25 02/01/25 02/02/25 Range/Units 18:00 18:05 02:40 RBC 3.93 L 3.65 L (4.20-5.50) X10*6/uL Hgb 11.4 L (12.0-16.0) g/dl Hct 36.6 L 34.4 L (37.0-47.0) % Plt Count 152 L (160-400) X10*3/uL MPV 12.5 H (9.4-12.3) fL Neut % (Auto) 40.8 L (45-73) % Lymph % (Auto) 49.3 H (20-40) % APTT 25.7 L (26.7-34.1) SEC Anion Gap 11 L (12-20) BUN 18 H (9-16) mg/dL Total Protein 6.2 L (6.5-8.0) g/dL TSH 5.68 H (0.32-4.0) uIU/mL Urine Protein 300 (3+) H (Neg-Trace) mg/dL Urine Glucose (UA) 100 H (Negative) mg/dL Urine Blood Large (3+) H (Negative) Urine Nitrite Positive H (Negative) Urine RBC 3-5 H (0-2) /HPF Short CBC 02/01/25 02/02/25 Range/Units 18:00 02:40 WBC 10.1 7.2 (4.8-10.8) X10*3/uL Hgb 12.3 11.4 L (12.0-16.0) g/dl Hct 36.6 L 34.4 L (37.0-47.0) % Plt Count 194 D 152 L (160-400) X10*3/uL BMP 02/01/25 02/01/25 02/01/25 18:00 18:00 18:00 Sodium Cancelled 140 Potassium Cancelled 4.7 Chloride Cancelled Carbon Dioxide BUN Creatinine Calcium 02/01/25 02/01/25 02/01/25 18:00 18:00 18:00 Sodium Potassium Chloride 105 Carbon Dioxide Cancelled 25 BUN Cancelled 18 H Creatinine Cancelled Calcium 02/01/25 02/01/25 02/02/25 18:00 18:00 02:40 Sodium 140 Potassium 4.3 Chloride 107 Carbon Dioxide 26 BUN 15 Creatinine 0.56 0.51 Calcium Cancelled 9.2 8.6 D Liver Function 02/01/25 02/02/25 Range/Units 18:00 02:40 Total Bilirubin 0.4 0.3 (0.0-1.0) mg/dL AST 24 (5-31) U/L ALT 20 (0-31) U/L Alkaline Phosphatase 95 (39-117) U/L Albumin 3.7 (3.5-5.0) g/dL Urine 02/01/25 Range/Units 18:05 Urine Color BROWN Urine Appearance Turbid Urine pH 8.5 (5.0-9.0) Ur Specific [place] 1.010 (1.005-1.025) Urine Protein 300 (3+) H (Neg-Trace) mg/dL Urine Glucose (UA) 100 H (Negative) mg/dL Imaging Additional studies: Date of Service: 02/01/25 CLINICAL HISTORY: rigid abd, SNF staff replaced G tube CT abdomen and pelvis with contrast Comparison: CT/TN/SR - CT ABDOMEN PELVIS W IV CON - 11/25/23 14:56 EDT Findings: The lung bases are clear. The gallbladder and solid organs are within normal limits. No renal stones. There is a gastrostomy tube within the stomach. There is no gastrostomy tube leak. There is no bowel edema or evidence of bowel obstruction. There is gaseous distention of bowel suggesting possible ileus. There has been a prior near total colectomy. There is a rectal stump. There is a right lower quadrant ileostomy. Pelvic contents unremarkable. Prior appendectomy. The bones are intact. IMPRESSION: 1. Gaseous distention of bowel suggesting possible ileus. 2. There is a gastrostomy tube within the stomach. There is no gastrostomy tube leak. Assessment and Plan (1) UTI (urinary tract infection): Qualifiers: Hematuria presence: with hematuria Urinary tract infection type: acute cystitis Qualified Code(s): N30.01 - Acute cystitis with hematuria Status: Acute Plan Urine grossly brown, nitrite positive with bacteria, possible colevesical fistula Reviewed gen surgery note, agree with christine Pt needs IV abx No plans for cystoscopy h/o significant abd surgeries, pt needs further evaluation and managment for colovesical fistula at [facility] facility Procedures Date of Service Date of Service: 02/07/25
--- NOTE | 2025-02-02 13:19 | MHC.CM.PN ---
CM assessment completed w/ mother/HCP at bedside. IMM delivered. Patient is from LT @ [facility]. TBI, non-verbal, but uses communication board to make needs known. Patient is total care, bedbound, with G tube. PCP: Feliciano Sales DO HCP: Mother Martina Barcenas [phone], on file and verified. DP: Return to [facility] via BLS. CM will continue to follow.
--- NOTE | 2025-02-02 14:13 | MHC.CLN ---
CONSULT NPO WITH ILEUS. HX TBI AND REQUIRES NUTRITION/HYDRATION VIA FEEDING TUBE. RECOMMEND JEVITY 1.2 AT 50 ML PER HOUR CONTINUOUS. FREE WATER FLUSHES 120 ML Q 6 HOURS. PROVIDES 1440 KCALS (27.9 KCALS/KG), 67 G PROTEIN (1.3 G/KG), 1448 ML TOTAL FREE WATER FROM FORMULA AND FLUSHES (28 ML/KG). START TUBE FEEDING AT 20 ML PER HOUR, ADVANCE 10 ML EVERY 4 HOURS UNTIL MAX GOAL RATE 50 ML PER HOUR IS ACHIEVED. RECEIVES TUBE FEEDING AT [facility] X [address] RECOMMEND CONTINUOUS TO PROVIDE A LOWER RATE WHILE ILEUS RESOLVING. DISCUSSED CONTINUOUS TF WITH PATIENT'S MOTHER. RECENTLY HAD LOWER TEETH EXTRACTED. LIMITED PO AT CARE FACILITY DUE TO DENTAL ISSUES. FOLLOW FOR TUBE FEED TOLERANCE AND DIET ADVANCEMENT. SEE CLINICAL NUTRITION ASSESSMENT 02/02/25.
[2025-02-02 15:20] LABS: E. coli EAEC Not Detected (Not Detect.); E. coli EPEC Not Detected (Not Detect.); E. coli ETEC Not Detected (Not Detect.); E. coli STEC Not Detected (Not Detect.); Shigella sp./EIEC Not Detected (Not Detect.)
--- NOTE | 2025-02-02 15:32 | HO.PM.IMPN ---
Subjective Subjective Date of Service: 02/02/25 Interval History: Patient seen examined at bedside this morning, patient is nonverbal, lying in bed. Per nursing staff, patient has been experiencing increase gas and ostomy bag. Awaiting to be seen by surgery. Review of Systems Review of Systems: Yes Unobtainable due to mental condition Physical Exam Exam: Exam: General: Alert, non verbal in No acute distress Head: AT/NC ENT: Moist mucous membranes Neck: supple CVS; RRR, S1 S2 normal Lungs: Clear bilateral breath sounds, no wheezes or crackles Abd: Soft non tender, non distended, colostomy bag in place with stool and air Ext: Spasticity MSK: moving all 4 limbs Skin: No cyanosis or edema Psych: UTO Neurology: Spasticity Vital Signs: Vital Signs: Last Vital Signs Temp 99.4 F 02/02/25 10:09 Pulse 103 H 02/02/25 10:09 Resp 18 02/02/25 10:09 BP 110/63 02/02/25 10:09 Pulse Ox 94 02/02/25 10:09 O2 Del Method Room Air 02/02/25 10:09 BMI result Body Mass Index 16.8 Objective Data Active Medications Acetaminophen (Acetaminophen 325 Mg Tablet) 650 mg PO Q6H PRN PRN Reason: Pain, Mild 1-3,fever,headache Albuterol/Ipratropium (Albuterol/Iprat 2.5/0.5mg 3 Ml Ampul.Neb) 3 ml INHALE Q4H PRN PRN Reason: Shortness of Breath/Wheezing Artificial Tears (Artificial Tears 15 Ml Drops) 1 drop EYE-BOTH DAILY [facility] Baclofen (Baclofen 10 Mg Tablet) 10 mg G-TUBE TID [facility]USAN Bisacodyl (Bisacodyl 10 Mg Supp.Rect) 10 mg DC BEDTIME PRN PRN Reason: Constipation Chlorhexidine Gluconate (Chlorhexidine Gluc Oral Rinse 15 Ml Mouthwash) 15 ml BUCCAL BID SUSAN Enoxaparin Sodium (Enoxaparin Sodium 40 Mg/0.4 Ml Syringe) 40 mg SUBCUT Q24H [facility] Last Admin: 02/01/25 22:48 Dose: 40 mg Documented By: DEVON Escitalopram Oxalate (Escitalopram Oxalate 5 Mg Tablet) 15 mg G-TUBE DAILY [facility] Dextrose/Sodium Chloride (D5ns) 1,000 mls @ 100 mls/hr IVCONT .Q10H [facility] Last Admin: 02/02/25 09:01 Dose: 100 mls/hr Documented By: RASHMI Ceftriaxone Sodium 1 gm/ (Sodium Chloride) 50 mls @ 100 mls/hr IV Q24H [facility] Valproic Acid 125 mg/ Dextrose 51.25 mls @ 52.5 mls/hr IV Q6H [facility] Levothyroxine Sodium (Levothyroxine Sodium 100 Mcg Tablet) 100 mcg G-TUBE DAILY@0600 [facility] Loperamide HCl (Loperamide Hcl 2 Mg Capsule) 2 mg G-TUBE BID PRN PRN Reason: LOOSE STOOLS Magnesium Hydroxide (Milk Of Magnesia 30 Ml Oral.Susp) 30 ml G-TUBE DAILY PRN PRN Reason: Constipation Melatonin (Melatonin 3 Mg Tablet) 6 mg PO BEDTIME PRN PRN Reason: Insomnia Mirtazapine (Mirtazapine 30 Mg Tablet) 30 mg G-TUBE BEDTIME [facility] Non-Formulary Medication (Amantadine Hcl) 50 mg feeding tube DAILY [facility] Omeprazole (Omeprazole/Na Bicarb Oral Susp 20 Mg/10 Ml Ud Cup) 20 mg G-TUBE BID@0630,1630 [facility] Pantoprazole Sodium (Pantoprazole Sodium 40 Mg/10 Ml Vial) 40 mg IVPUSH DAILY@0630 [facility] Last Admin: 02/02/25 06:56 Dose: 40 mg Documented By: GREG Simethicone (Simethicone 80 Mg Tab.Chew) 80 mg PO QIDWMHS PRN PRN Reason: Gas Sodium Chloride (0.9 % Sodium Chloride Flush 3 Ml Syringe) 3 ml IVFLUSH QSHIFT [facility] Last Admin: 02/02/25 09:01 Dose: Not Given Documented By: RASHMI Non-Admin Reason: IV Running Thiamine HCl (Thiamine Hcl 100 Mg Tablet) 100 mg G-TUBE DAILY [facility] Trazodone HCl (Trazodone Hcl 100 Mg Tablet) 100 mg G-TUBE BEDTIME [facility] Labs 02/02/25 02:40 02/02/25 02:40 Labs: Laboratory Results - last 24 hr 02/01/25 02/01/25 02/01/25 18:00 18:00 18:00 MCV 93.1 MCH 31.3 MCHC 33.6 RDW 12.9 Plt Count 194 D MPV 12.5 H Immature Gran % (Auto) 0.3 Neut % (Auto) 57.4 Lymph % (Auto) 33.1 [place] % (Auto) 8.9 Eos % (Auto) 0.1 Baso % (Auto) 0.2 Lymph # (Auto) 3.3 [place] # (Auto) 0.9 Eos # (Auto) 0.0 Baso # (Auto) 0.0 Abs Immat Gran (auto) 0.03 Absolute Neuts (auto) 5.8 Absolute Nucleated RBC 0.000 Nucleated RBC % (auto) 0.0 PT 11.6 INR 1.0 APTT 25.7 L Anion Gap Cancelled 15 Estim Creat Clear Calc Cancelled 111.5 Estimated GFR Cancelled Random Glucose Lactic Acid Calcium Magnesium Total Bilirubin AST ALT Alkaline Phosphatase Total Protein Albumin TSH Free T4 Beta HCG, Quant Urine Color Urine Appearance Urine pH Ur Specific [place] Urine Protein Urine Glucose (UA) Urine Ketones Urine Blood Urine Nitrite Ur Leukocyte Esterase Urine RBC Urine WBC Ur Squamous Epith Cells Other Crystals Urine Bacteria Hyaline Casts 02/01/25 02/01/25 02/01/25 18:00 18:00 18:00 MCV MCH MCHC RDW Plt Count MPV Immature Gran % (Auto) Neut % (Auto) Lymph % (Auto) [place] % (Auto) Eos % (Auto) Baso % (Auto) Lymph # (Auto) [place] # (Auto) Eos # (Auto) Baso # (Auto) Abs Immat Gran (auto) Absolute Neuts (auto) Absolute Nucleated RBC Nucleated RBC % (auto) PT INR APTT Anion Gap Estim Creat Clear Calc Estimated GFR > 60 Random Glucose Cancelled 85 Lactic Acid 1.2 Calcium Cancelled 9.2 Magnesium 1.9 Total Bilirubin 0.4 AST ALT Alkaline Phosphatase Total Protein Albumin TSH 5.68 H Free T4 1.05 Beta HCG, Quant < 2 Urine Color Urine Appearance Urine pH Ur Specific [place] Urine Protein Urine Glucose (UA) Urine Ketones Urine Blood Urine Nitrite Ur Leukocyte Esterase Urine RBC Urine WBC Ur Squamous Epith Cells Other Crystals Urine Bacteria Hyaline Casts 02/01/25 02/02/25 18:05 02:40 MCV 94.2 MCH 31.2 MCHC 33.1 RDW 13.0 Plt Count 152 L MPV 12.2 Immature Gran % (Auto) 0.3 Neut % (Auto) 40.8 L Lymph % (Auto) 49.3 H [place] % (Auto) 9.4 Eos % (Auto) 0.1 Baso % (Auto) 0.1 Lymph # (Auto) 3.6 [place] # (Auto) 0.7 Eos # (Auto) 0.0 Baso # (Auto) 0.0 Abs Immat Gran (auto) 0.02 Absolute Neuts (auto) 2.9 Absolute Nucleated RBC 0.000 Nucleated RBC % (auto) 0.0 PT INR APTT Anion Gap 11 L Estim Creat Clear Calc 122.5 Estimated GFR > 60 Random Glucose 84 Lactic Acid Calcium 8.6 D Magnesium Total Bilirubin 0.3 AST 24 ALT 20 Alkaline Phosphatase 95 Total Protein 6.2 L Albumin 3.7 TSH Free T4 Beta HCG, Quant Urine Color BROWN Urine Appearance Turbid Urine pH 8.5 Ur Specific [place] 1.010 Urine Protein 300 (3+) H Urine Glucose (UA) 100 H Urine Ketones Trace Urine Blood Large (3+) H Urine Nitrite Positive H Ur Leukocyte Esterase TNP Urine RBC 3-5 H Urine WBC 0-5 Ur Squamous Epith Cells 6-10 Other Crystals Present Urine Bacteria 4+ Hyaline Casts 3-5 Microbiology Microbiology Results: Microbiology 02/01/25 17:55 Blood Culture - Final Blood - Venous 02/01/25 18:00 Blood Culture - Final Blood - Venous 02/01/25 Unknown Urine Culture - Preliminary Urine Catheterized - Straight Catheter Culture too young to evaluate. Assessment and Plan (1) UTI (urinary tract infection): Status: Acute (2) Ileus: Status: Acute (3) Neuromuscular dysfunction of bladder: Status: Acute (4) TBI (traumatic brain injury): Status: Acute Plan Patient is a 44-year-old developmentally delayed female from [facility] with past medical history, pilaris pyelonephritis, cellulitis, anemia, bipolar 1 disorder, TBI with G-tube in place was BIBA for question of G-tube function and for evaluation of G-tube. Patient is nonverbal but per ED record patient presented with fever, tachycardia and ultrasound of the abdomen at the bedside noted abdomen blunt with no free fluid. KUB identified a possible developing bowel obstruction versus ileus. CTA of the abdomen and pelvis notes gaseous distention of bowel suggesting possible ileus. The G-tube is placed correctly without any gastrostomy tube leak. UA positive for UTI. Ileus NPO Starting IV fluids with dextrose General surgery consulted continue w/ bowel regimen and Antiemetics Pain management as needed continue ceftriaxone UTI/ urinary retention Neuromuscular bladder dysfunction continue w/ abs as above, will adjust pending uring culture continue w. periwick to protect skin as pt is incontinent of yellow urine ? Colovesical fistula Patient's mother states this was not investigated prior, but workup was negative Patient does have colostomy CT notes prior near-total colectomy with rectal stump surgery consulted Malnutrition w/ recent dental extractures continue w/ feeding per dietary recs Recent lower dental extractions/ presence of G-tube Cognitive dysfunction with TBI history Patient is nonverbal, communicates using word board Patient currently bed-bound continue with assistance for her ADLs and IADLs G-tube properly placed Patient currently NPO with ileus We will avoid use of G-tube at this time Hypothyroidism Continue levothyroxine GERD Protonix IV Bipolar 1 disorder continue valproic acid DVT prophylaxis: Lovenox Code Status: Full code Quality Stroke Does the patient have a stroke diagnosis?: No Reason for No Anti-thrombotic by Day Two: N/A - Med Ordered VTE Prior VTE?: No VTE Risk Level:: Medical - moderate - high VTE Device Contraindication: N/A - Device Ordered VTE Drug Contraindication: N/A - Med Ordered
[2025-02-02] MEDS: Omeprazole/Na Bicarb Oral Susp 20 MG/10 ML UD Cup G-TUBE (16:00)
--- NOTE | 2025-02-02 18:40 | PC.NURSE ---
continuous tube feeding started at 1829, residual checked prior to beginning tube feed was 0mls, HOB at 30 degrees, tube feed started at 20mls/hr with a max goal of 50mls/hr, 120ml flush q6 given at 1829
[2025-02-02] MEDS: Chlorhexidine Gluc Oral Rinse 15 ML MOUTHWASH BUCCAL (21:13)
[2025-02-02] MEDS: 0.9 % Sodium Chloride Flush 3 ML SYRINGE IVFLUSH (23:40)
[2025-02-03 03:08] VITALS: BP 117/64; PULSE 84; RESP 15; TEMP 36.4; O2SAT 98
[2025-02-03] MEDS: Valproic Acid (as Sodium Salt) 125 MG in Dextrose 5 % 50 ML 52.5 MG IV ×2 (05:05→13:01)
[2025-02-03] MEDS: Omeprazole/Na Bicarb Oral Susp 20 MG/10 ML UD Cup G-TUBE ×2 (05:56→15:49)
[2025-02-03 07:51] VITALS: BP 94/55; PULSE 71; RESP 16; TEMP 36.1; O2SAT 99
[2025-02-03] MEDS: Chlorhexidine Gluc Oral Rinse 15 ML MOUTHWASH BUCCAL ×2 (08:58→20:36)
--- NOTE | 2025-02-03 10:26 | PM.PNGS ---
Subjective Subjective Date of Service: 02/03/25 Interval history: No events overnight No fever Urine has been clear Tolerating tube feeds Physical Exam Vital Signs: Vital Signs: Last Vital Signs Temp 96.9 F 02/03/25 07:51 Pulse 71 02/03/25 07:51 Resp 16 02/03/25 07:51 BP 94/55 L 02/03/25 07:51 Pulse Ox 99 02/03/25 07:51 O2 Del Method Room Air 02/03/25 07:51 BMI result Body Mass Index 16.8 Const: Other: Mental status as baseline, no verbal output General: comfortable and no acute distress Resp: Effort & Inspection: normal respiratory effort Cardio: Rate: regular rate GI: Other: With ileostomy, feeding tube Palpation (GI): Soft to palpation Objective Data Active Medications Acetaminophen (Acetaminophen 325 Mg Tablet) 650 mg PO Q6H PRN PRN Reason: Pain, Mild 1-3,fever,headache Albuterol/Ipratropium (Albuterol/Iprat 2.5/0.5mg 3 Ml Ampul.Neb) 3 ml INHALE Q4H PRN PRN Reason: Shortness of Breath/Wheezing Artificial Tears (Artificial Tears 15 Ml Drops) 1 drop EYE-BOTH DAILY [facility] Baclofen (Baclofen 10 Mg Tablet) 10 mg G-TUBE TID [facility] Last Admin: 02/03/25 08:58 Dose: 10 mg Documented By: SHAQUILLE Bisacodyl (Bisacodyl 10 Mg Supp.Rect) 10 mg LA BEDTIME PRN PRN Reason: Constipation Chlorhexidine Gluconate (Chlorhexidine Gluc Oral Rinse 15 Ml Mouthwash) 15 ml BUCCAL BID [facility] Last Admin: 02/03/25 08:58 Dose: 15 ml Documented By: SHAQUILLE Enoxaparin Sodium (Enoxaparin Sodium 40 Mg/0.4 Ml Syringe) 40 mg SUBCUT Q24H [facility] Last Admin: 02/02/25 21:14 Dose: 40 mg Documented By: HIGINIO Escitalopram Oxalate (Escitalopram Oxalate 5 Mg Tablet) 15 mg G-TUBE DAILY [facility] Last Admin: 02/03/25 08:58 Dose: 15 mg Documented By: SHAQUILLE Dextrose/Sodium Chloride (D5ns) 1,000 mls @ 100 mls/hr IVCONT .Q10H [facility] Last Infusion: 02/03/25 06:06 Dose: 100 mls/hr Documented By: HIGINIO Ceftriaxone Sodium 1 gm/ (Sodium Chloride) 50 mls @ 100 mls/hr IV Q24H [facility] Last Infusion: 02/02/25 19:05 Dose: Infused Documented By: HIGINIO Valproic Acid 125 mg/ Dextrose 51.25 mls @ 52.5 mls/hr IV Q6H [facility] Last Infusion: 02/03/25 06:05 Dose: Infused Documented By: HIGINIO Levothyroxine Sodium (Levothyroxine Sodium 100 Mcg Tablet) 100 mcg G-TUBE DAILY@0600 [facility] Last Admin: 02/03/25 05:56 Dose: 100 mcg Documented By: HIGINIO Loperamide HCl (Loperamide Hcl 2 Mg Capsule) 2 mg G-TUBE BID PRN PRN Reason: LOOSE STOOLS Magnesium Hydroxide (Milk Of Magnesia 30 Ml Oral.Susp) 30 ml G-TUBE DAILY PRN PRN Reason: Constipation Melatonin (Melatonin 3 Mg Tablet) 6 mg PO BEDTIME PRN PRN Reason: Insomnia Mirtazapine (Mirtazapine 30 Mg Tablet) 30 mg G-TUBE BEDTIME [facility] Last Admin: 02/02/25 21:13 Dose: 30 mg Documented By: HIGINIO Non-Formulary Medication (Amantadine Hcl) 50 mg feeding tube DAILY [facility] Omeprazole (Omeprazole/Na Bicarb Oral Susp 20 Mg/10 Ml Ud Cup) 20 mg G-TUBE BID@0630,1630 [facility] Last Admin: 02/03/25 05:56 Dose: 20 mg Documented By: HIGINIO Pantoprazole Sodium (Pantoprazole Sodium 40 Mg/10 Ml Vial) 40 mg IVPUSH DAILY@0630 [facility] Last Admin: 02/03/25 06:06 Dose: 40 mg Documented By: HIGINIO Simethicone (Simethicone 80 Mg Tab.Chew) 80 mg PO QIDWMHS PRN PRN Reason: Gas Sodium Chloride (0.9 % Sodium Chloride Flush 3 Ml Syringe) 3 ml IVFLUSH QSHIFT [facility] Last Admin: 02/03/25 08:59 Dose: Not Given Documented By: SHAQUILLE Non-Admin Reason: IV Running Thiamine HCl (Thiamine Hcl 100 Mg Tablet) 100 mg G-TUBE DAILY [facility] Last Admin: 02/03/25 08:58 Dose: 100 mg Documented By: SHAQUILLE Trazodone HCl (Trazodone Hcl 100 Mg Tablet) 100 mg G-TUBE BEDTIME [facility] Last Admin: 02/02/25 21:13 Dose: 100 mg Documented By: HIGINIO Labs 02/02/25 02:40 02/02/25 02:40 Labs: Laboratory Results - last 24 hr 02/02/25 11:15 Stl C. cayetanensis PCR Not Detected Stool Rotavirus A PCR Not Detected Stl Adenov F 40/ PCR Not Detected Stool Astrovirus (PCR) Not Detected Stool Campylobacter PCR Not Detected Stool Cryptosporidium PCR Not Detected Stl Sh Tox Pr E STEC PCR Not Detected Stool E coli O157 PCR Not applicable Stl Enterotoxigenic E PCR Not Detected Stool EPEC (PCR) Not Detected Stool EAEC (PCR) Not Detected Stl E. histolytica PCR Not Detected Stool Giardia Lamblia PCR Not Detected Stl P. shigelloides PCR Not Detected Stool Salmonella PCR Not Detected Stool Sapovirus (PCR) Not Detected Stl Shigella/EIEC PCR Not Detected St Y.enterocolitica PCR Not Detected Stool Vibrio (PCR) Not Detected Stl Vibrio cholerae PCR Not Detected Stl Norovirus GI/GII PCR Not Detected Microbiology Microbiology Results: Microbiology 02/01/25 18:00 Blood Culture - Preliminary Blood - Venous No growth after 24 hours. 02/01/25 17:55 Blood Culture - Final Blood - Venous 02/01/25 18:00 Blood Culture - Final Blood - Venous 02/01/25 Unknown Urine Culture - Preliminary Urine Catheterized - Straight Catheter Culture too young to evaluate. Procedures Date of Service Date of Service: 02/03/25 Progress Note: A&P Assessment and plan (1) UTI (urinary tract infection): Status: Acute Assessment and Plan: Consult done because of question of colovesical fistula Very small locule of air in bladder maybe from precatheterization Urine has been clear the past 2 days She is also diverting, had a subtotal colectomy and ileostomy It may he will be possible that she has a fistula from the staple line in the rectal pouch but urine has been clear already No surgical intervention planned currently Mother at bedside - she also states that she would like to avoid any further surgical intervention as much as possible Time Spent With Patient Time: Total time managing care of this patient today ____ minutes. Quality Stroke Does the patient have a stroke diagnosis?: No Reason for No Anti-thrombotic by Day Two: N/A - Med Ordered VTE Prior VTE?: No VTE Risk Level:: Medical - moderate - high VTE Device Contraindication: N/A - Device Ordered VTE Drug Contraindication: N/A - Med Ordered
[2025-02-03] MEDS: Artificial Tears 15 ML DROPS 1 DROP EYE-BOTH (13:02)
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
--- NOTE | 2025-02-03 14:29 | MHC.CM.PN ---
Addendum entered by Sherly Sylvester 02/04/25 14:40: PT CLEARED TO DC TODAY CM SPOKE TO [facility], THEY ARE AGREEABLE TO 1400 HOUR TRANSPORT PT AND MOTHER NOTIFIED AT BEDSIDE Addendum entered by Sherly Sylvester 02/03/25 14:57: DC CANCELLED, PT WITH FEVER Original Note: PT CLEARED TO DC BACK TO LTC TODAY CM SENT UPDATES [facility]IA [facility] WITH NO RESPONSE CM CALLED [facility] AND SPOKE TO STANISLAW RN ON [address] SHE IS AWARE OF PTS PENDING DC AND NEW MEDS NEEDED DCS FAXED TO HER AT [phone] BLS TRANSPORT BOOKED FOR 1445 WITH LAURA MOTHER/HCP INFORMED AT BEDSIDE
--- NOTE | 2025-02-03 15:01 | HO.PM.IMPN ---
Subjective Subjective Date of Service: 02/03/25 Interval History: tolerating tube feeds, stoma functioning, urine clear, was set to be d/c'ed back to [facility] but then had fever of 101 orally Review of Systems Review of Systems: Yes Unobtainable due to mental status Physical Exam Vital Signs: Vital Signs: Last Vital Signs Temp 96.9 F 02/03/25 07:51 Pulse 71 02/03/25 07:51 Resp 16 02/03/25 07:51 BP 94/55 L 02/03/25 07:51 Pulse Ox 99 02/03/25 07:51 O2 Del Method Room Air 02/03/25 07:51 BMI result Body Mass Index 16.8 Gen: nonverbal, bedbound HEENT: sclera anicteric, moist mucus membranes Neck: supple Lungs: clear to auscultation bilaterally Heart: regular rate and rhythm, no murmurs Abd: colostomy pink with liquid stool output, normal bowel sounds Ext: no edema Skin: warm/well-perfused Neuro: alert, generalized spasticity Psych: appropriate affect Objective Data Active Medications Acetaminophen (Acetaminophen 325 Mg Tablet) 650 mg PO Q6H PRN PRN Reason: Pain, Mild 1-3,fever,headache Albuterol/Ipratropium (Albuterol/Iprat 2.5/0.5mg 3 Ml Ampul.Neb) 3 ml INHALE Q4H PRN PRN Reason: Shortness of Breath/Wheezing Artificial Tears (Artificial Tears 15 Ml Drops) 1 drop EYE-BOTH DAILY [facility] Last Admin: 02/03/25 13:02 Dose: 1 drop Documented By: SHAQUILLE Baclofen (Baclofen 10 Mg Tablet) 10 mg G-TUBE TID [facility] Last Admin: 02/03/25 08:58 Dose: 10 mg Documented By: SHAQUILLE Bisacodyl (Bisacodyl 10 Mg Supp.Rect) 10 mg MS BEDTIME PRN PRN Reason: Constipation Chlorhexidine Gluconate (Chlorhexidine Gluc Oral Rinse 15 Ml Mouthwash) 15 ml BUCCAL BID [facility] Last Admin: 02/03/25 08:58 Dose: 15 ml Documented By: SHAQUILLE Enoxaparin Sodium (Enoxaparin Sodium 40 Mg/0.4 Ml Syringe) 40 mg SUBCUT Q24H [facility] Last Admin: 02/02/25 21:14 Dose: 40 mg Documented By: HO.SEXK Escitalopram Oxalate (Escitalopram Oxalate 5 Mg Tablet) 15 mg G-TUBE DAILY [facility] Last Admin: 02/03/25 08:58 Dose: 15 mg Documented By: SHAQUILLE Dextrose/Sodium Chloride (D5ns) 1,000 mls @ 100 mls/hr IVCONT .Q10H [facility] Last Admin: 02/03/25 10:48 Dose: 100 mls/hr Documented By: SHAQUILLE Ceftriaxone Sodium 1 gm/ (Sodium Chloride) 50 mls @ 100 mls/hr IV Q24H [facility] Last Infusion: 02/02/25 19:05 Dose: Infused Documented By: HIGINIO Valproic Acid 125 mg/ Dextrose 51.25 mls @ 52.5 mls/hr IV Q6H [facility] Last Infusion: 02/03/25 14:06 Dose: Infused Documented By: SHAQUILLE Levothyroxine Sodium (Levothyroxine Sodium 100 Mcg Tablet) 100 mcg G-TUBE DAILY@0600 [facility] Last Admin: 02/03/25 05:56 Dose: 100 mcg Documented By: HIGINIO Loperamide HCl (Loperamide Hcl 2 Mg Capsule) 2 mg G-TUBE BID PRN PRN Reason: LOOSE STOOLS Magnesium Hydroxide (Milk Of Magnesia 30 Ml Oral.Susp) 30 ml G-TUBE DAILY PRN PRN Reason: Constipation Melatonin (Melatonin 3 Mg Tablet) 6 mg PO BEDTIME PRN PRN Reason: Insomnia Mirtazapine (Mirtazapine 30 Mg Tablet) 30 mg G-TUBE BEDTIME [facility] Last Admin: 02/02/25 21:13 Dose: 30 mg Documented By: HIGINIO Non-Formulary Medication (Amantadine Hcl) 50 mg feeding tube DAILY [facility] Omeprazole (Omeprazole/Na Bicarb Oral Susp 20 Mg/10 Ml Ud Cup) 20 mg G-TUBE BID@0630,1630 [facility] Last Admin: 02/03/25 05:56 Dose: 20 mg Documented By: HIGINIO Pantoprazole Sodium (Pantoprazole Sodium 40 Mg/10 Ml Vial) 40 mg IVPUSH DAILY@0630 [facility] Last Admin: 02/03/25 06:06 Dose: 40 mg Documented By: HIGINIO Simethicone (Simethicone 80 Mg Tab.Chew) 80 mg PO QIDWMHS PRN PRN Reason: Gas Sodium Chloride (0.9 % Sodium Chloride Flush 3 Ml Syringe) 3 ml IVFLUSH QSHIFT [facility] Last Admin: 02/03/25 08:59 Dose: Not Given Documented By: SHAQUILLE Non-Admin Reason: IV Running Thiamine HCl (Thiamine Hcl 100 Mg Tablet) 100 mg G-TUBE DAILY [facility] Last Admin: 02/03/25 08:58 Dose: 100 mg Documented By: SHAQUILLE Trazodone HCl (Trazodone Hcl 100 Mg Tablet) 100 mg G-TUBE BEDTIME [facility] Last Admin: 02/02/25 21:13 Dose: 100 mg Documented By: HIGINIO Labs 02/02/25 02:40 02/02/25 02:40 Labs: Laboratory Results - last 24 hr 02/02/25 11:15 Stl C. cayetanensis PCR Not Detected Stool Rotavirus A PCR Not Detected Stl Adenov F PCR Not Detected Stool Astrovirus (PCR) Not Detected Stool Campylobacter PCR Not Detected Stool Cryptosporidium PCR Not Detected Stl Sh Tox Pr E STEC PCR Not Detected Stool E coli O157 PCR Not applicable Stl Enterotoxigenic E PCR Not Detected Stool EPEC (PCR) Not Detected Stool EAEC (PCR) Not Detected Stl E. histolytica PCR Not Detected Stool Giardia Lamblia PCR Not Detected Stl P. shigelloides PCR Not Detected Stool Salmonella PCR Not Detected Stool Sapovirus (PCR) Not Detected Stl Shigella/EIEC PCR Not Detected St Y.enterocolitica PCR Not Detected Stool Vibrio (PCR) Not Detected Stl Vibrio cholerae PCR Not Detected Stl Norovirus GI/GII PCR Not Detected Microbiology Microbiology Results: Microbiology 02/01/25 Unknown Urine Culture - Preliminary Urine Catheterized - Straight Catheter Culture in progress. 02/01/25 18:00 Blood Culture - Preliminary Blood - Venous No growth after 24 hours. 02/01/25 17:55 Blood Culture - Final Blood - Venous 02/01/25 18:00 Blood Culture - Final Blood - Venous Assessment and Plan (1) UTI (urinary tract infection): Status: Acute (2) Ileus: Status: Acute (3) Neuromuscular dysfunction of bladder: Status: Acute (4) TBI (traumatic brain injury): Status: Acute Plan d3, 44yo F with TBI s/p G tube brought in for question of G-tube malfunction; found to have fever and tachycardia; question of ileus; found to have UTI UTI - ceftriaxone 02/02- follow UCx, BCx ileus - resolved; possibly related to general anesthesia for dental work 01/31 vs UTI; continue tube feeds at goal 50 mL/hr per Nutrition recomendations colovesical fistula, not - discussed with Gen Surg + Urology, unlikely to have fistula as colon was resected and urine is now clear TBI: nonverbal but understands verbal communication and communicates using word board hypothyroidism: 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 Quality Stroke Does the patient have a stroke diagnosis?: No Reason for No Anti-thrombotic by Day Two: N/A - Med Ordered VTE Prior VTE?: No VTE Risk Level:: Medical - moderate - high VTE Device Contraindication: N/A - Device Ordered VTE Drug Contraindication: N/A - Med Ordered
[2025-02-03 15:15] VITALS: TEMP 37.7
[2025-02-03 16:00] VITALS: BP 125/78; PULSE 90; RESP 16; TEMP 37.2; O2SAT 100
[2025-02-03 19:05] VITALS: BP 110/52; PULSE 70; RESP 16; TEMP 36.8; O2SAT 96
[2025-02-04 03:13] VITALS: BP 100/57; PULSE 73; RESP 15; TEMP 36.8; O2SAT 98
[2025-02-04] MEDS: Omeprazole/Na Bicarb Oral Susp 20 MG/10 ML UD Cup G-TUBE (05:39)
[2025-02-04 08:00] VITALS: BP 102/55; PULSE 68; RESP 18; TEMP 36.7; O2SAT 99
[2025-02-04] MEDS: Chlorhexidine Gluc Oral Rinse 15 ML MOUTHWASH BUCCAL (09:10)
[2025-02-04] MEDS: Valproic Acid Liquid 250 MG/5 ML SOLUTION 500 MG G-TUBE (09:10)
[2025-02-04] MEDS: Artificial Tears 15 ML DROPS 1 DROP EYE-BOTH (09:10)
--- NOTE | 2025-02-04 09:40 | PM.PNGS ---
Subjective Subjective Date of Service: 02/04/25 Interval history: No changes reported No events overnight Urine remains clear Physical Exam Vital Signs: Vital Signs: Last Vital Signs Temp 98.0 F 02/04/25 08:00 Pulse 68 02/04/25 08:00 Resp 18 02/04/25 08:00 BP 102/55 L 02/04/25 08:00 Pulse Ox 99 02/04/25 08:00 O2 Del Method Room Air 02/04/25 08:00 BMI result Body Mass Index 16.8 Const: Other: Nonverbal General: comfortable and no acute distress Resp: Effort & Inspection: normal respiratory effort Cardio: Rate: regular rate GI: Palpation (GI): Soft to palpation, not firm and nontender : Other: Urine clear Objective Data Active Medications Acetaminophen (Acetaminophen 325 Mg Tablet) 650 mg G-TUBE Q6H PRN PRN Reason: Pain, Mild 1-3,fever,headache Last Admin: 02/03/25 15:48 Dose: 650 mg Documented By: SHAQUILLE Albuterol/Ipratropium (Albuterol/Iprat 2.5/0.5mg 3 Ml Ampul.Neb) 3 ml INHALE Q4H PRN PRN Reason: Shortness of Breath/Wheezing Artificial Tears (Artificial Tears 15 Ml Drops) 1 drop EYE-BOTH DAILY [facility] Last Admin: 02/04/25 09:10 Dose: 1 drop Documented By: SCOOBY Baclofen (Baclofen 10 Mg Tablet) 10 mg G-TUBE TID [facility] Last Admin: 02/04/25 09:10 Dose: 10 mg Documented By: SCOOBY Bisacodyl (Bisacodyl 10 Mg Supp.Rect) 10 mg LA BEDTIME PRN PRN Reason: Constipation Chlorhexidine Gluconate (Chlorhexidine Gluc Oral Rinse 15 Ml Mouthwash) 15 ml BUCCAL BID [facility] Last Admin: 02/04/25 09:10 Dose: 15 ml Documented By: SCOOBY Enoxaparin Sodium (Enoxaparin Sodium 40 Mg/0.4 Ml Syringe) 40 mg SUBCUT Q24H [facility] Last Admin: 02/03/25 20:36 Dose: 40 mg Documented By: HIGINIO Escitalopram Oxalate (Escitalopram Oxalate 5 Mg Tablet) 15 mg G-TUBE DAILY [facility] Last Admin: 02/04/25 09:10 Dose: 15 mg Documented By: SCOOBY Ceftriaxone Sodium 1 gm/ (Sodium Chloride) 50 mls @ 100 mls/hr IV Q24H [facility] Last Infusion: 02/03/25 18:23 Dose: Infused Documented By: SHAQUILLE Dextrose/Sodium Chloride (D5ns) 1,000 mls @ 100 mls/hr IVCONT .Q10H [facility] Last Admin: 02/04/25 01:23 EDT Dose: 100 mls/hr Documented By: HIGINIO Levothyroxine Sodium (Levothyroxine Sodium 100 Mcg Tablet) 100 mcg G-TUBE DAILY@0600 [facility] Last Admin: 02/04/25 05:39 Dose: 100 mcg Documented By: HIGINIO Loperamide HCl (Loperamide Hcl 2 Mg Capsule) 2 mg G-TUBE BID PRN PRN Reason: LOOSE STOOLS Magnesium Hydroxide (Milk Of Magnesia 30 Ml Oral.Susp) 30 ml G-TUBE DAILY PRN PRN Reason: Constipation Melatonin (Melatonin 3 Mg Tablet) 6 mg PO BEDTIME PRN PRN Reason: Insomnia Mirtazapine (Mirtazapine 30 Mg Tablet) 30 mg G-TUBE BEDTIME [facility] Last Admin: 02/03/25 20:36 Dose: 30 mg Documented By: HIGINIO Non-Formulary Medication (Amantadine Hcl) 50 mg feeding tube DAILY [facility] Omeprazole (Omeprazole/Na Bicarb Oral Susp 20 Mg/10 Ml Ud Cup) 20 mg G-TUBE BID@0630,1630 [facility] Last Admin: 02/04/25 05:39 Dose: 20 mg Documented By: HIGINIO Pantoprazole Sodium (Pantoprazole Sodium 40 Mg/10 Ml Vial) 40 mg IVPUSH DAILY@0630 [facility] Last Admin: 02/04/25 05:39 Dose: 40 mg Documented By: HIGINIO Simethicone (Simethicone 80 Mg Tab.Chew) 80 mg PO QIDWMHS PRN PRN Reason: Gas Sodium Chloride (0.9 % Sodium Chloride Flush 3 Ml Syringe) 3 ml IVFLUSH QSHIFT [facility] Last Admin: 02/03/25 23:12 Dose: Not Given Documented By: HIGINIO Non-Admin Reason: IV Running Thiamine HCl (Thiamine Hcl 100 Mg Tablet) 100 mg G-TUBE DAILY [facility] Last Admin: 02/04/25 09:10 Dose: 100 mg Documented By: SCOOBY Trazodone HCl (Trazodone Hcl 100 Mg Tablet) 100 mg G-TUBE BEDTIME [facility] Last Admin: 02/03/25 20:36 Dose: 100 mg Documented By: HIGINIO Valproic Acid (Valproic Acid Liquid 250 Mg/5 Ml Solution) 500 mg G-TUBE DAILY [facility] Last Admin: 02/04/25 09:10 Dose: 500 mg Documented By: SCOOBY Labs 02/02/25 02:40 02/02/25 02:40 Microbiology Microbiology Results: Microbiology 02/01/25 18:00 Blood Culture - Preliminary Blood - Venous No growth after 48 hours. 02/01/25 17:57 Blood Culture - Preliminary Blood - Venous No growth after 24 hours. 02/01/25 Unknown Urine Culture - Preliminary Urine Catheterized - Straight Catheter Culture in progress. Procedures Date of Service Date of Service: 02/04/25 Progress Note: A&P Assessment and plan (1) UTI (urinary tract infection): Status: Acute Assessment and Plan: Urine has been clear for 3 days Clinically does not seem to have rectovesical fistula She is already diverted with a an ileostomy It is still possible she may have developed a small fistula from the staple line of the rectal pouch No surgical intervention necessary currently Time Spent With Patient Time: Total time managing care of this patient today ____ minutes. Quality Stroke Does the patient have a stroke diagnosis?: No Reason for No Anti-thrombotic by Day Two: N/A - Med Ordered VTE Prior VTE?: No VTE Risk Level:: Medical - moderate - high VTE Device Contraindication: N/A - Device Ordered VTE Drug Contraindication: N/A - Med Ordered
[2025-02-04] MEDS: 0.9 % Sodium Chloride Flush 3 ML SYRINGE IVFLUSH (10:03)
[2025-02-04 15:00] VITALS: BP 110/60; PULSE 89; RESP 18; TEMP 36.7; O2SAT 100
== END 2025-02-04 15:48 | disposition skilled nursing facility (03) | DRG 388 ==
LOC: HO.ED 18:06 → HO.EDOVER 21:02 → HO.S3 02-02 08:03
PROVIDERS: Nurse Practitioner Family; Admitting Provider Internal Medicine; Emergency Provider Emergency Medicine; PCP Hospitalist; Visit Provider Family Medicine
DX: K56.7 Ileus, unspecified (principal); R65.20 Severe sepsis without septic shock; N39.0 Urinary tract infection, site not specified; R33.9 Retention of urine, unspecified; S06.9XAS Unspecified intracranial injury with loss of consciousness status unknown, sequela; B96.4 Proteus (mirabilis) (morganii) as the cause of diseases classified elsewhere; F31.9 Bipolar disorder, unspecified; E03.9 Hypothyroidism, unspecified; Z93.2 Ileostomy status; Z93.1 Gastrostomy status; Z74.01 Bed confinement status; Z79.890 Hormone replacement therapy; Z79.899 Other long term (current) drug therapy
CPT/HCPCS: 36415; 74018; 74177; 80048; 80053; 81001; 82247; 83605; 83735; 84439; 84443; 84702; 85025; 85610; 85730; 87040; 87086; 87088; 87186; 87507; 93005; 99285; J0131; J0696; J1650; J1836; J2470; J7120; Q9967

== ENCOUNTER → 2025-02-01 17:34 | Outpatient (BNV) | payer MEDICARE, MEDICAID, SELFPAY | PROVIDERS: Emergency Provider Emergency Medicine; PCP Hospitalist; Visit Provider Radiology Diagnostic Radiology | DX: R19.30 Abdominal rigidity, unspecified site (principal); Z93.1 Gastrostomy status | CPT/HCPCS: 74177 ==

== ENCOUNTER → 2025-02-01 20:08 | Outpatient (BNV) | payer MEDICARE, MEDICAID, SELFPAY | PROVIDERS: Admitting Provider Internal Medicine; Emergency Provider Emergency Medicine; PCP Hospitalist; Visit Provider Internal Medicine | DX: R00.0 Tachycardia, unspecified (principal) | CPT/HCPCS: 93010 ==

== ENCOUNTER → 2025-02-01 20:59 | Outpatient (BNV) | payer MEDICARE, MEDICAID, SELFPAY | PROVIDERS: Admitting Provider Internal Medicine; Emergency Provider Emergency Medicine; PCP Hospitalist; Visit Provider Urology | DX: N30.01 Acute cystitis with hematuria (principal) | CPT/HCPCS: 99222 ==

== ENCOUNTER → 2025-02-01 20:59 | Outpatient (BNV) | payer MEDICARE, MEDICAID, SELFPAY | PROVIDERS: Admitting Provider Internal Medicine; Emergency Provider Emergency Medicine; PCP Hospitalist; Visit Provider Nurse Practitioner Family | DX: N30.01 Acute cystitis with hematuria (principal); K56.7 Ileus, unspecified; N31.9 Neuromuscular dysfunction of bladder, unspecified; S06.9X9A Unspecified intracranial injury with loss of consciousness of unspecified duration, initial encounter | CPT/HCPCS: 99223; 99232; 99239 ==

== ENCOUNTER → 2025-02-01 20:59 | Outpatient (BNV) | payer MEDICARE, MEDICAID, SELFPAY | PROVIDERS: Admitting Provider Internal Medicine; Emergency Provider Emergency Medicine; PCP Hospitalist; Visit Provider Physician Assistant Surgical | DX: N30.01 Acute cystitis with hematuria (principal) | CPT/HCPCS: 99222; 99232 ==